=== PATIENT | female | born 1965 | race Caucasian/White ===

== ENCOUNTER 2022-09-03 07:53 | Outpatient (OUT) | payer OTHER, SELFPAY ==
[2022-09-03 09:16] LABS: Thyroid Stimulating Hormone 10.174 uIU/mL (0.358-3.740)
[2022-09-04 17:07] LABS: Thyroglobulin Antibody <1.0 IU/mL (0.0-0.9)
== END 2022-09-03 07:54 ==
LOC: LAB 07:58
PROVIDERS: PCP Family Medicine; Visit Provider Family Medicine
DX: E89.0 Postprocedural hypothyroidism (principal); C73 Malignant neoplasm of thyroid gland; E78.5 Hyperlipidemia, unspecified
CPT/HCPCS: 36415; 80061; 84432; 84443; 84450; 84460; 86800

== ENCOUNTER 2022-09-03 07:59 | Outpatient (OUT) | payer OTHER, SELFPAY ==
[2022-09-03 09:06] LABS: Alanine Aminotransferase 34 U/L (14-59); Aspartate Amino Transferase 33 U/L (15-37); Chol HDL Ratio 2.4; Cholesterol 157 mg/dL (<=200); HDL Cholesterol 66 mg/dL (40-60); Triglycerides 146 mg/dL (<=150); VLDL CHOLESTEROL 29.2 mg/dL
== END 2022-09-03 08:00 ==
LOC: LAB 08:01
PROVIDERS: PCP Family Medicine; Visit Provider Internal Medicine Cardiovascular Disease
DX: E78.5 Hyperlipidemia, unspecified (principal)
CPT/HCPCS: 36415; 80061; 84443; 84450; 84460

== ENCOUNTER 2022-09-30 18:01 | Outpatient (OUT) | payer OTHER, SELFPAY ==
[2022-09-30 21:00] LABS: Alanine Aminotransferase 30 U/L (14-59); Anion Gap 5.4; Aspartate Amino Transferase 26 U/L (15-37); BUN Creatinine Ratio 18.1; Calcium 8.9 mg/dL (8.5-10.1); Carbon Dioxide 31.6 mmol/L (21.0-32.0); Chloride 106 mmol/L (98-107); Chol HDL Ratio 2.5; Cholesterol 155 mg/dL (<=200); Estimated GFR (African America >60 (>=60); Estimated GFR (Non-African Ame >60 (>=60); Glucose 105 mg/dL (74-106); HDL Cholesterol 63 mg/dL (40-60); Sodium 139 mmol/L (136-145); Triglycerides 91 mg/dL (<=150); VLDL CHOLESTEROL 18.2 mg/dL
== END 2022-09-30 18:02 | disposition home or self-care (01) ==
PROVIDERS: PCP Family Medicine
DX: I10 Essential (primary) hypertension (principal); E78.5 Hyperlipidemia, unspecified; I25.10 Atherosclerotic heart disease of native coronary artery without angina pectoris
CPT/HCPCS: 36415; 80048; 80061; 84450; 84460

== ENCOUNTER 2022-09-30 18:07 | Outpatient (OUT) | payer OTHER, SELFPAY ==
[2022-09-30 21:03] LABS: Free T4 0.87 ng/dL (0.76-1.46)
[2022-09-30 21:08] LABS: Thyroid Stimulating Hormone 4.688 uIU/mL (0.358-3.740)
== END 2022-09-30 18:08 | disposition home or self-care (01) ==
PROVIDERS: PCP Family Medicine
DX: I10 Essential (primary) hypertension (principal); I25.10 Atherosclerotic heart disease of native coronary artery without angina pectoris; E78.5 Hyperlipidemia, unspecified; C73 Malignant neoplasm of thyroid gland
CPT/HCPCS: 36415; 80048; 80061; 84439; 84443; 84450; 84460

== ENCOUNTER 2022-10-30 10:12 | Outpatient (OUT) | payer OTHER, SELFPAY ==
[2022-10-30 10:37] LABS: Basophils Absolute Auto 0.1 10^3/uL (0.0-0.1); Basophils Percent Auto 0.9 % (0.2-2.0); Eosinophils Absolute Auto 0.2 10^3/uL (0.0-0.7); Eosinophils Percent Auto 3.3 % (0.9-7.0); Hematocrit 36.9 % (36.0-48.0); Hemoglobin 12.7 g/dL (12.0-16.0); Immature Granulocytes Abs Auto 0.02 10^3/uL (0.00-0.03); Immature Granulocytes Pct Auto 0.3 % (0.0-0.5); Lymphocytes Absolute Auto 1.8 10^3/uL (1.2-3.8); Lymphocytes Percent Auto 25.4 % (20.5-60.0); Mean Corpuscular HGB Conc 34.4 g/dL (29.9-35.2); Mean Corpuscular Hemoglobin 29.7 pg (26.7-34.0); Mean Corpuscular Volume 86.4 fL (81.0-99.0); Mean Platelet Volume 8.8 fL (9.5-13.5); Monocytes Absolute Auto 0.4 10^3/uL (0.3-0.8); Monocytes Percent Auto 5.4 % (1.7-12.0); Neutrophils Absolute Auto 4.6 10^3/uL (1.4-6.5); Neutrophils Percent Auto 64.7 % (43.0-75.0); Platelet Count 267 10^3/uL (150-450); Red Blood Count 4.27 10^6/uL (4.20-5.40); Red Cell Distribution Width 12.5 % (11.0-15.0)
[2022-10-30 12:12] LABS: Anion Gap 10.8; Chloride 105 mmol/L (98-107); Estimated GFR (African America >60 (>=60); Estimated GFR (Non-African Ame >60 (>=60); Potassium 3.8 mmol/L (3.5-5.1); Sodium 139 mmol/L (136-145)
== END 2022-10-30 10:13 | disposition home or self-care (01) ==
LOC: LAB 10:16
PROVIDERS: PCP Family Medicine
DX: Z01.818 Encounter for other preprocedural examination (principal)
CPT/HCPCS: 36415; 80051; 82565; 84520; 85025

== ENCOUNTER 2023-01-29 10:00 | Outpatient (OUT) | payer OTHER, SELFPAY ==
[2023-01-29 11:41] LABS: Thyroid Stimulating Hormone 0.384 uIU/mL (0.358-3.740)
[2023-01-29 11:45] LABS: Free T4 0.82 ng/dL (0.76-1.46)
== END 2023-01-29 10:01 | disposition home or self-care (01) ==
LOC: LAB 10:02
PROVIDERS: PCP Family Medicine
DX: E89.0 Postprocedural hypothyroidism (principal)
CPT/HCPCS: 36415; 84439; 84443

== ENCOUNTER 2023-02-23 14:34 | Outpatient (OUT) | payer OTHER, SELFPAY ==
--- NOTE | 2023-02-23 14:37 | MM_ITS ---
Patient Name: JOHN GUIDO MR#: [id number] : 1965 Exam Date: 02/23/2023 Ordering Doctor: DR. SHIRA METZGER D.O. RADIOLOGY REPORT PROCEDURE: MM TOMOSYNTHESIS SCREENING BI COMPARISON: MG MAMM SCREEN 3D NICOLE CAD, 02/12/2022. MG MAMM SCREEN 3D NICOLE CAD, 11/19/2020. MG MAMM SCREEN NICOLE W CAD, 11/09/2019. MG MAMM NICOLE SCRN W CAD DIG, 07/28/2013. INDICATIONS: Screening Calculator Name NCI Breast Cancer Risk Assessment Tool 5 Year Breast Cancer Risk 2.10% Lifetime Breast Cancer Risk 13.90% Personal Breast Cancer No Personal Ovarian Cancer No Treatments Thyroidectomy, Radioactive iodine Family Cancers Mother with breast cancer at age 50; Grandmother-maternal with breast cancer at age 57. LOCATION: [facility] BREAST COMPOSITION: Heterogeneously dense,which may obscure small masses. FINDINGS: DIAGNOSTIC CATEGORY 1--NEGATIVE. RIGHT BREAST: No significant suspicious finding. No significant change has occurred. LEFT BREAST: No significant suspicious finding. No significant change has occurred. RECOMMENDATIONS: ROUTINE MAMMOGRAM AND CLINICAL EVALUATION IN 12 MONTHS. PLEASE NOTE: A NORMAL MAMMOGRAM DOES NOT EXCLUDE THE POSSIBILITY OF BREAST CANCER. A CLINICALLY SUSPICIOUS PALPABLE LUMP SHOULD BE BIOPSIED. Dictated by: Rudy Esteban M.D. on 02/24/2023 at 13:55 Approved by: Rudy Esteban M.D. on 02/24/2023 at 13:58
== END 2023-02-23 14:35 | disposition home or self-care (01) ==
LOC: MAMMO 14:34
PROVIDERS: PCP Family Medicine; Visit Provider Obstetrics & Gynecology
DX: Z12.31 Encounter for screening mammogram for malignant neoplasm of breast (principal); Z80.3 Family history of malignant neoplasm of breast
CPT/HCPCS: 77063; 77067

== ENCOUNTER 2023-07-13 11:10 | Outpatient (OUT) | payer OTHER, SELFPAY ==
--- OUTSIDE RECORDS SUMMARY | 2023-07-13 11:37 | XMS_ITS | CCD ---
Author Organization [facility] Care Team Providers Care Accelerator Technician Name Role Phone Lamin Benavides MD Primary Care Provider MD Lamin Benavides Primary Care Provider DO Brianna Parker Emergency Provider MD Lamin Benavides Attending Provider MD Bernard Cavanaugh Referring Provider MAKAYLA, DR KIMBLE Consulting Unavailable MAKAYLA, DR KIMBLE Primary Care Unavailable SHIRA METZGER Attending Unavailable YASSINE, SHIRA Admitting Unavailable [place], DR SONIA Parker Consulting Unavailable TIMMIS, DR HERNANDEZ Consulting Unavailable MAKAYLA, DR KIMBLE Primary Care Unavailable TIMMIS, DR HERNANDEZ Attending Unavailable TIMMIS, DR HERNANDEZ Admitting Unavailable ZUÑIGA, KOMAL Consulting Unavailable AGARWALGÓMEZCHA Consulting Unavailable TIMMIS, DR HERNANDEZ Consulting Unavailable MAKAYLA, DR KIMBLE Primary Care Unavailable TIMMIS, DR HERNANDEZ Attending Unavailable TIMMIS, DR HERNANDEZ Admitting Unavailable AGUBOSIM, TUNDE Consulting Unavailable BREE HASTINGS Consulting Unavailable MAKAYLA, DR KIMBLE Consulting Unavailable MAKAYLA, DR KIMBLE Primary Care Unavailable MISC, DR JOHNSON Attending Unavailable MISC, DR JOHNSON Admitting Unavailable MISC, DR JOHNSON Consulting Unavailable MAKAYLA, DR KIMBLE Primary Care Unavailable MISC, DR JOHNSON Attending Unavailable MISC, DR JOHNSON Admitting Unavailable TIMMIS, DR HERNANDEZ Consulting Unavailable MAKAYLA, DR KIMBLE Primary Care Unavailable TIMMIS, DR HERNANDEZ Attending Unavailable TIMMIS, DR HERNANDEZ Admitting Unavailable NEFPABLO DENSON Consulting Unavailable TRABOULSSI, DR GLASS Consulting Unavailab le MAKAYLA, DR KIMBLE Primary Care Unavailable MAKAYLA, DR KIMBLE Referring Unavailable TRABOULSSI, DR GLASS Attending Unavailab le TRABOULSSI, DR GLASS Admitting Unavailab le MAKAYLA, DR KIMBLE Consulting Unavailable MAKAYLA, DR KIMBLE Primary Care Unavailable MAKAYLA, DR KIMBLE Attending Unavailable MAKAYLA, DR KIMBLE Admitting Unavailable MISC, DR JOHNSON Consulting Unavailable MAKAYLA, DR KIMBLE Primary Care Unavailable MISC, DR JOHNSON Attending Unavailable MISC, DR JOHNSON Admitting Unavailable MISC, DR JOHNSON Consulting Unavailable MAKAYLA, DR KIMBLE Primary Care Unavailable MISC, DR JOHNSON Attending Unavailable MISC, DR JOHNSON Admitting Unavailable GrandviewLamin Unavailable Unavailable Unavailable MD Lamin Benavides Primary Care Provider DO Brianna Parker Emergency Provider MD Lamin Benavides Attending Provider [phone] MD Maria Luisa Sarkar Referring Provider MD Maria Luisa Sarkar [facility]ending [facility], Dr. Bernard Newman Attending Unavailable Makayla, Dr. Lamin Berry [facility] Unavaila ble Maria Luisa Sarkar Attending Unavailable [place], Dr. Lamin Berry [facility] Unavaila ble Makayla, [facility]ble [facility] Unavaila ble Maria Luisa Sarkar Attending Unavailable Maria Luisa Sarkar Referring Unavailable Makayla, Dr. Lamin Berry [facility] Unavaila ble Maria Luisa Sarkar Attending Unavailable TrabMaria Luisa huerta Referring Unavailable Makayla Lamin RAMSEY Primary Care Provider [phone] Lamin Benavides Admitting Unavailable Lamin Benavides Attending Unavailable Maria Luisa Sarkar Referring Unavailable Lamin Benavides Primary Care Unavailable Maria Luisa Sarkar Admitting Unavailable Maria Luisa Sarkar Attending Unavailable MakaylaLamin carmona Primary Care Unavailable Maria Luisa Sarkar Admitting Unavailable Maria Luisa Sarkar Attending Unavailable Lamin Benavides Primary Care Unavailable Brianna Parker Admitting Unavailable Brianna Parker Attending Unavailable Makayla, Lamin M Primary Care Unavailable Makayla RAMSEY [facility] Primary [facility] Provider [phone] PJ VELAZQUEZ Attending Unavailable MAKAYLA, RUGEN Primary Care Unavailable ADELFO WEAVER Admitting Unavailable ADELFO WEAVER Attending Unavailable ELVI WARD Attending Unavailable ELVI WARD Referring Unavailable MAKAYLA, RUGEN Primary Care Unavailable HORBAL, HAL Attending Unavailable MAKAYLA, RUGEN Primary Care Unavailable MAKAYLA, RUGEN Referring Unavailable SELF, SELF Referring Unavailable MAKAYLA, RUGEN Primary Care Unavailable HORBAL, HAL Attending Unavailable MAKAYLA, RUGEN Primary Care Unavailable MAKAYLA, RUGEN Primary Care Unavailable HORBAL, HAL Attending Unavailable MAKAYLA, RUGEN Primary Care Unavailable MAKAYLA, RUGEN Referring Unavailable MAKAYLA, RUGEN Primary Care Unavailable MAKAYLA, RUGEN Referring Unavailable HORBAL, HAL Attending Unavailable SELF, SELF Referring Unavailable MAKAYLA, RUGEN Primary Care Unavailable GLADYS YOUNGBLOOD Attending Unavailable Allergies Allergy Classification Reported Allergen(s) Allergy Type Date of Onset Reaction(s) Facility (16 sources) Penicillins; Translations: [Penicillins] Propensity to adverse reactions to drug 8 Hives, Shortness of Breath [facility] (1 source) *Seasonal Propensity to adverse reactions to substance 4 Itchy Eyes, Itchy Throat, Runny Nose, Sneezing [facility] Medications Current Medications Medication Drug Class(es) Dates Sig (Normalized) Sig (Original) biotin 5 mg oral tablet (6 sources) Biotin 5000 MCG tablet Take by mouth. Active 24 hr buPROPion hydrochloride 150 mg extended release oral tablet (14 sources) Aminoketone Start: 10-18-2018 take 1 tablet by mouth once daily buPROPion 150 MG tablet XL Take 1 tablet by mouth daily. 08/06/2021 Active cholecalciferol 0.025 mg oral capsule (15 sources) Vitamin D Start: 08-10-2022 take 1 capsule by mouth once daily Cholecalciferol (Vitamin D3) (Vitamin D3) 25 mcg (1,000 unit) Capsule Active 25 MCG PO Daily August 10, 2022 12:00am Start: 10-18-2018 End: 05-12-2019 take 1 tablet by mouth every week Cholecalciferol (Vitamin D3) (Vitamin D3) 2,000 unit Tablet Discontinued 2000 UNIT PO every week October 18, 2018 12:00am May 12, 2019 3:09pm Cholecalciferol (D-3-5) 125 MCG (5000 UT) capsule Take by mouth. Active Vitamin D3 125 M CG (5000 UT) Oral Capsule TAKE DIRECTED. Quantity: 0 Refills: 0 Ordered: 03-Jun-2022 DO Active Fluticasone Propion-Salmeterol (4 sources) Corticosteroid, beta2-Adrenergic Agonist Start: 05-12-2019 Fluticasone Propion-Salmeterol (Advair Diskus) 250-50 mcg/dose Blister With Device Active 1 INH INHALATION Q12H May 12, 2019 1:00am Start: 05-12-2019 Fluticasone Pr opion-Salmeterol (Advair Diskus) 250-50 mcg/dose Blister With Device Active 1 INH INHALATION Q12H May 12, 2019 12:00am hydroCHLOROthiazide 12.5 mg / olmesartan medoxomil 20 mg oral tablet (15 sources) Thiazide Diuretic, Angiotensin 2 Receptor Anton Start: 10-18-2018 End: 12-31-2022 take 2 tablets by mouth once daily olmesartan-hydrochlorothiazide 20-12.5 MG tablet Take 2 tablets by mouth daily. 60 tablet 3 12/31/2022 Active levothyroxine sodium 0.15 mg oral tablet (7 sources) l-Thyroxine Start: 10-22-2021 levothyroxine 150 MCG tablet Take 1 tablet by mouth As directed. Take one tab daily Wednesday through Wednesday and 1.5 tabs on Sundays (7.5 tabs per week) 32 tablet 11 10/22/2021 Active Start: 10-18-2018 End: 05-20-2022 take 175 ug by mouth once daily Levothyroxine Discontinued 175 MCG PO Daily October 18, 2018 12:00am May 20, 2022 9:10pm take 1 tablet by corine th once daily levothyroxine 200 MCG tablet Take 200 mcg by mouth daily. 0 Active liothyronine sodium 0.005 mg oral tablet (3 sources) l-Triiodothyronine Start: 09-12-2021 take 0.5 tablet by mouth in the morning liothyronine 5 MCG tablet Indications: Postsurgical hypothyroidism TAKE 1/2 TABLET BY MOUTH IN THE MORNING AND 1/2 TABLET AT 1PM 90 tablet 3 09/12/2021 Active take 1 tablet by mouth once live y liothyronine 25 MCG tablet Take 25 mcg by mouth daily. 0 Active loratadine 10 mg oral tablet (16 sources) Start: 08-10-2022 take 1 tablet by mouth once daily Loratadine (Claritin) 10 mg Tablet Active 10 MG PO Daily August 10, 2022 12:00am Start: 10-18-2018 End: 10-18-2018 take 1 tablet by mouth once daily Loratadine (Claritin) 10 mg Tablet Discontinued 10 MG PO Daily October 18, 2018 12:00am October 18, 2018 2:20pm take 1 capsule by [facility] once daily Claritin 10 MG Oral Capsule TAKE 1 CAPSULE Daily Quantity: 0 Refills: 0 Ordered: 03-Jun-2022 DO Active magnesium oxide 500 mg oral capsule (6 sources) Magnesium 500 MG capsule Take by mouth. Active metFORMIN hydrochloride 500 mg oral tablet (14 sources) Biguanide Start: 05-20-2022 take 500 mg by mouth twice daily Metformin Active 500 MG PO Twice daily May 20, 2022 1:00am take 1 tablet by mouth once live y metFORMIN HCl - 500 MG Oral Tablet TAKE 1 TABLET DAILY. Quantity: 0 Refills: 0 Ordered: 03-Jun-2022 DO Active 24 hr metoprolol succinate 25 mg extended release oral tablet (9 sources) beta-Adrenergic Anton Start: 10-15-2022 take 1 tablet by mouth once daily Metoprolol succinate 25 MG tablet XL Take 1 tablet by mouth daily. 90 Each 3 10/15/2022 Active Start: 06-03-2022 End: 08-13-2022 take 25 mg by mouth once daily Metoprolol Succinate Di scontinued 25 MG PO Daily August 10, 2022 12:00am August 13, 2022 10:13am Multiple Vitamins-Minerals (Hair Skin and Nails Formula) tablet (1 source) Multiple Vitamins-Minerals (Hair Skin and Nails Formula) tablet Take by mouth. 0 Active rosuvastatin calcium 20 mg oral tablet (12 sources) HMG-CoA Reductase Inhibitor Start: 023 take 1 tablet by mouth once daily Rosuvastatin 20 MG tablet Take 1 tablet by mouth daily. 60 tablet 3 12/31/2022 Active Start: 06-03-2022 End: 12-31-2022 take 1 tablet by mouth at bedtime Rosuvastatin Calcium 10 MG Oral Tablet TAKE 1 TABLET AT BEDTIME. Quantity: 90 Refills: 3 Ordered: 03-Jun-2022 Maria Luisa Sarkar MD Start : 03-Jun-2022 Active new thyroid (care home) 120 mg oral tablet (15 sources) Start: 02-02-2023 take 1 tablet by mouth once daily thyroid ([place] Thyroid) 120 MG tablet Take 1 tablet by mouth daily. 90 tablet 3 02/02/2023 Active Start: 10-20-2022 take 1 tablet by corine th once daily thyroid ([place] Thyroid) 120 MG tablet Take 1 tablet by mouth daily. 30 tablet 11 10/20/2022 Active Start: 10-19-2022 End: 12-31-2022 Thyroid ([place] Thyroid) 30 MG tablet Take 1 tablet along with the 90 mg tablet to equal 120 mg a day 30 tablet 11 10/19/2022 12/31/2022 Discontinued Start: 10-19-2022 End: 12-31-2022 thyroid ([place] Thyroid) 90 MG tablet Indications: Postsurgical hypothyroidism , Thyroid cancer Take 1 a day along with 1 30 mg tablet a day to equal 120 mg a day 0 10/19/2022 12/31/2022 Discontinued Start: 03-05-2022 take 1 tablet by corine th once daily thyroid ([place] Thyroid) 90 MG tablet Indications: Postsurgical hypothyroidism , Thyroid cancer Take 1 tablet by mouth daily. 30 tablet 11 03/05/2022 Active Completed/Discontinued Medications Medication Drug Class(es) Dates Sig (Normalized) Sig (Original) acetaminophen 325 mg oral tablet (1 source) Start: 11-06-2022 End: 11-06-2022 take 1 tablet by mouth every six hours as needed Acetaminophen (TYLENOL) tablet 325 mg ALPRAZolam 0.5 mg oral tablet (4 sources) Benzodiazepine Start: 10-18-2018 End: 05-20-2022 take 0.5 mg by mouth once daily Alprazolam Discontinued 0.5 MG PO Daily October 18, 2018 12:00am May 20, 2022 9:10pm aspirin 81 mg delayed release oral tablet (12 sources) Platelet Aggregation Inhibitor, Nonsteroidal Anti-inflammatory Drug Start: 11-06-2022 End: 11-06-2022 aspirin chewable tablet 324 mg Start: 06-03-2022 take 1 tablet by corine th once daily Aspirin 81 MG Oral Tablet Delayed Release TAKE 1 TABLET DAILY. Quantity: 90 Refills: 3 Ordered: 28-Jul-2022 Maria Luisa Sarkar MD Start : 03-Jun-2022 Active aspirin 81 MG Ch ew Tab chewable tablet Chew 1 tablet daily. Active baclofen 10 mg oral tablet (10 sources) gamma-Aminobutyric Acid-ergic Agonist Start: 07-24-2021 Baclofen 10 MG Oral Tablet Quantity: 90 Refills: 0 Ordered: 30-Sep-2021 DO Start : 24-Jul-2021 Active Start: 05-07-2021 End: 07-01-2023 baclofen 10 MG tablet Take 1 0 mg by mouth as needed. 05/07/2021 07/01/2023 Discontinued bisoprolol fumarate 5 mg / hydroCHLOROthiazide 6.25 mg oral tablet (4 sources) Thiazide Diuretic, beta-Adrenergic Anton Start: 05-12-2019 End: 05-20-2022 take 1 tablet by mouth once daily Bisoprolol-Hydrochlorothiazide Discontinued 1 TAB PO Daily May 12, 2019 1:00am May 20, 2022 9:09pm Collagen (7 sources) End: 07-01-2023 COLLAGEN PO Take by mouth. 07/01/2023 Discontinued COLLAGEN PO Take by mouth. 0 Active dapagliflozin 10 mg oral tablet (1 source) Sodium-Glucose Cotransporter 2 Inhibitor Start: 07-01-2023 End: 07-07-2023 take 1 tablet by mouth once daily dapagliflozin 10 MG tablet Take 1 tablet by mouth daily. 30 tablet 1 07/01/2023 07/07/2023 Discontinued (Reorder) diclofenac sodium 75 mg delayed release oral tablet (4 sources) Nonsteroidal Anti-inflammatory Drug Start: 05-12-2019 End: 06-05-2019 take 75 mg by mouth once daily Diclofenac Sodium Discontinued 75 MG PO Daily May 12, 2019 1:00am June 05, 2019 1:32pm ergocalciferol 1.25 mg oral capsule (4 sources) Provitamin D2 Compound Start: 05-12-2019 End: 05-20-2022 Ergocalciferol (Vitamin D2) (Vitamin D2) 1,250 mcg (50,000 unit) Capsule Discontinued 04882 UNIT PO every week May 12, 2019 1:00am May 20, 2022 9:09pm 24 hr isosorbide mononitrate 30 mg extended release oral tablet (3 sources) Nitrate Vasodilator Start: 10-15-2022 End: 12-31-2022 take 1 tablet by mouth once daily in the morning Isosorbide mononitrate 30 MG Tab SR 24 HR tablet XL Take 1 tablet by mouth daily every morning. 30 tablet 3 10/15/2022 12/31/2022 Discontinued (Side effects) Pervodwblisa-Dqbo-Ti lic Acid (Centrum) 18-400 mg-mcg Tablet (4 sources) Start: 06-05-2019 End: 05-20-2022 take 1 tablet by mouth once daily Ynmpjztzobix-Amag-I olic Acid (Centrum) 18-400 mg-mcg Tablet Discontinued 1 TAB PO Daily June 05, 2019 1:00am May 20, 2022 9:10pm Start: 06-05-2019 End: 05-20-2022 take 1 tablet by mouth once daily Rhscnslummoh-Pnhy-Lttoo Acid (Centrum) 18-400 mg-mcg Tablet Discontinued 1 TAB PO Daily June 05, 2019 12:00am May 20, 2022 8:10pm nitroglycerin 0.4 mg sublingual tablet (5 sources) Nitrate Vasodilator Start: 06-03-2022 Nitroglyce rin 0.4 MG Sublingual Tablet Sublingual TAKE DIRECTED. Quantity: 25 Refills: 11 Ordered: 03-Jun-2022 Maria Luisa Sarkar MD Start : 03-Jun-2022 Active new 250 ml sodium chloride 9 mg/ml injection (2 sources) Start: 11-06-2022 End: 11-06-2022 Sodium chloride 0.9% IV solution Start: 11-06-2022 End: 11-06-2022 Sodium chloride 0.9% IV solu tion Specialty Vitamins Products (BIOTIN PLUS KERATIN PO) (5 sources) End: 12-31-2022 Specialty Vitamins Products (BIOTIN PLUS KERATIN PO) Take by mouth. 0 12/31/2022 Discontinued Specialty Vitami ns Products (BIOTIN PLUS KERATIN PO) Take by mouth. 0 Active vitamin b12 1 mg sublingual tablet (10 sources) Vitamin B12 Start: 02-10-2019 End: 05-20-2022 take 1000 ug by mouth once daily Cyanocobalamin (Vitamin B-12) Discontinued 1000 MCG PO Daily February 10, 2019 1:00am May 20, 2022 9:10pm End: 07-01-2023 Cyanocobalamin (B-12) 100 MC G tablet Take by mouth. 07/01/2023 Discontinued Problems Active Problems Problem Classification Problem Date Documented Da te Episodic/Chronic Anxiety disorders (1 source) Generalized anxiety disorder; Translations: [GENERALIZED ANXIETY DISORDER] Onset: 11-27-2021 Chronic Asthma (3 sources) Unspecified asthma, uncomplicated; Translations: [Asthma] Onset: 11-27-2021 07-01-2023 Chronic Cancer of thyroid (12 sources) Malignant tumor of thyroid gland; Translations: [Malignant neoplasm of thyroid gland] Onset: 09-02-2021 Chronic Complications of surgical procedures or medical care (13 sources) Postoperative hypothyroidism; Translations: [Postprocedural hypothyroidism] Onset: 09-02-2021 Chronic Congestive heart failure; nonhypertensive (4 sources) Chronic diastolic (congestive) heart failure; Translations: [Chronic heart failure co-occurrent with normal ejection fraction] Onset: 07-01-2023 Chronic Coronary atherosclerosis and other heart disease (12 sources) Angina pectoris; Translations: [Other and unspecified angina pectoris] Onset: 12-31-2022 10-15-2022 Chronic Diabetes mellitus without complication (5 sources) Type 2 diabetes mellitus without complications; Translations: [Diabetes mellitus] Onset: 11-27-2021 07-01-2023 Chronic Disorders of lipid metabolism (8 sources) Hyperlipidemia, unspecified; Translations: [Hyperlipidemia] Onset: 06-18-2022 Chronic Essential hypertension (6 sources) Essential (primary) hypertension; Translations: [Benign essential hypertension] Onset: 11-27-2021 12-31-2022 Chronic Nonspecific chest pain (7 sources) Chest pain; Translations: [Chest pain, unspecified] Onset: 06-02-2022 05-20-2022 Episodic Nutritional deficiencies (1 source) Vitamin D deficiency; Translations: [Vitamin D deficiency, unspecified] Chronic Other lower respiratory disease (1 source) Dyspnea; Translations: [Dyspnea, unspecified] 12-31-2022 Episodic Other nutritional; endocrine; and metabolic disorders (3 sources) Obesity; Translations: [Obesity, unspecified] Chronic Other nutritional; endocrine; and metabolic disorders (5 sources) Obese class I; Translations: [Obesity, unspecified] Onset: 10-15-2022 10-15-2022 Chronic Other upper respiratory infections (2 sources) Chronic sinusitis, unspecified; Translations: [Sinusitis] Onset: 10-27-2021 07-01-2023 Chronic Syncope (1 source) Syncope and collapse; Translations: [Syncope and collapse] 10-15-2022 Episodic Unclassified (1 source) CONTACT W/AND (SUSP) EXPOS COVID-19; Translations: [CONTACT W/AND (SUSP) EXPOS COVID-19] Onset: 11-17-2021 Unclassified (1 source) Encounter for preprocedural laboratory examination; Translations: [Encounter for preprocedural laboratory examination] Onset: 08-10-2022 Past or Other Problems Problem Classification Problem Date Documented Da te Episodic/Chronic Allergic reactions (4 sources) Urticaria, unspecified; Translations: [URTICARIA UNSPECIFIED] Onset: 02-24-2022 Episodic Cancer of thyroid (1 source) Personal history of malignant neoplasm of thyroid; Translations: [PERSONAL HX MALIG NEOPLASM THYROID] Onset: 11-27-2021 Episodic Mood disorders (7 sources) Mood disorders Onset: 09-02-2021 Resolved: 09-08-2022 09-02-2021 Other aftercare (1 source) meterman (current) use of oral hypoglycemic drugs; Translations: [LOG LOADER USE ORAL HYPOGLYCEMIC DX] Onset: 11-27-2021 Episodic Other lower respiratory disease (1 source) Shortness of breath; Translations: [SHORTNESS OF BREATH] Onset: 02-28-2022 Episodic Other lower respiratory disease (2 sources) Dyspnea, unspecified; Translations: [Dyspnea, unspecified] Onset: 12-31-2022 Episodic Other screening for suspected conditions (not mental disorders or infectious disease) (14 sources) Patient encounter status; Translations: [Encounter for screening for malignant neoplasm of colon] Onset: 02-12-2022 02-10-2019 Episodic Other upper respiratory disease (1 source) Hypertrophy of nasal turbinates; Translations: [HYPERTROPHY OF NASAL TURBINATES] Onset: 11-27-2021 Episodic Other upper respiratory disease (1 source) Other specified disorders of nose and nasal sinuses; Translations: [OTH SPEC D/O NOSE NASAL SINUSES] Onset: 11-27-2021 Episodic Other upper respiratory disease (5 sources) Deviated nasal septum; Translations: [DEVIATED NASAL SEPTUM] Onset: 11-17-2021 Episodic Residual codes; unclassified (1 source) Family history of malignant neoplasm of breast; Translations: [FAMILY HX MALIG NEOPLASM OF BREAST] Onset: 02-16-2022 Episodic Residual codes; unclassified (1 source) Acquired absence of both cervix and uterus; Translations: [ACQUIRED ABSENCE BOTH CERVIX AND UTERUS] Onset: 11-27-2021 Episodic Residual codes; unclassified (1 source) Acquired absence of other specified parts of digestive tract; Translations: [ACQ ABSENCE OTH PART DIGESTV TRACT] Onset: 11-27-2021 Episodic Unclassified (3 sources) Never smoked tobacco; Translations: [Never a smoker] Results Test Name Value Interpretation Reference Range Facility B-TYPE NATRIURETIC PEPTIDE ( BRAIN)on 07-01-2023 Interpretation and review of laboratory results Normal [facility] Natriuretic peptide B (Bld) [Mass/Vol] 15 pg/mL 0 - 100 pg/mL [facility] Natriuretic peptide B (Bld) [Mass/Vol] 15 pg/mL Normal 0-100 [facility] Comment on above: Performed By: #### B FABRICATION SUPERVISOR #### [facility] (DEFAULT) [address] [place] [id number] CHEM 6 (LYTES, BUN CREA)on 0 07-01-2023 Anion gap [Moles/Vol] 12 mmol/L Normal 7-17 [facility] Comment on above: Performed By: #### C HM6 #### [facility] (DEFAULT) [address] [place] [id number] Chloride [Moles/Vol] 102 mmol/L Normal 98-108 [facility] Comment on above: Performed By: #### C HM6 #### [facility] (DEFAULT) [address] [place] [address] 42966 CO2 [Moles/Vol] 29 mmol/L Normal 21-31 [facility] Comment on above: Performed By: #### C HM6 #### [facility] (DEFAULT) [address] [place] [address] 21990 Creatinine [Mass/Vol] 0.75 mg/dL Normal 0.50-1.20 [facility] Comment on above: Performed By: #### C HM6 #### [facility] (DEFAULT) [address] [place] [address] [id number] eGFR, CKD-EPI, Female > Normal >=60 [facility] Comment on above: Result Comment: Repo rted eGFR is based on the CKD-EPI 2020 equation using creatinine, age, and sex. Performed By: #### C HM6 #### [facility] (DEFAULT) [address] [place] [address] [id number] Potassium [Moles/Vol] 3.8 mmol/L Normal 3.5-5.0 [facility] Comment on above: Performed By: #### C HM6 #### [facility] (DEFAULT) [address] [place] [address] 15545 Sodium [Moles/Vol] 139 mmol/L Normal 135-145 [facility] Comment on above: Performed By: #### C HM6 #### [facility] (DEFAULT) [address] [place] [address] [id number] Urea nitrogen [Mass/Vol] 15 mg/dL Normal 7-25 [facility] Comment on above: Performed By: #### C HM6 #### [facility] (DEFAULT) [address] [place] [address] [id number] Urea nitrogen/Creatinine [Mass ratio] 20 mg/mg Normal [facility] Comment on above: Performed By: #### C HM6 #### [facility] (DEFAULT) [address] [place] [address] [id number] Anion gap [Moles/Vol] 12 mmol/L 7 - 17 mmol/L [facility] Chloride [Moles/Vol] 102 mmol/L 98 - 10 8 mmol/L [facility] CO2 [Moles/Vol] 29 mmol/L 21 - 31 mmol/L [facility] Creatinine [Mass/Vol] 0.75 mg/dL 0.50 - 1.20 mg/dL [facility] eGFR, CKD-EPI, [facility] - [facility] Comment on above: Reported eGFR is bas ed on the CKD-EPI 2020 equation using creatinine, age, and sex. Potassium [Moles/Vol] 3.8 mmol/L 3.5 - 5.0 mmol/L [facility] Sodium [Moles/Vol] 139 mmol/L 135 - 145 mmol/L [facility] Urea nitrogen [Mass/Vol] 15 mg/dL 7 - 25 mg/dL [facility] Urea nitrogen/Creatinine [Mass ratio] 20 [facility] Procedure Ordered By: Nesha Mejia on 12-31-2022 Ao ASC index 1.45 cm/m2 [facility] Work Phone: Ao peak deena 1.09 m/s [facility]: Ao SOV index 1.38 cm/m2 [facility] Work Phone: Ao STJ index 1.34 cm/m2 [facility] Work Phone: Ao VTI 20.44 cm [facility] Work Phone: Ascending [facility] 2.92 [facility]: AV LVOT peak gradient 4 [facility]: AV mean gradient 3 mmHg [facility]: AV peak gradient 5 mmHG [facility] Work Phone: AV valve area 4.18 cm2 [facility] Work Phone: AV Velocity Ratio 0.92 [facility] Phone: ESTEFANÍA (continuity Vmax) 3.45 [facility]2 [facility]: ESTEFANÍA (continuity VTI) 4.18 cm2 [facility] Work Phone: ESTEFANÍA index (continuity Vmax) 1.71 m/s [facility] Work Phone: ESTEFANÍA index (continuity VTI) 2.07 cm2/m2 [facility] Work Phone: Avg e' pk deena 0.10 m/s [facility] Work Phone: Avg E/e' ratio 7.10 [facility] Work Phone: Body surface area Derived from formula 2.02 m2 [facility] Work Phone: BP EF 63 % [facility] Work Phone: DI (Vmax) 0.92 [facility] Work Phone: DI (VTI) 1.11 m/2 [facility] Work Phone: E wave decelartion time 193.38 msec [facility] Work Phone: e' lateral pk deena 0.0978 m/s [facility] Work Phone: e' lateral pk deena 0.10 m/s [facility] Work Phone: e' septal pk deena 0.0994 m/s [facility] Work Phone: e' septal pk deena 0.10 m/s [facility] Work Phone: E[facility]A ratio 1.11 [facility]: [facility]: E/e' septal ratio 7.04 [facility] Work Phone: EF SP 2CH 64 [facility] Work Phone: EF SP 4CH 60 [facility] Work Phone: FS 43 % 28 - 44 % [facility] Work Phone: IVS 0.83 cm [facility] Work Phone: LA AREA 2CH 17.95 cm2 [facility] Work Phone: LA area 4CH 15.62 cm2 [facility] Work Phone: LA ESV BP (MOD) 42 mL [facility] Work Phone: LA ESV BP (MOD) index 21 mL/m2 [facility] Work Phone: LA ESV SP 2CH (MOD) 48 mL [facility] Work Phone: LA ESV SP 4CH (MOD) 35 mL [facility] Work Phone: LV EDV BP 107 mL [facility] Work Phone: LV EDV SP 2CH 109 mL [facility] Work Phone: LV EDV SP 4CH 100 [facility] Work Phone: LV ESV BP 40 mL [facility] Work Phone: LV ESV SP 2CH 39 mL [facility] Work Phone: LV ESV SP 4CH 40 mL [facility] Work Phone: LV mass 128.12 g [facility] Work Phone: LV Mass Index 63.4 g/m2 [facility] Work Phone: LV RWT 0.38 [facility] Work Phone: LV stroke volume BP (ml) 67 mL [facility] Work Phone: LV stroke volume index BP 33.17 mL/m2 [facility] Work Phone: LVIDD 4.61 [facility] Work Phone: LVIDS 2.64 cm [facility] Work Phone: LVOT area 3.76 cm2 [facility] Work Phone: LVOT diameter 2.19 cm [facility] Work Phone: LVOT peak deena 1.00 m/s [facility] Work Phone: LVOT peak VTI 22.67 cm [facility] Work Phone: LVOT stroke volume 85 cm3 [facility] Work Phone: LVOT stroke volume index 42.25 ml/m2 [facility] Work Phone: MV pk A deena 0.63 m/s [facility] Work [facility]: MV pk E deena 0.70 m/s [facility] Work Phone: MV stenosis pressure 1/2 time 56.08 ms [facility] Work Phone: MV valve area p 1/2 method 3.92 cm2 [facility] Work Phone: [facility] AV VTI RATIO PRE STRESS 1.11 [facility] Work Phone: OSU ECHO LV BIPLANE SYSTOLIC VOLUME INDEX 19.80 mL/m2 [facility] Work Phone: OSU ECHO LV BP DIASTOLIC VOLUME INDEX 52.97 mL/m2 [facility] Work Phone: OSU RVOT VTI RATIO 0.48 [facility] Work Phone: PV mean gradient 4 mmHg [facility] Work Phone: PV peak gradient 6 mmHg [facility] Work Phone: PV PK DEENA 1.23 m/s [facility] Work Phone: PV VTI 28.69 cm [facility] Work Phone: PW 0.87 cm [facility] Work Phone: RA vol index 4CH (MOD) 9.41 mL/m2 [facility] Work Phone: Right atrium volume 4 chamber method of disks 19 mL [facility] Work Phone: RV Area diastolic 21.13 cm2 [facility] Work Phone: RV Area systolic 10.24 cm2 [facility] Work Phone: RV basal diam 3.44 cm [facility] Work Phone: RV Fractional area change 51.5 % [facility] Work Phone: RV long diam 7.48 cm [facility] Work Phone: RV mid diam 1.85 cm [facility] Work Phone: RV S' 12.79 cm[facility]s [facility] Work Phone: RVOT peak gradient 1 mmHg [facility] Work Phone: RVOT peak deena 0.60 m/s [facility] Work Phone: RVOT peak VTI 13.82 cm [facility] Work Phone: Sinus 2.78 cm [facility] Work Phone: STJ 2.71 cm [facility] Work Phone: Stroke Volume 85 cm/mL [facility] Work Phone: Stroke volume index 42 [facility] Work Phone: [facility] Work Phone: Cardiac echo study Procedure on 12-31-2022 Left Ventricle: Agnes ann marie size is normal. Normal wall thickness. Normal global systolic function. Regional wall motion is normal. Ejection fraction is normal (60 - 65%). Diastolic function is normal. Right Ventricle: Chamber size is normal. Normal wall thickness. Segmental wall motion is normal. Systolic function is normal. Left Atrium: Chamber size is normal. Aortic Valve: Trileaflet valve. Leaflet mobility is normal. No regurgitation. No stenosis. Mitral Valve: Normal appearing leaflets. Leaflet mobility is normal. No regurgitation. No valve stenosis. Tricuspid Valve: Normal leaflets. Leaflet mobility is normal. Trace regurgitation. No stenosis. RVSP could not be calculated due to an inadequate TR jet There is no prior study for comparison Left Ventricle Chamber size is normal. Normal wall thickness. Normal global systolic function. Regional wall motion is normal. Ejection fraction is normal (60 - 65%). Diastolic function is normal. Right Ventricle Chamber size is normal. Normal wall thickness. Segmental wall motion is normal. Systolic function is normal. Left Atrium Chamber size is normal. Right Atrium Chamber size is normal. Mitral Valve Normal appearing leaflets. Leaflet mobility is normal. No regurgitation. No valve stenosis. Tricuspid Valve Normal leaflets. Leaflet mobility is normal. Trace regurgitation. No stenosis. Aortic Valve Trileaflet valve. Leaflet mobility is normal. No regurgitation. No stenosis. Pulmonic Valve Normal structure. No regurgitation. No stenosis. Pericardium Appears normal. No pericardial effusion. Septum The atrial septum is normal. Aorta No dilation to extent seen. Study Details A complete echocardiography study was performed. Study limitations include poor cardiac windows, patient body habitus and technically difficult study. Imaging system used: Siemens. Indications Indications for study: dyspnea. [facility] Radiology Study observation (narrative) [facility] ECHOCARDIOGRAMon 12-31-2022 Echocardiography ? Left Ventricle: Ch joe size is normal. Normal wall thickness. Normal global systolic function. Regional wall motion is normal. Ejection fraction is normal (60 - 65%). Diastolic function is normal. ? Right Ventricle: Chamber size is normal. Normal wall thickness. Segmental wall motion is normal. Systolic function is normal. ? Left Atrium: Chamber size is normal. ? Aortic Valve: Trileaflet valve. Leaflet mobility is normal. No regurgitation. No stenosis. ? Mitral Valve: Normal appearing leaflets. Leaflet mobility is normal. No regurgitation. No valve stenosis. ? Tricuspid Valve: Normal leaflets. Leaflet mobility is normal. Trace regurgitation. No stenosis. ? RVSP could not be calculated due to an inadequate TR jet ? There is no prior study for comparison Table formatting from the original result was not included. Images from the original result were not included. Facility [facility] Patient Information Patient Name Swapna Guido Legal Sex Female Indication for Exam Priority: Routine Dx: Dyspnea, unspecified type [R06.00 (ICD-10-CM)] Comments: Dyspnea Interpretation Summary ? Left Ventricle: Chamber size is normal. Normal wall thickness. Normal global systolic function. Regional wall motion is normal. Ejection fraction is normal (60 - 65%). Diastolic function is normal. ? Right Ventricle: Chamber size is normal. Normal wall thickness. Segmental wall motion is normal. Systolic function is normal. ? Left Atrium: Chamber size is normal. ? Aortic Valve: Trileaflet valve. Leaflet mobility is normal. No regurgitation. No stenosis. ? Mitral Valve: Normal appearing leaflets. Leaflet mobility is normal. No regurgitation. No valve stenosis. ? Tricuspid Valve: Normal leaflets. Leaflet mobility is normal. Trace regurgitation. No stenosis. ? RVSP could not be calculated due to an inadequate TR jet ? There is no prior study for comparison Findings Left Ventricle Chamber size is normal. Normal wall thickness. Normal global systolic function. Regional wall motion is normal. Ejection fraction is normal (60 - 65%). Diastolic function is normal. Right Ventricle Chamber size is normal. Normal wall thickness. Segmental wall motion is normal. Systolic function is normal. Left Atrium Chamber size is normal. Right Atrium Chamber size is normal. Septum The atrial septum is normal. Mitral Valve Normal appearing leaflets. Leaflet mobility is normal. No regurgitation. No valve stenosis. Aortic Valve Trileaflet valve. Leaflet mobility is normal. No regurgitation. No stenosis. Tricuspid Valve Normal leaflets. Leaflet mobility is normal. Trace regurgitation. No stenosis. Pulmonic Valve Normal structure. No regurgitation. No stenosis. Aorta No dilation to extent seen. Pericardium Appears normal. No pericardial effusion. Reading Providers Reading Role Read Date Nesha Mejia MD Echo [place] 12/31/2022 Left Heart Measurements LV - Systole LVIDD 4.61 cm IVS 0.83 cm LVIDS 2.64 cm PW 0.87 cm LV RWT 0.38 LV Mass Index 63.4 g/m2 LV EDV BP 107 mL LV ESV BP 40 mL BP EF 63 % LV stroke volume BP (ml) 67 mL LV stroke volume index BP 33.17 mL/m2 LV - Diastole MV pk E deena 0.7 m/s MV pk A deena 0.63 m/s E/A ratio 1.11 e' septal pk deena 0.1 m/s e' lateral pk deena 0.1 m/s Avg e' pk deena 0.1 m/s E/e' septal ratio 7.04 E/e' lateral ratio 7.16 Avg E/e' ratio 7.1 LV - HCM AV LVOT peak gradient 4 mmHg Left Atrium LA ESV SP 4CH (MOD) 35 mL LA ESV SP 2CH (MOD) 48 mL LA ESV BP (MOD) index 21 mL/m2 Right Heart Measurements RV - 2D RV basal diam 3.44 cm RV mid diam 1.85 cm RV long diam 7.48 cm RV Area diastolic 21.13 cm2 RV Area systolic 10.24 cm2 RV Fractional area change 51.5 % RV - Doppler RV S' 12.79 cm/s Right Atrium RA vol index 4CH (MOD) 9.41 mL/m2 Great Vessels Aortic Root - End Diastolic Sinus 2.78 cm STJ 2.71 cm Ascending aorta 2.92 cm Doppler Measurements - Aortic Valve Stenosis LVOT diameter 2.19 cm LVOT area 3.76 cm2 LVOT peak deena 1 m/s LVOT peak VTI 22.67 cm Stroke Volume 85 cm/mL Stroke volume index 42 Ao peak deena 1.09 m/s Ao VTI 20.44 cm AV peak gradient 5 mmHG AV mean gradient 3 mmHg DI (VTI) 1.11 m/2 DI (Vmax) 0.92 ESTEFANÍA (continuity Vmax) 3.45 cm2 ESTEFANÍA index (continuity Vmax) 1.71 m/s ESTEFANÍA (continuity VTI) 4.18 cm2 ESTEFANÍA index (continuity VTI) 2.07 cm2/m2 LVOT stroke volume 85 cm3 LVOT stroke volume index 42.25 ml/m2 Doppler Measurements - Mitral Valve Stenosis MV pk E deena 0.7 m/s MV pk A deena 0.63 m/s E/A ratio 1.11 MV stenosis pressure 1/2 time 56.08 ms MV valve area p 1/2 method 3.92 cm2 PISA-MS MV pk E deena 0.7 m/s (more content not included)... Normal [facility] INVASIVE CARDIOVASCULAR PROC [facility] 11-09-2022 INVASIVE CARDIOVASCULAR PROCEDURE Conclusions Mild coronary artery disease without obstructive stenosis of the LAD. LVEDP 20 mmHg Recommendations Continue anti-anginal therapy for possible microvascular dysfunction in the setting of mild non-obstructive CAD. Aggressive risk factor modification Procedure notes Right radial ultrasound-guided access - TR compression at conclusion of procedure. Table formatting from the original result was not included. Images from the original result were not included. Swapnamathew Guido Invasive Cardiology Cath Procedure Ordering Physician: MARCELLO GALEANA Order #: [id number] Study Date: 11/06/2022 Patient Information Name MRN Description Swapna Guido [id number] 57 y.o. female Location Name Address [facility] [address] [facility] [address] Physicians Panel Physicians Referring Physician Case Authorizing Physician Sary Singh MD (Primary) MD Marcello Mcneill MD Frank R Weigel, DO (Fellow) CC Referring Recipient Method Contact Information Lamin Benavides MD Fax ? Procedures LEFT HEART CATHETERIZATION CORONARY ANGIOGRAM ULTRASOUND GUIDED ACCESS Indications 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 [I25.119 (ICD-10-CM)] Conclusion Conclusions Mild coronary artery disease without obstructive stenosis of the LAD. LVEDP 20 mmHg Recommendations Continue anti-anginal therapy for possible microvascular dysfunction in the setting of mild non-obstructive CAD. Aggressive risk factor modification Procedure notes Right radial ultrasound-guided access - TR compression at conclusion of procedure. Medical History Diagnosis Date Comment Source Essential hypertension, benign Malignant melanoma of nose NM (myocardial infarction) May Thyroid cancer Procedure The risks and alternatives of the procedure and sedation were explained. Informed consent was obtained. The patient was brought to the cleaner laboratory equipment and placed on the table. The planned puncture sites were prepped and draped in the usual sterile fashion. Coronary Findings Diagnostic Dominance: Right Left Anterior Descending The vessel is moderate in size. There is mild diffuse disease throughout the vessel. Prox LAD lesion is 20% stenosed. The lesion is mildly calcified. Mid LAD lesion is 20% stenosed. Second Septal Branch There is mild diffuse disease throughout the vessel. Left Circumflex The vessel exhibits minimal luminal irregularities. Right Coronary Artery The vessel is moderate in size. There is mild diffuse disease throughout the vessel. Intervention No interventions have been documented. Fluoro Dose Fluoro Dose: 38.5 Gy-cm^2 Complications Complications documented before study signed (11/09/2022 12:42 PM) No complications were associated with this study. Documented by Michael Meehan DO - 11/06/2022 12:13 PM Cardiac Crime Scene Technician Attending Physician Statement and Signature I have personally performed and/or personally supervised and was present for this entire procedure, including the review and interpretation of all images and physiologic tracings acquired during the course of this study. Signed at 1242 EDT Phase: Baseline Data Systolic (mmHg) Diastolic (mmHg) Mean (mmHg) dP/dt (mmHg/sec) A Wave (mmHg) V Wave (mmHg) AO Pressures 128 63 89 LV Pressures 139 20 Coronary Findings Diagnostic Dominance: Right Left Anterior Descending The vessel is moderate in size. There is mild diffuse disease throughout the vessel. Prox LAD lesion is 20% stenosed. The lesion is mildly calcified. Mid LAD lesion is 20% stenosed. Second Septal Branch There is mild diffuse disease throughout the vessel. Left Circumflex The vessel exhibits minimal luminal irregularities. Right Coronary Artery The vessel is moderate in size. There is mild diffuse disease throughout the vessel. Intervention No interventions have been documented. Case Tracking Events Event Time In Patient In - Facility (Arrived) 10:04 AM In Preprocedure 10:05 AM Patient Ready for Procedure-No Consent 10:55 AM Medical History Prompt Yes/No Comments Date NM Yes May Hypertension Yes Stroke Unanswered Vascular Disease Unanswered COPD Unanswered Diabetes Unanswered Surgical History Prompt Yes/No Procedure Laterality Comments Date CABG Unanswered Coronary Artery Bypass Graft Tobacco Use Never smoked or used smokeless tobacco. SNOMED CT?: Never smoked tobacco ([id number]). Vaping Use Never used Last Resulted Components Date/Time Component Value Lab Status 11/06/22 1024 HGB 12.6 Final result Normal [facility] CBC,PLATELETSon 11-06-2022 Hematocrit (Bld) [Volume fraction] 36.4 % Normal 34.9-44.3 [facility] Comment on above: Performed By: #### H [facility] #### [facility] (DEFAULT) [address] [address] Hemoglobin (Bld) [Mass/Vol] 12.6 g/dL Normal 11.4-15.2 [facility] Comment on above: Performed By: #### H EMO #### [facility] (DEFAULT) [address] [address] MCV (RBC) [Entitic vol] 85.8 fL Normal 79.6-97.7 [facility] Comment on above: Performed By: #### H EMO #### [facility] (DEFAULT) [address] [address] Mean Cell Hgb 29.7 pg Normal 25.9-33.9 [facility] Comment on above: Performed By: #### H EMO #### [facility] (DEFAULT) [address] [address] Mean Cell Hgb Conc 34.6 g/dL Normal 31.4-35.9 [facility] Comment on above: Performed By: #### H EMO #### [facility] (DEFAULT) [address] [address] Platelet mean volume (Bld) [Entitic vol] 9.2 fL Normal 8.5-12.2 [facility] Comment on above: Performed By: #### H EMOGC #### [facility] (DEFAULT) [address] [place] [address] Platelets (Bld) [#/Vol] 284 10*3/uL Normal 150-393 [facility] Comment on above: Performed By: #### H EMOGC #### [facility] (DEFAULT) [address] [place] [address] RBC (Bld) [#/Vol] 4.24 10*6/uL Normal 3.91-5.04 [facility] Comment on above: Performed By: #### H EMO #### [facility] (DEFAULT) [address] [place] [address] RBC Distribution 12.5 % Normal 10.8-14.9 [facility] Comment on above: Performed By: #### H EMO #### [facility] (DEFAULT) [address] [place] [address] WBC (Bld) [#/Vol] 6.65 10*3/uL Normal 3.99-11.19 [facility] Comment on above: Performed By: #### H EMO #### [facility] (DEFAULT) [address] [place] [address] Erythrocyte distribution width (RBC) [Ratio] 12.5 % 10.8 - 14.9 % [facility] Hematocrit (Bld) [Volume fraction] 36.4 % 34.9 - 44.3 % [facility] Hemoglobin (Bld) [Mass/Vol] 12.6 g/dL 11.4 - 15.2 g/dL [facility] Interpretation and review of laboratory results Normal [facility] MCH (RBC) [Entitic mass] 29.7 pg 25.9 - 33.9 pg [facility] MCHC (RBC) [Mass/Vol] 34.6 g/dL 31.4 - 35.9 g/dL [facility] MCV (RBC) [Entitic vol] 85.8 fL 79.6 - 97.7 fL [facility] Platelet mean volume (Bld) [Entitic vol] 9.2 fL 8.5 - 12.2 fL [facility] Platelets (Bld) [#/Vol] 284 10*3/uL 150 - 393 K/uL [facility] RBC (Bld) [#/Vol] 4.24 10*6/uL [facility] WBC (Bld) [#/Vol] 6.65 10*3/uL 3.99 - 11.19 K/uL [facility] Cardiac catheterization stud yon 11-06-2022 [facility] Radiology Study observation (narrative) [facility] EXTRA MINT GREEN TOPon 11-06 [facility] Tobacco Screening.on 023 Adult depression screening assessment No [facility] antonio 250 DO Work Phone: Fall risk assessment a) No falls within the last year [facility] 250 DO Work Phone: Tobacco use status [facility] b) No [facility] 250 DO Work Phone: ECG 12 lead ECGon 08-13-2022 ECG 12 lead ECG [facility] [place] [address] Electrocardiograph Report Signed Patient: Swapna Guido MR#: [id number] 8 : 1965 Acct:[id number] Age/Sex: 57 / F ADM Date: 08/12/22 Loc: Room: [address] [place] [address] Type: REG SD Attending Dr: Maria Luisa Sarkar MD Ordering Provider: Maria Luisa Sarkar MD Date of Service: 08/13/2202/25/500 ECG/ECG 12 lead ECG: post MET Copies to: Test Reason : Blood Pressure : / mmHG Vent. Rate : 056 BPM Atrial Rate : 056 BPM P-R Int : 172 ms QRS Dur : 082 ms QT Int : 412 ms P-R-T Axes : 035 055 023 degrees QTc Int : 397 ms Sinus bradycardia Otherwise normal ECG When compared with ECG of 12-AUG-2022 15:52, (Unconfirmed) No significant change was found Confirmed by SILVERIO KHAN DO ([id number]) on 08/13/2022 1:01:25 PM Referred By: Electronically Signed By:SILVERIO KHAN DO Transcribed By: MUS Signed By Silverio Khan DO 08/13 1301 Normal [facility] Urinalysison 08-13-2022 Appearance (U) Clear Normal Clear [facility] Comment on above: Order Comment: Name Collection Type:: Clean-Voided Midstream Performed By: #### U A #### [facility] [address] [place] [address] [place] Bilirubin,Urine Negative Normal Negative [facility] Comment on above: Order Comment: Name Collection Type:: Clean-Voided Midstream Performed By: #### U A #### [facility] [address] [place] [id number] [place] Color (U) Yellow Normal Yellow [facility] Comment on above: Order Comment: Name Collection Type:: Clean-Voided Midstream Performed By: #### U A #### [facility] [address] [place] [address] [place] Glucose Ql (U) Normal Normal Normal [facility] Comment on above: Order Comment: Name Collection Type:: Clean-Voided Midstream Performed By: #### U A #### [facility] [address] [place] [address] [place] Ketones Ql (U) Negative Normal Negative [facility] Comment on above: Order Comment: Name Collection Type:: Clean-Voided Midstream Performed By: #### U A #### [facility] [address] [place] [address] [place] Leukocyte esterase Test strip Ql (U) Negative Normal Negative [facility] Comment on above: Order Comment: Name Collection Type:: Clean-Voided Midstream Performed By: #### U A #### [facility] [address] [place] [address] [place] Nitrite,Urine Negative Normal Negative [facility] Comment on above: Order Comment: Name Collection Type:: Clean-Voided Midstream Performed By: #### U A #### [place] [address] [place] Occult Blood,Urine Negative Normal Negative [facility] Comment on above: Order Comment: Name Collection Type:: Clean-Voided Midstream Result Comment: PERF ORMED BY: [place] [address] PATHOLOGIST ROD PILER ALEX WETZEL M.D. Performed By: #### U A #### [place] [address] [place] pH (U) 6.0 [pH] Normal 5.0-9.0 [facility] Comment on above: Order Comment: Name Collection Type:: Clean-Voided Midstream Performed By: #### U A #### [address] Protein,Urine Negative Normal Negative [facility] Comment on above: Order Comment: Name Collection Type:: Clean-Voided Midstream Performed By: #### U A #### [address] Specificy [place],Urine 1.016 Normal 1.001-1.03 0 [facility] Comment on above: Order Comment: Name Collection Type:: Clean-Voided Midstream Performed By: #### U A #### [place] [address] [place] Urobilinogen,Urine Normal Normal Normal [facility] Comment on above: Order Comment: Name Collection Type:: Clean-Voided Midstream Performed By: #### U A #### [place] [address] [place] Alanine aminotransferase [En zymatic activity/volume] in Serum or PlasmaOrdered By: Stephen Bae on 08-12-2022 ALT [Catalytic activity/Vol] 13 U/L [facility] Albumin [Mass/volume] in Ser um or Plasma by Bromocresol green (BCG) dye binding methoOrdered By: Stephen Bae on 08-12-2022 Albumin BCG dye [Mass/Vol] 3.5 g/dL 3.5-5.7 [facility] Alkaline phosphatase [Enzyma tic activity/volume] in Serum or PlasmaOrdered By: Stephen Bae on 08-12-2022 ALP [Catalytic activity/Vol] 46 U/L 34-104 [facility] Aspartate aminotransferase [ Enzymatic activity/volume] in Serum or PlasmaOrdered By: Stephen Bae on 08-12-2022 AST [Catalytic activity/Vol] 22 U/L 13-39 [facility] Basophils Auto (Bld) [#/Vol] Ordered By: Stephen Bae on 08-12-2022 Basophils (Bld) [#/Vol] 0.1 10*3/uL 0.0-0.2 [facility] Basophils/100 WBC Auto (Bld) Ordered By: Stephen Bae on 08-12-2022 Basophils/100 WBC (Bld) 1.3 % . [facility] Bilirubin Test strip Ql (U)O rdered By: Stephen Bae on 08-12-2022 Bilirubin Ql (U) Negative Negative [facility] Bilirubin.total [Mass/volume ] in Serum or PlasmaOrdered By: Stephen Bae on 08-12-2022 Bilirubin [Mass/Vol] 0.5 mg/dL 0.3-1.0 [facility] Calcium [Mass/volume] in Ser um or PlasmaOrdered By: Stephen Bae on 08-12-2022 Calcium [Mass/Vol] 8.0 mg/dL 8.6-10.3 [facility] Carbon dioxide, total [Moles /volume] in Serum or PlasmaOrdered By: Stephen Bae on 08-12-2022 CO2 [Moles/Vol] 27.2 mmol/L 21.0-31.0 [facility] Chloride [Moles/volume] in S julianna or PlasmaOrdered By: Stephen Bae on 08-12-2022 Chloride [Moles/Vol] 106 mmol/L 98-107 [facility] Color Auto (U)Ordered By: Fr gokul Bae on 08-12-2022 Color (U) Yellow Yellow [facility] Complete Blood Count Auto Di ffon 08-12-2022 Basophils (Bld) [#/Vol] 0.1 10*3/uL Normal 0.0-0.2 [facility] Comment on above: Result Comment: PERF ORMED BY: [place] [address] PATHOLOGIST ROD PILER ALEX WETZEL M.D. Performed By: #### L YTES, CBC, PP, LIPID, CREAT, HCGQUAL, BUN #### [address] Basophils/100 WBC (Bld) 1.3 % Normal . [facility] Comment on above: Performed By: #### L YTES, CBC, PP, LIPID, CREAT, HCGQUAL, BUN #### [place] [address] [place] Eosinophils (Bld) [#/Vol] 0.2 10*3/uL Normal 0.0-0.45 [facility] Comment on above: Performed By: #### L YTES, CBC, PP, LIPID, CREAT, HCGQUAL, BUN #### [address] Eosinophils/100 WBC (Bld) 2.6 % Normal . [facility] Comment on above: Performed By: #### L YTES, CBC, PP, LIPID, CREAT, HCGQUAL, BUN #### [address] Erythrocyte distribution width (RBC) [Ratio] 12.8 % Normal 11.9-15.3 [facility] Comment on above: Performed By: #### L YTES, CBC, PP, LIPID, CREAT, HCGQUAL, BUN #### [address] Hematocrit (Bld) [Volume fraction] 33.4 % Low 34.0-46.4 [facility] Comment on above: Performed By: #### L YTES, CBC, PP, LIPID, CREAT, HCGQUAL, BUN #### [address] Hemoglobin (Bld) [Mass/Vol] 11.5 g/dL Low 11.8-15.4 [facility] Comment on above: Performed By: #### L YTES, CBC, PP, LIPID, CREAT, HCGQUAL, BUN #### [address] Lymphocytes (Bld) [#/Vol] 2.8 10*3/uL Normal 1.00-4.8 [facility] Comment on above: Performed By: #### L YTES, CBC, PP, LIPID, CREAT, HCGQUAL, BUN #### [address] Lymphocytes/100 WBC (Bld) 37.5 % Normal . [facility] Comment on above: Performed By: #### L YTES, CBC, PP, LIPID, CREAT, HCGQUAL, BUN #### [address] MCH (RBC) [Entitic mass] 30.1 pg Normal 24.7-34.3 [facility] Comment on above: Performed By: #### L YTES, CBC, PP, LIPID, CREAT, HCGQUAL, BUN #### [address] MCV (RBC) [Entitic vol] 87.2 fL Normal 80-100 [facility] Comment on above: Performed By: #### L YTES, CBC, PP, LIPID, CREAT, HCGQUAL, BUN #### [address] Mean Corpuscular HGB Conc 34.5 g/dL Normal 32.0-35.0 [facility] Comment on above: Performed By: #### L YTES, CBC, PP, LIPID, CREAT, HCGQUAL, BUN #### [address] Monocytes (Bld) [#/Vol] 0.5 10*3/uL Normal 0.0-0.8 [facility] Comment on above: Performed By: #### L YTES, CBC, PP, LIPID, CREAT, HCGQUAL, BUN #### [address] Monocytes/100 WBC (Bld) 6.7 % Normal . [facility] Comment on above: Performed By: #### L YTES, CBC, PP, LIPID, CREAT, HCGQUAL, BUN #### [address] Neutrophils (Bld) [#/Vol] 3.9 10*3/uL Normal 1.8-7.7 [facility] Comment on above: Performed By: #### L YTES, CBC, PP, LIPID, CREAT, HCGQUAL, BUN #### [address] Neutrophils/100 WBC (Bld) 51.9 % Normal . [facility] Comment on above: Performed By: #### L YTES, CBC, PP, LIPID, CREAT, HCGQUAL, BUN #### [address] NRBC% 0.2 /100{WBC} Normal 0-0.5 [facility] Comment on above: Performed By: #### L YTES, CBC, PP, LIPID, CREAT, HCGQUAL, BUN #### [address] Platelet mean volume (Bld) [Entitic vol] 7.4 fL Normal 6.3-10.7 [facility] Comment on above: Performed By: #### L YTES, CBC, PP, LIPID, CREAT, HCGQUAL, BUN #### [place] [address] [place] Platelets (Bld) [#/Vol] 270 10*3/uL Normal 150-450 [facility] Comment on above: Performed By: #### L YTES, CBC, PP, LIPID, CREAT, HCGQUAL, BUN #### [address] [address] [place] RBC (Bld) [#/Vol] 3.83 10*6/uL Normal 3.60-5.00 [facility] Comment on above: Performed By: #### L YTES, CBC, PP, LIPID, CREAT, HCGQUAL, BUN #### [address] WBC (Bld) [#/Vol] 7.5 10*3/uL Normal 3.8-11.6 [facility] Comment on above: Performed By: #### L YTES, CBC, PP, LIPID, CREAT, HCGQUAL, BUN #### [facility] [address] [place] [address] Comprehensive Metabolic Pane geoff 08-12-2022 Albumin [Mass/Vol] 3.5 g/dL Normal 3.5-5.7 [facility] Comment on above: Performed By: #### L YTES, CBC, PP, LIPID, CREAT, HCGQUAL, BUN #### [address] Albumin/Globulin [Mass ratio] 1.5 {ratio} Normal [facility] Comment on above: Performed By: #### L YTES, CBC, PP, LIPID, CREAT, HCGQUAL, BUN #### [address] ALP [Catalytic activity/Vol] 46 U/L Normal 34-104 [facility] Comment on above: Performed By: #### L YTES, CBC, PP, LIPID, CREAT, HCGQUAL, BUN #### [address] ALT [Catalytic activity/Vol] 13 U/L Normal 7-52 [facility] Comment on above: Performed By: #### L YTES, CBC, PP, LIPID, CREAT, HCGQUAL, BUN #### [address] Anion gap [Moles/Vol] 9.2 mmol/L Normal 6.0-15.0 [facility] Comment on above: Performed By: #### L YTES, CBC, PP, LIPID, CREAT, HCGQUAL, BUN #### [address] AST [Catalytic activity/Vol] 22 U/L Normal 13-39 [facility] Comment on above: Performed By: #### L YTES, CBC, PP, LIPID, CREAT, HCGQUAL, BUN #### [address] Bilirubin [Mass/Vol] 0.5 mg/dL Normal 0.3-1.0 [facility] Comment on above: Performed By: #### L YTES, CBC, PP, LIPID, CREAT, HCGQUAL, BUN #### [address] Calcium [Mass/Vol] 8.0 mg/dL Low 8.6-10.3 [facility] Comment on above: Performed By: #### L YTES, CBC, PP, LIPID, CREAT, HCGQUAL, BUN #### [address] Chloride [Moles/Vol] 106 mmol/L Normal 98-107 [facility] Comment on above: Performed By: #### L YTES, CBC, PP, LIPID, CREAT, HCGQUAL, BUN #### [address] CO2 [Moles/Vol] 27.2 mmol/L Normal 21.0-31.0 [facility] Comment on above: Performed By: #### L YTES, CBC, PP, LIPID, CREAT, HCGQUAL, BUN #### [address] Creatinine [Mass/Vol] 0.86 mg/dL Normal 0.60-1.20 [facility] Comment on above: Performed By: #### L YTES, CBC, PP, LIPID, CREAT, HCGQUAL, BUN #### [address] Creatinine Clr Calc Pharmacy 86.32 Normal [facility] Comment on above: Performed By: #### L YTES, CBC, PP, LIPID, CREAT, HCGQUAL, BUN #### [address] GFR/1.73 sq M.predicted MDRD (S/P/Bld) [Vol rate/Area] mL/min/{1.73_m2} [facility] Comment on above: Performed By: #### L YTES, CBC, PP, LIPID, CREAT, HCGQUAL, BUN #### [facility] [address] Globulin (S) [Mass/Vol] 2.3 g/dL [facility] Comment on above: Performed By: #### L YTES, CBC, PP, LIPID, CREAT, HCGQUAL, BUN #### [address] Glucose [Mass/Vol] 123 mg/dL High 70-100 [facility] Comment on above: Result Comment: [facility] Glucose Reference Range is dependent on time and content of last meal. Glucose of more than 200 mg/dL in a nonstressed, ambulatory subject supports the diagnosis of Diabetes Mellitus. ADA recommended reference range Performed By: #### L YTES, CBC, PP, LIPID, CREAT, HCGQUAL, BUN #### [address] Potassium [Moles/Vol] 3.4 mmol/L Low 3.5-5.1 [facility] Comment on above: Performed By: #### L YTES, CBC, PP, LIPID, CREAT, HCGQUAL, BUN #### [address] Protein [Mass/Vol] 5.8 g/dL Low 6.4-8.9 [facility] Comment on above: Performed By: #### L YTES, CBC, PP, LIPID, CREAT, HCGQUAL, BUN #### [address] Sodium [Moles/Vol] 139 mmol/L Normal 136-145 [facility] Comment on above: Performed By: #### L YTES, CBC, PP, LIPID, CREAT, HCGQUAL, BUN #### [address] Urea nitrogen [Mass/Vol] 11 mg/dL Normal 7-25 [facility] Comment on above: Performed By: #### L YTES, CBC, PP, LIPID, CREAT, HCGQUAL, BUN #### [address] Cortisolon 08-12-2022 Cortisol > 120.0 Normal [facility] Comment on above: Result Comment: Refe rence range: AM 6 - 24 ug/dl PM <10 ug/dl PERFORMED BY: [place] [address] PATHOLOGIST ROD PILER ALEX WETZEL M.D. Performed By: #### L YTES, CBC, PP, LIPID, CREAT, HCGQUAL, BUN #### [address] Creatinine [Mass/volume] in Serum or PlasmaOrdered By: Stephen Bae on 08-12-2022 Creatinine [Mass/Vol] 0.86 mg/dL 0.60-1.20 [facility] ECG 12 lead ECGon 08-12-2022 ECG 12 lead ECG [facility] [address] [place] [address] [place] [address] Electrocardiograph Report Signed Patient: Swapna Guido MR#: [id number] 8 : 1965 Acct:[id number] Age/Sex: 57 / F ADM Date: 08/12/22 Loc: Room: [address] [place] [address] Type: [facility] Attending Dr: Maria Luisa Sarkar MD Ordering Provider: Stephen Bae MD Date of Service: 08/12/2201/25/1558 ECG/ECG 12 lead ECG: MET Copies to: Test Reason : Blood Pressure : / mmHG Vent. Rate : 065 BPM Atrial Rate : 065 BPM P-R Int : 180 ms QRS Dur : 088 ms QT Int : 408 ms P-R-T Axes : 045 052 014 degrees QTc Int : 424 ms Normal sinus rhythm Normal ECG No previous ECGs available Confirmed by SILVERIO KHAN DO ([id number]) on 08/13/2022 1:01:22 PM Referred By: Electronically Signed By:SILVERIO KHAN DO Transcribed By: MUS Signed By Silverio Khan DO 08/13 1301 Normal [facility] Eosinophils Auto (Bld) [#/Vo l]Ordered By: Stephen Bae on 08-12-2022 Eosinophils (Bld) [#/Vol] 0.2 10*3/uL 0.0-0.45 [facility] Eosinophils/100 WBC Auto (Bl d)Ordered By: Stephen Bae on 08-12-2022 Eosinophils/100 WBC (Bld) 2.6 % . [facility] Erythrocyte distribution wid th Auto (RBC) [Ratio]Ordered By: Stephen Bae on 08-12-2022 Erythrocyte distribution width (RBC) [Ratio] 12.8 % 11.9-15.3 [facility] Globulin Calc (S) [Mass/Vol] Ordered By: Stephen Bae on 08-12-2022 Globulin (S) [Mass/Vol] 2.3 g/dL [facility] Glucose Glucometer (BldC) [M ass/Vol]Ordered By: Maria Luisa Sarkar on 08-12-2022 Glucose [Mass/Vol] 127 mg/dL [facility] Comment on above: Random Glucose Refer ence Range is dependent on time and content of last meal. Glucose of more than 200 mg/dL in a nonstressed, ambulatory subject supports the diagnosis of Diabetes Mellitus. Glucose Poct Glucometerson 0 08-12-2022 Glucose [Mass/Vol] 127 mg/dL Normal [facility] Comment on above: Result Comment: [place] [facility] Glucose Reference Range is dependent on time and content of last meal. Glucose of more than 200 mg/dL in a nonstressed, ambulatory subject supports the diagnosis of Diabetes Mellitus. PERFORMED BY: [facility] [place] [id number] PATHOLOGIST ROD PILER ALEX WETZEL M.D. Performed By: #### L YTES, CBC, PP, LIPID, CREAT, HCGQUAL, BUN #### [facility] [address] [place] [id number] [facility] Glucose [Mass/volume] in Ser um or PlasmaOrdered By: Stephen Bae on 08-12-2022 Glucose [Mass/Vol] 123 mg/dL 70-100 [facility] Comment on above: ADA recommended refe rence rangeRandom Glucose Reference Range is dependent on time and content of last meal. Glucose of more than 200 mg/dL in a nonstressed, ambulatory subject supports the diagnosis of Diabetes Mellitus. Hematocrit Auto (Bld) [Volum e fraction]Ordered By: Stephenelsa Vasquezdc on 08-12-2022 Hematocrit (Bld) [Volume fraction] 33.4 % 34.0-46.4 [facility] Hemoglobin [Mass/volume] in BloodOrdered By: Stephenelsa Vasquezdc on 08-12-2022 Hemoglobin (Bld) [Mass/Vol] 11.5 g/dL 11.8-15.4 [facility] Ketones Auto test strip (U) [Mass/Vol]Ordered By: [facility] on 08-12-2022 Ketones (U) [Mass/Vol] Negative Negative [facility] Lactate [Moles/volume] in Se rum or PlasmaOrdered By: Stephen Bae on 08-12-2022 Lactate [Moles/Vol] 3.0 mmol/L 0.5-2.2 [facility] Comment on above: Critical Result : Ca lled to and read back by: MARGIE TORIBIO at: 08/12/2022 21:01:17 by:[id number] Lactic Acidon 08-12-2022 Lactate [Moles/Vol] 2.0 mmol/L Off scale high 0.5-2.2 [facility] Comment on above: Result Comment: Crit ical Result : Called to and read back by: IVELISSE SCOTT at: 08/12/2022 17:30:09 by:[id number] PERFORMED BY: [place] [address] PATHOLOGIST ROD PILER ALEX WETZEL M.D. Performed By: #### L YTES, CBC, PP, LIPID, CREAT, HCGQUAL, BUN #### [facility] [address] [place] [address] Lactic Acid Reflexon 023 Lactic Acid Reflex 3.0 mmol/L Off scale high 0.5-2.2 [facility] Comment on above: Result Comment: Crit ical Result : Called to and read back by: MARGIE TORIBIO at: 08/12/2022 21:01:17 by:[id number] PERFORMED BY: [place] [address] PATHOLOGIST ROD PILER ALEX WETZEL M.D. Performed By: #### L YTES, CBC, PP, LIPID, CREAT, HCGQUAL, BUN #### [address] Leukocytes [#/volume] correc juana for nucleated erythrocytes in Blood by Automated counOrdered By: Stephen Bae on 08-12-2022 WBC corrected for nucl RBC Auto (Bld) [#/Vol] 7.5 10*3/uL 3.8-11.6 [facility] Lymphocytes Auto (Bld) [#/Vo l]Ordered By: Stephen Bae on 08-12-2022 Lymphocytes (Bld) [#/Vol] 2.8 10*3/uL 1.00-4.8 [facility] Lymphocytes/100 WBC Auto (Bl d)Ordered By: Stpehen Bae on 08-12-2022 Lymphocytes/100 WBC (Bld) 37.5 % . [facility] MCH Auto (RBC) [Entitic mass ]Ordered By: Stephen Bae on 08-12-2022 MCH (RBC) [Entitic mass] 30.1 pg 24.7-34.3 [facility] MCHC Auto (RBC) [Mass/Vol]Or dered By: Stephen Bae on 08-12-2022 MCHC (RBC) [Mass/Vol] 34.5 g/dL 32.0-35.0 [facility] MCV Auto (RBC) [Entitic vol] Ordered By: Stephen Bae on 08-12-2022 MCV (RBC) [Entitic vol] 87.2 fL 80-100 [facility] Magnesiumon 08-12-2022 Magnesium [Mass/Vol] 1.8 mg/dL Low 1.9-2.7 [facility] Comment on above: Performed By: #### L YTES, CBC, PP, LIPID, CREAT, HCGQUAL, BUN #### [facility] [address] Magnesium [Mass/volume] in S julianna or PlasmaOrdered By: Stephen Bae on 08-12-2022 Magnesium [Mass/Vol] 1.8 mg/dL 1.9-2.7 [facility] Monocytes Auto (Bld) [#/Vol] Ordered By: Stephen Bae on 08-12-2022 Monocytes (Bld) [#/Vol] 0.5 10*3/uL 0.0-0.8 [facility] Monocytes/100 WBC Auto (Bld) Ordered By: Stephen Bae on 08-12-2022 Monocytes/100 WBC (Bld) 6.7 % . [facility] Neutrophils Auto (Bld) [#/Vo l]Ordered By: Stephen Bae on 08-12-2022 Neutrophils (Bld) [#/Vol] 3.9 10*3/uL 1.8-7.7 [facility] Neutrophils/100 WBC Auto (Bl d)Ordered By: Stephen Bae on 08-12-2022 Neutrophils/100 WBC (Bld) 51.9 % . [facility] Nitrite Test strip Ql (U)Ord ered By: Stephen Bae on 08-12-2022 Nitrite Ql (U) Negative Negative [facility] No Panel InformationOrdered By: Stephen Bae on 08-12-2022 Estimated GFR (CKD-EPI) > 60.0 mL/Min [facility] Creatinine Clearance (Chem 86.32 [facility] No Panel Informationon 08-12 127\S\127 Normal -[facility]Sandu juan antonio 250 DO Work Phone: Comment on above: Random Glucose Refer ence Range is dependent on time and content of last meal. Glucose of more than 200 mg/dL in a nonstressed, ambulatory subject supports the diagnosis of Diabetes Mellitus.PERFORMED BY:[place] [id number] [place], [place] [phone] MEDICAL DIRECTORALEX WETZEL M.D. Nucleated erythrocytes [Pres ence] in Blood by Automated countOrdered By: Stephen Bae on 08-12-2022 Nucleated RBC Auto Ql (Bld) 0.2 /100{WBC} 0-0.5 [facility] Platelet mean volume Auto (B ld) [Entitic vol]Ordered By: Stephen Bae on 08-12-2022 Platelet mean volume (Bld) [Entitic vol] 7.4 fL 6.3-10.7 [facility] Platelets Auto (Bld) [#/Vol] Ordered By: Stephen Bae on 08-12-2022 Platelets (Bld) [#/Vol] 270 10*3/uL 150-450 [facility] Potassium [Moles/volume] in Serum or PlasmaOrdered By: Stephen Bae on 08-12-2022 Potassium [Moles/Vol] 3.4 mmol/L 3.5-5.1 [facility] Protein Auto test strip (U) [Mass/Vol]Ordered By: Stephen Bae on 08-12-2022 Protein (U) [Mass/Vol] Negative Negative [facility] Protein [Mass/volume] in Ser um or PlasmaOrdered By: Stephen Bae on 08-12-2022 Protein [Mass/Vol] 5.8 g/dL 6.4-8.9 [facility] RBC Auto (Bld) [#/Vol]Ordere d By: Stephen Bae on 08-12-2022 RBC (Bld) [#/Vol] 3.83 10*6/uL 3.60-5.00 [facility] Random cortisol measurementO rdered By: Stephen Bae on 08-12-2022 Cortisol [Mass/Vol] ug/dL [facility] Comment on above: Reference range: AM 6 - 24 ug/dl PM <10 ug/dl Serum or plasma albumin/glob ulin mass ratioOrdered By: Stephen Bae on 08-12-2022 Albumin/Globulin [Mass ratio] 1.5 {ratio} [facility] Serum or plasma anion gap de terminationOrdered By: Stephen Bae on 08-12-2022 Anion gap [Moles/Vol] 9.2 mmol/L 6.0-15.0 [facility] Sodium [Moles/volume] in Ser um or PlasmaOrdered By: Stephen Bae on 08-12-2022 Sodium [Moles/Vol] 139 mmol/L 136-145 [facility] Specific gravity Auto test s trip (U) [Rel density]Ordered By: Stephen Bae on 08-12-2022 Specific gravity (U) [Rel density] 1.016 1.001-1.03 0 [facility] Urea nitrogen [Mass/volume] in Serum or PlasmaOrdered By: Stephen Bae on 08-12-2022 Urea nitrogen [Mass/Vol] 11 mg/dL 7-25 [facility] Urine clarity by refractomet ry automatedOrdered By: Stephen Bae on 08-12-2022 Clarity Refractometry automated (U) Clear Clear [facility] Urine glucose measurement by automated test strip (mass/volume)Ordered By: Stephen Bae on 08-12-2022 Glucose Auto test strip (U) [Mass/Vol] Normal mg/dL Normal [facility] Urine hemoglobin detection b y automated test stripOrdered By: Stephen Bae on 08-12-2022 Hemoglobin Auto test strip Ql (U) Negative Negative [facility] Urine leukocyte esterase det ection by automated test stripOrdered By: Stephen Bae on 08-12-2022 Leukocyte esterase Auto test strip Ql (U) Negative Negative [facility] Urobilinogen Auto test strip (U) [Mass/Vol]Ordered By: Stephen Bae on 08-12-2022 Urobilinogen (U) [Mass/Vol] Normal mg/dL Normal [facility] WBC Auto (Bld) [#/Vol]Ordere d By: Stephen Lolakpmaribel on 08-12-2022 WBC (Bld) [#/Vol] 7.5 10*3/uL 3.8-11.6 [facility] pH Auto test strip (U)Ordere d By: Stephen Bae on 08-12-2022 pH (U) 6.0 [pH] 5.0-9.0 [facility] Activated partial thrombopla stin time (aPTT) in platelet poor plasma by coagulation aOrdered By: Maria Luisa Sarkar on 08-10-2022 aPTT Coag (PPP) [Time] 27.6 s 25.1-36.5 [facility] Automated basophil %Ordered By: Maria Luisa Sarkar on 08-10-2022 Basophils/100 WBC (Bld) 1.1 % Normal . [facility] Comment on above: Performed By: #### L YTES, CBC, PP, LIPID, CREAT, HCGQUAL, BUN #### [facility] [address] [place] [address] Automated basophil countOrde red By: Maria Luisa Sarkar on 08-10-2022 Basophils (Bld) [#/Vol] 0.1 10*3/uL Normal 0.0-0.2 [facility] Comment on above: Result Comment: PERF ORMED BY: [place] [address] PATHOLOGIST ROD PILER ALEX WETZEL M.D. Performed By: #### L YTES, CBC, PP, LIPID, CREAT, HCGQUAL, BUN #### [facility] [address] [place] [address] Automated blood monocyte cou ntOrdered By: Maria Luisa Sarkar on 08-10-2022 Monocytes (Bld) [#/Vol] 0.4 10*3/uL Normal 0.0-0.8 [facility] Comment on above: Performed By: #### L YTES, CBC, PP, LIPID, CREAT, HCGQUAL, BUN #### [address] Automated eosinophil %Ordere d By: Maria Luisa Sarkar on 08-10-2022 Eosinophils/100 WBC (Bld) 3.1 % Normal . [facility] Comment on above: Performed By: #### L YTES, CBC, PP, LIPID, CREAT, HCGQUAL, BUN #### [address] Automated eosinophil countOr dered By: Maria Luisa Sarkar on 08-10-2022 Eosinophils (Bld) [#/Vol] 0.2 10*3/uL Normal 0.0-0.45 [facility] Comment on above: Performed By: #### L YTES, CBC, PP, LIPID, CREAT, HCGQUAL, BUN #### [address] Automated monocyte %Ordered By: Maria Luisa Sarkar on 08-10-2022 Monocytes/100 WBC (Bld) 7.3 % Normal . [facility] Comment on above: Performed By: #### L YTES, CBC, PP, LIPID, CREAT, HCGQUAL, BUN #### [address] Automated neutrophil %Ordere d By: Maria Luisa Sarkar on 08-10-2022 Neutrophils/100 WBC (Bld) 56.7 % Normal . [facility] Comment on above: Performed By: #### L YTES, CBC, PP, LIPID, CREAT, HCGQUAL, BUN #### [address] Carbon dioxide, total [Moles /volume] in Serum or PlasmaOrdered By: Maria Luisa Sarkar on 08-10-2022 CO2 [Moles/Vol] 28.8 mmol/L Normal 21.0-31.0 [facility] Comment on above: Order Comment: patie nt not fasting Performed By: #### L YTES, CBC, PP, LIPID, CREAT, HCGQUAL, BUN #### [facility] [address] [place] [address] [place] Chloride [Moles/volume] in S julianna or PlasmaOrdered By: Maria Luisa Sarkar on 08-10-2022 Chloride [Moles/Vol] 105 mmol/L Normal 98-107 [facility] Comment on above: Order Comment: patie nt not fasting Performed By: #### L YTES, CBC, PP, LIPID, CREAT, HCGQUAL, BUN #### [facility] [address] [place] [address] [place] Cholesterol [Mass/volume] in Serum or PlasmaOrdered By: Maria Luisa Sarkar on 08-10-2022 Cholesterol [Mass/Vol] 149 mg/dL Normal 140-200 [facility] Comment on above: Chol less than 200 m g/dl low riskChol 201-239 mg/dl borderline riskChol 240 mg/dl and greater high risk Order Comment: patie nt not fasting Result Comment: Chol less than 200 mg/dl low risk Chol 201-239 mg/dl borderline risk Chol 240 mg/dl and greater high risk Performed By: #### L YTES, CBC, PP, LIPID, CREAT, HCGQUAL, BUN #### [facility] [address] [place] [address] [place] Cholesterol in LDL Calc [Mas s/Vol]Ordered By: Maria Luisa Sarkar on 08-10-2022 Cholesterol in LDL [Mass/Vol] 23 mg/dL 0-100 [facility] Comment on above: LDL ATP III CLASSIFI CATIONLDL less than 100 mg/dL OptimalLDL 100-129 mg/dL Near or above optimalLDL 130-159 mg/dL Borderline highLDL 160-189 mg/dL HighLDL greater than 189 mg/dL Very high Cholesterol in VLDL Calc [Ma ss/Vol]Ordered By: Maria Luisa Sarkar on 08-10-2022 Cholesterol in VLDL [Mass/Vol] 78 mg/dL [facility] Choriogonadotropin.beta subu nit [Units/volume] in Serum or PlasmaOrdered By: Maria Luisa Sarkar on 08-10-2022 HCG.beta subunit Qn Negative [facility] Coagulation Profileon 2022 aPTT Coag (Bld) [Time] 27.6 s Normal 25.1-36.5 [facility] Comment on above: Result Comment: PERF ORMED BY: [place] [address] PATHOLOGIST ROD PILER ALEX WETZEL M.D. Performed By: #### L YTES, CBC, PP, LIPID, CREAT, HCGQUAL, BUN #### [address] Coagulation ProfileOrdered B y: Maria Luisa Sarkar on 08-10-2022 PT Coag (PPP) [Time] 10.5 s Normal 9.0-12.9 [facility] Comment on above: Performed By: #### L YTES, CBC, PP, LIPID, CREAT, HCGQUAL, BUN #### [facility] [address] [place] [address] Complete Blood Count Auto Di ffon 08-10-2022 Mean Corpuscular HGB Conc 34.4 g/dL Normal 32.0-35.0 [facility] Comment on above: Performed By: #### L YTES, CBC, PP, LIPID, CREAT, HCGQUAL, BUN #### [facility] [address] [place] [address] NRBC% 0.1 /100{WBC} Normal 0-0.5 [facility] Comment on above: Performed By: #### L YTES, CBC, PP, LIPID, CREAT, HCGQUAL, BUN #### [facility] [address] [place] [address] Creatinineon 08-10-2022 GFR/1.73 sq M.predicted MDRD (S/P/Bld) [Vol rate/Area] mL/min/{1.73_m2} Normal [facility] Comment on above: Order Comment: patie nt not fasting Performed By: #### L YTES, CBC, PP, LIPID, CREAT, HCGQUAL, BUN #### [facility] [address] Creatinine [Mass/volume] in Serum or PlasmaOrdered By: Maria Luisa Sarkar on 08-10-2022 Creatinine [Mass/Vol] 0.89 mg/dL Normal 0.60-1.20 [facility] Comment on above: Order Comment: patie nt not fasting Performed By: #### L YTES, CBC, PP, LIPID, CREAT, HCGQUAL, BUN #### [facility] [address] [place] [id number] [facility] ECG 12 lead ECGon 08-10-2022 ECG 12 lead ECG [facility] [address] [place] [address] [place] [address] Electrocardiograph Report Signed Patient: Swapna Guido MR#: [id number] 8 : 1965 Acct:[id number] Age/Sex: 57 / F ADM Date: 08/10/22 Loc: Room: Type: [facility] Attending Dr: Maria Luisa Sarkar MD Ordering Provider: Maria Luisa Sarkar MD Date of Service: 08/10/2211/26/935 ECG/ECG 12 lead ECG: [facility] [place] for [facility] Copies to: Test Reason : Blood Pressure : / mmHG Vent. Rate : 059 BPM Atrial Rate : 059 BPM P-R Int : 184 ms QRS Dur : 088 ms QT Int : 398 ms P-R-T Axes : 042 047 011 degrees QTc Int : 394 ms Sinus bradycardia Otherwise normal ECG When compared with ECG of 20-MAY-2022 18:29, No significant change was found Confirmed by SILVERIO KHAN DO ([id number]) on 08/12/2022 12:40:06 PM Referred By: MELLO Electronically Signed By:SILVERIO KHAN DO Transcribed By: MUS Signed By Silverio Khan DO 08/12 1240 [facility] Erythrocyte distribution wid th [Ratio] by Automated countOrdered By: Maria Luisa Sarkar on 08-10-2022 Erythrocyte distribution width (RBC) [Ratio] 13.1 % Normal 11.9-15.3 [facility] Comment on above: Performed By: #### L YTES, CBC, PP, LIPID, CREAT, HCGQUAL, BUN #### [address] Erythrocytes [#/volume] in B lood by Automated countOrdered By: Maria Luisa Sarkar on 08-10-2022 RBC (Bld) [#/Vol] 4.19 10*6/uL Normal 3.60-5.00 [facility] Comment on above: Performed By: #### L YTES, CBC, PP, LIPID, CREAT, HCGQUAL, BUN #### [address] HCG,Qualitative Serumon HCG,Qualitative Serum Negative Normal [facility] Comment on above: Order Comment: patie nt not fasting Result Comment: PERF ORMED BY: [place] [address] PATHOLOGIST ROD PILER ALEX WETZEL M.D. Performed By: #### L YTES, CBC, PP, LIPID, CREAT, HCGQUAL, BUN #### [address] Hematocrit [Volume Fraction] of Blood by Automated countOrdered By: Maria Luisa Sarkar on 08-10-2022 Hematocrit (Bld) [Volume fraction] 36.8 % Normal 34.0-46.4 [facility] Comment on above: Performed By: #### L YTES, CBC, PP, LIPID, CREAT, HCGQUAL, BUN #### [address] Hemoglobin [Mass/volume] in BloodOrdered By: Maria Luisa Sarkar on 08-10-2022 Hemoglobin (Bld) [Mass/Vol] 12.6 g/dL Normal 11.8-15.4 [facility] Comment on above: Performed By: #### L YTES, CBC, PP, LIPID, CREAT, HCGQUAL, BUN #### [facility] [address] [place] [id number] [facility] Laboratory - Chemistry and C hemistry - challengeon 08-10-2022 Cholesterol [Mass/Vol] 149\S\149 Normal 140-200 [facility] juan antonio 250 DO Work Phone: Comment on above: Chol less than 200 m g/dl low risk Chol 201-239 mg/dl borderline risk Chol 240 mg/dl and greater high risk Cholesterol in LDL [Mass/Vol] 23\S\23 Normal 0-100 [facility] 250 DO Work Phone: Comment on above: LDL ATP III CLASSIFI CATION LDL less than 100 mg/dL Optimal LDL 100-129 mg/dL Near or above optimal LDL 130-159 mg/dL Borderline high LDL 160-189 mg/dL High LDL greater than 189 mg/dL Very high Leukocytes [#/volume] correc juana for nucleated erythrocytes in Blood by Automated counOrdered By: Maria Luisa Sarkar on 08-10-2022 WBC corrected for nucl RBC Auto (Bld) [#/Vol] 6.0 10*3/uL 3.8-11.6 [facility] Leukocytes [#/volume] in Blo od by Automated countOrdered By: Maria Luisa Sarkar on 08-10-2022 WBC (Bld) [#/Vol] 6.0 10*3/uL Normal 3.8-11.6 [facility] Comment on above: Performed By: #### L YTES, CBC, PP, LIPID, CREAT, HCGQUAL, BUN #### [facility] [address] [place] [address] [place] Lipid Panelon 08-10-2022 LDL Cholesterol,Calculated 23 mg/dL Normal 0-100 [facility] Comment on above: Order Comment: patie nt not fasting Result Comment: LDL ATP III CLASSIFICATION LDL less than 100 mg/dL Optimal LDL 100-129 mg/dL Near or above optimal LDL 130-159 mg/dL Borderline high LDL 160-189 mg/dL High LDL greater than 189 mg/dL Very high Performed By: #### L YTES, CBC, PP, LIPID, CREAT, HCGQUAL, BUN #### [address] Triglyceride w/Reflex 394 mg/dL High 0-149 [facility] Comment on above: Order Comment: patie nt not fasting Result Comment: TRIG ATP III CLASSIFICATION TRIG less than 150 mg/dL Normal TRIG 150-199 mg/dL Borderline high TRIG 200-500 mg/dL High TRIG greater than 500 mg/dL Very high Standard traceable to the Center for Disease Conrtrol and Prevention (CDC) test method. Performed By: #### L YTES, CBC, PP, LIPID, CREAT, HCGQUAL, BUN #### [address] VLDL CHOLESTEROL 78 mg/dL Normal [facility] Comment on above: Order Comment: patie nt not fasting Performed By: #### L YTES, CBC, PP, LIPID, CREAT, HCGQUAL, BUN #### [address] Lymphocytes [#/volume] in Bl ood by Automated countOrdered By: Maria Luisa Sarkar on 08-10-2022 Lymphocytes (Bld) [#/Vol] 1.9 10*3/uL Normal 1.00-4.8 [facility] Comment on above: Performed By: #### L YTES, CBC, PP, LIPID, CREAT, HCGQUAL, BUN #### [address] Lymphocytes/100 leukocytes i n Blood by Automated countOrdered By: Maria Luisa Sarkar on 08-10-2022 Lymphocytes/100 WBC (Bld) 31.8 % Normal . [facility] Comment on above: Performed By: #### L YTES, CBC, PP, LIPID, CREAT, HCGQUAL, BUN #### [address] MCH [Entitic mass] by Automa juana countOrdered By: Maria Luisa Sarkar on 08-10-2022 MCH (RBC) [Entitic mass] 30.2 pg Normal 24.7-34.3 [facility] Comment on above: Performed By: #### L YTES, CBC, PP, LIPID, CREAT, HCGQUAL, BUN #### [facility] [address] MCHC Auto (RBC) [Mass/Vol]Or dered By: Maria Luisa Sarkar on 08-10-2022 MCHC (RBC) [Mass/Vol] 34.4 g/dL 32.0-35.0 [facility] MCV [Entitic volume] by Auto mated countOrdered By: Maria Luisa Sarkar on 08-10-2022 MCV (RBC) [Entitic vol] 87.8 fL Normal 80-100 [facility] Comment on above: Performed By: #### L YTES, CBC, PP, LIPID, CREAT, HCGQUAL, BUN #### [facility] [address] [place] [address] Neutrophils [#/volume] in Bl ood by Automated countOrdered By: Maria Luisa Sarkar on 08-10-2022 Neutrophils (Bld) [#/Vol] 3.4 10*3/uL Normal 1.8-7.7 [facility] Comment on above: Performed By: #### L YTES, CBC, PP, LIPID, CREAT, HCGQUAL, BUN #### [facility] [address] [place] [address] No Panel InformationOrdered By: Maria Luisa Sarkar on 08-10-2022 Estimated GFR (CKD-EPI) > 60.0 mL/Min [facility] Creatinine Clearance (Chem N/A [facility] No Panel Informationon 08-10 0.1\S\0.1 Normal 0-0.5 -[facility] juan antonio 250 DO Work Phone: Comment on above: PERFORMED BY:[address], [place] [id number] MEDICAL DIRECTORALEX WETZEL M.D. 0.2\S\0.2 Normal 0.0-0.45 [facility] juan antonio 250 DO Work Phone: [phone] 0.4\S\0.4 Normal 0.0-0.8 [facility] juan antonio 250 DO Work Phone: [phone] 1.9\S\1.9 Normal 1.00-4.8 [facility] juan antonio 250 DO Work Phone: [phone] 3.4\S\3.4 Normal 1.8-7.7 [facility] juan antonio 250 DO Work Phone: [phone] 1.1\S\1.1 Normal . [facility] juan antonio 250 DO Work Phone: [phone] 3.1\S\3.1 Normal . [facility] juan antonio 250 DO Work Phone: [phone] 7.3\S\7.3 Normal 6.3-10.7 [facility] juan antonio 250 DO Work Phone: [phone] 31.8\S\31.8 Normal . [facility] juan antonio 250 DO Work Phone: [phone] 56.7\S\56.7 Normal . [facility] juan antonio 250 DO Work Phone: [phone] 283\S\283 Normal 150-450 [facility] juan antonio 250 DO Work Phone: [phone] 13.1\S\13.1 Normal 11.9-15.3 [facility] juan antonio 250 DO Work Phone: [phone] 34.4\S\34.4 Normal 32.0-35.0 [facility] juan antonio 250 DO Work Phone: [phone] 30.2\S\30.2 Normal 24.7-34.3 [facility] juan antonio 250 DO Work Phone: [phone] 87.8\S\87.8 Normal 80-100 [facility] juan antonio 250 DO Work Phone: 36.8\S\36.8 Normal 34.0-46.4 [facility] 250 DO Work Phone: 12.6\S\12.6 Normal 11.8-15.4 [facility] juan antonio 250 DO Work Phone: 4.19\S\4.19 Normal 3.60-5.00 [facility] 250 DO Work Phone: 6.0\S\6.0 Normal 3.8-11.6 [facility] 250 DO Work Phone: 27.6\S\27.6 Normal 25.1-36.5 [facility] juan antonio 250 DO Work Phone: Comment on above: PERFORMED BY:[place] [address] [place], [place] [phone] MEDICAL DIRECTORALEX WETZEL M.D. 0.9\S\0.9 Normal [facility] ju[place] antonio 250 DO Work Phone: Comment on above: INR Therapeutic Rang e A) Pre- and Peroperative OAT started two weeks before surgery. NOT HIP SURGERY: 1.5 - 2.5 HIP SURGERY: 2 - 3 B) Primary and secondary prevention of venous THROMBOSIS: 2 - 3 C) Active venous thrombosis, pulmonary embolism and prevention of recurrent venous thrombosis: 2 - 3 D) Prevention of arterial thromboembolism including patients with mechanical heart valves: 3 - 4.5 10.5\S\10.5 Normal 9.0-12.9 [facility] 250 DO Work Phone: 11.1\S\11.1 Normal 6.0-15.0 [facility] juan antonio 250 DO Work Phone: 28.8\S\28.8 Normal 21.0-31.0 [facility] Code 250 DO Work Phone: 105\S\105 Normal 98-107 [facility] Nicholas romano 250 DO Work Phone: [phone] 3.9\S\3.9 Normal 3.5-5.1 [facility] Nicholas romano 250 DO Work Phone: 141\S\141 Normal 136-145 [facility] Nicholas romano 250 DO Work Phone: 15\S\15 Normal 7-25 [facility] Nicholas romano 250 DO Work Phone: [phone] > 60.0 Normal [facility] Nicholas romano 250 DO Work Phone: 0.89\S\0.89 Normal 0.60-1.20 [facility] Nicholas romano 250 DO Work Phone: [phone] 3.2\S\3.2 Normal <5.0 [facility] Nicholas romano 250 DO Work Phone: 78\S\78 Normal [facility] Nicholas romano 250 DO Work Phone: [phone]\S\394 above high threshold 0-149 [facility] Nicholas romano 250 DO Work Phone: Comment on above: TRIG ATP III CLASSIF ICATION TRIG less than 150 mg/dL Normal TRIG 150-199 mg/dL Borderline high TRIG 200-500 mg/dL High TRIG greater than 500 mg/dL Very high Standard traceable to the Center for Disease Conrtrol and Prevention (CDC) test method. 47\S\47 Normal 35-85 [facility] Nicholas romano 250 DO Work Phone: Comment on above: HDL CHOL ATP-III CLA SSIFICATION Cardiovascular Risk HDL > or equal to 60 mg/dL LOW HDL < 40 mg/dL HIGH Negative Normal [facility] Nicholas romano 250 DO Work Phone: Comment on above: PERFORMED BY:[address] [place] [address] [address] [place], [place] [phone] MEDICAL DIRECTORALEX WETZEL M.D. Nucleated erythrocytes [Pres ence] in Blood by Automated countOrdered By: Maria Luisa Sarkar on 08-10-2022 Nucleated RBC Auto Ql (Bld) 0.1 /100{WBC} 0-0.5 [facility] Platelet mean volume [Entiti c volume] in Blood by Automated countOrdered By: Maria Luisa Sarkar on 08-10-2022 Platelet mean volume (Bld) [Entitic vol] 7.3 fL Normal 6.3-10.7 [facility] Comment on above: Performed By: #### L YTES, CBC, PP, LIPID, CREAT, HCGQUAL, BUN #### [facility] [address] Platelet poor plasma interna tional normalized ratio (INR) by coagulation assay (relatOrdered By: Maria Luisa Sarkar on 08-10-2022 INR Coag (PPP) [Relative time] 0.9 {INR} Normal [facility] Comment on above: INR Therapeutic Rang e A) Pre- and Peroperative OAT started two weeks before surgery. NOT HIP SURGERY: 1.5 - 2.5 HIP SURGERY: 2 - 3B) Primary and secondary prevention of venous THROMBOSIS: 2 - 3C) Active venous thrombosis, pulmonary embolismand prevention of recurrent venous thrombosis: 2 - 3D) Prevention of arterial thromboembolismincluding patients with mechanical heart valves: 3 - 4.5 Result Comment: INR Therapeutic Range A) Pre- and Peroperative OAT started two weeks before surgery. NOT HIP SURGERY: 1.5 - 2.5 HIP SURGERY: 2 - 3 B) Primary and secondary prevention of venous THROMBOSIS: 2 - 3 C) Active venous thrombosis, pulmonary embolism and prevention of recurrent venous thrombosis: 2 - 3 D) Prevention of arterial thromboembolism including patients with mechanical heart valves: 3 - 4.5 Performed By: #### L YTES, CBC, PP, LIPID, CREAT, HCGQUAL, BUN #### [facility] [address] [place] [address] [place] Platelets [#/volume] in Bloo d by Automated countOrdered By: Maria Luisa Sarkar on 08-10-2022 Platelets (Bld) [#/Vol] 283 10*3/uL Normal 150-450 [facility] Comment on above: Performed By: #### L YTES, CBC, PP, LIPID, CREAT, HCGQUAL, BUN #### [facility] [address] Potassium [Moles/volume] in Serum or PlasmaOrdered By: Maria Luisa Sarkar on 08-10-2022 Potassium [Moles/Vol] 3.9 mmol/L Normal 3.5-5.1 [facility] Comment on above: Order Comment: patie nt not fasting Performed By: #### L YTES, CBC, PP, LIPID, CREAT, HCGQUAL, BUN #### [facility] [address] Serum or plasma anion gap de terminationOrdered By: Maria Luisa Sarkar on 08-10-2022 Anion gap [Moles/Vol] 11.1 mmol/L Normal 6.0-15.0 [facility] Comment on above: Order Comment: patie nt not fasting Performed By: #### L YTES, CBC, PP, LIPID, CREAT, HCGQUAL, BUN #### [facility] [address] Serum or plasma high density lipoprotein (HDL) cholesterol measurementOrdered By: Maria Luisa Sarkar on 08-10-2022 Cholesterol in HDL [Mass/Vol] 47 mg/dL Normal 35-85 [facility] Comment on above: HDL CHOL ATP-III CLA SSIFICATION Cardiovascular RiskHDL > or equal to 60 mg/dL LOWHDL < 40 mg/dL HIGH Order Comment: patie nt not fasting Result Comment: HDL CHOL ATP-III CLASSIFICATION Cardiovascular Risk HDL > or equal to 60 mg/dL LOW HDL < 40 mg/dL HIGH Performed By: #### L YTES, CBC, PP, LIPID, CREAT, HCGQUAL, BUN #### [facility] [address] Serum or plasma total choles terol/high density lipoprotein (HDL) cholesterol mass ratOrdered By: Maria Luisa Sarkar on 08-10-2022 Cholesterol.total/Chol esterol in HDL [Mass ratio] 3.2 {ratio} Normal <5.0 [facility] Comment on above: Order Comment: patie nt not fasting Performed By: #### L YTES, CBC, PP, LIPID, CREAT, HCGQUAL, BUN #### [facility] [address] Sodium [Moles/volume] in Ser um or PlasmaOrdered By: Maria Luisa Sarkar on 08-10-2022 Sodium [Moles/Vol] 141 mmol/L Normal 136-145 [facility] Comment on above: Order Comment: patie nt not fasting Performed By: #### L YTES, CBC, PP, LIPID, CREAT, HCGQUAL, BUN #### [facility] [address] Triglyceride [Mass/volume] i n Serum or PlasmaOrdered By: Maria Luisa Sarkar on 08-10-2022 Triglyceride [Mass/Vol] 394 mg/dL 0-149 [facility] Comment on above: TRIG ATP III CLASSIF ICATIONTRIG less than 150 mg/dL NormalTRIG 150-199 mg/dL Borderline highTRIG 200-500 mg/dL High TRIG greater than 500 mg/dL Very highStandard traceable to the Center for Disease Conrtrol and Prevention (CDC) test method. Urea nitrogen [Mass/volume] in Serum or PlasmaOrdered By: Maria Luisa Sarkar on 08-10-2022 Urea nitrogen [Mass/Vol] 15 mg/dL Normal 7-25 [facility] Comment on above: Order Comment: patie nt not fasting Performed By: #### L YTES, CBC, PP, LIPID, CREAT, HCGQUAL, BUN #### [facility] [address] Office Visit (Cardiology)on 07-28-2022 Follow-up visit Diagnoses/Problems Assessed Angina pectoris (413.9) (I20.9) Abnormal stress test (794.39) (R94.39) Essential hypertension, benign (401.1) (I10) Hyperlipidemia (272.4) (E78.5) Diabetes mellitus (250.00) (E11.9) Class 1 obesity with body mass index (BMI) of 34.0 to 34.9 in adult (278.00,V85.34) (E66.9,Z68.34) Never a smoker Orders Abnormal stress test, Angina pectoris Cardiac Catheterization Lab Procedures; Status:Active - Retrospective Authorization; Requested for:[id number]; Abnormal stress test, PMH: History of chest pain Renew: Aspirin 81 MG Oral Tablet Delayed Release; TAKE 1 TABLET DAILY Class 1 obesity with body mass index (BMI) of 34.0 to 34.9 in adult Healthy Weight Tips; Status:Complete - Retrospective Authorization; Done: [id number] Some eating tips that can help you lose weight.; Status:Complete - Retrospective Authorization; Done: [id number] SocHx: Never a smoker Tobacco Use Screening; Status:Complete; Done: [id number] Patient Instructions Please bring all medicines, vitamins, and herbal supplements with you when you come to the office. Prescriptions will not be filled unless you are compliant with your follow up appointments or have a follow up appointment scheduled as per instruction of your physician. Refills should be requested at the time of your visit. Heart cath Follow-up after testing completed The provider reviewed the following test(s) and result(s) with the patient: Myocardial perfusion study Chief Complaint SWAPNA GUIDO is being seen for a 6-8 week follow-up of. History of Present Illness Patient is here for follow-up continue management for recent evaluation for possible angina and abnormal stress test, hypertension diabetes mellitus and hyperlipidemia. Last time I saw her we will place her on an medical therapy. Despite being on beta-anton the patient continues to complain of fatigue, shortness of breath and intermittent chest pain. She has multiple risk factor for ischemic heart disease. Assessment 1. Symptoms suspicious of angina functional class I response to medical therapy 2. Abnormal stress test showing small area of anterior wall ischemia 3. Hypertension 4. Diabetes mellitus 5. Hyperlipidemia with LDL of 107 6. Very strong family history of coronary artery disease Plan 1. We discussed risk factor modification at great length 2. I educated the patient about angina and anginal symptomatology 3. Discussed treatment option at great length we discussed medical therapy versus invasive evaluation. Considering continued symptoms despite medical therapy the patient elected for cardiac catheterization. Risk, benefit and alternative reviewed with patient at length she understood and agreed Surgical History Problems History of Hysterectomy History of Nasal septoplasty History of Thyroidectomy History of Wrist surgery Current Meds Medication NameInstruction Sandrine Thyroid 90 MG Oral TabletTAKE 1 TABLET DAILY. Aspirin 81 MG Oral Tablet Delayed ReleaseTAKE 1 TABLET DAILY. Baclofen 10 MG Oral Tablet Benicar HCT 20-12.5 MG Oral TabletTAKE 1 TABLET DAILY. Claritin 10 MG Oral CapsuleTAKE 1 CAPSULE Daily metFORMIN HCl - 500 MG Oral TabletTAKE 1 TABLET DAILY. Metoprolol Succinate ER 25 MG Oral Tablet Extended Release 24 HourTAKE 1 TABLET DAILY. Nitroglycerin 0.4 MG Sublingual Tablet SublingualTAKE DIRECTED. Rosuvastatin Calcium 10 MG Oral TabletTAKE 1 TABLET AT BEDTIME. Vitamin D3 125 MCG (5000 UT) Oral CapsuleTAKE DIRECTED. Wellbutrin XL 150 MG Oral Tablet Extended Release 24 HourTAKE 1 TABLET DAILY. Patient did not bring medication list or bottles. Updated verbally with patient Allergies Medication Penicillins Recorded By: Dewey David; 06/03/2022 3:27:30 PM Social History Problems Caffeine use (V49.89) (Z78.9) Never a smoker No alcohol use No illicit drug use Review of Systems Constitutional: not feeling tired. Cardiovascular: chest pain, but no intermittent leg claudication and as noted in HPI. Respiratory: shortness of breath during exertion, but no cough and no shortness of breath. Gastrointestinal: no change in bowel habits and no blood in stools. Integumentary: no skin rashes. Neurological: no seizures and no frequent falls. All other systems have been reviewed and are negative for complaint. Vitals Vital Signs Recorded: 28Jul2022 03:28PM Heart Rate74, L Radial Vfxrgnmb200, LUE, Sitting Oohtpqftd92, LUE, Sitting Height5 ft 6 in Vqxygc632 lb BMI Vzqmmkpwvw53.22 kg/m2 BSA Calculated2.05 Tobacco Useb) No Physical Exam Constitutional: alert and in no acute distress. Neck: neck is supple, symmetric, trachea midline, no masses and no thyromegaly . Pulmonary: no increased work of breathing or signs of respiratory distress and lungs clear to auscultation. Cardiovascular: carotid pulses 2+ bilaterally with no bruit , JVP was normal, no thrills , regular rhythm, normal S1 and S2, no murmurs , pe (more content not included)... Normal [email or web address] Tobacco Screening.on 023 Tobacco use status CPHS b) No [facility] juan antonio 250 DO Work Phone: LIPID PROFILEon 06-18-2022 CHOL-HDL RATIO NORM SEE BELOW Normal [facility] Comment on above: Result Comment: 3.3 - 4.4 LOW RISK 4.4 - 7.1 AVERAGE RISK 7.1 - 11.0 MODERATE RISK >11.0 HIGH RISK Performed By: #### F T4 #### [facility] [address] [address] [address] Claudine Mortensen Cholesterol [Mass/Vol] 143 mg/dL Normal <=200 [facility] Comment on above: Performed By: #### F T4 #### [facility] [address] [address] [address] Claudine Mortensen Cholesterol in HDL [Mass/Vol] 53 mg/dL Normal 40-60 [facility] Comment on above: Performed By: #### F T4 #### [facility] [address] [address] [address] Claudine Mortensen Cholesterol in LDL [Mass/Vol] 68.2 mg/dL Normal [facility] Comment on above: Performed By: #### F T4 #### [facility] [address] [address] [address] Claudine Mortensen Cholesterol.total/Chol esterol in HDL [Mass ratio] 2.7 {ratio} Normal [facility] Comment on above: Performed By: #### F T4 #### [facility] [address] [address] [address] Claudine Mortensen HDL NORMAL > or = 60 mg/dl - LO W CARDIOVASCULAR RISK <40 mg/dl - HIGH CARDIOVASCULAR RISK Normal [facility] Comment on above: Performed By: #### F T4 #### [facility] [id number] Claudine Mortensen LDL CALC NORMAL SEE BELOW Normal [facility] Comment on above: Result Comment: <100 mg/dl OPTIMAL 100 - 129 mg/dl NEAR OR ABOVE OPTIMAL 130 - 159 mg/dl BORDERLINE HIGH 160 - 189 mg/dl HIGH >190 mg/dl VERY HIGH Performed By: #### F T4 #### [facility] [address] [place] [address] Dr. Claudine Mortensen Triglyceride [Mass/Vol] 109 mg/dL Normal <=150 [facility] Comment on above: Performed By: #### F T4 #### [facility] [address] [place] [address] Dr. Claudine Mortensen VLDL CALC 21.8 mg/dL Normal [facility] Comment on above: Performed By: #### F T4 #### [facility] [address] [place] [address] Dr. Claudine Mortensen Office Visit (Cardiology)on 06-03-2022 Follow-up visit Diagnoses/Problems Assessed Angina pectoris (413.9) (I20.9) Abnormal stress test (794.39) (R94.39) Hyperlipidemia (272.4) (E78.5) Essential hypertension, benign (401.1) (I10) Diabetes mellitus (250.00) (E11.9) Class 1 obesity with body mass index (BMI) of 34.0 to 34.9 in adult (278.00,V85.34) (E66.9,Z68.34) Orders Abnormal stress test, Chest pain Start: Aspirin 81 MG Oral Tablet Delayed Release; TAKE 1 TABLET DAILY Start: Nitroglycerin 0.4 MG Sublingual Tablet Sublingual; TAKE DIRECTED Chest pain IO EKG Electrocardiogram- 12 Lead; Status:Complete; Done: 03Jun2022 Chest pain, Essential hypertension, benign Start: Metoprolol Succinate ER 25 MG Oral Tablet Extended Release 24 Hour (Toprol XL); TAKE 1 TABLET DAILY Class 1 obesity with body mass index (BMI) of 34.0 to 34.9 in adult Healthy Weight Tips; Status:Complete - Retrospective Authorization; Done: 03Jun2022 Some eating tips that can help you lose weight.; Status:Complete - Retrospective Authorization; Done: 03Jun2022 Hyperlipidemia Start: Rosuvastatin Calcium 10 MG Oral Tablet (Crestor); TAKE 1 TABLET AT BEDTIME ALT - Alanine Aminotransferase, Serum; Status:Active - Retrospective Authorization; Requested for:07Sep2022; AST; Status:Active - Retrospective Authorization; Requested for:07Sep2022; Lipid Panel; Status:Active - Retrospective Authorization; Requested for:07Sep2022; Patient Instructions Please bring all medicines, vitamins, and herbal supplements with you when you come to the office. Prescriptions will not be filled unless you are compliant with your follow up appointments or have a follow up appointment scheduled as per instruction of your physician. Refills should be requested at the time of your visit. Follow up in 2 months Aspirin 81 mg one daily Toprol xl 25 mg one daily NTG [facility] lipid lab The provider reviewed the following test(s) and result(s) with the patient: ECG Chief Complaint SWAPNA GUIDO is being seen for a consultation for abnormal stress test. History of Present Illness Patient is here for cardiovascular evaluation for recent complaint of anginal symptoms. She is 57-year-old with history of diabetes mellitus, hypertension, obesity, very strong family history of coronary disease with her brother has myocardial infarction at the age of 44 and had a at the age of 53 who recently experienced an episode of exertional chest pain. 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 She was pushing some heavy objects and developed retrosternal chest heaviness described as pressure radiation to the left arm associated with some shortness of breath mild lightheadedness and minor diaphoresis. The patient saw her family physician. A stress test was done and demonstrated small area of distal anterior wall ischemia. Patient was able to exercise for about 7 minutes. Her EKG component of the stress test was reassuring. Since that episode the patient describes few episodes of exertional chest pain with very heavy activity. Assessment 1. Symptoms suspicious of angina functional class I 2. Abnormal stress test showing small area of anterior wall ischemia but at good exercise level 3. Hypertension 4. Diabetes mellitus 5. Hyperlipidemia with LDL of 107 6. Very strong family history of coronary artery disease Plan 1. We discussed risk factor modification at great length 2. I educated the patient about angina and anginal symptomatology 3. I advised the patient to start aspirin 81 mg once daily, Toprol-XL 25 mg once daily, nitroglycerin as needed and I recommended initiating treatment with rosuvastatin 10 mg daily 4. We discussed invasive evaluation versus medical management based on the fact that she had functional class I and was able to do 7 minutes on the treadmill based on the small size of ischemia on the stress test we reviewed current guidelines and we discussed invasive versus conservative management following the discussion the patient agreed with conservative management. 5. Patient was advised to notify me if develop any worsening of her symptoms 6. We will see her back in the office in 6 weeks for follow-up or earlier if the need arise Surgical History Problems History of Hysterectomy History of Nasal septoplasty History of Thyroidectomy History of Wrist surgery Current Meds Medication NameInstruction [place] Thyroid 90 MG Oral TabletTAKE 1 TABLET DAILY. Benicar HCT 20-12.5 MG Oral TabletTAKE 1 TABLET DAILY. Claritin 10 MG Oral CapsuleTAKE 1 CAPSULE Daily metFORMIN HCl - 500 MG Oral TabletTAKE 1 TABLET DAILY. Vitamin D3 125 MCG (5000 UT) Oral CapsuleTAKE DIRECTED. Wellbutrin XL 150 MG Oral Tablet Extended Release 24 HourTAKE 1 TABLET DAILY. Patient did not bring medication list or bottles. Updated verbally with patient Allergies Medication Penicillins Recorded By: Dewey David; 06/03/2022 3:27:30 PM Social History Problems Caffeine use (V49.89) (Z78.9) (more content not included)... Normal [facility] NM harriet perf SPECT rest stron 06-02-2022 NM harriet perf SPECT rest str [facility] [place] [address] Nuclear Medicine Report Signed Patient: Swapna Guido MR#: [id number] 8 : 1965 Acct:[id number] Age/Sex: 57 / F ADM Date: 05/29/22 Loc: Room: Type: [facility] Attending Dr: Lamin Benavides MD Copies to: MD Lamin Bucio MD Ordering Provider: Lamin Benavides MD Date of Service: 06/02/22 NM/NM harriet perf SPECT rest str: Dose Ordered CHEST DISCOMFORT, SOB REASON FOR STUDY: Chest pain, shortness of breath. REFERRING PHYSICIAN: Lamin Benavides MD PROCEDURE: The patient underwent a 2-day rest/stress protocol. Rest images obtained by injecting 28.6 mCi of Cardiolite. Stress images obtained by injecting 29.7 mCi of Cardiolite. Subsequently, gated SPECT and ejection fraction studies were performed. IMAGING RESULT: This appears to be a fair study. There is a very small, mild reversible defect in the distal anteroseptal wall consistent with a very small area of distal anteroseptal wall ischemia. Left ventricular ejection fraction appears normal, calculated at 64%. TID index normal at 1.21. CONCLUSION: 1. Probable small area of distal anteroseptal wall mild ischemia. 2. No prior myocardial infarction. 3. Normal left ventricular systolic function and wall motion. 4. No previous study available for comparison. Transcribed By: KERI 06/02/221211 Dictated By: Maria Luisa Sarkar MD 06/02/221201 Signed By: 06/02/22 1302 [facility] NM harriet perf SPECT rest str [facility] [place] [address] Nuclear Medicine Report Signed Patient: Swapna Guido MR#: [id number] 8 : 1965 Acct:[id number] Age/Sex: 57 / F ADM Date: 06/02/22 Loc: Room: Type: [facility] Attending Dr: Lamin Benavides MD Copies to: MD Lamin Bucio MD Ordering Provider: Lamin Benavides MD Date of Service: 06/02/22 NM/NM harriet perf SPECT rest str: Dose Ordered CHEST DISCOMFORT, SOB REASON FOR STUDY: Chest pain, shortness of breath. REFERRING PHYSICIAN: Lamin Benavides MD PROCEDURE: The patient underwent a 2-day rest/stress protocol. Rest images obtained by injecting 28.6 mCi of Cardiolite. Stress images obtained by injecting 29.7 mCi of Cardiolite. Subsequently, gated SPECT and ejection fraction studies were performed. IMAGING RESULT: This appears to be a fair study. There is a very small, mild reversible defect in the distal anteroseptal wall consistent with a very small area of distal anteroseptal wall ischemia. Left ventricular ejection fraction appears normal, calculated at 64%. TID index normal at 1.21. CONCLUSION: 1. Probable small area of distal anteroseptal wall mild ischemia. 2. No prior myocardial infarction. 3. Normal left ventricular systolic function and wall motion. 4. No previous study available for comparison. Transcribed By: KERI 06/02/221211 Dictated By: Maria Luisa Sarkar MD 06/02/22 120 Signed By: 06/03/22 0905 [facility] STR cardiac stress/cardiolon 06-02-2022 STR cardiac stress/cardiol [facility] [address] [place] [address] [place] [address] Cardiac Stress Test Signed Patient: Swapna Guido MR#: [id number] 8 : 1965 Acct:[id number] Age/Sex: 57 / F ADM Date: 06/02/22 Loc: Room: Type: [facility] Attending Dr: Lamin Benavides MD Copies to: MD Lamin Bucio MD Ordering Provider: Lamin Benavides MD Date of Service: 06/02/22 STR/STR cardiac stress/cardiol: see order REFERRING PHYSICIAN: Lamin Benavides MD REASON FOR STUDY: Recent near-syncopal episode. PROCEDURE: The patient underwent Cardiolite exercise stress test with the [place] protocol. The patient was able to exercise for a total of 7 minutes 30 seconds, achieving workload of 9.2 METs. Maximum heart rate was 157 beats per minute, corresponding to 95% of maximum predicted heart rate. Maximum blood pressure was 220/90. No chest pain was reported. Heart rate response to exercise was physiologic. Blood pressure response was slightly hypertensive. Baseline ECG showed normal sinus rhythm with nonspecific ST-T changes. At peak exercise, nondiagnostic changes were seen due to abnormal baseline. Cardiolite was injected at peak heart rate. CONCLUSION: 1. Cardiolite exercise stress test with nondiagnostic ST-T changes for exercise-induced ischemia in view of abnormal baseline. 2. Appropriate heart rate response to exercise. 3. Slightly hypertensive blood pressure response to exercise. 4. No provoked chest pain or arrhythmia. 5. Fair exercise tolerance. 6. Normal heart rate recovery phase. 7. Myocardial perfusion study will be dictated separately. Transcribed By: KERI 06/02/22 1209 Dictated By: Maria Luisa Sarkar MD 06/02/22 1048 Signed By: 06/02/22 1302 Normal [facility] Activated partial thrombopla stin time (aPTT) in platelet poor plasma by coagulation aOrdered By: Brianna Parker on 05-20-2022 aPTT Coag (PPP) [Time] 27.4 s 25.1-36.5 [facility] B-Type Natriuretic Peptideon 05-20-2022 Natriuretic peptide B (Bld) [Mass/Vol] 13.0 pg/mL Normal 5-100 [facility] Comment on above: Result Comment: PERF ORMED BY: [place] [address] PATHOLOGIST ROD PILER ALEX WETZEL M.D. Performed By: #### L YTES, CBC, PP, LIPID, CREAT, HCGQUAL, BUN #### [address] Basic Metabolic Panelon 05-06 Anion gap [Moles/Vol] 14.1 mmol/L Normal 6.0-15.0 [facility] Comment on above: Performed By: #### L YTES, CBC, PP, LIPID, CREAT, HCGQUAL, BUN #### [address] Calcium [Mass/Vol] 9.1 mg/dL Normal 8.2-10.2 [facility] Comment on above: Performed By: #### L YTES, CBC, PP, LIPID, CREAT, HCGQUAL, BUN #### [address] Chloride [Moles/Vol] 101 mmol/L Normal 95-114 [facility] Comment on above: Performed By: #### L YTES, CBC, PP, LIPID, CREAT, HCGQUAL, BUN #### [address] CO2 [Moles/Vol] 26.9 mmol/L Normal 22.0-30.0 [facility] Comment on above: Performed By: #### L YTES, CBC, PP, LIPID, CREAT, HCGQUAL, BUN #### [address] Creatinine [Mass/Vol] 0.85 mg/dL Normal 0.44-1.03 [facility] Comment on above: Performed By: #### L YTES, CBC, PP, LIPID, CREAT, HCGQUAL, BUN #### [address] [place] [address] [place] Creatinine Clr Calc Pharmacy 91.75 [facility] Comment on above: Result Comment: PERF ORMED BY: [place] [address] PATHOLOGIST ROD PILER ALEX WETZEL M.D. Performed By: #### L YTES, CBC, PP, LIPID, CREAT, HCGQUAL, BUN #### [address] Estimated GFR ( Melisa > 60 [facility] Comment on above: Result Comment: GFR estimated reference range: According to KDOQI guidelines, <60 ml/min/1.73m2 is sufficient to diagnose a patient with chronic kidney disease. Performed By: #### L YTES, CBC, PP, LIPID, CREAT, HCGQUAL, BUN #### [address] Estimated GFR (Non- Am > 60 [facility] Comment on above: Performed By: #### L YTES, CBC, PP, LIPID, CREAT, HCGQUAL, BUN #### [address] Glucose [Mass/Vol] 91 mg/dL Normal 70-100 [facility] Comment on above: Result Comment: [place] Glucose Reference Range is dependent on time and content of last meal. Glucose of more than 200 mg/dL in a nonstressed, ambulatory subject supports the diagnosis of Diabetes Mellitus. ADA recommended reference range Performed By: #### L YTES, CBC, PP, LIPID, CREAT, HCGQUAL, BUN #### [address] Potassium [Moles/Vol] 4.0 mmol/L Normal 3.5-5.1 [facility] Comment on above: Performed By: #### L YTES, CBC, PP, LIPID, CREAT, HCGQUAL, BUN #### [address] Sodium [Moles/Vol] 138 mmol/L Normal 136-146 [facility] Comment on above: Performed By: #### L YTES, CBC, PP, LIPID, CREAT, HCGQUAL, BUN #### [facility] [address] [place] [address] Urea nitrogen [Mass/Vol] 12 mg/dL Normal 9-23 [facility] Comment on above: Performed By: #### L YTES, CBC, PP, LIPID, CREAT, HCGQUAL, BUN #### [facility] [address] [place] [address] Basophils Auto (Bld) [#/Vol] Ordered By: Brianna Parker on 05-20-2022 Basophils (Bld) [#/Vol] 0.1 10*3/uL 0.0-0.2 [facility] Basophils/100 WBC Auto (Bld) Ordered By: Brianna Parker on 05-20-2022 Basophils/100 WBC (Bld) 1.1 % . [facility] Complete Blood Count Auto Di ffon 05-20-2022 Basophils (Bld) [#/Vol] 0.1 10*3/uL Normal 0.0-0.2 [facility] Comment on above: Result Comment: PERF ORMED BY: [place] [address] PATHOLOGIST ROD PILER ALEX WETZEL M.D. Performed By: #### L YTES, CBC, PP, LIPID, CREAT, HCGQUAL, BUN #### [facility] [address] [place] [address] Basophils/100 WBC (Bld) 1.1 % Normal . [facility] Comment on above: Performed By: #### L YTES, CBC, PP, LIPID, CREAT, HCGQUAL, BUN #### [facility] [address] [place] [address] Eosinophils (Bld) [#/Vol] 0.2 10*3/uL Normal 0.0-0.45 [facility] Comment on above: Performed By: #### L YTES, CBC, PP, LIPID, CREAT, HCGQUAL, BUN #### [address] Eosinophils/100 WBC (Bld) 3.4 % Normal . [facility] Comment on above: Performed By: #### L YTES, CBC, PP, LIPID, CREAT, HCGQUAL, BUN #### [address] Erythrocyte distribution width (RBC) [Ratio] 13.9 % Normal 11.9-15.3 [facility] Comment on above: Performed By: #### L YTES, CBC, PP, LIPID, CREAT, HCGQUAL, BUN #### [address] Hematocrit (Bld) [Volume fraction] 37.1 % Normal 34.0-46.4 [facility] Comment on above: Performed By: #### L YTES, CBC, PP, LIPID, CREAT, HCGQUAL, BUN #### [address] Hemoglobin (Bld) [Mass/Vol] 12.6 g/dL Normal 11.8-15.4 [facility] Comment on above: Performed By: #### L YTES, CBC, PP, LIPID, CREAT, HCGQUAL, BUN #### [address] Lymphocytes (Bld) [#/Vol] 2.6 10*3/uL Normal 1.00-4.8 [facility] Comment on above: Performed By: #### L YTES, CBC, PP, LIPID, CREAT, HCGQUAL, BUN #### [address] Lymphocytes/100 WBC (Bld) 38.9 % Normal . [facility] Comment on above: Performed By: #### L YTES, CBC, PP, LIPID, CREAT, HCGQUAL, BUN #### [address] MCH (RBC) [Entitic mass] 29.8 pg Normal 24.7-34.3 [facility] Comment on above: Performed By: #### L YTES, CBC, PP, LIPID, CREAT, HCGQUAL, BUN #### [address] MCV (RBC) [Entitic vol] 87.7 fL Normal 80-100 [facility] Comment on above: Performed By: #### L YTES, CBC, PP, LIPID, CREAT, HCGQUAL, BUN #### [address] Mean Corpuscular HGB Conc 34.0 g/dL Normal 32.0-35.0 [facility] Comment on above: Performed By: #### L YTES, CBC, PP, LIPID, CREAT, HCGQUAL, BUN #### [address] Monocytes (Bld) [#/Vol] 0.4 10*3/uL Normal 0.0-0.8 [facility] Comment on above: Performed By: #### L YTES, CBC, PP, LIPID, CREAT, HCGQUAL, BUN #### [address] Monocytes/100 WBC (Bld) 18.25 % Normal 0.00-20.00 [facility] Comment on above: Performed By: #### L YTES, CBC, PP, LIPID, CREAT, HCGQUAL, BUN #### [address] Monocytes/100 WBC (Bld) 6.0 % Normal . [facility] Comment on above: Performed By: #### L YTES, CBC, PP, LIPID, CREAT, HCGQUAL, BUN #### [place] [address] [place] Neutrophils (Bld) [#/Vol] 3.3 10*3/uL Normal 1.8-7.7 [facility] Comment on above: Performed By: #### L YTES, CBC, PP, LIPID, CREAT, HCGQUAL, BUN #### [place] [address] [place] Neutrophils/100 WBC (Bld) 50.6 % Normal . [facility] Comment on above: Performed By: #### L YTES, CBC, PP, LIPID, CREAT, HCGQUAL, BUN #### [address] NRBC% 0.1 /100{WBC} Normal 0-0.5 [facility] Comment on above: Performed By: #### L YTES, CBC, PP, LIPID, CREAT, HCGQUAL, BUN #### [address] Platelet mean volume (Bld) [Entitic vol] 7.1 fL Normal 6.3-10.7 [facility] Comment on above: Performed By: #### L YTES, CBC, PP, LIPID, CREAT, HCGQUAL, BUN #### [address] Platelets (Bld) [#/Vol] 308 10*3/uL Normal 150-450 [facility] Comment on above: Performed By: #### L YTES, CBC, PP, LIPID, CREAT, HCGQUAL, BUN #### [address] RBC (Bld) [#/Vol] 4.23 10*6/uL Normal 3.60-5.00 [facility] Comment on above: Performed By: #### L YTES, CBC, PP, LIPID, CREAT, HCGQUAL, BUN #### [address] WBC (Bld) [#/Vol] 6.6 10*3/uL Normal 3.8-11.6 [facility] Comment on above: Performed By: #### L YTES, CBC, PP, LIPID, CREAT, HCGQUAL, BUN #### [address] Creatine Kinaseon 05-20-2022 CK [Catalytic activity/Vol] 371 U/L High 22-269 [facility] Comment on above: Performed By: #### L YTES, CBC, PP, LIPID, CREAT, HCGQUAL, BUN #### [facility] [address] [id number] [place] Creatine kinase [Enzymatic a ctivity/volume] in Serum or PlasmaOrdered By: Brianna Parker on 05-20-2022 CK [Catalytic activity/Vol] 371 U/L 22-269 [facility] Creatine kinase.MB [Mass/vol ume] in Serum or PlasmaOrdered By: Brianna Parker on 05-20-2022 CK.MB [Mass/Vol] 2.0 ng/mL 0.6-6.3 [facility] Creatinine Kinase MBon 05-20 CK.MB [Mass/Vol] 2.0 ng/mL Normal 0.6-6.3 [facility] Comment on above: Performed By: #### L YTES, CBC, PP, LIPID, CREAT, HCGQUAL, BUN #### [facility] [address] [id number] [place] CKMB Relative Index 0.5 % Normal 0.00-2.50 [facility] Comment on above: Performed By: #### L YTES, CBC, PP, LIPID, CREAT, HCGQUAL, BUN #### [facility] [address] Creatinine and Glomerular fi ltration rate.predicted panel (S/P/Bld)Ordered By: Brianna Parker on 05-20-2022 Creatinine [Mass/Vol] 0.85 mg/dL 0.44-1.03 [facility] ECG 12 lead ECGon 05-20-2022 ECG 12 lead ECG [facility] [place] [address] Electrocardiograph Report Signed Patient: Swapna Guido MR#: [id number] 8 : 1965 Acct:[id number] Age/Sex: 57 / F ADM Date: 05/20/22 Loc: ER Room: Type: [facility] ER Attending Dr: Ordering Provider: Brianna Parker, DO Date of Service: 05/20/22 ECG/ECG 12 lead ECG: Chest Pain Copies to: Test Reason : Blood Pressure : / mmHG Vent. Rate : 082 BPM Atrial Rate : 082 BPM P-R Int : 154 ms QRS Dur : 076 ms QT Int : 364 ms P-R-T Axes : 048 046 008 degrees QTc Int : 425 ms Normal sinus rhythm Normal ECG When compared with ECG of 18-OCT-2018 08:29, No significant change was found Confirmed by BRIANNA PARKER DO ([id number]) on 05/21/2022 12:08:12 AM Referred By: Electronically Signed By:BRIANNA PARKER DO Transcribed By: MUS Signed By Brianna Parker DO 0008 Normal [facility] Eosinophils Auto (Bld) [#/Vo l]Ordered By: Brianna Parker on 05-20-2022 Eosinophils (Bld) [#/Vol] 0.2 10*3/uL 0.0-0.45 [facility] Eosinophils/100 WBC Auto (Bl d)Ordered By: Brianna Parker on 05-20-2022 Eosinophils/100 WBC (Bld) 3.4 % . [facility] Erythrocyte distribution wid th Auto (RBC) [Ratio]Ordered By: Brianna Parker on 05-20-2022 Erythrocyte distribution width (RBC) [Ratio] 13.9 % 11.9-15.3 [facility] Estimated glomerular filtrat ion rate (GFR) non- AmericanOrdered By: Brianna Parker on 05-20-2022 GFR/1.73 sq M.predicted among non-blacks MDRD (S/P/Bld) [Vol rate/Area] > 60 mL/Min [facility] Hematocrit Auto (Bld) [Volum e fraction]Ordered By: Brianna Parker on 05-20-2022 Hematocrit (Bld) [Volume fraction] 37.1 % 34.0-46.4 [facility] Hemoglobin [Mass/volume] in BloodOrdered By: Brianna Parker on 05-20-2022 Hemoglobin (Bld) [Mass/Vol] 12.6 g/dL 11.8-15.4 [facility] Laboratory - Chemistry and C hemistry - challengeOrdered By: Brianna Parker on 05-20-2022 Natriuretic peptide B (Bld) [Mass/Vol] 13.0 pg/mL 5-100 [facility] - CoagulationOrde red By: Brianna Parker on 05-20-2022 PT Coag (PPP) [Time] 10.8 s 9.0-12.9 [facility] Leukocytes [#/volume] correc juana for nucleated erythrocytes in Blood by Automated counOrdered By: Brianna Parker on 05-20-2022 WBC corrected for nucl RBC Auto (Bld) [#/Vol] 6.6 10*3/uL 3.8-11.6 [facility] Lymphocytes Auto (Bld) [#/Vo l]Ordered By: Brianna Parker on 05-20-2022 Lymphocytes (Bld) [#/Vol] 2.6 10*3/uL 1.00-4.8 [facility] Lymphocytes/100 WBC Auto (Bl d)Ordered By: Brianna Parker on 05-20-2022 Lymphocytes/100 WBC (Bld) 38.9 % . [facility] MCH Auto (RBC) [Entitic mass ]Ordered By: Brianna Parker on 05-20-2022 MCH (RBC) [Entitic mass] 29.8 pg 24.7-34.3 [facility] MCHC Auto (RBC) [Mass/Vol]Or dered By: Brianna Parker on 05-20-2022 MCHC (RBC) [Mass/Vol] 34.0 g/dL 32.0-35.0 [facility] MCV Auto (RBC) [Entitic vol] Ordered By: Brianna Parker on 05-20-2022 MCV (RBC) [Entitic vol] 87.7 fL 80-100 [facility] Monocyte distribution width [Entitic volume] in Blood by AutomatedOrdered By: Brianna Parker on 05-20-2022 Monocyte distribution width Auto (Bld) [Entitic vol] 18.25 % 0.00-20.00 [facility] Monocytes Auto (Bld) [#/Vol] Ordered By: Brianna Parker on 05-20-2022 Monocytes (Bld) [#/Vol] 0.4 10*3/uL 0.0-0.8 [facility] Monocytes/100 WBC Auto (Bld) Ordered By: Brianna Parker on 05-20-2022 Monocytes/100 WBC (Bld) 6.0 % . [facility] Neutrophils Auto (Bld) [#/Vo l]Ordered By: Brianna Parker on 05-20-2022 Neutrophils (Bld) [#/Vol] 3.3 10*3/uL 1.8-7.7 [facility] Neutrophils/100 WBC Auto (Bl d)Ordered By: Brianna Parker on 05-20-2022 Neutrophils/100 WBC (Bld) 50.6 % . [facility] No Panel InformationOrdered By: Brianna Parker on 05-20-2022 Estimated GFR () > 60 mL/Min [facility] Comment on above: GFR estimated refere nce range: According to KDOQI guidelines, <60 ml/min/1.73m2 is sufficient to diagnose a patient with chronic kidney disease. Pharmacy Creatinine Clearance (Chem 91.75 [facility] Nucleated erythrocytes [Pres ence] in Blood by Automated countOrdered By: Brianna Parker on 05-20-2022 Nucleated RBC Auto Ql (Bld) 0.1 /100{WBC} 0-0.5 [facility] Partial Thromboplastin Timeo n 05-20-2022 aPTT Coag (Bld) [Time] 27.4 s Normal 25.1-36.5 [facility] Comment on above: Result Comment: PERF ORMED BY: [place] [address] PATHOLOGIST ROD PILER ALEX WETEZL M.D. Performed By: #### L YTES, CBC, PP, LIPID, CREAT, HCGQUAL, BUN #### [facility] [address] Platelet mean volume Auto (B ld) [Entitic vol]Ordered By: Brianna Parker on 05-20-2022 Platelet mean volume (Bld) [Entitic vol] 7.1 fL 6.3-10.7 [facility] Platelet poor plasma interna tional normalized ratio (INR) by coagulation assay (relatOrdered By: Brianna Parker on 05-20-2022 INR Coag (PPP) [Relative time] 0.9 {INR} [facility] Comment on above: INR Therapeutic Rang e A) Pre- and Peroperative OAT started two weeks before surgery. NOT HIP SURGERY: 1.5 - 2.5 HIP SURGERY: 2 - 3B) Primary and secondary prevention of venous THROMBOSIS: 2 - 3C) Active venous thrombosis, pulmonary embolismand prevention of recurrent venous thrombosis: 2 - 3D) Prevention of arterial thromboembolismincluding patients with mechanical heart valves: 3 - 4.5 Platelets Auto (Bld) [#/Vol] Ordered By: Brianna Parker on 05-20-2022 Platelets (Bld) [#/Vol] 308 10*3/uL 150-450 [facility] Prothrombin Time INRon 05-20 INR Coag (PPP) [Relative time] 0.9 {INR} Normal [facility] Comment on above: Result Comment: INR Therapeutic Range A) Pre- and Peroperative OAT started two weeks before surgery. NOT HIP SURGERY: 1.5 - 2.5 HIP SURGERY: 2 - 3 B) Primary and secondary prevention of venous THROMBOSIS: 2 - 3 C) Active venous thrombosis, pulmonary embolism and prevention of recurrent venous thrombosis: 2 - 3 D) Prevention of arterial thromboembolism including patients with mechanical heart valves: 3 - 4.5 Performed By: #### L YTES, CBC, PP, LIPID, CREAT, HCGQUAL, BUN #### [facility] [address] PT Coag (PPP) [Time] 10.8 s Normal 9.0-12.9 [facility] Comment on above: Performed By: #### L YTES, CBC, PP, LIPID, CREAT, HCGQUAL, BUN #### [facility] [address] RBC Auto (Bld) [#/Vol]Ordere d By: Brianna Parker on 05-20-2022 RBC (Bld) [#/Vol] 4.23 10*6/uL 3.60-5.00 [facility] Serum or plasma anion gap de terminationOrdered By: Brianna Parker on 05-20-2022 Anion gap [Moles/Vol] 14.1 mmol/L 6.0-15.0 [facility] Serum or plasma calcium denae urement (mass/volume)Ordered By: Brianna Parker on 05-20-2022 Calcium [Mass/Vol] 9.1 mg/dL 8.2-10.2 [facility] Serum or plasma chloride baldomero surement (moles/volume)Ordered By: Brianna Parker on 05-20-2022 Chloride [Moles/Vol] 101 mmol/L 95-114 [facility] Serum or plasma creatine kin ase MB (CKMB)/total creatine kinase (CK) ratio by calculaOrdered By: Brianna Parker on 05-20-2022 CK.MB Calc [Catalytic fraction] 0.5 % 0.00-2.50 [facility] Serum or plasma glucose denae urement (mass/volume)Ordered By: Brianna Parker on 05-20-2022 Glucose [Mass/Vol] 91 mg/dL 70-100 [facility] Comment on above: ADA recommended refe rence rangeRandom Glucose Reference Range is dependent on time and content of last meal. Glucose of more than 200 mg/dL in a nonstressed, ambulatory subject supports the diagnosis of Diabetes Mellitus. Serum or plasma potassium me asurement (moles/volume)Ordered By: Brianna Parker on 05-20-2022 Potassium [Moles/Vol] 4.0 mmol/L 3.5-5.1 [facility] Serum or plasma sodium measu rement (moles/volume)Ordered By: Brianna Parker on 05-20-2022 Sodium [Moles/Vol] 138 mmol/L 136-146 [facility] Serum or plasma total carbon dioxide measurement (moles/volume)Ordered By: Brianna Parker on 05-20-2022 CO2 [Moles/Vol] 26.9 mmol/L 22.0-30.0 [facility] Serum or plasma urea nitroge n measurement (mass/volume)Ordered By: Brianna Parker on 05-20-2022 Urea nitrogen [Mass/Vol] 12 mg/dL 9-23 [facility] Troponin I High Sensitivityo n 05-20-2022 Troponin I High Sensitivity < 3 Normal 0-15 [facility] Comment on above: Result Comment: PERF ORMED BY: [facility] [address] [place] [address] PATHOLOGIST ROD PILER ALEX WETZEL M.D. Performed By: #### H S TROP #### [facility] [address] [place] [address] Troponin I High Sensitivity < 3 Normal [address] [place] [address] Comment on above: Result Comment: PERF ORMED BY: [place] [address] PATHOLOGIST ROD PILER ALEX WETZEL M.D. Performed By: #### L YTES, CBC, PP, LIPID, CREAT, HCGQUAL, BUN #### [facility] [address] [place] [address] Troponin I.cardiac [Mass/vol ume] in Serum or Plasma by High sensitivity methodOrdered By: Brianna Praker on 05-20-2022 Troponin I.cardiac High sensitivity method [Mass/Vol] < 3 pg/mL 0 [facility] WBC Auto (Bld) [#/Vol]Ordere d By: Brianna Parker on 05-20-2022 WBC (Bld) [#/Vol] 6.6 10*3/uL 3.8-11.6 [facility] XR chest 2V*on 05-20-2022 XR chest 2V* [facility] [address] XRay Report Signed Patient: Swapna Guido MR#: [id number] : 1965 Acct:[id number] Age/Sex: 57 / F ADM Date: 05/20/22 Loc: ER Room: Type: [facility] ER Attending Dr: Copies to: Brianna Parker DO Ordering Provider: Brianna Parker DO Date of Service: 05/20/22 XR/XR chest 2V*: Chest Pain Plain film chest2 view HISTORY:Chest pain COMPARISON:None FINDINGS: The cardiac, mediastinal and hilar silhouettes are within normal limits. No acute lung process, pleural effusion or pneumothorax identified. Bony structures are intact. XR/XR chest 2V* IMPRESSION: No acute process. Impression dictated by: Silverio Stewart M.D.05/20/2022 8:51 PM Dictation Location: [place] [address] Transcribed By: [facility] 05/20/222050 Dictated By: Silverio Stewart DO 05/20/222049 Signed By: 05/20/222050 [facility] TSHon 04-23-2022 TSH 0.761 uIU/mL Normal 0.358-3.74 0 [facility] Comment on above: Performed By: #### T SH #### [facility] [address] [address] [address] Claudine Mortensen FREE T4on 02-24-2022 Free T4 [Mass/Vol] 1.61 ng/dL Critically high 0.76-1.46 T [facility] Comment on above: Performed By: #### F T4 #### [facility] [address] [place] [address] Dr. Claudine Mortensen TSHon 02-24-2022 TSH Qn m[IU]/L Critically low 0.358-3.74 0 [facility] Comment on above: Performed By: #### T SH #### [facility] [address] [place] [address] Dr. Claudine Mortensen MG MAMM SCREEN 3D NICOLE CADon 02-12-2022 MG MAMM SCREEN 3D NICOLE CAD Patient: SWAPNA GUIDO Exam Date: 02/12/2022 : 1965 Gender:F Ordering : DR LAMIN BENAVIDES M.D. Admission #: [id number] Family : DR. SHIRA METZGER D.O. Order #: [id number] CLICK HERE TO VIEW EXAM RADIOLOGY REPORT PROCEDURE: MAMMOGRAM SCREENING 3D BILATERAL CAD COMPARISON: MG MAMM SCREEN NICOLE W CAD, 11/09/2019. MG MAMM SCREEN 3D NICOLE CAD, 11/19/2020. INDICATIONS: Screening mammography Calculator Name NCI Breast Cancer Risk Assessment Tool 5 Year Breast Cancer Risk 2.00% Lifetime Breast Cancer Risk 14.10% Personal Breast Cancer No Personal Ovarian Cancer No Treatments Thyroidectomy, Radioactive iodine Family Cancers Mother with breast cancer at age 50; Grandmother-maternal with breast cancer at age 57. LOCATION: [facility] BREAST COMPOSITION: Heterogeneously dense,which may obscure small masses. FINDINGS: DIAGNOSTIC CATEGORY 1--NEGATIVE. NO CHANGE FROM COMPARISON ASSESSMENT. Scattered benign-appearing calcifications are present. RIGHT BREAST: No significant suspicious finding. LEFT BREAST: No significant suspicious finding. RECOMMENDATIONS: ROUTINE MAMMOGRAM AND CLINICAL EVALUATION IN 12 MONTHS. PLEASE NOTE: A NORMAL MAMMOGRAM DOES NOT EXCLUDE THE POSSIBILITY OF BREAST CANCER. A CLINICALLY SUSPICIOUS PALPABLE LUMP SHOULD BE BIOPSIED. Dictated by: Sonia Pavon MD on 02/13/2022 at 09:08 Approved by: Sonia Pavon MD on 02/13/2022 at 09:12 Normal [facility] FREE T4on 12-23-2021 Free T4 [Mass/Vol] 1.39 ng/dL Normal 0.76-1.46 [facility] Comment on above: Performed By: #### F T4 #### [facility] [address] [place] [address] Dr. Claudine Mortensen TSHon 12-23-2021 TSH Qn m[IU]/L Critically low 0.358-3.74 0 [facility] Comment on above: Performed By: #### T SH #### [facility] [address] [place] [address] Dr. Claudine Mortensen POINT OF CARE GLUCOSEon 11-03 Glucose [Mass/Vol] 106 mg/dL Normal 74-106 [facility] Comment on above: Performed By: #### P OCGLUC #### [facility] [address] [place] [address] Dr. Claudine Mortensen CBC AUTO DIFFon 11-14-2021 BASO # 0.0 103/ul Normal 0.0-0.1 [facility] Comment on above: Performed By: #### C BC #### [facility] [address] [place] [address] Dr. Claudine Mortensen Basophils/100 WBC (Bld) 0.8 % Normal 0.2-2.0 [facility] Comment on above: Performed By: #### C BC #### [facility] [address] [place] [address] Dr. Claudine Mortensen EO # 0.1 103/ul Normal 0.0-0.7 [facility] Comment on above: Performed By: #### C BC #### [facility] [address] [place] [address] Dr. Claudine Mortensen Eosinophils/100 WBC (Bld) 2.3 % Normal 0.9-7.0 [facility] Comment on above: Performed By: #### C BC #### [facility] [address] [place] [address] Dr. Claudine Mortensen Erythrocyte distribution width (RBC) [Ratio] 12.6 % Normal 11.0-15.0 [facility] Comment on above: Performed By: #### C BC #### [facility] [address] [place] [address] Dr. Claudine Mortensen Hematocrit (Bld) [Volume fraction] 39.2 % Normal 36.0-48.0 [facility] Comment on above: Performed By: #### C BC #### [facility] [address] [place] [address] Dr. Claudine Mortensen Hemoglobin (Bld) [Mass/Vol] 13.2 g/dL Normal 12.0-16.0 [facility] Comment on above: Performed By: #### C BC #### [facility] [address] [place] [address] Dr. Claudine Mortensen IG # 0.01 10e3/ul Normal 0.00-0.03 [facility] Comment on above: Performed By: #### C BC #### [facility] [address] [place] [address] Dr. Claudine Mortensen IG % 0.2 % Normal 0.0-0.5 [facility] Comment on above: Performed By: #### C BC #### [facility] [address] [place] [address] Dr. Claudine Mortensen LYMPH # 1.7 103/ul Normal 1.2-3.8 [facility] Comment on above: Performed By: #### C BC #### [facility] [address] [place] [address] Dr. Claudine Mortensen Lymphocytes/100 WBC (Bld) 33.0 % Normal 20.5-60.0 [facility] Comment on above: Performed By: #### C BC #### [facility] [address] [place] [address] Dr. Claudine Mortensen MANUAL DIFF REQ NO Normal [facility] Comment on above: Performed By: #### C BC #### [facility] [address] [place] [address] Dr. Claudine Mortensen MCH (RBC) [Entitic mass] 28.8 pg Normal 26.7-34.0 [facility] Comment on above: Performed By: #### C BC #### [facility] [address] [place] [address] Dr. Claudine Mortensen MCHC (RBC) [Mass/Vol] 33.7 g/dL Normal 29.9-35.2 [facility] Comment on above: Performed By: #### C BC #### [facility] [address] [place] [address] Dr. Claudine Mortensen MCV (RBC) [Entitic vol] 85.4 fL Normal 81.0-99.0 [facility] Comment on above: Performed By: #### C BC #### [facility] [address] [place] [address] Dr. Claudine Mortensen MONO # 0.4 103/ul Normal 0.3-0.8 [facility] Comment on above: Performed By: #### C BC #### [facility] [address] [place] [address] Dr. Claudine Mortensen Monocytes/100 WBC (Bld) 7.1 % Normal 1.7-12.0 [facility] Comment on above: Performed By: #### C BC #### [facility] [address] [place] [address] Dr. Claudine Mortensen NEUT # 2.9 103/ul Normal 1.4-6.5 [facility] Comment on above: Performed By: #### C BC #### [facility] [address] [place] [address] Dr. Claudine Mortensen Neutrophils/100 WBC (Bld) 56.6 % Normal 43.0-75.0 [facility] Comment on above: Performed By: #### C BC #### [facility] [address] [address] [address] Claudine Mortensen Platelet mean volume (Bld) [Entitic vol] 8.9 fL Critically low 9.5-13.5 [facility] Comment on above: Performed By: #### C BC #### [facility] [address] [address] [address] Claudine Mortensen PLT 281 103/ul Normal 150-450 [facility] Comment on above: Performed By: #### C BC #### [facility] [address] [address] [address] Claudine Mortensen RBC 4.59 106/ul Normal 4.20-5.40 [facility] Comment on above: Performed By: #### C BC #### [facility] [address] [place] [address] Dr. Claudine Mortensen WBC 5.2 103/ul Normal 4.0-11.0 [facility] Comment on above: Performed By: #### C BC #### [facility] [address] [place] [address] Dr. Claudine Mortensen Covid-19 PCR (CVDTB)on 11-03 SARS-CoV-2 (COVID-19) RNA ROLANDO+probe Ql (Unsp spec) Not detected Normal NOT DETECTED [facility] Comment on above: Result Comment: This test is not yet approved or cleared by the [place] FDA. When there are no FDA-approved or cleared tests available, and other criteria are met, FDA can make tests available under an emergency access mechanism called an Emergency Use Authorization (EUA). The EUA for this test is supported by the [place] of Health and Human Service's (HHS's) declaration that circumstances exist to justify the emergency use of in vitro diagnostics for the detection and/or diagnosis of the virus that causes COVID-19. This EUA will remain in effect (meaning this test can be used) for the duration of the COVID-19 declaration justifying emergency of IVDs, unless it is terminated or revoked by FDA (after which the test may no longer be used). When diagnostic testing is negative, the possibility of a false negative should be considered in the context of a patient's recent exposures and the presence of clinical signs and symptoms consistent with SARS-CoV-2. Performed By: #### C VDTB #### [facility] [address] [place] [address] Dr. Claudine Mortensen PROF CHEM 8 (BAS METB)on Anion gap [Moles/Vol] 10.9 mmol/L Normal [facility] Comment on above: Performed By: #### B MP #### [facility] [address] [place] [address] Dr. Claudine Mortensen Calcium [Mass/Vol] 9.5 mg/dL Normal 8.5-10.1 [facility] Comment on above: Performed By: #### B MP #### [facility] [address] [place] [address] Dr. Claudine Mortensen Chloride [Moles/Vol] 102 mmol/L Normal 98-107 [facility] Comment on above: Performed By: #### B MP #### [facility] [address] [place] [address] Dr. Claudine Mortensen CO2 [Moles/Vol] 31.1 mmol/L Normal 21.0-32.0 [facility] Comment on above: Performed By: #### B MP #### [facility] [address] [place] [address] Dr. Claudine Mortensen Creatinine [Mass/Vol] 0.82 mg/dL Normal 0.55-1.02 [facility] Comment on above: Performed By: #### B MP #### [facility] [address] [place] [address] Dr. Claudine Mortensen EGFR-AF ETHIOPIAN >60 Normal >=60 [facility] Comment on above: Performed By: #### B MP #### [facility] [address] [place] [address] Dr. Claudine Mortensen EGFR-NON AF ETHIOPIAN >60 Normal >=60 [facility] Comment on above: Performed By: #### B MP #### [facility] [address] [place] [address] Dr. Claudine Mortensen Glucose [Mass/Vol] 103 mg/dL Normal 74-106 [facility] Comment on above: Performed By: #### B MP #### [facility] [address] [address] [address] Claudine Mortensen Potassium [Moles/Vol] 4.0 mmol/L Normal 3.5-5.1 [facility] Comment on above: Performed By: #### B MP #### [facility] [address] [address] [address] Claudine Mortensen Sodium [Moles/Vol] 140 mmol/L Normal 136-145 [facility] Comment on above: Performed By: #### B MP #### [facility] [address] [address] [address] Claudine Mortensen Urea nitrogen [Mass/Vol] 14.0 mg/dL Normal 7.0-18.0 [facility] Comment on above: Performed By: #### B MP #### [facility] [address] [place] [address] Dr. Claudine Mortensen Urea nitrogen/Creatinine [Mass ratio] 17.1 mg/mg Normal [facility] Comment on above: Performed By: #### B MP #### [facility] [address] [place] [address] Dr. Claudine Mortensen PROTIMEon 11-14-2021 INR Coag (PPP) [Relative time] 0.96 {INR} Normal [facility] Comment on above: Performed By: #### F T4 #### [facility] [address] [place] [address] Dr. Claudine Mortensen INR GUIDELINES SEE BELOW Normal [facility] Comment on above: Result Comment: LINNETTE RED INR: 2.0 - 3.0 CONDITIONS NOT LISTED BELOW 2.5 - 3.5 FOR PROSTHETIC HEART VALVE REPLACEMENT 2.5 - 3.5 RECURRENT THROMBOSIS Performed By: #### F T4 #### [facility] [address] [place] [address] Dr. Claudine Mortensen PT Coag (PPP) [Time] 10.4 s Normal 9.0-11.6 [facility] Comment on above: Performed By: #### F T4 #### [facility] [address] [place] [address] Dr. Claudine Mortensen PTTon 11-14-2021 aPTT Coag (Bld) [Time] 26.1 s Normal 22.3-36.2 [facility] Comment on above: Performed By: #### F T4 #### [facility] [id number] Claudine Mortensen XR CHEST 2 Von 11-14-2021 XR CHEST 2 V EXAM: CHEST 2 VIEWS HISTORY: Essential hypertension TECHNIQUE: PA and lateral views chest. COMPARISON: None. FINDINGS: The lungs are clear. There is no focal lung consolidation, pleural effusion or pneumothorax. Pulmonary vasculature is within normal limits. The cardiomediastinal silhouette is normal. IMPRESSION: 1. No acute cardiopulmonary disease. Electronically authenticated by: NARESH AGARWAL Date: 2021-11-14 11:36 Normal [facility] THYROGLOBULIN AB AND THYROGL OBULINon 10-24-2021 Thyroglobulin Antibody <1.0 Normal 0.0-0.9 [facility] Comment on above: Result Comment: Thyr oglobulin Antibody measured by Latisha [place] Methodology Performed By: #### T HYGIMA #### [facility] [address] [place] [address] Dr. Claudine Mortensen Thyroglobulin by BEAU <0.1 Critically low 1.5-38.5 [facility] Comment on above: Result Comment: Acco rding to the National Academy of Clinical Biochemistry, the reference interval for Thyroglobulin (TG) should be related to euthyroid patients and not for patients who underwent thyroidectomy. TG reference intervals for these patients depend on the residual mass of the thyroid tissue left after surgery. Establishing a post-operative baseline is recommended. The assay limit of quantitation is 0.1 ng/mL . Thyroglobulin measured by Latisha [facility] Immunometric Assay Performed By: #### T HYGIMA #### [facility] [address] [place], [place] [address] SINUSES WO CONon 10-23-19 CT SINUSES WO CON EXAMINATION: CT SINU SES WO CON HISTORY: Disorder of the nose with a history of melanoma. COMPARISON: None. TECHNIQUE: Multiple thin computed tomograms of the paranasal sinuses were obtained, with sagittal and coronal reconstructions. Intravenous contrast was not administered. Dose reduction techniques were achieved by using automated exposure control and/or adjustment of mA and/or kV according to patient size and/or use of iterative reconstruction technique. FINDINGS: The paranasal sinuses are well-developed and clear. The ostiomeatal complex on either side is patent. The orbital rims and floors are intact. The ghosh of the sinuses are intact. There is mild deviation of the nasal septum to the left with a prominent osteophyte arising from the mid aspect extending to the left. There is some aeration of the middle turbinates on the right. There is mild narrowing of the nasal passages at the site of osteophyte arising from the nasal septum. The nasal passages are otherwise clear and there is no evidence of complete obstruction. The visualized temporal bones are intact. IMPRESSION: The paranasal sinuses are well-developed and clear. The osseous structures are intact about the sinuses. There is significant deviation of the nasal septum to the left. An osteophyte also arises from the nasal septum to the left, narrowing some of the nasal passages. There is no occlusion of the nasal passages. Direct comparison with a previous study may be helpful in confirming the chronicity of these findings. Electronically authenticated by: PABLO SILVESTRE Date: 2021-10-22 17:58 Normal [facility] FREE T4on 10-22-2021 Free T4 [Mass/Vol] 1.60 ng/dL Critically high 0.76-1.46 T [facility] Comment on above: Performed By: #### F T4 #### [facility] [address] [address] [address] Claudine Mortensen TSHon 10-22-2021 TSH Qn m[IU]/L Critically low 0.358-3.74 0 [facility] Comment on above: Performed By: #### F T4 #### [facility] [address] [address] [address] Claudine Mortensen T4 FREEon 09-02-2021 Free T4 [Mass/Vol] 1.59 ng/dL 0.89 - 1.76 ng/dL [facility] Interpretation and review of laboratory results Normal [facility] TSHOrdered By: Ian garrido on 09-02-2021 Interpretation and review of laboratory results Abnormal [facility] TSH Qn m[IU]/L [facility] Unspecified body regionOr dered By: Unassigned Pacs on 09-02-2021 [facility] Work Phone: [place] Unspecified body regionon 09-02-2021 Radiology Study observation (narrative) [facility] OPERATIVE REPORTon OPERATIVE REPORT NAME: SWAPNA GUIDO MR#: [id number] SURGEON: Matthew Holland MD DATE OF SURGERY: 10/04/2018 OPERATIVE REPORT PREOPERATIVE DIAGNOSIS: Lumbosacral spondylosis. POSTOPERATIVE DIAGNOSIS: Lumbosacral spondylosis. ANESTHESIA: MAC. PROCEDURE PERFORMED: Right L5-S1 radiofrequency ablation. DESCRIPTION OF PROCEDURE: The patient had received informed consent and signed informed consent document was obtained. Full description of the procedure was provided, including benefits as well as possible complications including transient increased pain, short-term tremulousness, headaches, stomach irritation, mood alteration as well as more uncommon nerve injury, bleeding, infection or allergic reaction. Patient was brought to the fluoroscopy operating room and placed on the exam table in a comfortable prone position. The place for the needle placement was obtained by manual palpation as well as radiographic confirmation. The sterile field was prepped by chlorhexidine. Local anesthesia both superficially and deep was provided by local infiltration of 5 mL of 1% lidocaine. Then, using fluoroscopic guidance, 17- gauge, 100 mm catheter with a 4 mm active tip was placed overlying the right L5 lumbar vertebra from the posterior approach and was advanced until bony contact was felt with the articular pillar. The needle was walked off pillar, maintaining contact with the bone. Attempted aspiration revealed no blood or CSF. Radiographs were made in the AP, oblique and lateral views to confirm placement. Motor testing was then performed with 2 volts and no upper extremity motor stimulation was observed. 1 mL of 5% lidocaine was injected through the RF needle. A thermal radiofrequency lesion of the medial branch of the right L5 was then performed at an average maximum tissue temperature greater than 80 degrees Celsius for 2 minutes and 30 seconds. The same procedure was repeated in the oblique views and AP views confirmed on lateral views for the right S1 medial branches. All 2 levels were successfully completed with 80 mg of Depo-Medrol at an average maximum tissue temperature of greater than 80 degrees Celsius for 2 minutes and 30 seconds. Patient tolerated the procedure well and was taken to recovery in good condition. The patient was provided with instructions as to what to expect and was provided with contact information and instructed to call and instructed to follow up in 2 weeks. No lower extremity weakness or paresthesias were appreciated afterwards. [facility] PT NAME: SWAPNA GUIDO MR#: [id number] [address] [place], [place] [id number] ACCT: [id number] : 69 OPERATIVE REPORT MATTHEW HOLLAND MD /[id number] E/S: Matthew Holland DO 11/10/18 1455 Electronically Signed [facility] PT NAME: SWAPNA GUIDO MR#: [id number] [address] [place], [place] [id number] ACCT: [id number] : 69 OPERATIVE REPORT Normal [facility] OPERATIVE REPORTon 9 OPERATIVE REPORT NAME: SWAPNA GUIDO MR#: [id number] SURGEON: Matthew Holland MD DATE OF SURGERY: 07/21/2018 OPERATIVE REPORT PREOPERATIVE DIAGNOSIS: Lumbar spondylosis POSTOPERATIVE DIAGNOSIS: Lumbar spondylosis. ANESTHESIA: Local. PROCEDURE PERFORMED: 1. Right L3 facet injection. 2. Right L4 facet injection. DESCRIPTION OF PROCEDURE: Patient was wheeled to the OR, placed in the prone position on the OR table with the low back and lumbar spine draped in a sterile fashion. Subsequently, under fluoroscopy, the right L3, right L4 facets were well visualized. This was then used as the bony landmark followed by, under fluoroscopy, two 3-1/2-inch needles introduced into the right L3, right L4 facets under fluoroscopy. Once bony contact was made, 10 mL of lidocaine and 80 mg of Depo-Medrol were distributed equally at the right L3, right L4 facets under fluoroscopy with no resistance. The two 3-1/2-inch needles then were retracted under fluoroscopy. The patient was wheeled to the recovery room in stable condition with no complications, including no lower extremity weakness or paresthesias. Prior to introduction of medicine, no heme or CSF was ascertained. The patient was instructed to follow up in 2 weeks and discharged home. MATTHEW HOLLAND MD /MODL/[id number] E/S: Matthew Holland DO 07/28/18 1415 Electronically Signed [facility] PT NAME: SWAPNA GUIDO MR#: [id number] [address] [place] [address] ACCT: [id number] : 69 OPERATIVE REPORT Normal [facility] OPERATIVE REPORTon OPERATIVE REPORT NAME: SWAPNA GUIDO MR#: [id number] SURGEON: Matthew Holland MD DATE OF SURGERY: 05/05/2018 OPERATIVE REPORT PREOPERATIVE DIAGNOSIS: Lumbosacral spondylosis. POSTOPERATIVE DIAGNOSIS: Lumbosacral spondylosis. ANESTHESIA: MAC. PROCEDURES PERFORMED: Bilateral L5-S1 radiofrequency ablation. DESCRIPTION OF PROCEDURE: The patient had received informed consent and signed informed consent document was obtained. Full description of the procedure was provided, including benefits as well as possible complications including transient increased pain, short-term tremulousness, headaches, stomach irritation, mood alteration as well as more uncommon nerve injury, bleeding, infection or allergic reaction. Patient was brought to the fluoroscopy operating room and placed on the exam table in a comfortable prone position. The place for the needle placement was obtained by manual palpation as well as radiographic confirmation. The sterile field was prepped by chlorhexidine. Local anesthesia both superficially and deep was provided by local infiltration of 5 mL of 1% lidocaine. Then, using fluoroscopic guidance, 17- gauge, 75 mm, insulated, sharp radiofrequency needle with a 4 mm active tip was placed overlying the bilateral L5-S1 level lumbar vertebra from the posterior approach and was advanced until bony contact was felt with the articular pillar. The needle was walked off pillar, maintaining contact with the bone. Attempted aspiration revealed no blood or CSF. Radiographs were made in the AP, oblique and lateral views to confirm placement. Motor testing was then performed with 2 volts and no upper extremity motor stimulation was observed. 1 mL of 5% lidocaine was injected through the RF needle. A thermal radiofrequency lesion of the medial branch of the bilateral L5-S1 level was then performed at an average maximum tissue temperature greater than 80 degrees Celsius for 2 minutes and 30 seconds. The same procedure was repeated in the oblique views and AP views confirmed on lateral views for the bilateral L5-S1 level lumbar medial branches. All 3 levels were successfully completed at an average maximum tissue temperature of greater than 80 degrees Celsius for 2 minutes and 30 seconds. Patient tolerated the procedure well and was taken to recovery in good condition. The patient was provided with instructions as to what to expect and was provided with contact information and instructed to call and instructed to follow up in 2 weeks. No lower extremity weakness or paresthesias were appreciated afterwards. Please note all 4 levels were completed with a 17-gauge 100 mm catheter with a 4 mm active tip. 80 mg of [facility] PT NAME: SWAPNA GUIDO MR#: [id number] [address] [place] [address] ACCT: [id number] : 69 OPERATIVE REPORT Depo-Medrol administered following each level. MATTHEW HOLLAND MD /ORLIN/[id number] E/S: Matthew Holland DO 05/26/18 1255 Electronically Signed [facility] PT NAME: SWAPNA GUIDO MR#: [id number] [address] [place], [place] [id number] ACCT: [id number] : 69 OPERATIVE REPORT Normal [facility] OPERATIVE REPORTon 8 OPERATIVE REPORT NAME: SWAPNA GUIDO MR#: [id number] SURGEON: Matthew Holland MD DATE OF SURGERY: 02/01/2018 OPERATIVE REPORT PREOPERATIVE DIAGNOSES: Right sacroiliitis, right sacroiliac joint dysfunction, right sacroiliac joint pain. POSTOPERATIVE DIAGNOSES: Right sacroiliitis, right sacroiliac joint dysfunction, right sacroiliac joint pain. ANESTHESIA: MAC. PROCEDURE PERFORMED: Right sacroiliac joint injection under fluoroscopy. DESCRIPTION OF PROCEDURE: The patient was wheeled to the fluoroscopy room and placed in the prone position on the fluoroscopy table. The lower back was subsequently draped in a sterile fashion. Then under fluoroscopy, the right sacroiliac joint was well visualized. This was then followed by introduction under live fluoroscopy of a 3-1/2-inch needle into the right SI joint. Then, with no blood or CSF ascertained, 4 mg of dexamethasone, 10 cc of lidocaine, and 40 mg of Depo-Medrol were administered into the right sacroiliac joint with no resistance. This was all done under live fluoroscopy. Then the 3-1/2- inch needle was retracted. The patient was wheeled to the recovery room. No complications, including no lower extremity weakness or paresthesias. The patient was discharged home and instructed to follow up in 2 weeks. MATTHEW HOLLAND MD GF/MODL/[id number] E/S: Matthew Holland DO 02/23/18 1440 Electronically Signed [facility] PT NAME: SWAPNA GUIDO MR#: [id number] [address] [place] [address] ACCT: [id number] : 69 OPERATIVE REPORT Normal [facility] Vital Signs Date Time Vital Sign Value Performing Clinician Facility 07-01-2023 12:42-0400 Body height 167.6 cm Hal Case DO Work Phone: [facility] 07-01-2023 12:42-0400 Body mass index (BMI) [Ratio] 33.33 kg/m2 Hal Case DO Work Phone: [facility] 07-01-2023 12:42-0400 Body weight 93.67 kg Hal Horbal DO Work Phone: [facility] 07-01-2023 12:42-0400 Diastolic blood pressure 72 mm[Hg] Hal Horbal DO Work Phone: [facility] 07-01-2023 12:42-0400 Heart rate 75 /min Hal Horbal DO Work Phone: [facility] 07-01-2023 12:42-0400 SaO2% (BldA) [Mass fraction] 98 % Hal Horbal DO Work Phone: [facility] 07-01-2023 12:42-0400 Systolic blood pressure 114 mm[Hg] Hal Horbal DO Work Phone: [facility] 12-31-2022 15:03-0400 Body height 167.6 cm Elvi Ward DO Work Phone: [facility] 12-31-2022 15:03-0400 Body mass index (BMI) [Ratio] 32.93 kg/m2 Elvi Ward DO Work Phone: [facility] 12-31-2022 15:03-0400 Body weight 92.53 kg Elvi Ward DO Work Phone: [facility] 12-31-2022 15:03-0400 Diastolic blood pressure 76 mm[Hg] Elvi Ward DO Work Phone: [facility] 12-31-2022 15:03-0400 Systolic blood pressure 132 mm[Hg] Elvi Ward DO Work Phone: [facility] 12-31-2022 13:45-0400 Body height 167.6 cm Hal Horbal DO Work Phone: [facility] 12-31-2022 13:45-0400 Body mass index (BMI) [Ratio] 32.93 kg/m2 Hal Horbal DO Work Phone: [facility] 12-31-2022 13:45-0400 Body weight 92.53 kg Hal Horbal DO Work Phone: [facility] 12-31-2022 13:45-0400 Diastolic blood pressure 76 mm[Hg] Hal Horbal DO Work Phone: [facility] 12-31-2022 13:45-0400 Heart rate 66 /min Hal Horbal DO Work Phone: [facility] 12-31-2022 13:45-0400 Systolic blood pressure 132 mm[Hg] Hal Horbal DO Work Phone: [facility] 11-06-2022 14:00-0400 Diastolic blood pressure 68 mm[Hg] Adelfo Weaver MD, PhD Work Phone: [facility] 11-06-2022 14:00-0400 Heart rate 58 /min Adelfo Weaver MD, PhD Work Phone: [facility] 11-06-2022 14:00-0400 Respiratory rate 12 /min Adelfo Weaver MD, PhD Work Phone: [facility] 11-06-2022 14:00-0400 SaO2% (BldA) [Mass fraction] 99 % Adelfo Weaver MD, PhD Work Phone: [facility] 11-06-2022 14:00-0400 Systolic blood pressure 121 mm[Hg] Adelfo Weaver MD, PhD Work Phone: [facility] 11-06-2022 10:16-0400 Body height 167.6 cm Adelfo Weaver MD, PhD Work Phone: [facility] 11-06-2022 10:16-0400 Body mass index (BMI) [Ratio] 32.85 kg/m2 Adelfo Weaver MD, PhD Work Phone: [facility] 11-06-2022 10:16-0400 Body temperature 97.5 [degF] Adelfo Weaver MD, PhD Work Phone: [facility] 11-06-2022 10:16-0400 Body weight 92.31 kg Adelfo Weaver MD, PhD Work Phone: [facility] 10-15-2022 14:04-0400 Body height 167.6 cm Hal Horbal DO Work Phone: [facility] 10-15-2022 14:04-0400 Body mass index (BMI) [Ratio] 33.62 kg/m2 Hal Horbal DO Work Phone: [facility] 10-15-2022 14:04-0400 Body weight 94.48 kg Hal Horbal DO Work Phone: [facility] 10-15-2022 14:04-0400 Diastolic blood pressure 68 mm[Hg] Hal Horbal DO Work Phone: [facility] 10-15-2022 14:04-0400 Heart rate 92 /min Hal Horbal DO Work Phone: [facility] 10-15-2022 14:04-0400 Systolic blood pressure 114 mm[Hg] Hal Horbal DO Work Phone: [facility] 09-16-2022 15:14-0400 Body height 167.64 cm [employer] Makayla Work Phone: [facility] DO Work Phone: 09-16-2022 15:14-0400 Body mass index (BMI) [Ratio] 33.9 kg/m2 [employer] Makayla Work Phone: [facility] DO Work Phone: 09-16-2022 15:14-0400 Body surface area Derived from formula 2.04 m2 Lamin Burrell Makayla Work Phone: [facility] DO Work Phone: 09-16-2022 15:14-0400 Body weight 95.26 kg Lamin Burrell Mak[place]la Work Phone: [facility] DO Work Phone: 09-16-2022 15:14-0400 Diastolic blood pressure 78 mm[Hg] Lamin Burrell [place] Work Phone: [facility] DO Work Phone: 09-16-2022 15:14-0400 Heart rate 70 /min Lamin Guptaa Work Phone: [facility] DO Work Phone: 09-16-2022 15:14-0400 Systolic blood pressure 128 mm[Hg] Lamin Guptaa Work Phone: [facility] DO Work Phone: 09-08-2022 10:21-0400 Body height 167.6 cm Gladys Youngblood MD Work Phone: [facility] 09-08-2022 10:21-0400 Body mass index (BMI) [Ratio] 33.62 kg/m2 Gladys Youngblood MD Work Phone: [facility] 09-08-2022 10:21-0400 Body temperature 97.5 [degF] Gladys Youngblood MD Work Phone: [facility] 09-08-2022 10:21-0400 Body weight 94.44 kg Gladys Youngblood MD Work Phone: [facility] 09-08-2022 10:21-0400 Diastolic blood pressure 74 mm[Hg] Gladys Youngblood MD Work Phone: [facility] 09-08-2022 10:21-0400 Heart rate 65 /min Gladys Youngblood MD Work Phone: [facility] 09-08-2022 10:21-0400 Respiratory rate 18 /min Gladys Youngblood MD Work Phone: [facility] 09-08-2022 10:21-0400 SaO2% (BldA) [Mass fraction] 98 % Gladys Youngblood MD Work Phone: [facility] 09-08-2022 10:21-0400 Systolic blood pressure 127 mm[Hg] Gladys Youngblood MD Work Phone: [facility] 09-03-2022 16:10-0400 62 1 Lamin Benavides Work Phone: [facility] DO Work Phone: Comment on above: [facility] 08-13-2022 08:00-0400 Body temperature 98.1 [degF] MD Lamin Benavides Work Phone: [facility] 08-13-2022 08:00-0400 Diastolic blood pressure 80 mm[Hg] MD Lamin Benavides Work Phone: [facility] 08-13-2022 08:00-0400 Heart rate 70 /min MD Lamin Benavides Work Phone: [facility] 08-13-2022 08:00-0400 Respiratory rate 16 /min MD Lamin Benavides Work Phone: [facility] 08-13-2022 08:00-0400 SaO2% (BldA) [Mass fraction] 98 % MD Lamin Benavides Work Phone: [facility] 08-13-2022 08:00-0400 Systolic blood pressure 120 mm[Hg] MD Lamin Benavides Work Phone: [facility] 08-13-2022 06:00-0400 Body weight 96.3 kg Rugsar[employer] Makayla Work Phone: [facility] 08-12-2022 20:09-0400 Body height 167.64 cm MD Kimble Makayla Work Phone: [facility] 07-28-2022 15:28-0400 Body height 167.64 cm Rugen M [place] Work Phone: [facility] DO Work Phone: 07-28-2022 15:28-0400 Body mass index (BMI) [Ratio] 34.22 kg/m2 Rugen M Makayla Work Phone: [facility] DO Work Phone: 07-28-2022 15:28-0400 Body surface area Derived from formula 2.05 m2 Rugen M Makayla Work Phone: [facility] DO Work Phone: 07-28-2022 15:28-0400 Body weight 96.16 kg Rugen M Makayla Work Phone: [facility] DO Work Phone: 07-28-2022 15:28-0400 Diastolic blood pressure 82 mm[Hg] Rugen M [place] Work Phone: [facility] DO Work Phone: 07-28-2022 15:28-0400 Heart rate 74 /min Rugen M [place] Work Phone: [facility] DO Work Phone: 07-28-2022 15:28-0400 Systolic blood pressure 124 mm[Hg] Rugen M [place] Work Phone: [facility] DO Work Phone: 06-02-2022 09:56-0500 Body height 167.64 cm MD Rugen [place] Work Phone: [facility] 06-02-2022 09:56-0500 Body weight 90.71 kg MD Lamin Benavides Work Phone: [facility] 05-20-2022 22:54-0500 Diastolic blood pressure 74 mm[Hg] MD Lamin Benavides Work Phone: [facility] 05-20-2022 22:54-0500 Heart rate 74 /min MD Lamin Benavides Work Phone: [facility] 05-20-2022 22:54-0500 Respiratory rate 18 /min MD Lamin Benavides Work Phone: [facility] 05-20-2022 22:54-0500 SaO2% (BldA) [Mass fraction] 98 % MD Lamin Benavides Work Phone: [facility] 05-20-2022 22:54-0500 Systolic blood pressure 152 mm[Hg] MD Lamin Benavides Work Phone: [facility] 05-20-2022 20:18-0500 Body height 175.26 cm MD Lamin Benavides Work Phone: [facility] 05-20-2022 20:18-0500 Body weight 95 kg MD Lamin Benavides Work Phone: [facility] 05-20-2022 18:24-0500 Body temperature 98.1 [degF] MD Lamin Benavides Work Phone: [facility] 09-02-2021 14:08-0400 Body height 167.6 cm Gladys Youngblood MD Work Phone: [facility] 09-02-2021 14:08-0400 Body mass index (BMI) [Ratio] 31.97 kg/m2 Gladys Youngblood MD Work Phone: [facility] 09-02-2021 14:08-0400 Body temperature 98.01 [degF] Gladys Youngblood MD Work Phone: [facility] 09-02-2021 14:08-0400 Body weight 89.86 kg Gladys Youngblood MD Work Phone: [facility] 09-02-2021 14:08-0400 Diastolic blood pressure 79 mm[Hg] Gladys Youngblood MD Work Phone: [facility] 09-02-2021 14:08-0400 Heart rate 82 /min Gladys Youngblood MD Work Phone: [facility] 09-02-2021 14:08-0400 Respiratory rate 16 /min Glayds Youngblood MD Work Phone: [facility] 09-02-2021 14:08-0400 SaO2% (BldA) [Mass fraction] 97 % Gladys Youngblood MD Work Phone: [facility] 09-02-2021 14:08-0400 Systolic blood pressure 154 mm[Hg] Gladys Youngblood MD Work Phone: [facility] Encounters Encounter Date Encounter Type Care Provider Facility Start: 07-01-2023 ambulatory LAMIN BENAVIDES Facility:[facility] Start: 07-01-2023 ambulatory HAL CASE Facility:[facility] Start: 07-01-2023 End: 07-01-2023 Office outpatient visit 25 minutes Hal Horbal DO Work Phone: [facility] [place] Comment on above: Chronic heart failur e with preserved ejection fraction (Primary Dx); Asthma, unspecified asthma severity, unspecified whether complicated, unspecified whether persistent; Coronary artery disease involving salt river coronary artery of [place] river heart with angina pectoris Start: 04-26-2023 End: 04-26-2023 ambulatory PJ VELAZQUEZ Not Available Start: 12-31-2022 ambulatory ELVI WARD Facility :[facility] Start: 12-31-2022 ambulatory SELF SELF Facility:[facility] Start: 12-31-2022 End: 12-31-2022 Subsequent hospital visit by physician Elvi Ward DO Work Phone: [facility] Start: 12-31-2022 End: 12-31-2022 Office outpatient visit 25 minutes Hal Horbal DO Work Phone: [facility] [place] Comment on above: Atherosclerosis of n ative coronary artery of [place] heart with angina pectoris (Primary Dx); Essential hypertension; Mixed hyperlipidemia Start: 11-06-2022 End: 11-06-2022 ambulatory RUGEN MAKAYLA Facility:[facility] Start: 11-06-2022 End: 11-06-2022 Subsequent hospital visit by physician Adelfo Weaver MD, PhD Work Phone: [facility] Comment on above: Atherosclerosis of n ative coronary artery of [place] heart with angina pectoris Start: 10-16-2022 ambulatory RUGEN MAKAYLA Facility:[facility] Start: 10-15-2022 ambulatory HAL HORBAL Facility:[facility] Start: 10-15-2022 End: 10-15-2022 Office outpatient new 45 minutes Hal Horbal DO Work Phone: [facility] [place] Comment on above: Atherosclerosis of n ative coronary artery of [place] heart with angina pectoris (Primary Dx); Syncope and collapse Start: 10-03-2022 ambulatory RUGEN MAKAYLA Facility:[facility] Start: 09-16-2022 Office outpatient vi sit 25 minutes Rugen M [place] Work Phone: [facility] DO Work Phone: Start: 09-08-2022 ambulatory SELF SELF Facility:[facility] Start: 09-08-2022 End: 09-08-2022 Office outpatient visit 25 minutes Gladys Youngblood MD Work Phone: Division of Endocrinology Comment on above: Thyroid cancer (Prim nico Dx) Start: 08-13-2022 Chart Update Rugen M [place] Work Phone: [facility] DO Work Phone: Start: 08-13-[address] Lamin Benavides Facility:[id number] Start: 08-12-2022 ambulatory Maria Luisa Sarkar Faci lity:[id number] Start: 08-12-2022 End: 08-13-2022 ambulatory Maria Luisa Sarkar Facility:[facility] Start: 08-12-2022 End: 08-13-2022 Admission to same day surgery center MD Lamin Benavides Work Phone: [facility] Work Phone: Start: 08-12-2022 End: 08-13-2022 ambulatory MD Lamin Benavides Work Phone: [facility] Work Phone: Start: 08-10-2022 End: 08-10-2022 ambulatory Alizalary Sarkar Facility:[facility] Start: 08-10-2022 End: 08-10-2022 ambulatory MD Lamin Benavides Work Phone: [facility] Work Phone: Start: 08-10-2022 End: 08-10-2022 Patient encounter procedure MD Lamin Benavides Work Phone: [facility] Work Phone: Start: 07-28-2022 Office outpatient vi sit 25 minutes Lamin Benavides Work Phone: [facility] DO Work Phone: Start: 07-28-[address] Lamin Benavides Facility: Start: 06-18-2022 End: 06-19-[address] MARIA LUISA SARKAR Facility:[facility] Start: 06-03-[address] Lamin Benavides Facility: Start: 06-02-[address] Bernard Cavanaugh II Facility:[id number] Start: 06-02-2022 End: 06-02-2022 ambulatory Lamin Benavides Facility:[facility] Start: 06-02-2022 End: 06-02-2022 Patient encounter procedure MD Lamin Benavides Work Phone: [facility] Work Phone: Start: 05-29-2022 End: 05-29-2022 ambulatory MD Lamin Benavides Work Phone: [facility] Work Phone: Start: 05-29-2022 End: 05-29-2022 Patient encounter procedure MD Lamin Benavides Work Phone: [facility] Work Phone: Start: 05-20-2022 End: 05-21-2022 Emergency department patient visit Brianna Burrell Ching Facility:[facility] Start: 05-20-2022 End: 05-20-2022 Emergency department patient visit MD Lamin Benavides Work Phone: [facility] Work Phone: Start: 04-23-2022 End: 04-24-[address] DOCTOR DINH Facility:[facility] Start: 02-24-2022 End: 02-25-[address] DOCTOR DINH Facility:[facility] Start: 02-12-2022 End: 02-13-[address] LAMIN BENAVIDES Facility:[facility] Start: 12-23-2021 End: 12-24-[address] LAMIN BENAVIDES Facility:[facility] Start: 11-20-2021 End: 11-21-[address] LAMIN BENAVIDES Facility:[facility] Start: 11-18-2021 End: 11-18-[address] MARY ANGULO Facility:[facility] Start: 11-17-2021 Encounter for preprocedural cardiovascular examination DR MARY ANGULO [facility] Start: 11-17-2021 Encounter for preprocedural laboratory examination DR MARY ANGULO [facility] Start: 11-14-2021 End: 11-15-[address] MARY ANGULO Facility:[facility] Start: 11-14-2021 End: 11-15-2021 Encounter for preprocedural cardiovascular examination DR MARY ANGULO Facility:[facility] Start: 10-22-2021 End: 10-23-[address] DOCTOR DINH Facility:[facility] Start: 09-02-2021 End: 09-02-2021 Office outpatient new 60 minutes Gladys Youngblood MD Work Phone: Division of Endocrinology Comment on above: Thyroid cancer (Prim nico Dx); Postsurgical hypothyroidism; Vitamin D deficiency Procedures Date Procedure Procedure Detail Performing Clinician Start: 01-29-2023 History of thyroidectomy History of thyroidectomy Hal Case DO Work Phone: Start: 12-31-2022 Echo tthrc r-t 2d w/wom-mode compl spec&colr d Hal Case DO Work Phone: Start: 11-06-2022 L hrt cath w/njx l ventriculography img s&i Marcello Galeana MD Work Phone: Start: 11-06-2022 Us vasc access sits vsl patency ndl entry Marcello Galeana MD Work Phone: Start: 11-06-2022 Cardiac catheterization Marcello Galeana MD Work Phone: Start: 11-06-2022 EXTRA MINT GREEN TOP Adelfo Weaver MD , PhD Work Phone: Start: 11-06-2022 Blood count complete automated Adelfo Tucker MD Work Phone: Start: 08-12-2022 CL LHC & COR Angio MD Lamin Benavides Work Phone: Start: 06-02-2022 Radionuclide myocardial perfusion stress study MD Lamin Benavides Work Phone: Start: 05-20-2022 Plain chest X-ray MD Lamin Benavides Work Phone: Start: 09-02-2021 US Unspecified body region Gladys rodarte MD Work Phone: Cardiac catheterization Matt Benavides Work Phone: Hysterectomy Lamin Benavides Work Phone: Nasal septoplasty Lamin Burrell [place] Work Phone: Operative procedure on wrist Lamin Benavides Work Phone: Thyroidectomy Lamin Benavides Work Phone: Plan of Treatment Date Care Activity Detail Author Start: 12-09-2023 End: 12-09-2023 Patient encounter procedure 12/09/2023 12:50 PM EDT Office Visit [facility] [address] [place] [address] Hal Case, [address] [place], [place] [id number] [facility] [place] Start: 12-05-2023 Influenza vaccination INFLUENZA VACCINE (Season Ended) [facility] Start: 09-09-2023 End: 09-09-2023 OUTSIDE LAB ORDERS OUTSIDE LAB ORDERS Outside Labs Routine Thyroid cancer Expected: 09/09/2023 (Approximate), Expires: 09/09/2023 [facility] Comment on above: Expected: 09/09/2023 (Approximate), Expi res: 09/09/2023 Start: 09-07-2023 End: 09-07-2023 Patient encounter procedure Division of Endocrinology Start: 08-05-2023 End: 08-05-2023 Patient encounter procedure [facility] Start: 07-08-2023 End: 06-30-2024 CHEM 6 (LYTES, BUN CREA) CHEM 6 (LYTES, BUN CREA) Lab Routine Chronic heart failure with preserved ejection fraction Expected: 07/08/2023, Expires: 06/30/2024 [facility] Work Phone: Comment on above: Expected: 07/08/2023, Expires: Start: 07-01-2023 End: 07-01-2023 Patient encounter procedure 07/01/2023 12:50 PM EDT Office Visit [facility] [address] [place] [address] Alfred Hal, DO [address] [place] [address] [place] [id number] [facility] Start: 05-07-2023 FUV, Provider: Maria Luisa Sarkar, Status: Pen, Time: 8:50 AM FUV, Provider: Maria Luisa Sarkar, Status: Pen, Time: 8:50 AM [facility] [address] DO Work Phone: Start: 12-31-2022 End: 01-01-2024 Cardiac telemetry MOBILE CARDIAC TELEMETRY ECG Routine 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 Expected: 12/31/2022, Expires: 01/01/2024 [facility] Comment on above: Expected: 12/31/2022, Expires: Start: 12-31-2022 End: 12-31-2022 Patient encounter procedure 12/31/2022 1:50 PM EDT Office Visit [facility] [place] [address] [phone] HorHal zapata, DO [address] [place] [address] [facility] Start: 12-24-2022 End: 12-24-2022 Patient encounter procedure 12/24/2022 1:50 PM EDT Office Visit [facility] [place] [address] [phone] Horjodi Hal, DO [address] [place] [address] [place] [id number] [facility] Start: 12-04-2022 COVID-19 VACCINE () COVID-19 VACCINE () [facility] Start: 12-04-2022 Influenza vaccination [facility] Start: 10-08-2022 End: 09-09-2023 OUTSIDE LAB ORDERS OUTSIDE LAB ORDERS Outside Labs Routine Thyroid cancer Expected: 10/08/2022 (Approximate), Expires: 09/09/2023 [facility] Comment on above: Expected: 10/08/2022 (Approximate), Expi res: 09/09/2023 Start: 09-16-2022 FUV, Provider: Maria Luisa Sarkar, Status: Pen, Time: 3:00 PM FUV, Provider: Maria Luisa Sarkar, Status: Pen, Time: 3:00 PM [place] [address] DO Work Phone: Start: 09-08-2022 End: 09-08-2022 Patient encounter procedure 09/08/2022 Office Visit Endocrinology, Diabetes & Metabolism Gladys Youngblood MD [address] [address] Division of Endocrinology Start: 09-02-2022 End: 09-02-2022 OUTSIDE LAB ORDERS OUTSIDE LAB ORDERS Outside Labs Routine Thyroid cancer Expected: 09/02/2022 (Approximate), Expires: 09/02/2022 [facility] Comment on above: Expected: 09/02/2022 (Approximate), Expi res: 09/02/2022 Start: 09-02-2022 Thyroid stimulating hormone measurement TSH [facility] Start: 08-13-2022 [facility] Start: 08-12-2022 [facility] Start: 06-02-2022 Radionuclide myocardial perfusion stress study NM harriet perf SPECT rest & str [facility] Start: 03-05-2022 End: 03-05-2022 Telemedicine consultation with patient 03/05/2022 Telemedicine Endocrinology, Diabetes & Metabolism Gladys Youngblood MD [address] [address] Division of Endocrinology Start: 03-04-2022 End: 04-03-2022 OUTSIDE LAB ORDERS OUTSIDE LAB ORDERS Outside Labs Routine Thyroid cancer Expected: 03/04/2022 (Approximate), Expires: 04/03/2022 [facility] Comment on above: Expected: 03/04/2022 (Approximate), Expi res: 04/03/2022 Start: 12-04-2021 Influenza vaccination INFLUENZA VACCINE (Season Ended) [facility] Start: 09-02-2021 End: 09-02-2022 THYROGLOBULIN&THYROGLOBUL IN AB [facility] Comment on above: Expected: 09/02/2021, Expires: 3 Start: 09-02-2021 End: 09-02-2022 VITAMIN D (25-HYDROXY,TOTAL) [facility] Comment on above: Expected: 09/02/2021, Expires: 3 Start: 02-11-2020 Screening for malignant neoplasm of colon COLORECTAL CANCER SCREENING DISCUSSION [facility] Start: 2017 Zoster vaccine hzv live for subcutaneous use ZOSTER (SHINGLES) VACCINE (1 of 2) [facility] Start: 2012 Colonoscopy COLORECTAL CANCER SCREENING DISCUSSION [facility] Start: 2012 Screening for malignant neoplasm of colon COLORECTAL CANCER SCREENING DISCUSSION [facility] Start: 2007 Fasting lipid profile LIPID SCREENING [facility] Start: 2007 Lipid panel LIPID SCREENING [facility] Start: 2007 Screening for malignant neoplasm of breast MAMMOGRAM SCREENING DISCUSSION [facility] Start: 2007 Screening mammography MAMMOGRAM SCREENING DISCUSSION [facility] Start: 1988 Screening for malignant neoplasm of cervix CERVICAL CANCER SCREENING DISCUSSION [facility] Start: 1986 Hepatitis B vaccination HEP B VACCINE (1 of 3 - 19+ 3-dose series) [facility] Start: 1986 Third diphtheria, tetanus and acellular pertussis (DTaP) vaccination TDAP (ADULT) [facility] Start: 1985 Tetanus vaccination TETANUS [facility] Start: 1982 HIV screening HIV SCREENING DISCUSSION [facility] Start: 1973 PNEUMOCOCCAL VACCINE SERIES (1 of 2 - PCV) PNEUMOCOCCAL VACCINE SERIES (1 of 2 - PCV) [facility] Start: 1972 COVID-19 VACCINE (#1) COVID-19 VACCINE (#1) [facility] Start: 1967 COVID-19 VACCINE (#1) COVID-19 VACCINE (#1) [facility] Start: 1967 Hepatitis C antibody, confirmatory test HEPATITIS C VIRUS SCREENING [facility] Start: 1967 Hepatitis C screening HEPATITIS C VIRUS SCREENING [facility] Start: 1967 Tetanus vaccination TETANUS [facility] Cardiac catheterizat ion study INVASIVE CARDIOVASCULAR PROCEDURE Cardiac Cath Routine 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 11/06/2022 11:52 AM EDT [facility] Work Phone: Cath placement & njx coronary art angio img s&i CORONARY ANGIOGRAM 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 [facility] End: 11-06-2022 EXTRA LIGHT BLUE TOP [facility] Comment on above: Once for 1 Occurrences starting 11/07/19 until 11/06/2022 End: 11-06-2022 EXTRA TUBES [facility] Work Phone: Comment on above: One Time for 1 Occurrences starting 07/2022 until 11/06/2022 L hrt cath w/njx l ventriculography img s&i LEFT HEART CATHETERIZATION 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 [facility] Patient Education Chest Pain, Adult ED [facility] Work Phone: Patient referral [facility] Work Phone: End: 11-06-2022 Standard ECG ECG ECG STAT One Time for 1 Occurrences starting 11/06/2022 until 11/06/2022 [facility] Work Phone: Comment on above: One Time for 1 Occurrences starting 080 07/2022 until 11/06/2022 Us soft tissue head & neck real time imge docm VT US,HEAD/NECK TISSUES,REAL TIME VT - OFFICE PERFORMED IMAGING Routine Thyroid cancer Ordered: 09/02/2021 [facility] Comment on above: Ordered: 09/02/2021 Payers Date Payer Category Payer Self-pay [id number] 2016 Unknown [id number] 1967 Unknown [id number] 2.16.84 0.1.377502.3.579.2.593 1967 Unknown [id number] 2.16.84 0.1.836825.3.579.2.593 1967 Unknown [id number] 2.16.84 0.1.346440.3.579.2.593 1967 Unknown [id number] 2.16.84 0.1.204374.3.579.2.593 1967 Unknown [id number] 2.16.84 0.1.413550.3.579.2.593 1967 Unknown [id number] 2.16.84 0.1.463366.3.579.2.593 1967 Unknown [id number] 2.16.84 0.1.488989.3.579.2.593 1967 Unknown [id number] 2.16.84 0.1.215886.3.579.2.593 1967 Unknown [id number] 2.16.84 0.1.614537.3.579.2.593 1967 Unknown [id number] 2.16. 840.1.753719.3.579.2.356 1967 Unknown [id number] 2.16. 840.1.414050.3.579.2.356 1967 Unknown [id number] 2.16. 840.1.008141.3.579.2.356 1967 Unknown [id number] 2.16. 840.1.757797.3.579.2.356 1967 Unknown [id number] 2.16. 840.1.400098.3.579.2.356 1967 Unknown [id number] 2.16.84 0.1.997383.3.579.2.1259 1967 Unknown [id number] 2.16. 840.1.077280.3.579.2.594 1967 Unknown [id number] 2.16. 840.1.560801.3.579.2.594 1967 Unknown [id number] 2.16. 840.1.011023.3.579.2.594 1967 Unknown [id number] 2.16. 840.1.943147.3.579.2.594 1967 Unknown [id number] 2.16. 840.1.846032.3.579.2.594 1967 Unknown [id number] 2.16. 840.1.734847.3.579.2.594 1967 Unknown [id number] 2.16. 840.1.770054.3.579.2.594 1967 Unknown [id number] 2.16. 840.1.624680.3.579.2.594 1967 Unknown [id number] 2.16. 840.1.515653.3.579.2.594 1967 Unknown [id number] 2.16. 840.1.188911.3.579.2.594 1959 Unknown [id number] 1959 Unknown [id number] [facility] [id number] Unknown Shantanu BC/BS [id number] Unknown [id number] 2.16.84 0.1.578053.3.579.2.593 Unknown [id number] 2.16.8 40.1.153477.3.579.2.531 Unknown [id number] 2.16.8 40.1.446954.3.579.2.531 Unknown [id number] 2.16.8 40.1.214396.3.579.2.531 Unknown [id number] 2.16.8 40.1.619558.3.579.2.531 Social History Date Type Detail Facility Start: 09-02-2021 End: 08-12-2022 Tobacco smoking status NHIS Never smoked tobacco [facility] Start: 09-02-2021 Tobacco use and exposure Smokeless tobacco non-user [facility] Start: 09-02-2021 End: 07-01-2023 Alcohol intake Lifetime non-drinker (finding) [facility] Start: 1965 Sex Assigned At Not on file [facility] Start: 1965 Sex Assigned At Female F [facility] Start: 09-08-2022 End: 10-15-2022 Caffeine use Caffeine use [facility] Start: 09-08-2022 End: 10-15-2022 Tobacco use panel [facility] Adolescent depressio n screening assessment 0 [facility] Start: 10-27-2022 End: 11-06-2022 Exposure to SARS-CoV-2 (event) Not sure [facility] Goals Date Patient Goal Desired Activity /State Functional Status Date Assessment Result Facility 08-13-2022 Functional status Patient is Pro gressing [facility] Work Phone: Mental Status Date Assessment Result Facility 08-13-2022 Cognitive function Cognitive Sta tus Patient at [facility] Work Phone: Clinical Notes 09-02-2021 to 07-01-2023 Hal Case, - 07/01/2023 12:50 PM EDTPatient InstructionsHal Case, DO - 12/31/2022 1:50 PM EDTMatthejolly Marcin Ward, DO - 12/31/2022 1:50 PM EDTPatient InstructionsPatient Instructions Note Date & Type Note Facility 07-01-2023 History of Presen t illness Narrative Images from the original note were not included. [facility] - Outpatient Cardiology Clinic Visit IMPRESSION/PLAN: # Non-obstructive CAD # Hypertension # HFpEF # Dyspnea - LHC in November revealed non-obstructive disease (up to 20% in LAD) with elevated LVEDP 20 mmHg - Echo (Dec 26) LVEF 60-65% - Unable to tolerate Imdur due to headaches - Cont ASA/statin - Cont Metoprolol XL 25 daily and Olmesartan/HCTZ 40/25 - Will continue current regimen and start SGLT-2 (will obtain labs first) - Referral to Pulmonology to evaluate whether asthma may be contributing to dyspnea - Allergy referral placed per patient preference with history of allergies worsening - Patient may benefit from GLP1 in the future, will defer this to primary care provider - F/u in 6 months The above has been discussed with cardiology attending, Dr. Eduardo Case, Cardiovascular Medicine Fellow [facility] == HPI: Today: Doing well overall but still continues to experience dysp[place]. Randomly will experience non-exertional sharp pain in the chest wall which often does improve with stretching. Is to follow up with Endocrine to discuss her thyroid levels for which the management was recently changed from Synthroid to [place] Thyroid which has significantly improved her symptoms of generalized fatigue, limited on dyspnea symptoms. She does admit to having very bad exercise induced asthma in the past for which she carries an inhaler but has not used it over the past year with these episodes. Notes that she also has been having worsening allergies. Office visits: (12/31/22) States she is doing well but still continues to have episodes of dyspnea on exertion. Denies any symptoms at rest. No orthopnea. No LE edema. Tolerating current medications, although had to stop Imdur due to headaches. Relieved about the results from the left heart catheterization. Tolerating ASA/statin. (10/15/22) Swapna Guido is a 58 y.o. female with a past medical history of HTN, DM, CAD, thyroid cancer s/p thyroidectomy presenting for abnormal stress. In May of this year she had a positive NM stress test with distal anteroseptal small area of ischemia. She had a recent left heart catheterization done at [facility] (08/2022) which revealed a 50-60% LAD stenosis with heavy calcification of the proximal LAD (per report), no gradient on pullback. No intervention performed. While in the PACU she became hypotensive and LOC for which a code blue was called and had compressions started (unknown rhythm) per family lasting a few minutes. No further workup performed and patient discharged after overnight observation, thought to be vagal. Today she is presenting for further evaluation as her exertional symptoms of SOB, chest pain and diaphoresis have been progressive now occurring with less activity. She is taking ASA 81 mg daily, statin and Hydrochlorothiazide/ARB. Previously she was on Metoprolol with no improved symptoms leading to the cath; currently not taking as concern for it causing the syncopal episode. Past Medical History: Diagnosis Date Essential hypertension, benign Malignant melanoma of nose NM (myocardial infarction) May Thyroid cancer Past Surgical History: Procedure Laterality Date THYROIDECTOMY 2006 HYSTERECTOMY 2005 Total Social History Socioeconomic History Marital status: Spouse name: Not on file Number of children: Not on file Years of education: Not on file Highest education level: Not on file Occupational History Not on file Tobacco Use Smoking status: Never Smokeless tobacco: Never Vaping Use Vaping status: Never Used Substance and Sexual Activity Alcohol use: Never Drug use: Never Sexual activity: Not on file Other Topics Concern Not on file Social History Narrative Not on file Social Determinants of Health Financial Resource Strain: Not on file Food Insecurity: Not on file Transportation Needs: Not on file Physical Activity: Not on file Stress: Not on file Social Connections: Not on file Intimate Partner Violence: Not on file Housing Stability: Not on file Family History Problem Relation Age of Onset Breast Cancer Mother Arrhythmia Mother Stroke Father Myocardial Infarction Father Myocardial Infarction Brother Ovarian Cancer Maternal Grandmother Breast Cancer Maternal Grandmother Allergies Allergen Reactions Penicillins Hives and Shortness of Breath Current Outpatient Medications Medication Sig Dispense Refill aspirin 81 MG Chew Tab chewable tablet Chew 1 tablet daily. Biotin 5000 MCG tablet Take by mouth. buPROPion 150 MG tablet XL Take 1 tablet by mouth daily. Cholecalciferol (D-3-5) 125 MCG (5000 UT) capsule Take by mouth. loratadine 10 MG tablet Take 1 tablet by mouth daily. Magnesium 500 MG capsule Take by mouth. metFORMIN 500 MG tablet Take 1 tablet by mouth 2 times daily with meals. olmesartan-hydrochlorothiazide 20-12.5 MG tablet Take 2 tablets by mouth daily. 60 tablet 3 Rosuvastatin 20 MG tablet Take 1 tablet by mouth daily. 60 tablet 3 thyroid ([place] Thyroid) 120 MG tablet Take 1 tablet by mouth daily. 90 tablet 3 baclofen 10 MG tablet Take 10 mg by mouth as needed. COLLAGEN PO Take by mouth. (Patient not taking: Reported on 07/01/2023) Cyanocobalamin (B-12) 100 MCG tablet Take by mouth. Metoprolol succinate 25 MG tablet XL Take 1 tablet by mouth daily. (Patient not taking: Reported on 07/01/2023) 90 Each 3 No current facility-administered medications for this visit. Physical Exam: BP 114/72 (BP Location: Left arm, BP Position: Sitting) Pulse 75 Ht 1.676 m (5' 6 ) Wt 93.7 kg (206 lb 8 oz) SpO2 98% BMI 33.33 kg/m Smoking Status Never General: The patient is awake, alert, and oriented. HEENT: Neck is supple Lungs: Clear to auscultation bilateral without focal wheezes or crackles. Cardiovascuar: Regular rate and rhythm. Abdomen: Non-distended Extremities: No clubbing, cyanosis, or edema. Skin: No rashes, excoriations, ulcerations, wounds. Psychiatric: Affect and mood appear normal. DIAGNOSTIC DATA ECHO (12/2022) Left Ventricle: Chamber size is normal. Normal wall thickness. Normal global systolic function. Regional wall motion is normal. Ejection fraction is normal (60 - 65%). Diastolic function is normal. Right Ventricle: Chamber size is normal. Normal wall thickness. Segmental wall motion is normal. Systolic function is normal. Left Atrium: Chamber size is normal. Aortic Valve: Trileaflet valve. Leaflet mobility is normal. No regurgitation. No stenosis. Mitral Valve: Normal appearing leaflets. Leaflet mobility is normal. No regurgitation. No valve stenosis. Tricuspid Valve: Normal leaflets. Leaflet mobility is normal. Trace regurgitation. No stenosis. RVSP could not be calculated due to an inadequate TR jet There is no prior study for comparison Event Monitor (02/2023) - 30 day monitoring period with no significant arrhythmias recorded [facility] (11/2022) Conclusions Mild coronary artery disease without obstructive stenosis of the LAD. LVEDP 20 mmHg Recommendations Continue anti-anginal therapy for possible microvascular dysfunction in the setting of mild non-obstructive CAD. Aggressive risk factor modification NM STRESS: (06/02/2022) Labs: No results found for: SODIUM , POTASSIUM , CHLORIDE , CO2 , EX7UMPAMKG , BUN , CREATSERUM No results found for: INR , PT Lab Results Component Value Date WBC 6.65 11/06/2022 HGB 12.6 11/06/2022 HCT 36.4 11/06/2022 PLATELET 284 11/06/2022 MCV 85.8 11/06/2022 Associated attestation - Franklin Clark MD - 07/09/2023 1:47 PM EDT Attending Physician Note I saw and personally examined the patient on 07/01/2023 with the fellow in general cardiology clinic. We discussed the symptoms and exam findings, results of testing and therapeutic plan. I agree with the history, physical examination, and medical decisions as outlined in the progress note, and I have edited the note in its essential parts to reflect my plan for this patient. 58 yo F with CAD (non-obstructive on 11/2022 [facility]), HFpEF, HTN, and SOB. Will plan to start SGLT2i for worsening dyspnea. She appears euvolemic on examination. Will also refer to pulmonology given reported history of exercise-induced asthma. Patient also requests allergy clinic referral given worsening allergy symptoms. Franklin Clark MD Chief Pilot of Clinical Medicine [facility] Heart Failure & Transplantation documented in this encounter [facility] 07-01-2023 Instructions Hal Case DO - 07/01/2023 12:50 PM EDT - Obtain labs. Once labs come back we will attempt to start new medication Farxiga to help with the symptoms. - Schedule to see Pulmonology (lung doctors) - Continue current medications documented in this encounter [facility] 12-31-2022 History of Presen t illness Narrative Images from the original note were not included. [facility] - Outpatient Cardiology Clinic Visit IMPRESSION/PLAN: # Non-obstructive CAD # Hypertension # Dyspnea - LHC in November revealed non-obstructive disease (up to 20% in LAD) with elevated LVEDP 20 mmHg - Unable to tolerate Imdur due to headaches - Cont ASA/statin (increase to 20 mg) - Cont Metoprolol XL 25 daily and increase Olmesartan/HCTZ 40/25 - Echo and EM - F/u in 6 months The above has been discussed with cardiology attending, Dr. Jae Case DO Cardiovascular Medicine Fellow [facility] == HPI: Today: States she is doing well but still continues to have episodes of dyspnea on exertion. Denies any symptoms at rest. No orthopnea. No LE edema. Tolerating current medications, although had to stop Imdur due to headaches. Relieved about the results from the left heart catheterization. Tolerating ASA/statin. Office visits: (10/15/22) Swapna Guido is a 57 y.o. female with a past medical history of HTN, DM, CAD, thyroid cancer s/p thyroidectomy presenting for abnormal stress. In May of this year she had a positive NM stress test with distal anteroseptal small area of ischemia. She had a recent left heart catheterization done at [facility] (08/2022) which revealed a 50-60% LAD stenosis with heavy calcification of the proximal LAD (per report), no gradient on pullback. No intervention performed. While in the PACU she became hypotensive and LOC for which a code blue was called and had compressions started (unknown rhythm) per family lasting a few minutes. No further workup performed and patient discharged after overnight observation, thought to be vagal. Today she is presenting for further evaluation as her exertional symptoms of SOB, chest pain and diaphoresis have been progressive now occurring with less activity. She is taking ASA 81 mg daily, statin and Hydrochlorothiazide/ARB. Previously she was on Metoprolol with no improved symptoms leading to the cath; currently not taking as concern for it causing the syncopal episode. Past Medical History: Diagnosis Date Essential hypertension, benign Malignant melanoma of nose NM (myocardial infarction) May Thyroid cancer Past Surgical History: Procedure Laterality Date THYROIDECTOMY 2005 HYSTERECTOMY 2004 Total Social History Socioeconomic History Marital status: Spouse name: Not on file Number of children: Not on file Years of education: Not on file Highest education level: Not on file Occupational History Not on file Tobacco Use Smoking status: Never Smokeless tobacco: Never Vaping Use Vaping Use: Never used Substance and Sexual Activity Alcohol use: Never Drug use: Never Sexual activity: Not on file Other Topics Concern Not on file Social History Narrative Not on file Social Determinants of Health Financial Resource Strain: Not on file Food Insecurity: Not on file Transportation Needs: Not on file Physical Activity: Not on file Stress: Not on file Social Connections: Not on file Intimate Partner Violence: Not on file Housing Stability: Not on file Family History Problem Relation Age of Onset Breast Cancer Mother Stroke Father Myocardial Infarction Father Myocardial Infarction Brother Ovarian Cancer Maternal Grandmother Breast Cancer Maternal Grandmother Allergies Allergen Reactions Penicillins Hives and Shortness of Breath Current Outpatient Medications Medication Sig Dispense Refill aspirin 81 MG Chew Tab chewable tablet Chew 1 tablet daily. Biotin 5000 MCG tablet Take by mouth. buPROPion 150 MG tablet XL Take 1 tablet by mouth daily. Cholecalciferol (D-3-5) 125 MCG (5000 UT) capsule Take by mouth. loratadine 10 MG tablet Take 1 tablet by mouth daily. Magnesium 500 MG capsule Take by mouth. metFORMIN 500 MG tablet Take 1 tablet by mouth 2 times daily with meals. Metoprolol succinate 25 MG tablet XL Take 1 tablet by mouth daily. 90 Each 3 olmesartan-hydrochlorothiazide 20-12.5 MG tablet Take 1 tablet by mouth daily. Rosuvastatin 10 MG tablet Take 1 tablet by mouth daily. thyroid ([place] Thyroid) 120 MG tablet Take 1 tablet by mouth daily. 30 tablet 11 baclofen 10 MG tablet Take 10 mg by mouth as needed. COLLAGEN PO Take by mouth. (Patient not taking: Reported on 09/08/2022) Cyanocobalamin (B-12) 100 MCG tablet Take by mouth. Isosorbide mononitrate 30 MG Tab SR 24 HR tablet XL Take 1 tablet by mouth daily every morning. (Patient not taking: Reported on 12/31/2022) 30 tablet 3 Specialty Vitamins Products (BIOTIN PLUS KERATIN PO) Take by mouth. (Patient not taking: Reported on 09/08/2022) Thyroid ([place] Thyroid) 30 MG tablet Take 1 tablet along with the 90 mg tablet to equal 120 mg a day 30 tablet 11 thyroid ([place] Thyroid) 90 MG tablet Take 1 a day along with 1 30 mg tablet a day to equal 120 mg a day No current facility-administered medications for this visit. Physical Exam: BP 132/76 (BP Location: Right arm, BP Position: Sitting) Pulse 66 Ht 1.676 m (5' 6 ) Wt 92.5 kg (204 lb) BMI 32.93 kg/m Smoking Status Never General: The patient is awake, alert, and oriented. HEENT: Neck is supple Lungs: Clear to auscultation bilateral without focal wheezes or crackles. Cardiovascuar: Regular rate and rhythm. Abdomen: Non-distended Extremities: No clubbing, cyanosis, or edema. Skin: No rashes, excoriations, ulcerations, wounds. Psychiatric: Affect and mood appear normal. DIAGNOSTIC DATA [facility] (11/2022) Conclusions Mild coronary artery disease without obstructive stenosis of the LAD. LVEDP 20 mmHg Recommendations Continue anti-anginal therapy for possible microvascular dysfunction in the setting of mild non-obstructive CAD. Aggressive risk factor modification NM STRESS: (06/02/2022) Labs: No results found for: SODIUM , POTASSIUM , CHLORIDE , CO2 , [id number] , BUN , CREATSERUM No results found for: INR , PT Lab Results Component Value Date WBC 6.65 11/06/2022 HGB 12.6 11/06/2022 HCT 36.4 11/06/2022 PLATELET 284 11/06/2022 MCV 85.8 11/06/2022 ATTENDING ATTESTATION: I saw and personally examined the patient today with Dr. Case. I discussed the findings and therapeutic plan with the fellow. I agree with the history, physical examination, and medical decisions as outlined, and edited as needed. I personally reviewed the following tracings/images: ECG, LHC. This is a 57 y/o/f hx mild CAD, HTN, HLP presenting for routine F/U. Had recent LHC that showed only mild disease; EDP 20 and trialed Toprol and Imdur causing intolerable BRIDGES. Titrating antianginal therapies as detailed below. F/U 6 months. Elvi Ward DO, [facility] Patient Services Clerk, Internal Medicine [facility] Cardiovascular Medicine *[id number] documented in this encounter [facility] 12-31-2022 Instructions Hal Case DO - 12/31/2022 1:50 PM EDT - Schedule echocardiogram (ultrasound of the heart) - Event monitor - Increase Benicar and Rosuvastatin documented in this encounter [facility] 11-06-2022 Miscellaneous Notes Formattin g of this note might be different from the original. Discharge instructions and printed AVS reviewed with patient by this RN, all questions answered. Pt verbalizes understanding. IV dc'd with no difficulty and catheter tip intact. Telemetry dc'd. VS stable at time of discharge. Patient being discharged to home by this Rn with family. No patient belongings left at bedside. Post procedure recovery without events. Right wrist site without bleeding or hematoma, palpable radial pulses. Preliminary Report - Brief Cardiac Catheterization Procedure Note Swapna Guido ([id number]) Pre Procedural Diagnosis 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 [I25.119] Post Procedural Diagnosis Chest pain Procedure Performed Left heart catheterization and Coronary angiogram Access Site/Hemostasis Right radial, artery, TR Compression Band Findings Left Ventricular End Diastolic Pressure: Normal Left Ventricular Ejection Fraction: Not assessed Preliminary Results of Angiography Mild luminal irregularities Percutaneous Coronary Intervention No Intervention Intraprocedure Anticoagulation Heparin Post-procedure Anticoagulation Anticoagulation to be restarted: No Estimated Blood Loss Minimal Complications None Admission Does patient need to be admitted: No Surgeon Surgeon(s) and Role: * Sary Singh MD - Primary * Michael Meehan DO - Fellow Procedural Staff Security Operations Manager: Kenny Leo RN Sedation Nurse: Michael Suero RN Documenter: Jameson Monroy RN Full report to follow Michael Meehan DO November 06, 2022 11:54 AM 10:44 AM Report of PIV WITH ULTRASOUND GUIDANCE Consultation and Evaluation: Patient seen and evaluated for PIV insertion using ultrasound guidance. ID band present, allergies and limb precautions verified with patient/nurse. Skin integrity within normal limits at time of insertion. No evidence of ecchymosis, infiltration, hematoma, edema, or any condition that would prevent safe insertion of a PIV [X ] ultrasound used [ ] ultrasound not used Procedure explained to patient. Anatomical distortion to interfere with placement: none PROCEDURE DETAILS: PIV Insertion Procedure Using standard aseptic technique access was obtained. Good blood return noted, catheter flushed easily with 10mls 0.9 NS per lumen. Securement device used to secure PIV. Dressing applied. Pt denies pain at insertion site. Peripheral IV Line - Single Lumen 11/06/22 1044 forearm, anterior, left 20 gauge;1 1/4 in length (Active) 11/06/22 1044 Present On Admission : no Guiding Device: ultrasound Lumen 1: Location: forearm, anterior, left Device/Lot Number: [id number] catheter system Gauge/Length: 20 gauge;1 1/4 in length Unsuccessful Insertion Attempts: Unsuccessful Attempt Location/Site: Pain Prevention/Patient Tolerance: Removal: Additional Comments: Lumen 2: Lumen 3: Peripheral IV Present on Admission: (Retired/Read Only) Location: (Retired/Read Only) Device: (Retired/Read Only) Gauge/Length: Sweeper Operator Highways/Lot Number: Unsuccessful Insertion Attempts: (Retired/Read Only) Unsuccessful Attempt Locations: Pain Prevention: Patient Tolerance: Insertion: Removal Indication: Peripheral IV Location - Orientation: Peripheral IV Location: Insertion Site WDL WDL 11/06/22 1043 Site Preparation/Maintenance site cleansed: chlorhexidine solution 11/06/22 1043 Lumen 1 Patency/Maintenance flushed without difficulty;blood return, able to obtain 11/06/22 104 Phlebitis 0-->no symptoms 11/06/22 104 Infiltration 0-->no symptoms 11/06/22 104 Patient tolerated procedure well without any complications [] Lidocaine 1% used prior insertion [] No Lidocaine used Extra insertion note if applicable: RN notified of procedure completion [x ] Obtained labs. [X] Call light in reach. [X] Bed low and locked. [X] Tray table within reach. Education: Patient/Family informed to notify nurse of any complications including pain, redness, swelling, or leakage post insertion. PREPARING FOR YOUR INSIGHTS MANAGER PROCEDURE Your catheterization is schedule on 11/06 at: [facility] at the [facility] located at [address] [place] [address]. You are to arrive at [facility] on the 1st floor at 10A. You may use corrosion control engineer parking ($10) or park in the [facility] [employer] [facility] [facility] just past the [facility] ($3). There is a walkway from the 2nd floor of the garage into the [facility]. You are to have nothing to eat after MIDNIGHT. You may drink CLEAR liquids up to the time you arrive or 2 hrs before the procedure. (water, juice, clear soda, tea, coffee NO CREAMERS). You are to take your medications as usual on the AM of the procedure; any exceptions will be listed below. HOLD METFORMIN FRI, SAT, RESTART SUN PM DOSE Expect to be at the hospital 8 hrs. If there is a need to stent a blockage, generally it will be done the same day and may require an overnight stay. Bring an up to date list of all medications with you to procedure. If you require CPAP bring it with you. If you have a contrast dye/iodine allergy or if you are on Coumadin, apixiban (Eliquis), rivaroxaban (Xarelto), or dabigatran (Pradaxa) and it was NOT addressed during scheduling, please call NOW to notify the lab ([phone]). Continue asprin, Plavix (clopidogrel), Effient (prasugrel), and Brilinta (ticagrelor). You will receive sedation during your procedure and will not be permitted to drive for 24 hrs. You will need a friend or family member to accompany you home (a bus is not acceptable). Failure to have a responsible person on discharge will result in cancellation of your procedure. If the need for blood work was discussed, we recommend having labs drawn about 1 week before procedure (no more than 2 weeks before). Failure to have labs drawn may result in delay or cancellation of your procedure. Your labs HAVE BEEN ORDERED AT [facility], FASTING IS NOT REQUIRED. Click the link below to be directed to a video which will explain the catheterization and outpatient process: [email or web address].com/watch?v [email or web address] Please be aware, other departments sometimes advise our patients they will receive a reminder call from the cleaner laboratory equipment prior to their procedure. We do not provide reminder calls. Please omar your calendar with your procedure date, and call with any questions [phone]. Thank you, MAZIN Guerrero Crime Scene Technician Via PHONE, LEISAHART documented in this encounter [facility] 11-06-2022 Nurse Note Discharge instructions and printed AVS reviewed with patient by this RN, all questions answered. Pt verbalizes understanding. IV dc'd with no difficulty and catheter tip intact. Telemetry dc'd. VS stable at time of discharge. Patient being discharged to home by this Rn with family. No patient belongings left at bedside. Post procedure recovery without events. Right wrist site without bleeding or hematoma, palpable radial pulses. [facility] Postoperative evaluation and management note Preliminary Report - Brief Cardiac Catheterization Procedure Note Swapna Guido ([id number]) Pre Procedural Diagnosis 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 [I25.119] Post Procedural Diagnosis Chest pain Procedure Performed Left heart catheterization and Coronary angiogram Access Site/Hemostasis Right radial, artery, TR Compression Band Findings Left Ventricular End Diastolic Pressure: Normal Left Ventricular Ejection Fraction: Not assessed Preliminary Results of Angiography Mild luminal irregularities Percutaneous Coronary Intervention No Intervention Intraprocedure Anticoagulation Heparin Post-procedure Anticoagulation Anticoagulation to be restarted: No Estimated Blood Loss Minimal Complications None Admission Does patient need to be admitted: No Surgeon Surgeon(s) and Role: * Sary Singh MD - Primary * Michael Meehan DO - Fellow Procedural Staff Security Operations Manager: Kenny Leo RN Sedation Nurse: Michael Suero RN Documenter: Jameson Monroy RN Full report to follow Michael Meehan DO November 06, 2022 11:54 AM [facility] 11-06-2022 Nurse Note 10:44 AM Report of PIV WITH ULTRASOUND GUIDANCE Consultation and Evaluation: Patient seen and evaluated for PIV insertion using ultrasound guidance. ID band present, allergies and limb precautions verified with patient/nurse. Skin integrity within normal limits at time of insertion. No evidence of ecchymosis, infiltration, hematoma, edema, or any condition that would prevent safe insertion of a PIV [X ] ultrasound used [ ] ultrasound not used Procedure explained to patient. Anatomical distortion to interfere with placement: none PROCEDURE DETAILS: PIV Insertion Procedure Using standard aseptic technique access was obtained. Good blood return noted, catheter flushed easily with 10mls 0.9 NS per lumen. Securement device used to secure PIV. Dressing applied. Pt denies pain at insertion site. Peripheral IV Line - Single Lumen 11/06/22 1044 forearm, anterior, left 20 gauge;1 1/4 in length (Active) 11/06/22 1044 Present On Admission : no Guiding Device: ultrasound Lumen 1: Location: forearm, anterior, left Device/Lot Number: [id number] catheter system Gauge/Length: 20 gauge;1 1/4 in length Unsuccessful Insertion Attempts: Unsuccessful Attempt Location/Site: Pain Prevention/Patient Tolerance: Removal: Additional Comments: Lumen 2: Lumen 3: Peripheral IV Present on Admission: (Retired/Read Only) Location: (Retired/Read Only) Device: (Retired/Read Only) Gauge/Length: Sweeper Operator Highways/Lot Number: Unsuccessful Insertion Attempts: (Retired/Read Only) Unsuccessful Attempt Locations: Pain Prevention: Patient Tolerance: Insertion: Removal Indication: Peripheral IV Location - Orientation: Peripheral IV Location: Insertion Site WDL WDL 11/06/221042 Site Preparation/Maintenance site cleansed: chlorhexidine solution 11/06/221042 Lumen 1 Patency/Maintenance flushed without difficulty;blood return, able to obtain 11/06/221042 Phlebitis 0-->no symptoms 11/06/221042 Infiltration 0-->no symptoms 11/06/22 104 Patient tolerated procedure well without any complications [] Lidocaine 1% used prior insertion [] No Lidocaine used Extra insertion note if applicable: RN notified of procedure completion [x ] Obtained labs. [X] Call light in reach. [X] Bed low and locked. [X] Tray table within reach. Education: Patient/Family informed to notify nurse of any complications including pain, redness, swelling, or leakage post insertion. [facility] 11-06-2022 History and physical note PRE-CATH H&P UPDATE Patient seen and examined by me on day of procedure. Agree with H&P as documented by Dr. Case on 10/15/2022, there are no significant updates or changes. Swapna Guido is a 57 y.o. female with a history of HTN, DM, CAD, and thyroid cancer s/p thyroidectomy. This cardiac catheterization is being done to investigate progressive angina. Allergies, Laboratory Studies: is allergic to penicillins. Lab Studies (10/30/2022) Cr 0.88 GFR > 60 K 3.8 Coronary Angiography (08/12/2022) Heavy calcification of the proximal LAD, 50-60% lesion of distal LAD Additionally: Surgery Scheduled in the next 12 months: No History of pathologic bleeding: No Potential barriers to dual antiplatelet therapy: No Allergy to contrast dye: No Access concerns: No Anticipated access will be right radial artery with right femoral artery backup. Consent signed and sedation assessment completed. Will proceed with left heart catheterization with coronary angiography. Michael Meehan DO Fellow, Cardiovascular Medicine [facility] Work Phone: 11-06-2022 History and physical note PRE-CATH H&P UPDATE Patient seen and examined by me on day of procedure. Agree with H&P as documented by Dr. Case on 10/15/2022, there are no significant updates or changes. Swapna Guido is a 57 y.o. female with a history of HTN, DM, CAD, and thyroid cancer s/p thyroidectomy. This cardiac catheterization is being done to investigate progressive angina. Allergies, Laboratory Studies: is allergic to penicillins. Lab Studies (10/30/2022) Cr 0.88 GFR > 60 K 3.8 Coronary Angiography (08/12/2022) Heavy calcification of the proximal LAD, 50-60% lesion of distal LAD Additionally: Surgery Scheduled in the next 12 months: No History of pathologic bleeding: No Potential barriers to dual antiplatelet therapy: No Allergy to contrast dye: No Access concerns: No Anticipated access will be right radial artery with right femoral artery backup. Consent signed and sedation assessment completed. Will proceed with left heart catheterization with coronary angiography. Michael Meehan, DO Fellow, Cardiovascular Medicine documented in this encounter [facility] 10-19-2022 Nurse Note PREPARING FOR YOUR INSIGHTS MANAGER PROCEDURE Your catheterization is schedule on 11/06 at: [facility] at the [facility] located at [address] [place] [address]. You are to arrive at [facility] on the 1st floor at 10A. You may use corrosion control engineer parking ($10) or park in the [employer] [facility] [facility] just past the [facility] ($3). There is a walkway from the 2nd floor of the [facility] You are to have nothing to eat after MIDNIGHT. You may drink CLEAR liquids up to the time you arrive or 2 hrs before the procedure. (water, juice, clear soda, tea, coffee NO CREAMERS). You are to take your medications as usual on the AM of the procedure; any exceptions will be listed below. HOLD METFORMIN FRI, SAT, RESTART SUN PM DOSE Expect to be at the hospital 8 hrs. If there is a need to stent a blockage, generally it will be done the same day and may require an overnight stay. Bring an up to date list of all medications with you to procedure. If you require CPAP bring it with you. If you have a contrast dye/iodine allergy or if you are on Coumadin, apixiban (Eliquis), rivaroxaban (Xarelto), or dabigatran (Pradaxa) and it was NOT addressed during scheduling, please call NOW to notify the lab ([phone]). Continue asprin, Plavix (clopidogrel), Effient (prasugrel), and Brilinta (ticagrelor). You will receive sedation during your procedure and will not be permitted to drive for 24 hrs. You will need a friend or family member to accompany you home (a bus is not acceptable). Failure to have a responsible person on discharge will result in cancellation of your procedure. If the need for blood work was discussed, we recommend having labs drawn about 1 week before procedure (no more than 2 weeks before). Failure to have labs drawn may result in delay or cancellation of your procedure. Your labs HAVE BEEN ORDERED AT [facility], FASTING IS NOT REQUIRED. Click the link below to be directed to a video which will explain the catheterization and outpatient process: [email or web address].youtube.com/watch?v [email or web address] Please be aware, other departments sometimes advise our patients they will receive a reminder call from the cleaner laboratory equipment prior to their procedure. We do not provide reminder calls. Please omar your calendar with your procedure date, and call with any questions [phone]. Thank you, MAZIN Guerrero Crime Scene Technician Via PHONE, MYCHART [facility] 10-15-2022 History of Presen t illness Narrative Images from the original note were not included. ADDENDUM: 10/15/2022 Cardiovascular Attending Note I independently interviewed and examined the patient on 10/15/[address] Viramontes reviewed the history, physical examination, pertinent laboratory data / imaging data, and medical decision making with the Retail Parts Professional. Any changes to the history or physical examination or medical decision making were either edited in the note or mentioned in this summation. Additional Comments: Exam: Lungs: CTA-BL CV: RRR, nl S1, S2, without obvious m/r/g Abd: + BS; soft; non tender Ext: no obvious edema PV: carotids: no obvious bruits Plan: continue medical therapy with the addition of nitrates and beta blockers; proceed with reevaluation in the cardiac cath for CAD with additional studies such as FFR/IVUS as needed; possible revascularization therapy as needed; monitor for any additional syncopal type events (previous post cath event without other objective findings) suspicious for post procedure situational vasovagal event. The above was discussed with the patient and spouse and they were in agreement with the above. Thank you for the opportunity to participate in the care of this patient. If you have any questions please do not hesitate to contact our service. Marcello Galeana MD, [facility] Patient Services Clerk - Clinical Division of Cardiovascular Medicine Department of Internal Medicine [facility] - Outpatient Cardiology Clinic Visit IMPRESSION/PLAN: # Progressive angina # Coronary artery disease (LAD 50-60% and proximal heavy calcification on [facility] 08/2022) # Hypertension - With ongoing symptoms and lower level of activity prompting symptoms, known LAD disease, risk factors and unexplained arrest vs vagal episode post [facility], will proceed with repeating catheterization - Cont ASA/statin and BP regimen - Resume Metoprolol XL 25 daily and Imdur 30 daily - Cardiac cath - Return to clinic following cath The above has been discussed with cardiology attending, Dr. Kervin Case, Cardiovascular Medicine Fellow [facility] == HPI: Swapna Guido is a 57 y.o. female with a past medical history of HTN, DM, CAD, thyroid cancer s/p thyroidectomy presenting for abnormal stress. In May of this year she had a positive NM stress test with distal anteroseptal small area of ischemia. She had a recent left heart catheterization done at [facility] (08/2022) which revealed a 50-60% LAD stenosis with heavy calcification of the proximal LAD (per report), no gradient on pullback. No intervention performed. While in the PACU she became hypotensive and LOC for which a code blue was called and had compressions started (unknown rhythm) per family lasting a few minutes. No further workup performed and patient discharged after overnight observation, thought to be vagal. Today she is presenting for further evaluation as her exertional symptoms of SOB, chest pain and diaphoresis have been progressive now occurring with less activity. She is taking ASA 81 mg daily, statin and Hydrochlorothiazide/ARB. Previously she was on Metoprolol with no improved symptoms leading to the cath; currently not taking as concern for it causing the syncopal episode. Past Medical History: Diagnosis Date Essential hypertension, benign Malignant melanoma of nose [place] (myocardial infarction) May Thyroid cancer Past Surgical History: Procedure Laterality Date HYSTERECTOMY THYROIDECTOMY Social History Socioeconomic History Marital status: Spouse name: Not on file Number of children: Not on file Years of education: Not on file Highest education level: Not on file Occupational History Not on file Tobacco Use Smoking status: Never Smokeless tobacco: Never Vaping Use Vaping Use: Never used Substance and Sexual Activity Alcohol use: Never Drug use: Never Sexual activity: Not on file Other Topics Concern Not on file Social History Narrative Not on file Social Determinants of Health Financial Resource Strain: Not on file Food Insecurity: Not on file Transportation Needs: Not on file Physical Activity: Not on file Stress: Not on file Social Connections: Not on file Intimate Partner Violence: Not on file Housing Stability: Not on file Family History Problem Relation Age of Onset Breast Cancer Mother Stroke Father Myocardial Infarction Father Myocardial Infarction Brother Ovarian Cancer Maternal Grandmother Breast Cancer Maternal Grandmother Allergies Allergen Reactions Penicillins Hives and Shortness of Breath Current Outpatient Medications Medication Sig Dispense Refill aspirin 81 MG Chew Tab chewable tablet Chew 1 tablet daily. Biotin 5000 MCG tablet Take by mouth. buPROPion 150 MG tablet XL Take 1 tablet by mouth daily. Cholecalciferol (D-3-5) 125 MCG (5000 UT) capsule Take by mouth. loratadine 10 MG tablet Take 1 tablet by mouth daily. Magnesium 500 MG capsule Take by mouth. metFORMIN 500 MG tablet Take 1 tablet by mouth 2 times daily with meals. olmesartan-hydrochlorothiazide 20-12.5 MG tablet Take 1 tablet by mouth daily. Rosuvastatin 10 MG tablet Take 1 tablet by mouth daily. thyroid ([place] Thyroid) 90 MG tablet Take 1 tablet by mouth daily. 30 tablet 11 baclofen 10 MG tablet Take 10 mg by mouth as needed. COLLAGEN PO Take by mouth. (Patient not taking: Reported on 09/08/2022) Cyanocobalamin (B-12) 100 MCG tablet Take by mouth. levothyroxine 150 MCG tablet Take 1 tablet by mouth As directed. Take one tab daily Wednesday through Wednesday and 1.5 tabs on Sundays (7.5 tabs per week) (Patient taking differently: Take 150 mcg by mouth As directed. Take one tab daily Wednesday through Wednesday and 1.5 tabs on Sundays (7.5 tabs per week) States she has been taking one tab all 7 days) 32 tablet 11 liothyronine 5 MCG tablet TAKE 1/2 TABLET BY MOUTH IN THE MORNING AND 1/2 TABLET AT 1PM 90 tablet 3 Specialty Vitamins Products (BIOTIN PLUS KERATIN PO) Take by mouth. (Patient not taking: Reported on 09/08/2022) No current facility-administered medications for this visit. Physical Exam: BP 114/68 (BP Location: Right arm) Pulse 92 Ht 1.676 m (5' 6 ) Wt 94.5 kg (208 lb 4.8 oz) BMI 33.62 kg/m Smoking Status Never General: The patient is awake, alert, and oriented. HEENT: Neck is supple Lungs: Clear to auscultation bilateral without focal wheezes or crackles. Cardiovascuar: Regular rate and rhythm. Abdomen: Non-distended Extremities: No clubbing, cyanosis, or edema. Skin: No rashes, excoriations, ulcerations, wounds. Psychiatric: Affect and mood appear normal. DIAGNOSTIC DATA NM STRESS: (06/02/2022) Labs: No results found for: SODIUM , POTASSIUM , CHLORIDE , CO2 , EL8AFANAPO , BUN , CREATSERUM No results found for: INR , PT No results found for: WBC , WBCCOUNT , WBCFETAL , HGB , HCT , PLATELET , MCV Patient has verified full name and . documented in this encounter [facility] 10-15-2022 Instructions Hal Case DO - 10/15/2022 1:50 PM EDT - Start Metoprolol and Imdur daily - Schedule heart catheterization - Follow up after the heart catheterization (2-3 months) - If any worsening chest pain or not improving with rest, call 911 documented in this encounter [facility] 09-08-2022 History of Presen t illness Narrative Swapna Guido is a 57 y.o. female with unknown type of thyroid cancer who presents to the Endocrine clinic for six month follow up. She is s/p total thyroidectomy at [facility] in 2004. Pathology is not available at time of visit, but per referring doctor Dr Burger notes, she had lobular thyroid cancer with 1 positive lymph node. She is s/p ALVARADO with 78mCi of 131I in 2004 at [facility]. Post-treatment scan shows uptake in the thyroid bed only. DxWBS in 2006 was negative. She has had positive TgAb titers in the past. These have become undetectable. US of the neck was clean in 08/24. She is doing well today. She had an NM in 05/28. She had significant hypotension during her cath in early August. She had a syncopal event. Denies palpitations, heat/cold intolerance, diarrhea/constipation, insomnia, anxiety, or tremor. Energy level is low. It is better since she is off of the metoprolol but it is still low. No change in hair or skin. No difficulty swallowing, hoarseness or positional SOB. She has gained 10 pounds since last visit. She gets short of breath sometimes with exertion. 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 REVIEW OF SYSTEMS: Otherwise negative except as noted above in the HPI Objective: BP 127/74 (BP Location: Right arm, BP Position: Sitting) Pulse 65 Temp 97.5 F (36.4 C) (Infrared) Resp 18 Ht 1.676 m (5' 5.98 ) Wt 94.4 kg (208 lb 3.2 oz) SpO2 98% BMI 33.62 kg/m Smoking Status Never Physical Exam Constitutional: oriented to person, place, and time and well-developed, well-nourished, and in no distress. HENT: Head: Normocephalic and atraumatic. Eyes: Conjunctivae and EOM are normal. Pupils are equal, round, and reactive to light. No lid lag Neck: No palpable thyroid tissue, well-healed surgical scar. No lymphadenopathy. Cardiovascular: Normal rate, regular rhythm and normal heart sounds. Pulmonary/Chest: Effort normal and breath sounds normal. Musculoskeletal: Normal range of motion. exhibits no edema. Neurological: alert and oriented to person, place, and time. normal reflexes. No hand tremor. Negative Chvostek's sign. Skin: Skin is dry. No rash noted. Labs Date TSH Tg TgAbs LT4 T3 12/08 8 1.3 + 01/07 48 2.1 Neg 4 0.01 <0.2 38 12/09 0.01 <0.2 122 04/11 <0.005 <0.2 286 07/10 0.009 <0.2 18 01/10 0.012 <0.2 96 08/13 0.006 <0.2 5.9 03/20 0.13 <0.2 05/24 0.27 0.1 <1.0 02/23 0.38 <0.1 <1.0 175->200 ->25 daily 08/24 <0.008 <0.1 <1.8 02/24 <0.007 150 2.5/2.5 05/28 0.7 [place] 90 09/25 10 <0.1 [place] 90 Impression/Plan: This is a 57 y.o. female with thyroid cancer, unknown type, s/p total thyroidectomy and radioiodine therapy. She has had an excellent response to therapy and has a low likelihood of disease recurrence. She will have a TSH and thyroglobulin battery in two months. Regarding the postoperative hypothyroidism, the target TSH is 0.5-2. I suspect her elevated TSH is due to her recent event during the cath. She will have a repeat TSH in a month. I will adjust the dose of LT4 accordingly. She will have labs drawn prior to the next visit in one year including a TSH and thyroglobulin battery. Gladys Youngblood MD documented in this encounter [facility] 09-08-2022 Instructions Jessica Luna RN - 09/08/2022 10:40 AM EDT You may receive a survey regarding your care today at [facility]. We would appreciate if you could complete this short questionnaire as your feedback will help us improve future care of you, and others at our facility If you had labs drawn, please allow 3-4 days for labs to process. Once your labs are completed, your provider/provider's office will contact you with the results. There is no need to contact our office when you receive a notification from [employer] that your labs are processed. Some labs having longer processing times and we will call you once all of the results are back. We appreciate your patience. Thank you. documented in this encounter [facility] 08-13-2022 Progress note Note Date/Time August 13, 2022 10:15am [facility] [address] [place] [address] Cardiology Progress Note Signed Patient: Swapna Guido MR#: [id number] : 1965 Acct:[id number] Age/Sex: 57 / F Adm Date: 3 Loc: 4 Room: [address] [place] [address] Type: REG SDC Attending Dr: Maria Luisa Sarkar MD Copies to: ~ Date of Service: 08/13/2022 Subjective Interval history: Patient back to her baseline. Remain borderline bradycardic. Normotensive. EKG unchanged. No vascular complication Exam Physical Exam Vital Signs: Temp Pulse Resp BP Pulse Ox O2 Del Method 98.1 F 70 16 120/80 98 Room Air 08/13/22 08:00 08/13/22 08:00 08/13/22 08:00 08/13/22 08:00 08/13/22 08:00 08/13/22 08:00 Const General: cooperative Neck Neck: supple Lymphatic: no lymphadenopathy noted Resp Effort & Inspection: normal respiratory effort Auscultation: clear to auscultation bilaterally Cardio Palpation: normal PMI Rate: regular rate and bradycardic Rhythm: regular rhythm Heart Sounds: S1 normal and S2 normal Skin General: dry skin Extrem General: full ROM and no clubbing, cyanosis or edema Objective Labs 08/12/22 16:12 08/12/22 16:12 Labs: Laboratory Results - last 24 hr 08/12/22 08/12/22 08/12/22 16:03 16:12 16:12 Corrected WBC 7.5 Uncorrected WBC Count 7.5 RBC 3.83 Hgb 11.5 L Hct 33.4 L MCV 87.2 MCH 30.1 MCHC 34.5 RDW 12.8 Plt Count 270 MPV 7.4 Neut % (Auto) 51.9 Lymph % (Auto) 37.5 Brantley % (Auto) 6.7 Eos % (Auto) 2.6 Baso % (Auto) 1.3 Nucleat RBC Rel Count 0.2 Neut # (Auto) 3.9 Lymph # (Auto) 2.8 Brantley # (Auto) 0.5 Eos # (Auto) 0.2 Baso # (Auto) 0.1 PHA Creatinine Clear 86.32 Sodium 139 Potassium 3.4 L Chloride 106 Carbon Dioxide 27.2 Anion Gap 9.2 BUN 11 Creatinine 0.86 Est GFR (CKD-EPI) > 60.0 Glucose 123 H POC Glucose 127 Lactic Acid Calcium 8.0 L Magnesium 1.8 L Total Bilirubin 0.5 AST 22 ALT 13 Alkaline Phosphatase 46 Total Protein 5.8 L Albumin 3.5 Globulin 2.3 Albumin/Globulin Ratio 1.5 Total Cortisol > 120.0 Urine Color Urine Appearance Urine pH Ur Specific [place] Urine Protein Urine Glucose (UA) Urine Ketones Urine Occult Blood Urine Nitrite Urine Bilirubin Urine Urobilinogen Ur Leukocyte Esterase 08/12/22 08/12/22 08/12/22 16:12 19:35 23:54 Corrected WBC Uncorrected WBC Count RBC Hgb Hct MCV MCH MCHC RDW Plt Count MPV Neut % (Auto) Lymph % (Auto) Brantley % (Auto) Eos % (Auto) Baso % (Auto) Nucleat RBC Rel Count Neut # (Auto) Lymph # (Auto) Brantley # (Auto) Eos # (Auto) Baso # (Auto) PHA Creatinine Clear Sodium Potassium Chloride Carbon Dioxide Anion Gap BUN Creatinine Est GFR (CKD-EPI) Glucose POC Glucose Lactic Acid 2.0 H* 3.0 H* Calcium Magnesium Total Bilirubin AST ALT Alkaline Phosphatase Total Protein Albumin Globulin Albumin/Globulin Ratio Total Cortisol Urine Color Yellow Urine Appearance Clear Urine pH 6.0 Ur Specific [place] 1.016 Urine Protein Negative Urine Glucose (UA) Normal Urine Ketones Negative Urine Occult Blood Negative Urine Nitrite Negative Urine Bilirubin Negative Urine Urobilinogen Normal Ur Leukocyte Esterase Negative A&P - Cardiology (1) Chest pain: Code(s): R07.9 - Chest pain, unspecified Status: Acute Plan Assessment 1. Transient hypotension and bradycardia with decreased responsiveness I suspect either a drug reaction versus vasovagal reaction. This was treated and improved quickly with IV fluid, Solu-Cortef and Zofran 2. The patient can be discharged home in a stable condition 3. We will discontinue metoprolol 4. We will hold this losartan hydrochlorothiazide for 24 hours 5. Continue with aggressive approach to risk factor modification 6. Advised the patient to continue to monitor her blood pressure and heart rateclosely Documented By: Maria Luisa Sarkar MD 08/13/22 1014 Signed By: <Electronically signed by MD Maria Luisa Sarkar> 08/13/22 1015 [facility] Work Phone: 1(668) 523-871805-11-2023 Progress note Author Maria Luisa Sarkar [facility] August 13, 2022 9:00am Note Date/Time August 12, 2022 6:30p m [facility] [address] [place] [address] Cardiology Progress Note Signed Patient: Swapna Guido MR#: [id number] : 1965 Acct:[id number] Age/Sex: 57 / F Adm Date: 3 Loc: 4 Room: [address] [place] [address] Type: REG SDC Attending Dr: Maria Luisa Sarkar MD Copies to: ~ Date of Service: 08/12/2022 Subjective Interval history: I was called at 330 by the staff indicating that the patient had an episode of hypotension, bradycardia and decreased responsiveness. A medical emergency was called. Responded by the hospitalist. Patient was given a fluid with improvement of her blood pressure quickly. Patient appears slightly pale. Her cardiac catheterization was performed smoothly without any issues or complication. Patient did receive relatively large amount of sedation to achieve comfortable stage to prevent radial artery spasm. To be on the cautiousside the patient was given steroid in case she had unusual reaction to one of the medication. She also given some Zofran for nausea. EKG showed no acute changes. I elected to keep the patient in the hospital for monitoring. At 630 I agree evaluate the patient she looks back to her baseline. She is hemodynamically stable. Mildly bradycardic Exam Physical Exam Vital Signs: Temp Pulse Resp BP Pulse Ox O2 Del Method 98.0 F 50 L 16 111/71 98 Room Air 08/12/22 10:58 08/12/22 17:00 08/12/22 17:00 08/12/22 17:00 08/12/22 17:00 08/12/22 17:00 Const General: cooperative Neck Neck: supple Lymphatic: no lymphadenopathy noted Resp Effort & Inspection: normal respiratory effort Auscultation: clear to auscultation bilaterally Cardio Palpation: normal PMI Rate: regular rate and bradycardic Rhythm: regular rhythm Heart Sounds: S1 normal and S2 normal Skin General: dry skin Extrem General: full ROM and no clubbing, cyanosis or edema Other: No vascular complication good radial pulse Objective Labs 08/12/22 16:12 08/12/22 16:12 Labs: Laboratory Results - last 24 hr 08/12/22 08/12/22 08/12/22 16:03 16:12 16:12 Corrected WBC 7.5 Uncorrected WBC Count 7.5 RBC 3.83 Hgb 11.5 L Hct 33.4 L MCV 87.2 MCH 30.1 MCHC 34.5 RDW 12.8 Plt Count 270 MPV 7.4 Neut % (Auto) 51.9 Lymph % (Auto) 37.5 Brantley % (Auto) 6.7 Eos % (Auto) 2.6 Baso % (Auto) 1.3 Nucleat RBC Rel Count 0.2 Neut # (Auto) 3.9 Lymph # (Auto) 2.8 [place] # (Auto) 0.5 Eos # (Auto) 0.2 Baso # (Auto) 0.1 PHA Creatinine Clear 86.32 Sodium 139 Potassium 3.4 L Chloride 106 Carbon Dioxide 27.2 Anion Gap 9.2 BUN 11 Creatinine 0.86 Est GFR (CKD-EPI) > 60.0 Glucose 123 H POC Glucose 127 Lactic Acid Calcium 8.0 L Magnesium 1.8 L Total Bilirubin 0.5 AST 22 ALT 13 Alkaline Phosphatase 46 Total Protein 5.8 L Albumin 3.5 Globulin 2.3 Albumin/Globulin Ratio 1.5 Total Cortisol > 120.0 08/12/22 16:12 Corrected WBC Uncorrected WBC Count RBC Hgb Hct MCV MCH MCHC RDW Plt Count MPV Neut % (Auto) Lymph % (Auto) Br[place] % (Auto) Eos % (Auto) Baso % (Auto) Nucleat RBC Rel Count Neut # (Auto) Lymph # (Auto) [place] # (Auto) Eos # (Auto) Baso # (Auto) PHA Creatinine Clear Sodium Potassium Chloride Carbon Dioxide Anion Gap BUN Creatinine Est GFR (CKD-EPI) Glucose POC Glucose Lactic Acid 2.0 H* Calcium Magnesium Total Bilirubin AST ALT Alkaline Phosphatase Total Protein Albumin Globulin Albumin/Globulin Ratio Total Cortisol A&P - Cardiology (1) Chest pain: Code(s): R07.9 - Chest pain, unspecified Status: Acute Plan Assessment 1. Transient hypotension and bradycardia with decreased responsiveness I suspect either a drug reaction versus vasovagal reaction. This was treated and improved quickly with IV fluid, Solu-Cortef and Zofran 2. We will monitor the patient for the next 12 hours and hopefully discharge ashutosh.m. 3. Discontinue metoprolol Documented By: Maria Luisa Sarkar MD 08/12/22 1826 Signed By: <Electronically signed by MD Maria Luisa Sarkar> 08/13/22 0900 [facility] Work Phone: [phone] 319-133605-11-2023 Hospital Discharge instructions Additional Instructions Hold Olmesartan-hydrochlorothiazide for another 24 hours and then restart. DISCHARGE INSTRUCTIONS FOR CARDIAC INSIGHTS MANAGER PHONE NUMBER OF YOUR PHYSICIAN: [phone] PROCEDURE: Heart Cath The following instructions have been prepared to help you care for yourself, or be cared for upon your return home. 1. You were given conscious sedation. Do not operate a vehicle, power tools, make important decisions, or drink alcohol for 24 hours. You might be drowsy or light headed. Return to the Emergency Room if you have trouble breathing, walking or nausea and vomiting. 2. FOR BLEEDING: Apply continuous pressure to the site and call 911. 3. Operative Site Care: Keep the dressing clean and dry. You may change the dressing only if soiled or wet. You may remove the dressing the following morning. You may wash over the puncture site in the shower. If the puncture site is at the wrist no soaking for 3 days. Some bruising or slight swelling may be present. -Signs of infection are redness, warmth, swelling, getting more sore, colored drainage, fever or chills. -Should the arm or leg become cold, numb, blue or white, call the leadership program internship immediately. 4. ACTIVITY: You are advised to go directly home from the hospital. Restrict your activities for the rest of the day. Resume light or normal activities tomorrow. Do not engage in any activity that will stress the puncture site. Avoid heavy lifting (over 15 lbs.), straining or bending at the catheter site for 48 hours after discharge. If the puncture site is at the wrist do not manipulate wrist for 24 hours and no lifting more than 3 lbs for 3 days. 5. DIET:You may eat your regular diet when you desire. 6. MEDICATIONS: Resume your daily prescription schedule. Prescriptions may be sent with you if needed. Use as directed. When taking pain medications, you may experience dizziness or drowsiness. Do not drink alcohol or drive when taking pain medications. 7. If you should experience episodes of angina e.g. chest discomfort, heaviness, tightness, pressure, burning, with or without radiation to the neck, jaws, arms, or back- Use 1 Nitrostat under your tongue every 5-10 minutes, and up to 3 tablets. If no relief- Call 911 and go to the nearest Emergency Room. -Notify the office for recurrent angina, chest pain or other concerns. You may NOT drive yourself home! Follow the medication instructions provided on your discharge. If the dosages and instructions on this sheet differ from the dosage and instructions on the bottle, follow the instructions on the bottle. [facility] is not responsible for incorrect prescription information provided by the patient during their visit. Do not stop your medications without consulting your health care provider. Please take the list with you to your next doctor's appointment.[facility] Work Phone: [phone]) 607-235305-10-2023 Progress note Author Stephen Bae [facility] August 12, 2022 6:31pm Note Date/Time August 12, 2022 6:30p m [facility] [address] [place] [address] Event Note Signed with Addenda Patient: Swapna Guido MR#: [id number] : 1965 Acct:[id number] Age/Sex: 57 / F Adm Date: 3 Loc: Room: [address] [place] [address] Type: [facility] Attending Dr: Maria Luisa Sarkar MD Copies to: MD Maria Luisa Sawyer MD Rugen M Alda, MD~ ADDENDUM1 Blood pressure did respond to IV fluid bolus and systolic blood pressures remained in the 100s?110s prior to patient coming upstairs to the inpatient wards for further monitoring. Addendum Documented By: Stephen Bae MD 08/12/221830 Addendum Signed By: <Electronically signed by Stephen Bae MD> 08/12/221830 Event Date & Type DATE OF EVENT: 08/12/22 TIME OF EVENT: 15:47 CRITICAL CARE TIME: 30 EVENT TYPE: MET PROCEDURES PERFORMED DURING EVENT: None Event Details Ms. Guido is a 57-year-old female with PMH of hypothyroidism, depressive disorder NOS, insulin resistance , vitamin D deficiency who was being monitored after heart catheterization today. She was largely sleeping after theprocedure that occurred around noon today up until 3 PM per her who is at bedside. She then woke up and had a late lunch. She subsequently became more disoriented, had pallor and had diaphoresis. Vital signs were checked and patient went from having systolics in the 90s?110s down to a systolic of 75. MET was called. Upon my arrival, bolus of lactated Ringer's was started. Patient had 2 episodes of emesis during my assessment. She did receive 1 dose of 4 mg Zofran IV. Fingerstick was 127. Patient's heart catheterization did reveal single-vessel CAD, which was to be medically managed. EKG during this event noted only normal sinus rhythm. Patient did receive IV Benadryl, fentanyland Versed during procedure. Mental status did improve somewhat during monitoring for approximately 30 minutes, but patient was not at her baseline. No focal neurologic deficits were noted. Patient was disoriented and occasionally alert and oriented x2-3. Discussed with patient's leadership program internship Dr. Sarkar, and patient was given 50 mg of hydrocortisone IV. Patient will be admitted to the cardiology service for further monitoring overnight. Urinalysis ordered forfurther evaluation. Documented By: Stephen Bae MD 3 1822 Signed By: <Electronically signed by Stephen Bae MD> 08/12/22 1830 [facility] Work Phone: [phone]) 797-920705-10-2023 [facility] NoteOPERATIVE NOTE OPERATION DATE: 11/18/2021 PRIMARY CARE PHYSICIAN: Lamin Benavides M.D. SURGEON: Mary Angulo M.D. PREOPERATIVE DIAGNOSIS: Nasal obstruction secondary to deviated nasal septum, bilateral inferior turbinate hypertrophy and right clinton bullosa. POSTOPERATIVE DIAGNOSIS: Nasal obstruction secondary to deviated nasal septum, bilateral inferior turbinate hypertrophy and right clinton bullosa. PROCEDURE: Removal of right clinton bullosa, bilateral inferior turbinate submucosal resection and septoplasty. ANESTHESIA: General endotracheal. COMPLICATIONS: None. FINDING: Right clinton bullosa; bilateral, right greater than left, inferior turbinate hypertrophy and severe deviated nasal septum to the left. INDICATIONS: This 56-year-old woman presented with chronic nasal obstruction unresponsive to medical management secondary to the above physical findings. PROCEDURE: Patient identified in the holding area and taken back to the OR where she was placed in the supine position. After induction of general endotracheal anesthesia, the table was turned, the head elevated, and the face was draped in a sterile fashion. Afrin soaked pledgets were placed in each side of the nose and, after waiting adequate time for decongestion, the nose was copiously irrigated. Attention was then turned to the right and lidocaine 1% with 1:100,000 epinephrine injected into the clinton bullosa. After waiting adequate time for hemostasis, the clinton bullosa was incised with a curved scissor to the right and removed with an ethmoid force. The posterior root of the middle turbinate was prophylactically cauterized in order to minimize the risk of postoperative bleeding. Then, the inferior turbinates and nasal septum were injected with lidocaine 1% with 1:100,000 epinephrine bilaterally. After waiting adequate time for decongestion, attention was turned to the left inferior turbinate. A stab incision was made anteriorly and a caudal elevator was used to create a tunnel along the medial surface of the turbinate bone. Then a 2.5 mm microdebrider was used to exenterate the submucosal tissues of the turbinate and the turbinate was outfractured with a nasal speculum. Attention was then turned to the right inferior turbinate and the same procedure performed. Note: The submucosal resection of the turbinate on the right hand side was initiated prior to changing the sock on the suction. This was observed before the entire contents of the right inferior turbinate were out of the suction and, therefore, there is a bilateral inferior turbinate suck and a right inferior turbinate suck. Once this was accomplished, attention was turned to the nasal septum. A left sided Amando incision was made and a mucoperiosteal and a perichondrial flap was elevated on the left hand side. The bony cartilaginous junction was and a mucoperiosteal flap was elevated on the right side. The bony septum was removed with cutting and grabbing Prateek-Yesica forceps. Then attention was turned to a very large spur and deviated premaxilla crust. A small inferior strut of cartilage was trimmed off of the premaxilla crust to allow the cartilaginous septum below to swing more freely towards the midline. This was done while preserving a greater than 1 cm anterior dorsal strut. Then, the bone of the premaxilla crust chiseled and the deviated premaxilla crust and large septal spur to the left were dissected away and removed from the nose. A small bit of more cartilage was trimmed, again preserving adequate attachment anteriorly in order to maintain tip support, and this resulted in a dramatic expansion of the left nasal airway compared to the patient's preoperative nasal airway. Both sides of the nose and the septal flap were then irrigated with normal saline. The Tennant incision was closed with a 5-0 chromic suture and bilateral ventilating Silastic splints were coated with antibiotics and sutured in place with a 2-0 nylon transseptal stitch. The patient was then awakened and taken to the recovery room in good condition.[id number] Instructions* Patient Instructions* Swapna Stewart PA-C - 09/02/2021 3:00 PM EDT You may receive a survey regarding your care today at [facility]. We would appreciate if you could complete this short questionnaire as your feedback will help us improve future care of you, and others at our facility If you had labs drawn, please allow 3-4 days for labs to process. Once your labs are completed, your provider/provider's office will contact you with the results. There is no need to contact our office when you receive a notification from [employer] that your labs are processed. Some labs having longer processing times and we will call you once all of the results are back. We appreciate your patience. Thank you. Labs today [facility] History of Present illness Narrative* Swapna Stewart PA-C - 09/02/2021 2:00 PM EDT Swapna Guido is a 56 y.o. female with thyroid cancer who presents to the Endocrine clinic for secondopinion regarding management. She is s/p total thyroidectomy at [facility] in 2004. Pathology is not available at time of visit, but per referring doctor Dr Burger notes, she had lobular thyroid cancer with 1 positive lymph node. She is s/p ALVARADO with 78mCi of 131I in 2004 at [facility]. Post-treatment scan shows uptake in the thyroid bed only. DxWBS in 2006 was negative. She has had positive TgAb titers in the past. These have become undetectable. She was complaining of fatigue in 05/24, and cortisol was normal Patient presents today to establish care and to discuss her fatigue symptoms Today she has ongoing fatigue for >1 year. Each time she complains of fatigue, her head of partner development increased her medications- she is unsure if this was based on labs or b/c of her symptoms. She just started cytomel in March 2021- patient asked to start this. She has muscle aches, she's tired and has no energy. She does have dizzy spells- can happen when standing too quick. Per it is random- can be just when sitting still. She did not take her medications today. She never misses her wellbutrin. She denies voice issues or swallowing problems. thinks she occasionally can have food downthe wrong pipe' depending on what she eats. She does not sleep at night- she tosses and turns. Her says she snores. Her says she wakes herself up. She tosses and turns due to her body aches. She wakes rested at times. She has been low on vitamin D in the past- was on high dose replacement- she is not on vitamin d currently She takes her LT4 with all of her other medications. She notes that she felt better when she took armour. This was stopped about two years after her surgery. She is not sure why it was stopped. Sincethat time, she has not felt well. But mostly since her dose escalation 6 months ago, she has felt particularly poorly. 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 FHX- no thyroid disease ALL: PCN REVIEW OF SYSTEMS: Otherwise negative except as noted above in the HPI Objective: BP 154/79 (BP Location: Right arm, BP Position: Sitting) Pulse 82 Temp 98 F (36.7 C) (Oral) Resp 16 Ht 1.676 m (5' 6 ) Wt 89.9 kg (198 lb 1.6 oz) SpO2 97% BMI 31.97 kg/m Smoking Status Never Smoker Constitutional: well developed, no acute distress. Neck: Thyroid: No palpable thyroid tissue, well-healed surgical scar. No lymphadenopathy. Head: normocephalic, atraumatic. Eyes: normal extraocular movements. no proptosis or lid lag. Cardiac: Normal S1 and S2, regular rate and rhythm, no murmurs gallops or rubs. Respiratory: Lungs are clear without crackles or wheezes. There is good air movement bilaterally. Abdomen: Soft and non-tender. Bowel sounds are normal Extremities: no edema present. Neurological: DTRs are normal. There are no tremors of the hands. Cranial nerves grossly intact Skin: Skin is normal texture, temperature, and thickness. Labs Date TSH Tg TgAbs Vit D LT4 T3 12/08 8 1.3 + 01/07 48 2.1 Neg 07/09 0.01 <0.2 38 12/09 0.01 122 04/11 <0.005 <0.2 286 07/10 0.009 <0.2 18 01/10 0.012 96 08/13 0.006 5.9 13 03/20 0.13 <0.2 05/24 0.27 0.1 <1.0 02/23 0.38 <0.1 <1.0 43 175->200 ->25 daily All the above performed and documented by Swapna Stewart PA-C. See Dr Gladys Youngblood' note for assessment and plan. I spent 30 minutes with patient in face to face counseling. ATTENDING ATTESTATION I have personally seen, interviewed and examined this patient independently of Swapna Stewart. There are no palpable LNs in the neck. The plan was developed mutually at the time of the clinic visit. Swapna and I spoke with the patient and provided written and verbal instructions for the patient. The above note has been reviewed and edited by me as appropriate and I wrote the assessment and plan. Follow-up arrangements were made prior to the patient being discharged from the clinic. Diagnostic Tests: See separate note for US of the neck. Impression/Plan: This is a 56 y.o. female with thyroid cancer, unknown pathology s/p total thyroidectomy and radioiodine therapy. She has had an excellent response to therapy and has a low likelihood of disease recurrence. She will have a TSH and Tg battery today. Regarding the postoperative hypothyroidism, the patient would like to try combination T3/T4 therapyto see if this will help with the fatigue. I have reviewed the proper way to take these medicationswith the patient. I will adjust her meds based on today's labs. She will need a repeat TSH and freeT4 in two months. My target TSH is 0.5-2. I will adjust the dose of LT4 or T3 accordingly. If more physiologic doses of the combination therapy fails to improve the fatigue, we can try armour again. I will see her by video visit in six months since she is not feeling well. She will have labs drawn prior to the next in person visit in one year including a TSH and Tg battery. Over 60 minutes were spent, apart from the procedure, with more than 50% total time face to face counseling which is outlined above, providing patient education for medication use, EMR review and entry, reviewing paper documents today, medication rx preparation / review and explaining recommendations to patient, delivering verbal and written instructions, and coordination of care. Gladys Youngblood MD * Gladys Youngblood MD - 09/02/2021 2:00 PM EDT Ultrasound of the neck is performed at the bedside. This reveals no residual tissue in the thyroid bed. No suspicious cervical adenopathy is seen in the right or left lateral compartments. Bilateral vocal folds are visualized and are mobile symmetrically. documented in this encounterPrem[facility]* Diagnosis Thyroid cancer- Primary Malignant neoplasm of thyroid gland Postsurgical hypothyroidism Vitamin D deficiency Unspecified vitamin D deficiency documented in this encounter [facility] noteNo assessment information available [facility] Work Phone: Evaluation note* Diagnosis Onset Date Resolution Status Chest pain acute [facility] Work Phone: Evaluation note* Diagnosis Thyroid cancer- Primary Malignant neoplasm of thyroid gland documented in this encounter [facility]* Diagnosis 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- Primary Syncope and collapse documented in this encounter [facility]* Diagnosis 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 documented in this encounter [facility]* Diagnosis 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- Primary Essential hypertension Unspecified essential hypertension Mixed hyperlipidemia Dyspnea, unspecified type- Primary 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 documented in this encounter [facility]* Diagnosis Dyspnea, unspecified type- Primary 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 documented in this encounter [facility]* Diagnosis Chronic heart failure with preserved ejection fraction- Primary Asthma, unspecified asthma severity, unspecified whether complicated, unspecified whether persistent Coronary artery disease involving salt river coronary artery of salt river heart with angina pectoris documented in this encounter [facility] Present illness Narrative* Patient is here for follow-up continue management for recent evaluation for possible angina and abnormal stress test, hypertension diabetes mellitus and hyperlipidemia. Last time I saw her we will place her on an medical therapy. Despite being on beta-anton the patient continues to complain of fatigue, shortness of breath and intermittent chest pain. She has multiple risk factor for ischemic heart disease. * Assessment * 1. Symptoms suspicious of angina functional class I response to medical therapy * 2. Abnormal stress test showing small area of anterior wall ischemia * 3. Hypertension * 4. Diabetes mellitus * 5. Hyperlipidemia with LDL of 107 * 6. Very strong family history of coronary artery disease * Plan * 1. We discussed risk factor modification at great length * 2. I educated the patient about angina and anginal symptomatology * 3. Discussed treatment option at great length we discussed medical therapy versus invasive evaluation. Considering continued symptoms despite medical therapy the patient elected for cardiac catheterization. Risk, benefit and alternative reviewed with patient at length she understood and agreed [facility] Work [facility]: History of Present illness Narrative* Patient is here for follow-up continue management for recent evaluation for symptoms of chest pain and abnormal stress test. This led to a cardiac catheterization that showed disease of the apical segment of the LAD and medical therapy was recommended. Post heart cath the patient had transient episode of hypotension appears to be related to side effect or adverse reaction to one of the sedative that was given. There was no signs of allergic reaction or blood loss. The patient recovered without any sequela. * Assessment * 1. Angina with positive stress test and finding of disease of the distal apical segment of the LAD treated medically. She denies chest pain since the last time I saw her * 2. Abnormal stress test showing small area of anterior wall ischemia * 3. Hypertension * 4. Diabetes mellitus * 5. Hyperlipidemia with LDL of 107 * 6. Very strong family history of coronary artery disease * 7. A brief episode of transient hypotension following heart cath appears to be related to adverse reaction to sedative without any clear evidence of allergic reaction. Due to hypotension the patient beta-blockers were discontinued * Plan * 1. We discussed risk factor modification at great length * 2. I educated the patient about angina and anginal symptomatology * 3. I reviewed with the patient the results of her heart cath * 4. The patient will continue on current therapy * 5. Advised her to lose 8 to 10 pounds by the time I see her in 6 to 7 months [facility] DO Work Phone: Hospital Discharge instructions* Attachments The following attachments cannot be sent through Care Everywhere. * Cardiac Cath [facility] - Wrist [facility] ([facility]) (Turkmen) [facility] for [facility] (narrative)* Consultation (Routine) - New Request Specialty Diagnoses / Procedures Referred By Contyani reece Referred To Contact Allergy & Immunology Diagnoses Asthma, unspecified asthma severity, unspecified whether complicated, unspecified whether persistent Franklin Clark MD [facility] [place] [address] Referral ID Status Reason Start Date Expiration Date V isits Requested Visits Authorized [id number] New Request 07/01/2023 07/25/2024 1 1 * Consultation (Routine) - New Request Specialty Diagnoses / Procedures Referred By Contyani reece Referred To Contact Pulmonary Disease Diagnoses Asthma, unspecified asthma severity, unspecified whether complicated, unspecified whether persistent Franklin Clark MD [facility] [place] [address] Referral ID Status Reason Start Date Expiration Date V isits Requested Visits Authorized [id number] New Request 07/01/2023 07/25/2024 1 1 [facility] Summary Purpose Family History Relationship Condition Age at Onset Recorded Date/T stefani father Myocardial infarction Unknown Not Specified Malignant neoplasm of breast Unknown Unknown Family Member Name Dates Details Family history of atrial fib rillation: Mother(V17.49, Z82.49) Status:Active Family history of malignant neoplasm of breast: Mother(V16.3, Z80.3) Status:Active Family history of myocardial infarction: Sibling, Father(V17.3, Z82.49) Status:Active Family history of malignant neoplasm: Father(V16.9, Z80.9) Status:Active Relationship Condition Age at Onset Recorded Date/T stefani father Myocardial infarction Unknown Not Specified Atrial fibrillation Unknown Malignant neoplasm of breast Unknown brother Myocardial infarction Unknown Unknown Family Member Name Dates Details Family history of atrial fib rillation: Mother(V17.49, Z82.49) Status:Active Family history of malignant neoplasm of breast: Mother(V16.3, Z80.3) Status:Active Family history of myocardial infarction: Sibling, Father(V17.3, Z82.49) Status:Active Family history of malignant neoplasm: Father(V16.9, Z80.9) Status:Active Unknown Family Member Name Dates Details Family history of atrial fib rillation: Mother(V17.49, Z82.49) Status:Active Family history of malignant neoplasm of breast: Mother(V16.3, Z80.3) Status:Active Family history of myocardial infarction: Sibling, Father(V17.3, Z82.49) Status:Active Family history of malignant neoplasm: Father(V16.9, Z80.9) Status:Active Advance Directives Advance Directive Response Recorded Date/ Time Advance Directives No October 13 5:03pm Advance Directive Response Recorded Date/ Time Advance Directives No October 13 6:03pm Reason for Referral Specialty Diagnoses / Procedures Referred By Bib reece Referred To Contact Diagnoses Thyroid cancer Procedures [facility] Gladys Youngblood MD [address] [facility] [address] [place] [address] Referral ID Status Reason Start Date Expiration Date V isits Requested Visits Authorized [id number] New Request 09/02/2021 09/27/2022 1 1 Specialty Diagnoses / Procedures Referred By Contac t Referred To Contact Diagnoses 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 Procedures CASE REQUEST - CARDIAC CATH Marcello Galeana MD [address] [facility] [address] [place] [address] Referral ID Status Reason Start Date Expiration Date V isits Requested Visits Authorized [id number] New Request 10/15/2022 11/09/2023 1 1 Specialty Diagnoses / Procedures Referred By Contac t Referred To Contact Procedures ECG AttRozina eden MD [address] [place] [address] Referral ID Status Reason Start Date Expiration Date V isits Requested Visits Authorized [id number] New Request 11/06/2022 12/01/2023 1 1 Specialty Diagnoses / Procedures Referred By Contac t Referred To Contact Diagnoses 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 Procedures MOBILE CARDIAC TELEMETRY Elvi Ward DO [address] [address] Referral ID Status Reason Start Date Expiration Date V isits Requested Visits Authorized [id number] New Request 12/31/2022 01/25/2024 1 1 Specialty Diagnoses / Procedures Referred By Angelineac t Referred To Contact Echocardiography Diagnoses 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 Procedures ECHOCARDIOGRAM VT ECHO HEART XTHORACIC,COMPLETE W DOPPLER Elvi Ward DO [address] [address] Echocardiography [place] [address] [address] Referral ID Status Reason Start Date Expiration Date Visits Re quested Visits Authorized [id number] Closed 12/31/2022 01/25/2024 1 1 Chief Complaint and Reason for Visit Chief Complaint Chest Pain Chief Complaint Chest Pain r07.9 Chief Complaint Chest Pain r07.9 Abnormal Stress Test, Angina Chief Complaint Chest Pain r07.9 Abnormal Stress Test, Angina Abnormal Stress Test, Angina Reason for Visit Chest pain Chief Complaint SWAPNA GUIDO is being seen for a 6-8 week follow-up of.SWAPNA GUIDO is being seen for follow-up of a hospitalization for cath. Additional Source Comments INFORMATION SOURCE (unrecogn ized section and content) DATE CREATED AUTHOR 01/19/2019 [facility] DATE CREATED AUTHOR AUTHOR'S ORGANIZ ATION 06/27/2022 [facility] DATE CREATED AUTHOR AUTHOR'S ORGANIZ ATION 07/30/2022 [employer] DATE CREATED AUTHOR AUTHOR'S ORGANIZ ATION 08/19/[address] [facility] DATE CREATED AUTHOR AUTHOR'S ORGANIZ ATION 09/13/2022 [facility] DATE CREATED AUTHOR AUTHOR'S ORGANIZ ATION 04/26/2023 [facility] EPIC DATE CREATED AUTHOR AUTHOR'S ORGANIZ ATION 07/02/2023 [facility] Reason for Visit (unrecogniz ed section and content) Reason Comments New Patient New patient thyroid cancer in 2004 with total thyroidectomy. Pt reports muscle aches and frequent fatigue/exhaustion for at least four months if not longer- reports she wanted a second opinion. Specialty Diagnoses / Procedures Referred By Bib reece Referred To Contact Endocrinology, Diabetes & Metabolism Procedures NEW PATIENT Gladys Youngblood MD [address] [facility] [address] [place] [address] Referral ID Status Reason Start Date Expiration Date V isits Requested Visits Authorized [id number] New Request 09/02/2021 09/27/2022 1 1 Reason Comments Follow-up No concerns. Had NM in May Reason Comments New Patient Would like to discus s the reason for coding at hospital.Has blockage on Lt lower part of heart Specialty Diagnoses / Procedures Referred By Bib reece Referred To Contact Cardiovascular Medicine Diagnoses Abnormal cardiovascular stress test Lamin Benavides MD [address] [place] [address] [facility] [address] [place] [address] Referral ID Status Reason Start Date Expiration Date V isits Requested Visits Authorized [id number] New Request 10/03/2022 10/28/2023 1 1 Specialty Diagnoses / Procedures Referred By Contac t Referred To Contact Diagnoses 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 Patient c/o shortness of breath on exertion and occasional chest pain and episodes of dizziness. 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 Pt s jaylanes she is still dealing with dizziness, sweats, and shortness of breath. Pt states anything physical she does she has to take a break because she is SOB and sweating. Care Teams (unrecognized sec tion and content) Accelerator Technician Relationship Specialty Start Date End Date Lamin Benavides MD [address] [place] [address] PCP - General Family Medicine 07/25/21 Team Status: Inactive Member Role Status Dates Lamin Benavides MD Primary Care Provider Active Brianna Parker DO Emergency Provider Active Team Status: Active Member Role Status Dates Lamin Benavides MD Primary Care Provider Active Team Status: Inactive Member Role Status Dates Lamin Benavides MD Primary Care Provider, Attending Pro vider Active Bernard Cavanaugh MD Referring Provider Active Team Status: Inactive Member Role Status Dates Lamin Benavides MD Primary Care Provider Active Maria Luisa Sarkar MD Attending Provider Active Team Status: Inactive Member Role Status Dates Lamin Benavides MD Primary Care Provider, Attending Pro vider Active Maria Luisa Sarkar MD Referring Provider Active Accelerator Technician Relationship Specialty Start Date End Date Lamin Benavides MD [address] [place] [address] PCP - General Family Medicine 07/25/21 Accelerator Technician Relationship Specialty Start Date End Date Lamin Benavides MD [address] [place] [address] PCP - General Family Medicine 07/25/21 Accelerator Technician Relationship Specialty Start Date End Date Lamin Benavides MD [address] [place] [address] PCP - General Family Medicine 07/25/21 Accelerator Technician Relationship Specialty Start Date End Date Lamin Benavides MD [address] [place] [address] PCP - General Family Medicine 07/25/21 Accelerator Technician Relationship Specialty Start Date End Date Lamin Benavides MD [address] [place] [address] PCP - General Family Medicine 07/25/21 Accelerator Technician Relationship Specialty Start Date End Date Lamin Benavides MD [address] [place] [address] PCP - General Family Medicine 07/25/21 Goals (unrecognized section and content) Goals may be documented in a n alternate sectionGoals may be documented in an alternate sectionGoals may be documented in an alternate section Scheduled Active and Recently Administ ered Medications (unrecognized section and content) Medication Order 11/04/2022 11/05/2022 11/06/2022 aspirin chewable tablet 324 mg (COMPLETED) 324 mg, Oral, ONCE, 1 dose, On Wed11/06/22 at 1015, Patient to receive at least 30 minutes prior to procedure. Instruct patient to chew and not swallow., Pre-op/Pre-Proc 1026 (Given - Provid er: Misael Brian RN) Continuous Medication Order 11/04/2022 11/05/2022 11/06/2022 Sodium chloride 0.9% IV solution Intravenous, at 100 mL/hr, CONTINUOUS, Starting on Wed11/06/22 at 1015, Until Wed11/06/22 at 1659, Pre-op/Pre-Proc 1026 ($$New Bag$$ - Provider: Misael Brian RN)1201 (Stopped - Provider: Misael Brian RN) Sodium chloride 0.9% IV solution 3 mL/kg/hr 92.3 kg Dosing weight (276.9 mL/hr), Intravenous, CONTINUOUS, Starting on Wed11/06/22 at 1200, Until Wed11/06/22 at 1459, Post-op/Post-Proc 1201 (Rate/Dose العراقي ge - Provider: Misael Brian RN) PRN Medication Order 11/04/2022 11/05/2022 11/06/2022 Acetaminophen (TYLENOL) tablet 325 mg 325 mg, Oral, EVERY 6 HOURS NEEDED, Starting on Wed11/06/22 at 1157, Until Wed11/06/22 at 1659, Mild Pain, Maximum dose of acetaminophen is 4000 mg from all sources in 24 hours., Post-op/Post-Proc fentaNYL (SUBLIMAZE) injection (CANCELED) Administer over 2 Minutes, NEEDED, Starting on Wed11/06/22 at 1119, Until Wed11/06/22 at 1203, Intra-op/Intra-Proc 1119 (Given - Provid er: Kenny Leo RN)1130 (Given - Provider: Kenny Leo RN) Heparin injection (CANCELED) NEEDED, Starting on Wed11/06/22 at 1131, Until Wed11/06/22 at 1203, Intra-op/Intra-Proc 1131 (Given - Provid er: Kenny Leo RN) iodixanol (VISIPAQUE) injection 320 mg/mL for [facility] IR (CANCELED) NEEDED, Starting on Wed11/06/22 at 1148, Until Wed11/06/22 at 1203, Intra-op/Intra-Proc 1148 (Given - Provid er: Sary Singh MD) Lidocaine 2 % injection (CANCELED) NEEDED, Starting on Wed11/06/22 at 1127, Until Wed11/06/22 at 1203, Intra-op/Intra-Proc 1127 (Given - Provid er: Sary Singh MD - Comment: right radial) midazolam (VERSED) injection (CANCELED) NEEDED, Starting on Wed11/06/22 at 1119, Until Wed11/06/22 at 1203, Intra-op/Intra-Proc 1119 (Given - Provid er: Kenny Leo RN)1130 (Given - Provider: Kenny Leo RN) FOR RECORDS PERTAINING TO PATIENTS WHO ARE OR HAVE BEEN ENROLLED IN A CHEMICAL DEPENDENCY/SUBSTANCEABUSE PROGRAM, SOME INFORMATION MAY BE OMITTED. This clinical summary was aggregated from multiple sources. Caution should be exercised in using it in the provision of clinical care. This summary normalizes information from multiple sources, and as a consequence, information in this document may materially change the coding, format and clinical context of patient data. In addition, data may be omitted in some cases. CLINICAL DECISIONS SHOULD BE BASED ON THE PRIMARY CLINICAL RECORDS. [facility] provides no warranty or guarantee of the accuracy or completeness of information in this document.
[2023-07-13 13:22] LABS: Thyroid Stimulating Hormone 0.125 uIU/mL (0.358-3.740)
== END 2023-07-13 11:11 | disposition home or self-care (01) ==
LOC: LAB 11:12
PROVIDERS: PCP Family Medicine
DX: E89.0 Postprocedural hypothyroidism (principal)
CPT/HCPCS: 36415; 84443

== ENCOUNTER 2023-07-17 10:05 | Outpatient (OUT) | payer OTHER, SELFPAY ==
--- OUTSIDE RECORDS SUMMARY | 2023-07-17 10:10 | XMS_ITS | CCD ---
Author Organization [facility] Care Team Providers Care General Manager In Training Name Role Phone Lamin Benavides MD Primary Care Provider [phone] MD Lamin Benavides Primary Care Provider [phone] DO Brianna Parker Emergency Provider MD Lamin Benavides Attending Provider MD Bernard Cavanaugh Referring Provider MAKAYLA, DR KIMBLE Consulting Unavailable MAKAYLA, DR KIMBLE Primary Care Unavailable SHIRA METZGER Attending Unavailable YASSINE, SHIRA Admitting Unavailable [place], DR SONIA Parker Consulting Unavailable TIMMIS, DR [...] Attending Unavailable MISC, DR JOHNSON Admitting Unavailable OxfordLamin Unavailable Unavailable Unavailable MD Lamin Benavides Primary Care Provider [phone] DO Brianna Parker Emergency Provider MD Lamin Benavides Attending Provider MD Maria Luisa Sarkar Referring Provider MD Maria Luisa Sarkar Attending Provider [facility] WHITESIDE, Dr. Bernard Newman Attending Unavailable [place], Dr. Lamin Berry [facility] Maria Luisa Sarkar Attending Unavailable Makayla, Dr. Lamin Berry [facility] [place], [facility] Kimble [facility] Maria Luisa Sarkar Attending Unavailable Maria Luisa Sarkar Referring Unavailable [place], Dr. Lamin Berry [facility] Maria Luisa Sarkar Attending Unavailable TrabMaria Luisa huerta Referring Unavailable Makayla Lamin RAMSEY Primary Care Provider [phone] Lamin Benavides Admitting Unavailable Lamin Benavides Attending Unavailable Maria Luisa Sarkar Referring Unavailable Lamin Benavides Primary Care Unavailable Maria Luisa Sarkar Admitting Unavailable Maria Luisa Sarkar Attending Unavailable MakaylaLamin carmona Primary Care Unavailable Maria Luisa Sarkar Admitting Unavailable Maria Luisa Sarkar Attending Unavailable Lamin Benavides Primary Care Unavailable Brianna Parker Admitting Unavailable Brianna Parker Attending Unavailable [place], Rugen M Primary Care Unavailable Makayla RAMSEY, [facility] Provider PJ VELAZQUEZ Attending Unavailable MAKAYLA, RUGEN Primary Care Unavailable ADELFO WEAVER Admitting Unavailable ADELFO WEAVER Attending Unavailable MAKAYLA, RUGEN Referring Unavailable MAKAYLA, RUGEN Primary Care Unavailable HORBAL, HAL Attending Unavailable MAKAYLA, RUGEN Referring Unavailable MAKAYLA, RUGEN Primary Care Unavailable HORBAL, HAL Attending Unavailable SELF, SELF Referring Unavailable MAKAYLA, RUGEN Primary Care Unavailable GLADYS YOUNGBLOOD Attending Unavailable MAKAYLA, RUGEN Primary Care Unavailable MAKAYLA, RUGEN Primary Care Unavailable HORBAL, HAL Attending Unavailable MAKAYLA, RUGEN Primary Care Unavailable MAKAYLA, RUGEN Referring Unavailable HORBAL, HAL Attending Unavailable SELF, SELF Referring Unavailable MAKAYLA, RUGEN Primary Care Unavailable ELVI WARD Attending Unavailable ELVI WARD Referring Unavailable MAKAYLA, RUGEN Primary Care Unavailable Allergies Allergy Classification Reported Allergen(s) Allergy Type Date of Onset Reaction(s) Facility (16 sources) Penicillins; Translations: [Penicillins] Propensity to adverse reactions to drug 8 Hives, Shortness of Breath [facility] (1 source) *Seasonal Propensity to adverse reactions to substance 4 Itchy Eyes, Itchy Throat, Runny Nose, Sneezing [facility] Medications Current Medications Medication Drug Class(es) Dates [...] 18, 2018 2:20pm take 1 capsule by [facility] once daily Claritin 10 MG Oral Capsule [...] MD Start : 03-Jun-2022 Active new thyroid (jail) 120 mg oral tablet (15 sources) Start: 02-02-2023 take 1 tablet by mouth once daily thyroid (Success Thyroid) 120 MG tablet Take 1 tablet by mouth daily. 90 tablet 3 02/02/2023 Active Start: 10-20-2022 take 1 tablet by corine th once daily thyroid (Success Thyroid) 120 MG tablet Take 1 tablet by mouth daily. 30 tablet 11 10/20/2022 Active Start: 10-19-2022 End: 12-31-2022 Thyroid (Success Thyroid) 30 MG tablet Take 1 tablet along with the 90 mg tablet to equal 120 mg a day 30 tablet 11 10/19/2022 12/31/2022 Discontinued Start: 10-19-2022 End: 12-31-2022 thyroid (Success Thyroid) 90 MG tablet Indications: Postsurgical hypothyroidism , Thyroid cancer Take 1 a day along with 1 30 mg tablet a day to equal 120 mg a day 0 10/19/2022 12/31/2022 Discontinued Start: 03-05-2022 take 1 tablet by corine th once daily thyroid (Success Thyroid) 90 MG tablet Indications: Postsurgical hypothyroidism [...] D2) 1,250 mcg (50,000 unit) Capsule Discontinued 16982 UNIT PO every week May 12, 2019 [...] tablet 3 10/15/2022 12/31/2022 Discontinued (Side effects) Vyeaslxgkahn-Ukla-Xf lic Acid (Centrum) 18-400 mg-mcg Tablet (4 sources) Start: 06-05-2019 End: 05-20-2022 take 1 tablet by mouth once daily Ivchdwicqrlb-Gdbr-A olic Acid (Centrum) 18-400 mg-mcg Tablet Discontinued 1 TAB PO Daily June 05, 2019 1:00am May 20, 2022 9:10pm Start: 06-05-2019 End: 05-20-2022 take 1 tablet by mouth once daily Ouefgfgarlhh-Msmw-Ztltt Acid (Centrum) 18-400 mg-mcg Tablet Discontinued 1 [...] Congestive heart failure; nonhypertensive (4 sources) Chronic heart failure co-occurrent with normal ejection fraction; Translations: [Chronic diastolic (congestive) heart failure] Onset: 07-01-2023 07-01-2023 Chronic Coronary atherosclerosis and other heart [...] Resolved: 09-08-2022 09-02-2021 Other aftercare (1 source) longterm (current) use of oral hypoglycemic drugs; Translations: [CARE HOME USE ORAL HYPOGLYCEMIC DX] Onset: 11-27-2021 Episodic [...] Interpretation and review of laboratory results Normal [facility] Natriuretic peptide B (Bld) [Mass/Vol] 15 pg/mL 0 - 100 pg/mL [facility] Natriuretic peptide B (Bld) [Mass/Vol] 15 pg/mL Normal 0-100 [facility] Comment on above: Performed By: #### B MOTORCYCLE SALES ASSOCIATE #### [facility] (DEFAULT) [address] [address] CHEM 6 (LYTES, BUN CREA)on 0 07-01-2023 Anion gap [Moles/Vol] 12 mmol/L Normal 7-17 [facility] Comment on above: Performed By: #### C HM6 #### [facility] (DEFAULT) [address] [place] [address] Chloride [Moles/Vol] 102 mmol/L Normal 98-108 [facility] Comment on above: Performed By: #### C HM6 #### [facility] (DEFAULT) [address] [address] CO2 [Moles/Vol] 29 mmol/L Normal 21-31 [facility] Comment on above: Performed By: #### C HM6 #### [facility] (DEFAULT) [address] [place] [address] Creatinine [Mass/Vol] 0.75 mg/dL Normal 0.50-1.20 [facility] Comment on above: Performed By: #### C HM6 #### [facility] (DEFAULT) [address] [place] [address] eGFR, CKD-EPI, Female > Normal >=60 [facility] Comment on above: Result Comment: Repo rted eGFR is based on the CKD-EPI 2020 equation using creatinine, age, and sex. Performed By: #### C HM6 #### [facility] (DEFAULT) [address] [place] [address] Potassium [Moles/Vol] 3.8 mmol/L Normal 3.5-5.0 [facility] Comment on above: Performed By: #### C HM6 #### [facility] (DEFAULT) [address] [place] [address] Sodium [Moles/Vol] 139 mmol/L Normal 135-145 [facility] Comment on above: Performed By: #### C HM6 #### [facility] (DEFAULT) [address] [place] [address] Urea nitrogen [Mass/Vol] 15 mg/dL Normal 7-25 [facility] Comment on above: Performed By: #### C HM6 #### [facility] (DEFAULT) [address] [place] [address] Urea nitrogen/Creatinine [Mass ratio] 20 mg/mg Normal [facility] Comment on above: Performed By: #### C HM6 #### [facility] (DEFAULT) [address] [place] [address] Anion gap [Moles/Vol] 12 mmol/L 7 - 17 mmol/L [facility] Chloride [Moles/Vol] 102 mmol/L 98 - 10 8 mmol/L [facility] CO2 [Moles/Vol] 29 mmol/L 21 - 31 mmol/L [facility] Creatinine [Mass/Vol] 0.75 mg/dL 0.50 - 1.20 mg/dL [facility] eGFR, CKD-EPI, Female - PINF [facility] Comment on above: Reported eGFR is bas ed on the CKD-EPI 2020 equation using creatinine, age, and sex. Potassium [Moles/Vol] 3.8 mmol/L 3.5 - 5.0 mmol/L [facility] Sodium [Moles/Vol] 139 mmol/L 135 - 145 mmol/L [facility] Urea nitrogen [Mass/Vol] 15 mg/dL 7 - 25 mg/dL [facility] Urea nitrogen/Creatinine [Mass ratio] 20 [facility] Procedure Ordered By: Nesha Mejia on 12-31-2022 Ao ASC index 1.45 cm/m2 [facility] Work Phone: Ao peak deena 1.09 m/s [facility] Work Phone: Ao SOV index 1.38 cm/m2 [facility] Work Phone: Ao STJ index 1.34 cm/m2 [facility] Work Phone: Ao VTI 20.44 cm [facility] Work Phone: Ascending aorta 2.92 cm [facility]: AV LVOT peak gradient 4 mmHg [facility] Work Phone: AV mean gradient 3 [facility]: [facility] peak gradient 5 mmHG [facility] Work Phone: AV valve area 4.18 cm2 [facility] Work Phone: AV Velocity Ratio 0.92 [facility] Work Phone: ESTEFANÍA (continuity Vmax) 3.45 cm2 [facility] Work Phone: ESTEFANÍA (continuity VTI) 4.18 cm2 [facility] Work Phone: ESTEFANÍA index (continuity Vmax) 1.71 m/s [facility] Work Phone: ESTEFANÍA index (continuity VTI) 2.07 cm2/m2 [facility] Work Phone: Avg e' pk deena 0.10 m/s [facility] Work Phone: Avg E/e' ratio 7.10 [facility] Work Phone: Body surface area Derived from formula 2.02 m2 [facility] Work Phone: BP EF 63 % [facility] Work Phone: DI (Vmax) 0.92 [facility] Work Phone: DI (VTI) 1.11 m/2 [facility] Work Phone: E wave decelartion time 193.38 msec [facility] Work Phone: e' lateral pk deena 0.0978 m/s [facility] Work Phone: e' lateral pk deena 0.10 m/s [facility] Work Phone: e' septal pk deena 0.0994 m/s [facility]: e' septal pk deena 0.10 m/s [facility] Work Phone: E/A ratio 1.11 [facility] Work Phone: E/e' lateral ratio 7.16 [facility] Work Phone: E/e' septal ratio 7.04 [facility] Work Phone: EF SP 2CH 64 [facility] Work Phone: EF SP 4CH 60 [facility] Work Phone: FS 43 % 28 - 44 % [facility] Work Phone: IVS 0.83 cm [facility] Work Phone: LA AREA 2CH 17.95 cm2 [facility] Work Phone: LA area 4CH 15.62 cm2 [facility] Work Phone: LA ESV BP (MOD) 42 mL [facility] Work Phone: LA ESV BP (MOD) index 21 mL/m2 [facility] Work Phone: LA ESV SP 2CH (MOD) 48 mL [facility] Work Phone: LA ESV SP 4CH (MOD) 35 mL [facility] Work Phone: LV EDV BP 107 mL [facility] Work Phone: LV EDV SP 2CH 109 mL [facility] Work Phone: LV EDV SP 4CH 100 mL [facility] Work Phone: LV ESV BP 40 mL [facility] Work Phone: LV ESV SP 2CH 39 mL [facility] Work Phone: LV ESV SP 4CH 40 mL [facility] Work Phone: LV mass 128.12 g [facility] Work Phone: LV Mass Index 63.4 g/m2 [facility] Work Phone: LV RWT 0.38 [facility] Work Phone: LV stroke volume BP (ml) 67 mL [facility] Work Phone: LV stroke volume index BP 33.17 mL/m2 [facility] Work Phone: LVIDD 4.61 cm [facility] Work Phone: LVIDS 2.64 cm [facility] Work Phone: LVOT area 3.76 cm2 [facility] Work Phone: LVOT diameter 2.19 cm [facility] Work Phone: LVOT peak deena 1.00 m/s [facility] Work Phone: LVOT peak VTI 22.67 cm [facility] Work Phone: LVOT stroke volume 85 cm3 [facility] Work Phone: LVOT stroke volume index 42.25 ml/m2 [facility] Work Phone: MV pk A deena 0.63 m/s [facility] Work Phone: MV pk E deena 0.70 m/s [facility] Work Phone: MV stenosis pressure 1/2 time 56.08 ms [facility] Work Phone: MV valve area p 1/2 method 3.92 cm2 [facility] Work Phone: OSU AV VTI RATIO PRE STRESS 1.11 [facility] Work Phone: OSU ECHO LV BIPLANE SYSTOLIC VOLUME INDEX 19.80 mL/m2 [facility] Work Phone: OSU ECHO LV BP DIASTOLIC VOLUME INDEX 52.97 mL/m2 [facility] Work Phone: OSU RVOT VTI RATIO 0.48 [facility] Work Phone: PV mean gradient 4 mmHg [facility] Work Phone: PV peak gradient 6 mmHg [facility] Work Phone: PV PK DEENA 1.23 m/s [facility] Work Phone: PV VTI 28.69 cm [facility] Work Phone: PW 0.87 cm [facility] Work Phone: RA vol index 4CH (MOD) 9.41 mL/m2 [facility] Work Phone: Right atrium volume 4 chamber method of disks 19 mL [facility] Work Phone: RV Area diastolic 21.13 cm2 [facility] Work Phone: RV Area systolic 10.24 cm2 [facility] Work Phone: RV basal diam 3.44 cm [facility] Work Phone: RV Fractional area change 51.5 % [facility] Work Phone: RV long diam 7.48 cm [facility] Work Phone: RV mid diam 1.85 cm [facility] Work Phone: RV S' 12.79 cm/s [facility] Work Phone: RVOT peak gradient 1 mmHg [facility] Work Phone: RVOT peak deena 0.60 m/s [facility] Work Phone: RVOT peak VTI 13.82 cm [facility] Work Phone: Sinus 2.78 cm [facility] Work Phone: STJ 2.71 cm [facility] Work Phone: Stroke Volume 85 cm/mL [facility] Work Phone: Stroke volume index 42 [facility] Work Phone: [facility] Work Phone: Cardiac echo study Procedure on [...] used: Siemens. Indications Indications for study: dyspnea. [facility] Radiology Study observation (narrative) [facility] ECHOCARDIOGRAMon 12-31-2022 Echocardiography ? Left Ventricle: Ch [...] the original result were not included. Facility [facility] Patient Information Patient Name Swapna Guido [...] Role Read Date Nesha Mejia MD Echo [place] 12/31/2022 Left Heart Measurements LV - Systole [...] 0.7 m/s (more content not included)... Normal [facility] INVASIVE CARDIOVASCULAR PROC [facility] 11-09-2022 INVASIVE CARDIOVASCULAR PROCEDURE Conclusions Mild [...] from the original result were not included. Swapna Guido Invasive Cardiology Cath Procedure Ordering Physician: MARCELLO GALEANA Order #: [id number] Study Date: 11/06/2022 Patient Information Name MRN Description Swapna Guido [id number] 57 y.o. female Location Name Address [facility] [address] [facility] [address] Physicians Panel Physicians Referring Physician Case Authorizing Physician Sary Singh MD (Primary) MD Marcello Mcneill MD Frank R Weigel, DO (Fellow) CC Referring Recipient Method Contact Information Lamin Benavides MD Fax ? 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 Informed consent was obtained. The patient was brought to the laboratory clerk and placed on the table. The planned [...] Meehan DO - 11/06/2022 12:13 PM Cardiac Shactor Attending Physician Statement and Signature I have [...] AM Medical History Prompt Yes/No Comments Date AR Yes May Hypertension Yes Stroke Unanswered Vascular Disease Unanswered COPD Unanswered Diabetes Unanswered Surgical History Prompt Yes/No Procedure Laterality Comments Date CABG Unanswered Coronary Artery Bypass Graft Tobacco Use Never smoked or used smokeless tobacco. SNOMED CT?: Never smoked tobacco ([id number]). Vaping Use Never used Last Resulted Components Date/Time Component Value Lab Status 11/06/22 1024 HGB 12.6 Final result Normal [facility] CBC,PLATELETSon 11-06-2022 Hematocrit (Bld) [Volume fraction] 36.4 % Normal 34.9-44.3 [facility] Comment on above: Performed By: #### H EMO #### [facility] (DEFAULT) [address] [address] Hemoglobin (Bld) [Mass/Vol] 12.6 g/dL Normal 11.4-15.2 [facility] Comment on above: Performed By: #### H EMO #### [facility] (DEFAULT) [address] [address] MCV (RBC) [Entitic vol] 85.8 fL Normal 79.6-97.7 [facility] Comment on above: Performed By: #### H EMO #### [facility] (DEFAULT) [address] [address] Mean Cell Hgb 29.7 pg Normal 25.9-33.9 [facility] Comment on above: Performed By: #### H EMO #### [facility] (DEFAULT) [address] [address] Mean Cell Hgb Conc 34.6 g/dL Normal 31.4-35.9 [facility] Comment on above: Performed By: #### H EMO #### [facility] (DEFAULT) [address] [address] Platelet mean volume (Bld) [Entitic vol] 9.2 fL Normal 8.5-12.2 [facility] Comment on above: Performed By: #### H EMOGC #### [facility] (DEFAULT) [address] [place] [address] Platelets (Bld) [#/Vol] 284 10*3/uL Normal 150-393 [facility] Comment on above: Performed By: #### H EMOGC #### [facility] (DEFAULT) [address] [place] [address] RBC (Bld) [#/Vol] 4.24 10*6/uL Normal 3.91-5.04 [facility] Comment on above: Performed By: #### H EMOGC #### [facility] (DEFAULT) [address] [place] [address] RBC Distribution 12.5 % Normal 10.8-14.9 [facility] Comment on above: Performed By: #### H EMO #### [facility] (DEFAULT) [address] [place] [address] WBC (Bld) [#/Vol] 6.65 10*3/uL Normal 3.99-11.19 [facility] Comment on above: Performed By: #### H EMO #### [facility] (DEFAULT) [address] [place] [address] Erythrocyte distribution width (RBC) [Ratio] 12.5 % 10.8 - 14.9 % [facility] Hematocrit (Bld) [Volume fraction] 36.4 % 34.9 - 44.3 % [facility] Hemoglobin (Bld) [Mass/Vol] 12.6 g/dL 11.4 - 15.2 g/dL [facility] Interpretation and review of laboratory results Normal [facility] MCH (RBC) [Entitic mass] 29.7 pg 25.9 - 33.9 pg [facility] MCHC (RBC) [Mass/Vol] 34.6 g/dL 31.4 - 35.9 g/dL [facility] MCV (RBC) [Entitic vol] 85.8 fL 79.6 - 97.7 fL [facility] Platelet mean volume (Bld) [Entitic vol] 9.2 fL 8.5 - 12.2 fL [facility] Platelets (Bld) [#/Vol] 284 10*3/uL 150 - 393 K/uL [facility] RBC (Bld) [#/Vol] 4.24 10*6/uL [facility] WBC (Bld) [#/Vol] 6.65 10*3/uL 3.99 - 11.19 K/uL [facility] Cardiac catheterization stud yon 11-06-2022 [facility] Radiology Study observation (narrative) [facility] EXTRA MINT GREEN TOPon 11-06 [facility] Tobacco Screening.on 023 Adult depression screening assessment No [facility]-ModiFaceu juan antonio 250 DO Work Phone: Fall risk assessment a) No falls within the last year [facility]-Sandu juan antonio 250 DO Work Phone: Tobacco use status [facility] b) No [facility]-ModiFaceu juan antonio 250 DO Work Phone: ECG 12 lead ECGon 08-13-2022 ECG 12 lead ECG [facility] [place] [address] Electrocardiograph Report Signed Patient: Swapna Guido MR#: [id number] 8 : 1965 Acct:[id number] Age/Sex: 57 / F ADM Date: 08/12/22 Loc: Room: [address] [place] [address] Type: [facility] Attending Dr: Maria Luisa Sarkar MD Ordering [...] KHAN DO Transcribed By: MUS Signed By Silvreio Khan DO 08/13 1301 Normal [facility] Urinalysison 08-13-2022 Appearance (U) Clear Normal Clear [facility] Comment on above: Order Comment: Name Collection Type:: Clean-Voided Midstream Performed By: #### U A #### [facility] [address] [place] [address] [place] Bilirubin,Urine Negative Normal Negative [facility] Comment on above: Order Comment: Name Collection Type:: Clean-Voided Midstream Performed By: #### U A #### [facility] [address] [place] [address] [place] Color (U) Yellow Normal Yellow [facility] Comment on above: Order Comment: Name Collection Type:: Clean-Voided Midstream Performed By: #### U A #### [facility] [address] [place], [place] [id number] [place] Glucose Ql (U) Normal Normal Normal [facility] Comment on above: Order Comment: Name Collection Type:: Clean-Voided Midstream Performed By: #### U A #### [facility] [address] [place], [place] [id number] [place] Ketones Ql (U) Negative Normal Negative [facility] Comment on above: Order Comment: Name Collection Type:: Clean-Voided Midstream Performed By: #### U A #### [facility] [address] [place], [place] [id number] [place] Leukocyte esterase Test strip Ql (U) Negative Normal Negative [facility] Comment on above: Order Comment: Name Collection Type:: Clean-Voided Midstream Performed By: #### U A #### [facility] [address] [place], [place] [id number] [place] Nitrite,Urine Negative Normal Negative [facility] Comment on above: Order Comment: Name Collection Type:: Clean-Voided Midstream Performed By: #### U A #### [facility] [address] [place] [address] Occult Blood,Urine Negative Normal Negative [facility] Comment on above: Order Comment: Name Collection Type:: Clean-Voided Midstream Result Comment: PERF ORMED BY: [place] [address] PATHOLOGIST COLORECTAL SURGEON ALEX WETZEL M.D. Performed By: #### U A #### [facility] [facility] [address] [place] [address] pH (U) 6.0 [pH] Normal 5.0-9.0 [facility] Comment on above: Order Comment: Name Collection Type:: Clean-Voided Midstream Performed By: #### U A #### [facility] [address] [place] [address] Protein,Urine Negative Normal Negative [facility] Comment on above: Order Comment: Name Collection Type:: Clean-Voided Midstream Performed By: #### U A #### [address] Specificy [place],Urine 1.016 Normal 1.001-1.03 0 [facility] Comment on above: Order Comment: Name Collection Type:: Clean-Voided Midstream Performed By: #### U A #### [facility] [address] [place] [address] Urobilinogen,Urine Normal Normal Normal [facility] Comment on above: Order Comment: Name Collection Type:: Clean-Voided Midstream Performed By: #### U A #### [facility] [address] [place] [address] [place] Alanine aminotransferase [En zymatic activity/volume] in Serum or PlasmaOrdered By: Stephen Bae on 08-12-2022 ALT [Catalytic activity/Vol] 13 U/L [facility] Albumin [Mass/volume] in Ser um or Plasma by Bromocresol green (BCG) dye binding methoOrdered By: Stephen Bae on 08-12-2022 Albumin BCG dye [Mass/Vol] 3.5 g/dL 3.5-5.7 [facility] Alkaline phosphatase [Enzyma tic activity/volume] in Serum or PlasmaOrdered By: Stephen Bae on 08-12-2022 ALP [Catalytic activity/Vol] 46 U/L 34-104 [facility] Aspartate aminotransferase [ Enzymatic activity/volume] in Serum or PlasmaOrdered By: Stephen Bae on 08-12-2022 AST [Catalytic activity/Vol] 22 U/L 13-39 [facility] Basophils Auto (Bld) [#/Vol] Ordered By: Stephen Bae on 08-12-2022 Basophils (Bld) [#/Vol] 0.1 10*3/uL 0.0-0.2 [facility] Basophils/100 WBC Auto (Bld) Ordered By: Stephen Bae on 08-12-2022 Basophils/100 WBC (Bld) 1.3 % . [facility] Bilirubin Test strip Ql (U)O rdered By: Stephen Bae on 08-12-2022 Bilirubin Ql (U) Negative Negative [facility] Bilirubin.total [Mass/volume ] in Serum or PlasmaOrdered By: Stephen Bae on 08-12-2022 Bilirubin [Mass/Vol] 0.5 mg/dL 0.3-1.0 [facility] Calcium [Mass/volume] in Ser um or PlasmaOrdered By: Stephen Bae on 08-12-2022 Calcium [Mass/Vol] 8.0 mg/dL 8.6-10.3 [facility] Carbon dioxide, total [Moles /volume] in Serum or PlasmaOrdered By: Stephen Bae on 08-12-2022 CO2 [Moles/Vol] 27.2 mmol/L 21.0-31.0 [facility] Chloride [Moles/volume] in S julianna or PlasmaOrdered By: Stephen Bae on 08-12-2022 Chloride [Moles/Vol] 106 mmol/L 98-107 [facility] Color Auto (U)Ordered By: Fr gokul Bae on 08-12-2022 Color (U) Yellow Yellow [facility] Complete Blood Count Auto Di ffon 08-12-2022 Basophils (Bld) [#/Vol] 0.1 10*3/uL Normal 0.0-0.2 [facility] Comment on above: Result Comment: PERF ORMED BY: [place] [address] PATHOLOGIST COLORECTAL SURGEON ALEX WETZEL M.D. Performed By: #### L YTES, CBC, PP, LIPID, CREAT, HCGQUAL, BUN #### [address] Basophils/100 WBC (Bld) 1.3 % Normal . [facility] Comment on above: Performed By: #### L YTES, CBC, PP, LIPID, CREAT, HCGQUAL, BUN #### [place] [address] [place] Eosinophils (Bld) [#/Vol] 0.2 10*3/uL Normal 0.0-0.45 [facility] Comment on above: Performed By: #### L YTES, CBC, PP, LIPID, CREAT, HCGQUAL, BUN #### [address] Eosinophils/100 WBC (Bld) 2.6 % Normal . [facility] Comment on above: Performed By: #### L YTES, CBC, PP, LIPID, CREAT, HCGQUAL, BUN #### [address] Erythrocyte distribution width (RBC) [Ratio] 12.8 % Normal 11.9-15.3 [facility] Comment on above: Performed By: #### L YTES, CBC, PP, LIPID, CREAT, HCGQUAL, BUN #### [address] Hematocrit (Bld) [Volume fraction] 33.4 % Low 34.0-46.4 [facility] Comment on above: Performed By: #### L YTES, CBC, PP, LIPID, CREAT, HCGQUAL, BUN #### [address] Hemoglobin (Bld) [Mass/Vol] 11.5 g/dL Low 11.8-15.4 [facility] Comment on above: Performed By: #### L YTES, CBC, PP, LIPID, CREAT, HCGQUAL, BUN #### [address] Lymphocytes (Bld) [#/Vol] 2.8 10*3/uL Normal 1.00-4.8 [facility] Comment on above: Performed By: #### L YTES, CBC, PP, LIPID, CREAT, HCGQUAL, BUN #### [address] Lymphocytes/100 WBC (Bld) 37.5 % Normal . [facility] Comment on above: Performed By: #### L YTES, CBC, PP, LIPID, CREAT, HCGQUAL, BUN #### [address] MCH (RBC) [Entitic mass] 30.1 pg Normal 24.7-34.3 [facility] Comment on above: Performed By: #### L YTES, CBC, PP, LIPID, CREAT, HCGQUAL, BUN #### [address] MCV (RBC) [Entitic vol] 87.2 fL Normal 80-100 [facility] Comment on above: Performed By: #### L YTES, CBC, PP, LIPID, CREAT, HCGQUAL, BUN #### [address] Mean Corpuscular HGB Conc 34.5 g/dL Normal 32.0-35.0 [facility] Comment on above: Performed By: #### L YTES, CBC, PP, LIPID, CREAT, HCGQUAL, BUN #### [address] Monocytes (Bld) [#/Vol] 0.5 10*3/uL Normal 0.0-0.8 [facility] Comment on above: Performed By: #### L YTES, CBC, PP, LIPID, CREAT, HCGQUAL, BUN #### [address] Monocytes/100 WBC (Bld) 6.7 % Normal . [facility] Comment on above: Performed By: #### L YTES, CBC, PP, LIPID, CREAT, HCGQUAL, BUN #### [address] Neutrophils (Bld) [#/Vol] 3.9 10*3/uL Normal 1.8-7.7 [facility] Comment on above: Performed By: #### L YTES, CBC, PP, LIPID, CREAT, HCGQUAL, BUN #### [address] Neutrophils/100 WBC (Bld) 51.9 % Normal . [facility] Comment on above: Performed By: #### L YTES, CBC, PP, LIPID, CREAT, HCGQUAL, BUN #### [address] NRBC% 0.2 /100{WBC} Normal 0-0.5 [facility] Comment on above: Performed By: #### L YTES, CBC, PP, LIPID, CREAT, HCGQUAL, BUN #### [address] Platelet mean volume (Bld) [Entitic vol] 7.4 fL Normal 6.3-10.7 [facility] Comment on above: Performed By: #### L YTES, CBC, PP, LIPID, CREAT, HCGQUAL, BUN #### [place] [address] [place] Platelets (Bld) [#/Vol] 270 10*3/uL Normal 150-450 [facility] Comment on above: Performed By: #### L YTES, CBC, PP, LIPID, CREAT, HCGQUAL, BUN #### [address] [place] [address] [place] RBC (Bld) [#/Vol] 3.83 10*6/uL Normal 3.60-5.00 [facility] Comment on above: Performed By: #### L YTES, CBC, PP, LIPID, CREAT, HCGQUAL, BUN #### [facility] [address] WBC (Bld) [#/Vol] 7.5 10*3/uL Normal 3.8-11.6 [facility] Comment on above: Performed By: #### L YTES, CBC, PP, LIPID, CREAT, HCGQUAL, BUN #### [facility] [address] Comprehensive Metabolic Pane geoff 08-12-2022 Albumin [Mass/Vol] 3.5 g/dL Normal 3.5-5.7 [facility] Comment on above: Performed By: #### L YTES, CBC, PP, LIPID, CREAT, HCGQUAL, BUN #### [facility] [address] Albumin/Globulin [Mass ratio] 1.5 {ratio} Normal [facility] Comment on above: Performed By: #### L YTES, CBC, PP, LIPID, CREAT, HCGQUAL, BUN #### [address] ALP [Catalytic activity/Vol] 46 U/L Normal 34-104 [facility] Comment on above: Performed By: #### L YTES, CBC, PP, LIPID, CREAT, HCGQUAL, BUN #### [address] ALT [Catalytic activity/Vol] 13 U/L Normal 7-52 [facility] Comment on above: Performed By: #### L YTES, CBC, PP, LIPID, CREAT, HCGQUAL, BUN #### [address] Anion gap [Moles/Vol] 9.2 mmol/L Normal 6.0-15.0 [facility] Comment on above: Performed By: #### L YTES, CBC, PP, LIPID, CREAT, HCGQUAL, BUN #### [address] AST [Catalytic activity/Vol] 22 U/L Normal 13-39 [facility] Comment on above: Performed By: #### L YTES, CBC, PP, LIPID, CREAT, HCGQUAL, BUN #### [address] Bilirubin [Mass/Vol] 0.5 mg/dL Normal 0.3-1.0 [facility] Comment on above: Performed By: #### L YTES, CBC, PP, LIPID, CREAT, HCGQUAL, BUN #### [address] Calcium [Mass/Vol] 8.0 mg/dL Low 8.6-10.3 [facility] Comment on above: Performed By: #### L YTES, CBC, PP, LIPID, CREAT, HCGQUAL, BUN #### [address] Chloride [Moles/Vol] 106 mmol/L Normal 98-107 [facility] Comment on above: Performed By: #### L YTES, CBC, PP, LIPID, CREAT, HCGQUAL, BUN #### [address] CO2 [Moles/Vol] 27.2 mmol/L Normal 21.0-31.0 [facility] Comment on above: Performed By: #### L YTES, CBC, PP, LIPID, CREAT, HCGQUAL, BUN #### [address] Creatinine [Mass/Vol] 0.86 mg/dL Normal 0.60-1.20 [facility] Comment on above: Performed By: #### L YTES, CBC, PP, LIPID, CREAT, HCGQUAL, BUN #### [address] Creatinine Clr Calc Pharmacy 86.32 [facility] Comment on above: Performed By: #### L YTES, CBC, PP, LIPID, CREAT, HCGQUAL, BUN #### [address] GFR/1.73 sq M.predicted MDRD (S/P/Bld) [Vol rate/Area] mL/min/{1.73_m2} [facility] Comment on above: Performed By: #### L YTES, CBC, PP, LIPID, CREAT, HCGQUAL, BUN #### [facility] [address] Globulin (S) [Mass/Vol] 2.3 g/dL [facility] Comment on above: Performed By: #### L YTES, CBC, PP, LIPID, CREAT, HCGQUAL, BUN #### [address] Glucose [Mass/Vol] 123 mg/dL High 70-100 [facility] Comment on above: Result Comment: [facility] Glucose Reference Range is dependent on time and content of last meal. Glucose of more than 200 mg/dL in a nonstressed, ambulatory subject supports the diagnosis of Diabetes Mellitus. ADA recommended reference range Performed By: #### L YTES, CBC, PP, LIPID, CREAT, HCGQUAL, BUN #### [address] Potassium [Moles/Vol] 3.4 mmol/L Low 3.5-5.1 [facility] Comment on above: Performed By: #### L YTES, CBC, PP, LIPID, CREAT, HCGQUAL, BUN #### [address] Protein [Mass/Vol] 5.8 g/dL Low 6.4-8.9 [facility] Comment on above: Performed By: #### L YTES, CBC, PP, LIPID, CREAT, HCGQUAL, BUN #### [address] Sodium [Moles/Vol] 139 mmol/L Normal 136-145 [facility] Comment on above: Performed By: #### L YTES, CBC, PP, LIPID, CREAT, HCGQUAL, BUN #### [facility] [address] [place] [id number] [facility] Urea nitrogen [Mass/Vol] 11 mg/dL Normal 7-25 [facility] Comment on above: Performed By: #### L YTES, CBC, PP, LIPID, CREAT, HCGQUAL, BUN #### [facility] [address] [place] [id number] [facility] Cortisolon 08-12-2022 Cortisol > 120.0 Normal [facility] Comment on above: Result Comment: Refe rence range: AM 6 - 24 ug/dl PM <10 ug/dl PERFORMED BY: [place] [address] PATHOLOGIST COLORECTAL SURGEON ALEX WETZEL M.D. Performed By: #### L YTES, CBC, PP, LIPID, CREAT, HCGQUAL, BUN #### [address] Creatinine [Mass/volume] in Serum or PlasmaOrdered By: Stephen Bae on 08-12-2022 Creatinine [Mass/Vol] 0.86 mg/dL 0.60-1.20 [facility] ECG 12 lead ECGon 08-12-2022 ECG 12 lead ECG [facility] [place] [address] [place] [address] Electrocardiograph Report Signed Patient: Swapna Guido MR#: [id number] 8 : 1965 Acct:[id number] Age/Sex: 57 / F ADM Date: 08/12/22 Loc: Room: [address] [place] [address] Type: REG SDC Attending Dr: Maria Luisa Sarkar MD Ordering [...] By Silverio Khan DO 08/13 1301 Normal [facility] Eosinophils Auto (Bld) [#/Vo l]Ordered By: Stephen Bae on 08-12-2022 Eosinophils (Bld) [#/Vol] 0.2 10*3/uL 0.0-0.45 [facility] Eosinophils/100 WBC Auto (Bl d)Ordered By: Stephen Bae on 08-12-2022 Eosinophils/100 WBC (Bld) 2.6 % . [facility] Erythrocyte distribution wid th Auto (RBC) [Ratio]Ordered By: Stephen Bae on 08-12-2022 Erythrocyte distribution width (RBC) [Ratio] 12.8 % 11.9-15.3 [facility] Globulin Calc (S) [Mass/Vol] Ordered By: Stephen Bae on 08-12-2022 Globulin (S) [Mass/Vol] 2.3 g/dL [facility] Glucose Glucometer (BldC) [M ass/Vol]Ordered By: aMria Luisa Sarkar on 08-12-2022 Glucose [Mass/Vol] 127 mg/dL [facility] Comment on above: Random Glucose Refer ence Range is dependent on time and content of last meal. Glucose of more than 200 mg/dL in a nonstressed, ambulatory subject supports the diagnosis of Diabetes Mellitus. Glucose Poct Glucometerson 0 08-12-2022 Glucose [Mass/Vol] 127 mg/dL Normal [facility] Comment on above: Result Comment: [place] [facility] Glucose Reference Range is dependent on time and content of last meal. Glucose of more than 200 mg/dL in a nonstressed, ambulatory subject supports the diagnosis of Diabetes Mellitus. PERFORMED BY: [facility] [address] [place] [id number] PATHOLOGIST COLORECTAL SURGEON ALEX WETZEL M.D. Performed By: #### L YTES, CBC, PP, LIPID, CREAT, HCGQUAL, BUN #### [facility] [address] [place] [id number] [facility] Glucose [Mass/volume] in Ser um or PlasmaOrdered By: Stephen Bae on 08-12-2022 Glucose [Mass/Vol] 123 mg/dL 70-100 [facility] Comment on above: ADA recommended refe rence rangeRandom Glucose Reference Range is dependent on time and content of last meal. Glucose of more than 200 mg/dL in a nonstressed, ambulatory subject supports the diagnosis of Diabetes Mellitus. Hematocrit Auto (Bld) [Volum e fraction]Ordered By: Stephen Bae on 08-12-2022 Hematocrit (Bld) [Volume fraction] 33.4 % 34.0-46.4 [facility] Hemoglobin [Mass/volume] in BloodOrdered By: Stephen Bae on 08-12-2022 Hemoglobin (Bld) [Mass/Vol] 11.5 g/dL 11.8-15.4 [facility] Ketones Auto test strip (U) [Mass/Vol]Ordered By: Stephen Bae on 08-12-2022 Ketones (U) [Mass/Vol] Negative Negative [facility] Lactate [Moles/volume] in Se rum or PlasmaOrdered By: Stephen Bae on 08-12-2022 Lactate [Moles/Vol] 3.0 mmol/L 0.5-2.2 [facility] Comment on above: Critical Result : Ca lled to and read back by: MARGIE TORIBIO at: 08/12/2022 21:01:17 by:[id number] Lactic Acidon 08-12-2022 Lactate [Moles/Vol] 2.0 mmol/L Off scale high 0.5-2.2 [facility] Comment on above: Result Comment: Crit ical Result : Called to and read back by: IVELISSE SCOTT at: 08/12/2022 17:30:09 by:[id number] PERFORMED BY: [place] [address] PATHOLOGIST COLORECTAL SURGEON ALEX WETZEL M.D. Performed By: #### L YTES, CBC, PP, LIPID, CREAT, HCGQUAL, BUN #### [facility] [address] [place] [id number] [facility] Lactic Acid Reflexon 023 Lactic Acid Reflex 3.0 mmol/L Off scale high 0.5-2.2 [facility] Comment on above: Result Comment: Crit ical Result : Called to and read back by: MARGIE TORIBIO at: 08/12/2022 21:01:17 by:[id number] PERFORMED BY: [place] [address] PATHOLOGIST COLORECTAL SURGEON ALEX WETZEL M.D. Performed By: #### L YTES, CBC, PP, LIPID, CREAT, HCGQUAL, BUN #### [place] [id number] [facility] Leukocytes [#/volume] correc juana for nucleated erythrocytes in Blood by Automated counOrdered By: Stephen Bae on 08-12-2022 WBC corrected for nucl RBC Auto (Bld) [#/Vol] 7.5 10*3/uL 3.8-11.6 [facility] Lymphocytes Auto (Bld) [#/Vo l]Ordered By: Stephen Bae on 08-12-2022 Lymphocytes (Bld) [#/Vol] 2.8 10*3/uL 1.00-4.8 [facility] Lymphocytes/100 WBC Auto (Bl d)Ordered By: Stephen Bae on 08-12-2022 Lymphocytes/100 WBC (Bld) 37.5 % . [facility] MCH Auto (RBC) [Entitic mass ]Ordered By: Stephen Bae on 08-12-2022 MCH (RBC) [Entitic mass] 30.1 pg 24.7-34.3 [facility] MCHC Auto (RBC) [Mass/Vol]Or dered By: Stephen Bae on 08-12-2022 MCHC (RBC) [Mass/Vol] 34.5 g/dL 32.0-35.0 [facility] MCV Auto (RBC) [Entitic vol] Ordered By: Stephen Bae on 08-12-2022 MCV (RBC) [Entitic vol] 87.2 fL 80-100 [facility] Magnesiumon 08-12-2022 Magnesium [Mass/Vol] 1.8 mg/dL Low 1.9-2.7 [facility] Comment on above: Performed By: #### L YTES, CBC, PP, LIPID, CREAT, HCGQUAL, BUN #### [facility] [address] Magnesium [Mass/volume] in S julianna or PlasmaOrdered By: Stephen Bae on 08-12-2022 Magnesium [Mass/Vol] 1.8 mg/dL 1.9-2.7 [facility] Monocytes Auto (Bld) [#/Vol] Ordered By: Stephen Bae on 08-12-2022 Monocytes (Bld) [#/Vol] 0.5 10*3/uL 0.0-0.8 [facility] Monocytes/100 WBC Auto (Bld) Ordered By: Stephen Bae on 08-12-2022 Monocytes/100 WBC (Bld) 6.7 % . [facility] Neutrophils Auto (Bld) [#/Vo l]Ordered By: Stephen Bae on 08-12-2022 Neutrophils (Bld) [#/Vol] 3.9 10*3/uL 1.8-7.7 [facility] Neutrophils/100 WBC Auto (Bl d)Ordered By: Stephen Bae on 08-12-2022 Neutrophils/100 WBC (Bld) 51.9 % . [facility] Nitrite Test strip Ql (U)Ord ered By: Stephen Bae on 08-12-2022 Nitrite Ql (U) Negative Negative [facility] No Panel InformationOrdered By: Stephen Bae on 08-12-2022 Estimated GFR (CKD-EPI) > 60.0 mL/Min [facility] Creatinine Clearance (Chem 86.32 [facility] No Panel Informationon 08-12 127\S\127 Normal -[facility] Heart-Sandu juan antonio 250 DO Work Phone: Comment on above: Random Glucose Refer ence Range is dependent on time and content of last meal. Glucose of more than 200 mg/dL in a nonstressed, ambulatory subject supports the diagnosis of Diabetes Mellitus.PERFORMED BY:[facility] [place], [place] [phone] MEDICAL DIRECTORALEX WETZEL M.D. Nucleated erythrocytes [Pres ence] in Blood by Automated countOrdered By: Stephen Bae on 08-12-2022 Nucleated RBC Auto Ql (Bld) 0.2 /100{WBC} 0-0.5 [facility] Platelet mean volume Auto (B ld) [Entitic vol]Ordered By: Stephen Bae on 08-12-2022 Platelet mean volume (Bld) [Entitic vol] 7.4 fL 6.3-10.7 [facility] Platelets Auto (Bld) [#/Vol] Ordered By: Stephen Bae on 08-12-2022 Platelets (Bld) [#/Vol] 270 10*3/uL 150-450 [facility] Potassium [Moles/volume] in Serum or PlasmaOrdered By: Stephen Bae on 08-12-2022 Potassium [Moles/Vol] 3.4 mmol/L 3.5-5.1 [facility] Protein Auto test strip (U) [Mass/Vol]Ordered By: Stephen Bae on 08-12-2022 Protein (U) [Mass/Vol] Negative Negative [facility] Protein [Mass/volume] in Ser um or PlasmaOrdered By: Stephen Bae on 08-12-2022 Protein [Mass/Vol] 5.8 g/dL 6.4-8.9 [facility] RBC Auto (Bld) [#/Vol]Ordere d By: Stephen Bae on 08-12-2022 RBC (Bld) [#/Vol] 3.83 10*6/uL 3.60-5.00 [facility] Random cortisol measurementO rdered By: Stephen Bae on 08-12-2022 Cortisol [Mass/Vol] ug/dL [facility] Comment on above: Reference range: AM 6 - 24 ug/dl PM <10 ug/dl Serum or plasma albumin/glob ulin mass ratioOrdered By: Stephen Bae on 08-12-2022 Albumin/Globulin [Mass ratio] 1.5 {ratio} [facility] Serum or plasma anion gap de terminationOrdered By: Stephen Bae on 08-12-2022 Anion gap [Moles/Vol] 9.2 mmol/L 6.0-15.0 [facility] Sodium [Moles/volume] in Ser um or PlasmaOrdered By: Stephen Bae on 08-12-2022 Sodium [Moles/Vol] 139 mmol/L 136-145 [facility] Specific gravity Auto test s trip (U) [Rel density]Ordered By: Stephen Bae on 08-12-2022 Specific gravity (U) [Rel density] 1.016 1.001-1.03 0 [facility] Urea nitrogen [Mass/volume] in Serum or PlasmaOrdered By: Stephen Bae on 08-12-2022 Urea nitrogen [Mass/Vol] 11 mg/dL 7-25 [facility] Urine clarity by refractomet ry automatedOrdered By: Stephen Bae on 08-12-2022 Clarity Refractometry automated (U) Clear Clear [facility] Urine glucose measurement by automated test strip (mass/volume)Ordered By: Stephen Bae on 08-12-2022 Glucose Auto test strip (U) [Mass/Vol] Normal mg/dL Normal [facility] Urine hemoglobin detection b y automated test stripOrdered By: Stephen Bae on 08-12-2022 Hemoglobin Auto test strip Ql (U) Negative Negative [facility] Urine leukocyte esterase det ection by automated test stripOrdered By: Stephen Bae on 08-12-2022 Leukocyte esterase Auto test strip Ql (U) Negative Negative [facility] Urobilinogen Auto test strip (U) [Mass/Vol]Ordered By: Stephen Bae on 08-12-2022 Urobilinogen (U) [Mass/Vol] Normal mg/dL Normal [facility] WBC Auto (Bld) [#/Vol]Ordere d By: Stephen Bae on 08-12-2022 WBC (Bld) [#/Vol] 7.5 10*3/uL 3.8-11.6 [facility] pH Auto test strip (U)Ordere d By: Stephen Bae on 08-12-2022 pH (U) 6.0 [pH] 5.0-9.0 [facility] Activated partial thrombopla stin time (aPTT) in platelet poor plasma by coagulation aOrdered By: Maria Luisa Sarkar on 08-10-2022 aPTT Coag (PPP) [Time] 27.6 s 25.1-36.5 [facility] Automated basophil %Ordered By: Maria Luisa Sarkar on 08-10-2022 Basophils/100 WBC (Bld) 1.1 % Normal . [facility] Comment on above: Performed By: #### L YTES, CBC, PP, LIPID, CREAT, HCGQUAL, BUN #### [facility] [address] [place] [address] Automated basophil countOrde red By: Maria Luisa Sarkar on 08-10-2022 Basophils (Bld) [#/Vol] 0.1 10*3/uL Normal 0.0-0.2 [facility] Comment on above: Result Comment: PERF ORMED BY: [place] [address] PATHOLOGIST COLORECTAL SURGEON ALEX WETZEL M.D. Performed By: #### L YTES, CBC, PP, LIPID, CREAT, HCGQUAL, BUN #### [facility] [address] Automated blood monocyte cou ntOrdered By: Maria Luisa Sarkar on 08-10-2022 Monocytes (Bld) [#/Vol] 0.4 10*3/uL Normal 0.0-0.8 [facility] Comment on above: Performed By: #### L YTES, CBC, PP, LIPID, CREAT, HCGQUAL, BUN #### [address] Automated eosinophil %Ordere d By: Maria Luisa Sarkar on 08-10-2022 Eosinophils/100 WBC (Bld) 3.1 % Normal . [facility] Comment on above: Performed By: #### L YTES, CBC, PP, LIPID, CREAT, HCGQUAL, BUN #### [address] Automated eosinophil countOr dered By: Maria Luisa Sarkar on 08-10-2022 Eosinophils (Bld) [#/Vol] 0.2 10*3/uL Normal 0.0-0.45 [facility] Comment on above: Performed By: #### L YTES, CBC, PP, LIPID, CREAT, HCGQUAL, BUN #### [address] Automated monocyte %Ordered By: Maria Luisa Sarkar on 08-10-2022 Monocytes/100 WBC (Bld) 7.3 % Normal . [facility] Comment on above: Performed By: #### L YTES, CBC, PP, LIPID, CREAT, HCGQUAL, BUN #### [address] Automated neutrophil %Ordere d By: Maria Luisa Sarkar on 08-10-2022 Neutrophils/100 WBC (Bld) 56.7 % Normal . [facility] Comment on above: Performed By: #### L YTES, CBC, PP, LIPID, CREAT, HCGQUAL, BUN #### [address] Carbon dioxide, total [Moles /volume] in Serum or PlasmaOrdered By: Maria Luisa Sarkar on 08-10-2022 CO2 [Moles/Vol] 28.8 mmol/L Normal 21.0-31.0 [facility] Comment on above: Order Comment: patie nt not fasting Performed By: #### L YTES, CBC, PP, LIPID, CREAT, HCGQUAL, BUN #### [facility] [address] [id number] [place] Chloride [Moles/volume] in S julianna or PlasmaOrdered By: Maria Luisa Sarkar on 08-10-2022 Chloride [Moles/Vol] 105 mmol/L Normal 98-107 [facility] Comment on above: Order Comment: patie nt not fasting Performed By: #### L YTES, CBC, PP, LIPID, CREAT, HCGQUAL, BUN #### [facility] [address] [place] [address] [place] Cholesterol [Mass/volume] in Serum or PlasmaOrdered By: Maria Luisa Sarkar on 08-10-2022 Cholesterol [Mass/Vol] 149 mg/dL Normal 140-200 [facility] Comment on above: Chol less than 200 m g/dl low riskChol 201-239 mg/dl borderline riskChol 240 mg/dl and greater high risk Order Comment: patie nt not fasting Result Comment: Chol less than 200 mg/dl low risk Chol 201-239 mg/dl borderline risk Chol 240 mg/dl and greater high risk Performed By: #### L YTES, CBC, PP, LIPID, CREAT, HCGQUAL, BUN #### [facility] [address] [id number] [place] Cholesterol in LDL Calc [Mas s/Vol]Ordered By: Maria Luisa Sarkar on 08-10-2022 Cholesterol in LDL [Mass/Vol] 23 mg/dL 0-100 [facility] Comment on above: LDL ATP III CLASSIFI CATIONLDL less than 100 mg/dL OptimalLDL 100-129 mg/dL Near or above optimalLDL 130-159 mg/dL Borderline highLDL 160-189 mg/dL HighLDL greater than 189 mg/dL Very high Cholesterol in VLDL Calc [Ma ss/Vol]Ordered By: Maria Luisa Sarkar on 08-10-2022 Cholesterol in VLDL [Mass/Vol] 78 mg/dL [facility] Choriogonadotropin.beta subu nit [Units/volume] in Serum or PlasmaOrdered By: Maria Luisa Sarkar on 08-10-2022 HCG.beta subunit Qn Negative [facility] Coagulation Profileon 2022 aPTT Coag (Bld) [Time] 27.6 s Normal 25.1-36.5 [facility] Comment on above: Result Comment: PERF ORMED BY: [place] [address] PATHOLOGIST COLORECTAL SURGEON ALEX WETZEL M.D. Performed By: #### L YTES, CBC, PP, LIPID, CREAT, HCGQUAL, BUN #### [address] Coagulation ProfileOrdered B y: Maria Luisa Sarkar on 08-10-2022 PT Coag (PPP) [Time] 10.5 s Normal 9.0-12.9 [facility] Comment on above: Performed By: #### L YTES, CBC, PP, LIPID, CREAT, HCGQUAL, BUN #### [address] Complete Blood Count Auto Di ffon 08-10-2022 Mean Corpuscular HGB Conc 34.4 g/dL Normal 32.0-35.0 [facility] Comment on above: Performed By: #### L YTES, CBC, PP, LIPID, CREAT, HCGQUAL, BUN #### [address] NRBC% 0.1 /100{WBC} Normal 0-0.5 [facility] Comment on above: Performed By: #### L YTES, CBC, PP, LIPID, CREAT, HCGQUAL, BUN #### [address] Creatinineon 08-10-2022 GFR/1.73 sq M.predicted MDRD (S/P/Bld) [Vol rate/Area] mL/min/{1.73_m2} Normal [facility] Comment on above: Order Comment: patie nt not fasting Performed By: #### L YTES, CBC, PP, LIPID, CREAT, HCGQUAL, BUN #### [facility] [address] Creatinine [Mass/volume] in Serum or PlasmaOrdered By: Maria Luisa Sarkar on 08-10-2022 Creatinine [Mass/Vol] 0.89 mg/dL Normal 0.60-1.20 [facility] Comment on above: Order Comment: patie nt not fasting Performed By: #### L YTES, CBC, PP, LIPID, CREAT, HCGQUAL, BUN #### [facility] [address] [id number] [facility] ECG 12 lead ECGon 08-10-2022 ECG 12 lead ECG [facility] Main [place] [address] [place] [address] Electrocardiograph Report Signed Patient: Swapna Guido MR#: [id number] 8 : 1965 Acct:[id number] Age/Sex: 57 / F ADM Date: 08/10/22 Loc: Room: Type: [facility] Attending Dr: Maria Luisa Sarkar MD Ordering Provider: Maria Luisa Sarkar MD Date of Service: 08/10/2211/26/935 ECG/ECG 12 lead ECG: [facility] for [facility] Copies to: Test Reason : Blood Pressure [...] Signed By Silverio Khan DO 08/12 1240 [facility] Erythrocyte distribution wid th [Ratio] by Automated countOrdered By: Maria Luisa Sarkar on 08-10-2022 Erythrocyte distribution width (RBC) [Ratio] 13.1 % Normal 11.9-15.3 [facility] Comment on above: Performed By: #### L YTES, CBC, PP, LIPID, CREAT, HCGQUAL, BUN #### [facility] [address] Erythrocytes [#/volume] in B lood by Automated countOrdered By: Maria Luisa Sarkar on 08-10-2022 RBC (Bld) [#/Vol] 4.19 10*6/uL Normal 3.60-5.00 [facility] Comment on above: Performed By: #### L YTES, CBC, PP, LIPID, CREAT, HCGQUAL, BUN #### [address] HCG,Qualitative Serumon HCG,Qualitative Serum Negative Normal [facility] Comment on above: Order Comment: patie nt not fasting Result Comment: PERF ORMED BY: [place] [address] PATHOLOGIST COLORECTAL SURGEON ALEX WETZEL M.D. Performed By: #### L YTES, CBC, PP, LIPID, CREAT, HCGQUAL, BUN #### [address] Hematocrit [Volume Fraction] of Blood by Automated countOrdered By: Maria Luisa Sarkar on 08-10-2022 Hematocrit (Bld) [Volume fraction] 36.8 % Normal 34.0-46.4 [facility] Comment on above: Performed By: #### L YTES, CBC, PP, LIPID, CREAT, HCGQUAL, BUN #### [address] Hemoglobin [Mass/volume] in BloodOrdered By: Maria Luisa Sarkar on 08-10-2022 Hemoglobin (Bld) [Mass/Vol] 12.6 g/dL Normal 11.8-15.4 [facility] Comment on above: Performed By: #### L YTES, CBC, PP, LIPID, CREAT, HCGQUAL, BUN #### [facility] [address] [id number] [facility] Laboratory - Chemistry and C hemistry - challengeon 08-10-2022 Cholesterol [Mass/Vol] 149\S\149 Normal 140-200 [facility] juan antonio 250 DO Work Phone: Comment on above: Chol less than 200 m g/dl low risk Chol 201-239 mg/dl borderline risk Chol 240 mg/dl and greater high risk Cholesterol in LDL [Mass/Vol] 23\S\23 Normal 0-100 [facility] 250 DO Work Phone: Comment on above: [...] RBC Auto (Bld) [#/Vol] 6.0 10*3/uL 3.8-11.6 [facility] Leukocytes [#/volume] in Blo od by Automated countOrdered By: Maria Luisa Sarkar on 08-10-2022 WBC (Bld) [#/Vol] 6.0 10*3/uL Normal 3.8-11.6 [facility] Comment on above: Performed By: #### L YTES, CBC, PP, LIPID, CREAT, HCGQUAL, BUN #### [facility] [address] [id number] [facility] Lipid Panelon 08-10-2022 LDL Cholesterol,Calculated 23 mg/dL Normal 0-100 [facility] Comment on above: Order Comment: patie nt not fasting Result Comment: LDL ATP III CLASSIFICATION LDL less than 100 mg/dL Optimal LDL 100-129 mg/dL Near or above optimal LDL 130-159 mg/dL Borderline high LDL 160-189 mg/dL High LDL greater than 189 mg/dL Very high Performed By: #### L YTES, CBC, PP, LIPID, CREAT, HCGQUAL, BUN #### [address] Triglyceride w/Reflex 394 mg/dL High 0-149 [facility] Comment on above: Order Comment: [...] CBC, PP, LIPID, CREAT, HCGQUAL, BUN #### [address] VLDL CHOLESTEROL 78 mg/dL Normal [facility] Comment on above: Order Comment: patie nt not fasting Performed By: #### L YTES, CBC, PP, LIPID, CREAT, HCGQUAL, BUN #### [address] Lymphocytes [#/volume] in Bl ood by Automated countOrdered By: Maria Luisa Sarkar on 08-10-2022 Lymphocytes (Bld) [#/Vol] 1.9 10*3/uL Normal 1.00-4.8 [facility] Comment on above: Performed By: #### L YTES, CBC, PP, LIPID, CREAT, HCGQUAL, BUN #### [place] [address] [place] Lymphocytes/100 leukocytes i n Blood by Automated countOrdered By: Maria Luisa Sarkar on 08-10-2022 Lymphocytes/100 WBC (Bld) 31.8 % Normal . [facility] Comment on above: Performed By: #### L YTES, CBC, PP, LIPID, CREAT, HCGQUAL, BUN #### [address] MCH [Entitic mass] by Automa juana countOrdered By: Maria Luisa Sarkar on 08-10-2022 MCH (RBC) [Entitic mass] 30.2 pg Normal 24.7-34.3 [facility] Comment on above: Performed By: #### L YTES, CBC, PP, LIPID, CREAT, HCGQUAL, BUN #### [facility] [address] [place] [address] MCHC Auto (RBC) [Mass/Vol]Or dered By: Maria Luisa Sarkar on 08-10-2022 MCHC (RBC) [Mass/Vol] 34.4 g/dL 32.0-35.0 [facility] MCV [Entitic volume] by Auto mated countOrdered By: Maria Luisa Sarkar on 08-10-2022 MCV (RBC) [Entitic vol] 87.8 fL Normal 80-100 [facility] Comment on above: Performed By: #### L YTES, CBC, PP, LIPID, CREAT, HCGQUAL, BUN #### [facility] [address] [place] [address] Neutrophils [#/volume] in Bl ood by Automated countOrdered By: Maria Luisa Sarkar on 08-10-2022 Neutrophils (Bld) [#/Vol] 3.4 10*3/uL Normal 1.8-7.7 [facility] Comment on above: Performed By: #### L YTES, CBC, PP, LIPID, CREAT, HCGQUAL, BUN #### [facility] [address] [place] [address] No Panel InformationOrdered By: Maria Luisa Sarkar on 08-10-2022 Estimated GFR (CKD-EPI) > 60.0 mL/Min [facility] Creatinine Clearance (Chem N/A [facility] No Panel Informationon 08-10 0.1\S\0.1 Normal 0-0.5 -[facility] juan antonio 250 DO Work Phone: Comment on above: PERFORMED BY:[address]semLODI, [place] [phone] MEDICAL DIRECTORJIANLAN SUN M.D. 0.2\S\0.2 Normal 0.0-0.45 [facility] juan antonio 250 DO Work Phone: [phone] 0.4\S\0.4 Normal 0.0-0.8 [facility] juan antonio 250 DO Work Phone: [phone] 1.9\S\1.9 Normal 1.00-4.8 [facility] juan antonio 250 DO Work Phone: [phone] 3.4\S\3.4 Normal 1.8-7.7 [facility] juan antonio 250 DO Work Phone: [phone] 1.1\S\1.1 Normal . [facility] juan antonio 250 DO Work Phone: [phone] 3.1\S\3.1 Normal . [facility] juan antonio 250 DO Work Phone: [phone] 7.3\S\7.3 Normal 6.3-10.7 [facility] juan antonio 250 DO Work Phone: [phone] 31.8\S\31.8 Normal . [facility] juan antonio 250 DO Work Phone: [phone] 56.7\S\56.7 Normal . [facility] juan antonio 250 DO Work Phone: [phone] 283\S\283 Normal 150-450 [facility] juan antonio 250 DO Work Phone: [phone] 13.1\S\13.1 Normal 11.9-15.3 [facility] juan antonio 250 DO Work Phone: [phone] 34.4\S\34.4 Normal 32.0-35.0 [facility] juan antonio 250 DO Work Phone: [phone] 30.2\S\30.2 Normal 24.7-34.3 [facility] juan antonio 250 DO Work Phone: [phone] 87.8\S\87.8 Normal 80-100 [facility] juan antonio 250 DO Work Phone: 36.8\S\36.8 Normal 34.0-46.4 [facility] HeartSpeed Dating by Chantilly Lace 250 DO Work Phone: 12.6\S\12.6 Normal 11.8-15.4 [facility] HeartEgoscue juan antonio 250 DO Work Phone: 4.19\S\4.19 Normal 3.60-5.00 [facility] Chantilly Lace 250 DO Work Phone: [phone] 6.0\S\6.0 Normal 3.8-11.6 [facility] an[facility] 250 DO Work Phone: 27.6\S\27.6 Normal 25.1-36.5 [facility] [employer] juan antonio 250 DO Work Phone: Comment on above: PERFORMED BY:[address] [address] [place], [place] [id number] MEDICAL DIRECTORALEX WETZEL M.D. 0.9\S\0.9 Normal [facility] juan antonio 250 DO Work Phone: Comment [...] valves: 3 - 4.5 10.5\S\10.5 Normal 9.0-12.9 [facility] SimpliVTLake Region Public Health UnitBountyHunter 250 DO Work Phone: 11.1\S\11.1 Normal 6.0-15.0 [facility] juan antonio 250 DO Work Phone: 28.8\S\28.8 Normal 21.0-31.0 [facility] Agrivi 250 DO Work Phone: 105\S\105 Normal 98-107 [facility] Nicholas romano 250 DO Work Phone: [phone] 3.9\S\3.9 Normal 3.5-5.1 [facility] HeartLeeann romano 250 DO Work Phone: 141\S\141 Normal 136-145 [facility] Nicholas romano 250 DO Work Phone: 15\S\15 Normal 7-25 [facility] Nicholas romano 250 DO Work Phone: > 60.0 Normal [facility] Nicholas romano 250 DO Work Phone: 0.89\S\0.89 Normal 0.60-1.20 [facility] Nicholas romano 250 DO Work Phone: 3.2\S\3.2 Normal <5.0 [facility] Nicholas romano 250 DO Work Phone: 78\S\78 Normal [facility] Nicholas romano 250 DO Work Phone: [phone]\S\394 above high threshold 0-149 [facility] Nicholas romano 250 DO Work Phone: Comment on above: TRIG ATP III CLASSIF ICATION TRIG less than 150 mg/dL Normal TRIG 150-199 mg/dL Borderline high TRIG 200-500 mg/dL High TRIG greater than 500 mg/dL Very high Standard traceable to the Center for Disease Conrtrol and Prevention (CDC) test method. 47\S\47 Normal 35-85 [facility] Nicholas romano 250 DO Work Phone: Comment on above: HDL CHOL ATP-III CLA SSIFICATION Cardiovascular Risk HDL > or equal to 60 mg/dL LOW HDL < 40 mg/dL HIGH Negative Normal [facility] Nicholas romano 250 DO Work Phone: [phone] Comment on above: PERFORMED BY:[address] [address] [place], [place] [phone] MEDICAL DIRECTORALEX WETZEL M.D. Nucleated erythrocytes [Pres ence] in Blood by Automated countOrdered By: Maria Luisa Sarkar on 08-10-2022 Nucleated RBC Auto Ql (Bld) 0.1 /100{WBC} 0-0.5 [facility] Platelet mean volume [Entiti c volume] in Blood by Automated countOrdered By: Maria Luisa Sarkar on 08-10-2022 Platelet mean volume (Bld) [Entitic vol] 7.3 fL Normal 6.3-10.7 [facility] Comment on above: Performed By: #### L YTES, CBC, PP, LIPID, CREAT, HCGQUAL, BUN #### [facility] [address] Platelet poor plasma interna tional normalized ratio (INR) by coagulation assay (relatOrdered By: Maria Luisa Sarkar on 08-10-2022 INR Coag (PPP) [Relative time] 0.9 {INR} Normal [facility] Comment on above: INR Therapeutic Rang e [...] CBC, PP, LIPID, CREAT, HCGQUAL, BUN #### [facility] [address] [place] [address] [place] Platelets [#/volume] in Bloo d by Automated countOrdered By: Maria Luisa Sarkar on 08-10-2022 Platelets (Bld) [#/Vol] 283 10*3/uL Normal 150-450 [facility] Comment on above: Performed By: #### L YTES, CBC, PP, LIPID, CREAT, HCGQUAL, BUN #### [facility] [address] [place] [address] Potassium [Moles/volume] in Serum or PlasmaOrdered By: Maria Luisa Sarkar on 08-10-2022 Potassium [Moles/Vol] 3.9 mmol/L Normal 3.5-5.1 [facility] Comment on above: Order Comment: patie nt not fasting Performed By: #### L YTES, CBC, PP, LIPID, CREAT, HCGQUAL, BUN #### [facility] [address] [place] [address] Serum or plasma anion gap de terminationOrdered By: Maria Luisa Sarkar on 08-10-2022 Anion gap [Moles/Vol] 11.1 mmol/L Normal 6.0-15.0 [facility] Comment on above: Order Comment: patie nt not fasting Performed By: #### L YTES, CBC, PP, LIPID, CREAT, HCGQUAL, BUN #### [facility] [address] [place] [address] Serum or plasma high density lipoprotein (HDL) cholesterol measurementOrdered By: Maria Luisa Sarkar on 08-10-2022 Cholesterol in HDL [Mass/Vol] 47 mg/dL Normal 35-85 [facility] Comment on above: HDL CHOL ATP-III CLA SSIFICATION Cardiovascular RiskHDL > or equal to 60 mg/dL LOWHDL < 40 mg/dL HIGH Order Comment: patie nt not fasting Result Comment: HDL CHOL ATP-III CLASSIFICATION Cardiovascular Risk HDL > or equal to 60 mg/dL LOW HDL < 40 mg/dL HIGH Performed By: #### L YTES, CBC, PP, LIPID, CREAT, HCGQUAL, BUN #### [facility] [address] [place] [address] Serum or plasma total choles terol/high density lipoprotein (HDL) cholesterol mass ratOrdered By: Maria Luisa Sarkar on 08-10-2022 Cholesterol.total/Chol esterol in HDL [Mass ratio] 3.2 {ratio} Normal <5.0 [facility] Comment on above: Order Comment: patie nt not fasting Performed By: #### L YTES, CBC, PP, LIPID, CREAT, HCGQUAL, BUN #### [facility] [address] Sodium [Moles/volume] in Ser um or PlasmaOrdered By: Maria Luisa Sarkar on 08-10-2022 Sodium [Moles/Vol] 141 mmol/L Normal 136-145 [facility] Comment on above: Order Comment: patie nt not fasting Performed By: #### L YTES, CBC, PP, LIPID, CREAT, HCGQUAL, BUN #### [facility] [address] Triglyceride [Mass/volume] i n Serum or PlasmaOrdered By: Maria Luisa Sarkar on 08-10-2022 Triglyceride [Mass/Vol] 394 mg/dL 0-149 [facility] Comment on above: TRIG ATP III CLASSIF ICATIONTRIG less than 150 mg/dL NormalTRIG 150-199 mg/dL Borderline highTRIG 200-500 mg/dL High TRIG greater than 500 mg/dL Very highStandard traceable to the Center for Disease Conrtrol and Prevention (CDC) test method. Urea nitrogen [Mass/volume] in Serum or PlasmaOrdered By: Maria Luisa Sarkar on 08-10-2022 Urea nitrogen [Mass/Vol] 15 mg/dL Normal 7-25 [facility] Comment on above: Order Comment: patie nt not fasting Performed By: #### L YTES, CBC, PP, LIPID, CREAT, HCGQUAL, BUN #### [facility] [address] Office Visit (Cardiology)on 07-28-2022 Follow-up visit [...] Lab Procedures; Status:Active - Retrospective Authorization; Requested for:[id number]; Abnormal stress test, PMH: History of chest pain Renew: Aspirin 81 MG Oral Tablet Delayed Release; TAKE 1 TABLET DAILY Class 1 obesity with body mass index (BMI) of 34.0 to 34.9 in adult Healthy Weight Tips; Status:Complete - Retrospective Authorization; Done: [id number] Some eating tips that can help you lose weight.; Status:Complete - Retrospective Authorization; Done: [id number] SocHx: Never a smoker Tobacco Use Screening; Status:Complete; Done: [id number] Patient Instructions Please bring all medicines, vitamins, [...] of Wrist surgery Current Meds Medication NameInstruction Success Thyroid 90 MG Oral TabletTAKE 1 TABLET [...] Recorded: 28Jul2022 03:28PM Heart Rate74, L Radial Qmjikuvb234, LUE, Sitting Xqtgfbwza36, LUE, Sitting Height5 ft 6 in Ljkjjm150 lb BMI Rgzxzpvwnd41.22 kg/m2 BSA Calculated2.05 Tobacco Useb) No Physical [...] , pe (more content not included)... Normal [employer] Tobacco Screening.on 04-25-2 023 Tobacco use status [facility]PHS b) No [facility] juan antonio 250 DO Work Phone: LIPID PROFILEon 06-18-2022 CHOL-HDL RATIO NORM SEE BELOW Normal [facility] Comment on above: Result Comment: 3.3 - 4.4 LOW RISK 4.4 - 7.1 AVERAGE RISK 7.1 - 11.0 MODERATE RISK >11.0 HIGH RISK Performed By: #### F T4 #### [facility] [address] [address] [address] Claudine Mortensen Cholesterol [Mass/Vol] 143 mg/dL Normal <=200 Th [facility] Comment on above: Performed By: #### F T4 #### [facility] [address] [address] [address] Claudine Mortensen Cholesterol in HDL [Mass/Vol] 53 mg/dL Normal 40-60 [facility] Comment on above: Performed By: #### F T4 #### [facility] [address] [address] [address] Claudine Mortensen Cholesterol in LDL [Mass/Vol] 68.2 mg/dL Normal [facility] Comment on above: Performed By: #### F T4 #### [facility] [address] [place] [address] Dr. Claudine Mortensen Cholesterol.total/Chol esterol in HDL [Mass ratio] 2.7 {ratio} Normal [facility] Comment on above: Performed By: #### F T4 #### [facility] [id number] Claudine Mortensen HDL NORMAL > or = 60 mg/dl - LO W CARDIOVASCULAR RISK <40 mg/dl - HIGH CARDIOVASCULAR RISK Normal [facility] Comment on above: Performed By: #### F T4 #### [facility] [id number] Claudine Mortensen LDL CALC NORMAL SEE BELOW Normal [facility] Comment on above: Result Comment: <100 mg/dl OPTIMAL 100 - 129 mg/dl NEAR OR ABOVE OPTIMAL 130 - 159 mg/dl BORDERLINE HIGH 160 - 189 mg/dl HIGH >190 mg/dl VERY HIGH Performed By: #### F T4 #### [facility] [address] [place], [place] [address] Dr. Claudine Mortensen Triglyceride [Mass/Vol] 109 mg/dL Normal <=150 [facility] Comment on above: Performed By: #### F T4 #### [facility] [id number] Claudine Mortensen VLDL CALC 21.8 mg/dL Normal [facility] Comment on above: Performed By: #### F T4 #### [facility] [id number] Claudine Mortensen Office Visit (Cardiology)on 06-03-2022 [...] of Wrist surgery Current Meds Medication NameInstruction Success Thyroid 90 MG Oral TabletTAKE 1 TABLET [...] (V49.89) (Z78.9) (more content not included)... [facility] perf SPECT rest stron 06-02-2022 NM harriet perf SPECT rest str [facility] [place] [address] Nuclear Medicine Report Signed Patient: Swapna Guido MR#: [id number] 8 : 1965 Acct:[id number] Age/Sex: 57 / F ADM Date: 05/29/22 Loc: Room: Type: [facility] Attending Dr: Lamin Benavides MD Copies to: [...] Luisa Sarkar MD 06/02/22 120 Signed By: 06/02/22 1302 [facility] NM harriet perf SPECT rest str [facility] [place] [address] Nuclear Medicine Report Signed Patient: Swapna Guido MR#: [id number] 8 : 1965 Acct:[id number] Age/Sex: 57 / F ADM Date: 06/02/22 Loc: Room: Type: [facility] Attending Dr: Lamin Benavides MD Copies to: [...] study available for comparison. Transcribed By: KERI 06/02/22 121 Dictated By: Maria Luisa Sarkar MD 06/02/22 1202 Signed By: 06/03/22 0905 [facility] STR cardiac stress/cardiolon 06-02-2022 STR cardiac stress/cardiol [facility] [place] [address] [place] [address] Cardiac Stress Test Signed Patient: Swapna Guido MR#: [id number] 8 : 1965 Acct:[id number] Age/Sex: 57 / F ADM Date: 06/02/22 Loc: Room: Type: [facility] Attending Dr: Lamin Benavides MD Copies to: [...] study will be dictated separately. Transcribed By: NTS 06/02/22 1209 Dictated By: Maria Luisa Sarkar MD 06/02/22 1048 Signed By: 06/02/22 1302 [facility] Activated partial thrombopla stin time (aPTT) in platelet poor plasma by coagulation aOrdered By: Brianna Parker on 05-20-2022 aPTT Coag (PPP) [Time] 27.4 s 25.1-36.5 [facility] B-Type Natriuretic Peptideon 05-20-2022 Natriuretic peptide B (Bld) [Mass/Vol] 13.0 pg/mL Normal 5-100 [facility] Comment on above: Result Comment: PERF ORMED BY: [place] [address] PATHOLOGIST COLORECTAL SURGEON ALEX WETZEL M.D. Performed By: #### L YTES, CBC, PP, LIPID, CREAT, HCGQUAL, BUN #### [address] Basic Metabolic Panelon 05-06 Anion gap [Moles/Vol] 14.1 mmol/L Normal 6.0-15.0 [facility] Comment on above: Performed By: #### L YTES, CBC, PP, LIPID, CREAT, HCGQUAL, BUN #### [address] Calcium [Mass/Vol] 9.1 mg/dL Normal 8.2-10.2 [facility] Comment on above: Performed By: #### L YTES, CBC, PP, LIPID, CREAT, HCGQUAL, BUN #### [address] Chloride [Moles/Vol] 101 mmol/L Normal 95-114 [facility] Comment on above: Performed By: #### L YTES, CBC, PP, LIPID, CREAT, HCGQUAL, BUN #### [address] CO2 [Moles/Vol] 26.9 mmol/L Normal 22.0-30.0 [facility] Comment on above: Performed By: #### L YTES, CBC, PP, LIPID, CREAT, HCGQUAL, BUN #### [address] Creatinine [Mass/Vol] 0.85 mg/dL Normal 0.44-1.03 [facility] Comment on above: Performed By: #### L YTES, CBC, PP, LIPID, CREAT, HCGQUAL, BUN #### [address] Creatinine Clr Calc Pharmacy 91.75 [facility] Comment on above: Result Comment: PERF ORMED BY: [place] [address] PATHOLOGIST COLORECTAL SURGEON ALEX WETZEL M.D. Performed By: #### L YTES, CBC, PP, LIPID, CREAT, HCGQUAL, BUN #### [address] Estimated GFR ( Melisa > 60 [facility] Comment on above: Result Comment: GFR estimated reference range: According to KDOQI guidelines, <60 ml/min/1.73m2 is sufficient to diagnose a patient with chronic kidney disease. Performed By: #### L YTES, CBC, PP, LIPID, CREAT, HCGQUAL, BUN #### [address] Estimated GFR (Non- Am > 60 [facility] Comment on above: Performed By: #### L YTES, CBC, PP, LIPID, CREAT, HCGQUAL, BUN #### [address] Glucose [Mass/Vol] 91 mg/dL Normal 70-100 [facility] Comment on above: Result Comment: [place] Glucose Reference Range is dependent on time and content of last meal. Glucose of more than 200 mg/dL in a nonstressed, ambulatory subject supports the diagnosis of Diabetes Mellitus. ADA recommended reference range Performed By: #### L YTES, CBC, PP, LIPID, CREAT, HCGQUAL, BUN #### [address] Potassium [Moles/Vol] 4.0 mmol/L Normal 3.5-5.1 [facility] Comment on above: Performed By: #### L YTES, CBC, PP, LIPID, CREAT, HCGQUAL, BUN #### [address] Sodium [Moles/Vol] 138 mmol/L Normal 136-146 [facility] Comment on above: Performed By: #### L YTES, CBC, PP, LIPID, CREAT, HCGQUAL, BUN #### [facility] [address] [place] [address] Urea nitrogen [Mass/Vol] 12 mg/dL Normal 9-23 [facility] Comment on above: Performed By: #### L YTES, CBC, PP, LIPID, CREAT, HCGQUAL, BUN #### [facility] [address] [place] [address] Basophils Auto (Bld) [#/Vol] Ordered By: Brianna Parker on 05-20-2022 Basophils (Bld) [#/Vol] 0.1 10*3/uL 0.0-0.2 [facility] Basophils/100 WBC Auto (Bld) Ordered By: Brianna Parker on 05-20-2022 Basophils/100 WBC (Bld) 1.1 % . [facility] Complete Blood Count Auto Di ffon 05-20-2022 Basophils (Bld) [#/Vol] 0.1 10*3/uL Normal 0.0-0.2 [facility] Comment on above: Result Comment: PERF ORMED BY: [place] [address] PATHOLOGIST COLORECTAL SURGEON ALEX WETZEL M.D. Performed By: #### L YTES, CBC, PP, LIPID, CREAT, HCGQUAL, BUN #### [facility] [address] [place] [address] Basophils/100 WBC (Bld) 1.1 % Normal . [facility] Comment on above: Performed By: #### L YTES, CBC, PP, LIPID, CREAT, HCGQUAL, BUN #### [facility] [address] [place] [address] Eosinophils (Bld) [#/Vol] 0.2 10*3/uL Normal 0.0-0.45 [facility] Comment on above: Performed By: #### L YTES, CBC, PP, LIPID, CREAT, HCGQUAL, BUN #### [address] Eosinophils/100 WBC (Bld) 3.4 % Normal . [facility] Comment on above: Performed By: #### L YTES, CBC, PP, LIPID, CREAT, HCGQUAL, BUN #### [address] Erythrocyte distribution width (RBC) [Ratio] 13.9 % Normal 11.9-15.3 [facility] Comment on above: Performed By: #### L YTES, CBC, PP, LIPID, CREAT, HCGQUAL, BUN #### [address] Hematocrit (Bld) [Volume fraction] 37.1 % Normal 34.0-46.4 [facility] Comment on above: Performed By: #### L YTES, CBC, PP, LIPID, CREAT, HCGQUAL, BUN #### [address] Hemoglobin (Bld) [Mass/Vol] 12.6 g/dL Normal 11.8-15.4 [facility] Comment on above: Performed By: #### L YTES, CBC, PP, LIPID, CREAT, HCGQUAL, BUN #### [address] Lymphocytes (Bld) [#/Vol] 2.6 10*3/uL Normal 1.00-4.8 [facility] Comment on above: Performed By: #### L YTES, CBC, PP, LIPID, CREAT, HCGQUAL, BUN #### [address] Lymphocytes/100 WBC (Bld) 38.9 % Normal . [facility] Comment on above: Performed By: #### L YTES, CBC, PP, LIPID, CREAT, HCGQUAL, BUN #### [address] MCH (RBC) [Entitic mass] 29.8 pg Normal 24.7-34.3 [facility] Comment on above: Performed By: #### L YTES, CBC, PP, LIPID, CREAT, HCGQUAL, BUN #### [address] MCV (RBC) [Entitic vol] 87.7 fL Normal 80-100 [facility] Comment on above: Performed By: #### L YTES, CBC, PP, LIPID, CREAT, HCGQUAL, BUN #### [address] Mean Corpuscular HGB Conc 34.0 g/dL Normal 32.0-35.0 [facility] Comment on above: Performed By: #### L YTES, CBC, PP, LIPID, CREAT, HCGQUAL, BUN #### [address] Monocytes (Bld) [#/Vol] 0.4 10*3/uL Normal 0.0-0.8 [facility] Comment on above: Performed By: #### L YTES, CBC, PP, LIPID, CREAT, HCGQUAL, BUN #### [address] Monocytes/100 WBC (Bld) 18.25 % Normal 0.00-20.00 [facility] Comment on above: Performed By: #### L YTES, CBC, PP, LIPID, CREAT, HCGQUAL, BUN #### [address] Monocytes/100 WBC (Bld) 6.0 % Normal . [facility] Comment on above: Performed By: #### L YTES, CBC, PP, LIPID, CREAT, HCGQUAL, BUN #### [address] Neutrophils (Bld) [#/Vol] 3.3 10*3/uL Normal 1.8-7.7 [facility] Comment on above: Performed By: #### L YTES, CBC, PP, LIPID, CREAT, HCGQUAL, BUN #### [address] Neutrophils/100 WBC (Bld) 50.6 % Normal . [facility] Comment on above: Performed By: #### L YTES, CBC, PP, LIPID, CREAT, HCGQUAL, BUN #### [address] NRBC% 0.1 /100{WBC} Normal 0-0.5 [facility] Comment on above: Performed By: #### L YTES, CBC, PP, LIPID, CREAT, HCGQUAL, BUN #### [address] Platelet mean volume (Bld) [Entitic vol] 7.1 fL Normal 6.3-10.7 [facility] Comment on above: Performed By: #### L YTES, CBC, PP, LIPID, CREAT, HCGQUAL, BUN #### [address] Platelets (Bld) [#/Vol] 308 10*3/uL Normal 150-450 [facility] Comment on above: Performed By: #### L YTES, CBC, PP, LIPID, CREAT, HCGQUAL, BUN #### [address] RBC (Bld) [#/Vol] 4.23 10*6/uL Normal 3.60-5.00 [facility] Comment on above: Performed By: #### L YTES, CBC, PP, LIPID, CREAT, HCGQUAL, BUN #### [address] WBC (Bld) [#/Vol] 6.6 10*3/uL Normal 3.8-11.6 [facility] Comment on above: Performed By: #### L YTES, CBC, PP, LIPID, CREAT, HCGQUAL, BUN #### [address] Creatine Kinaseon 05-20-2022 CK [Catalytic activity/Vol] 371 U/L High 22-269 [facility] Comment on above: Performed By: #### L YTES, CBC, PP, LIPID, CREAT, HCGQUAL, BUN #### [facility] [address] [id number] [place] Creatine kinase [Enzymatic a ctivity/volume] in Serum or PlasmaOrdered By: Brianna Parker on 05-20-2022 CK [Catalytic activity/Vol] 371 U/L 22-269 [facility] Creatine kinase.MB [Mass/vol ume] in Serum or PlasmaOrdered By: Brianna Parker on 05-20-2022 CK.MB [Mass/Vol] 2.0 ng/mL 0.6-6.3 [facility] Creatinine Kinase MBon 05-20 CK.MB [Mass/Vol] 2.0 ng/mL Normal 0.6-6.3 [facility] Comment on above: Performed By: #### L YTES, CBC, PP, LIPID, CREAT, HCGQUAL, BUN #### [facility] [address] [id number] [place] CKMB Relative Index 0.5 % Normal 0.00-2.50 [facility] Comment on above: Performed By: #### L YTES, CBC, PP, LIPID, CREAT, HCGQUAL, BUN #### [facility] [address] Creatinine and Glomerular fi ltration rate.predicted panel (S/P/Bld)Ordered By: Brianna Parker on 05-20-2022 Creatinine [Mass/Vol] 0.85 mg/dL 0.44-1.03 [facility] ECG 12 lead ECGon 05-20-2022 ECG 12 lead ECG [facility] [place] [address] Electrocardiograph Report Signed Patient: Swapna Guido MR#: [id number] 8 : 1965 Acct:[id number] Age/Sex: 57 / F ADM Date: 05/20/22 Loc: ER Room: Type: [facility] ER Attending Dr: Ordering Provider: Brianna Parker DO Date of Service: 05/20/22 ECG/ECG 12 [...] Signed By Brianna Parker DO 0008 Normal [facility] Eosinophils Auto (Bld) [#/Vo l]Ordered By: Brianna Parker on 05-20-2022 Eosinophils (Bld) [#/Vol] 0.2 10*3/uL 0.0-0.45 [facility] Eosinophils/100 WBC Auto (Bl d)Ordered By: Brianna Parker on 05-20-2022 Eosinophils/100 WBC (Bld) 3.4 % . [facility] Erythrocyte distribution wid th Auto (RBC) [Ratio]Ordered By: Brianna Parker on 05-20-2022 Erythrocyte distribution width (RBC) [Ratio] 13.9 % 11.9-15.3 [facility] Estimated glomerular filtrat ion rate (GFR) non- AmericanOrdered By: Brianna Parker on 05-20-2022 GFR/1.73 sq M.predicted among non-blacks MDRD (S/P/Bld) [Vol rate/Area] > 60 mL/Min [facility] Hematocrit Auto (Bld) [Volum e fraction]Ordered By: Brianna Parker on 05-20-2022 Hematocrit (Bld) [Volume fraction] 37.1 % 34.0-46.4 [facility] Hemoglobin [Mass/volume] in BloodOrdered By: Brianna Parker on 05-20-2022 Hemoglobin (Bld) [Mass/Vol] 12.6 g/dL 11.8-15.4 [facility] Laboratory - Chemistry and C hemistry - challengeOrdered By: Brianna Parker on 05-20-2022 Natriuretic peptide B (Bld) [Mass/Vol] 13.0 pg/mL 5-100 [facility] Laboratory - CoagulationOrde red By: Brianna Parker on 05-20-2022 PT Coag (PPP) [Time] 10.8 s 9.0-12.9 [facility] Leukocytes [#/volume] correc juana for nucleated erythrocytes in Blood by Automated counOrdered By: Brianna Parker on 05-20-2022 WBC corrected for nucl RBC Auto (Bld) [#/Vol] 6.6 10*3/uL 3.8-11.6 [facility] Lymphocytes Auto (Bld) [#/Vo l]Ordered By: Brianna Parker on 05-20-2022 Lymphocytes (Bld) [#/Vol] 2.6 10*3/uL 1.00-4.8 [facility] Lymphocytes/100 WBC Auto (Bl d)Ordered By: Brianna Parker on 05-20-2022 Lymphocytes/100 WBC (Bld) 38.9 % . [facility] MCH Auto (RBC) [Entitic mass ]Ordered By: Brianna Parker on 05-20-2022 MCH (RBC) [Entitic mass] 29.8 pg 24.7-34.3 [facility] MCHC Auto (RBC) [Mass/Vol]Or dered By: Brianna Parker on 05-20-2022 MCHC (RBC) [Mass/Vol] 34.0 g/dL 32.0-35.0 [facility] MCV Auto (RBC) [Entitic vol] Ordered By: Brianna Parker on 05-20-2022 MCV (RBC) [Entitic vol] 87.7 fL 80-100 [facility] Monocyte distribution width [Entitic volume] in Blood by AutomatedOrdered By: Brianna Parker on 05-20-2022 Monocyte distribution width Auto (Bld) [Entitic vol] 18.25 % 0.00-20.00 [facility] Monocytes Auto (Bld) [#/Vol] Ordered By: Brianna Parker on 05-20-2022 Monocytes (Bld) [#/Vol] 0.4 10*3/uL 0.0-0.8 [facility] Monocytes/100 WBC Auto (Bld) Ordered By: Brianna Parker on 05-20-2022 Monocytes/100 WBC (Bld) 6.0 % . [facility] Neutrophils Auto (Bld) [#/Vo l]Ordered By: Brianna Parker on 05-20-2022 Neutrophils (Bld) [#/Vol] 3.3 10*3/uL 1.8-7.7 [facility] Neutrophils/100 WBC Auto (Bl d)Ordered By: Brianna Parker on 05-20-2022 Neutrophils/100 WBC (Bld) 50.6 % . [facility] No Panel InformationOrdered By: Brianna Parker on 05-20-2022 Estimated GFR () > 60 mL/Min [facility] Comment on above: GFR estimated refere nce range: According to KDOQI guidelines, <60 ml/min/1.73m2 is sufficient to diagnose a patient with chronic kidney disease. Pharmacy Creatinine Clearance (Chem 91.75 [facility] Nucleated erythrocytes [Pres ence] in Blood by Automated countOrdered By: Brinana Parker on 05-20-2022 Nucleated RBC Auto Ql (Bld) 0.1 /100{WBC} 0-0.5 [facility] Partial Thromboplastin Timeo n 05-20-2022 aPTT Coag (Bld) [Time] 27.4 s Normal 25.1-36.5 [facility] Comment on above: Result Comment: PERF ORMED BY: [place] [address] PATHOLOGIST COLORECTAL SURGEON ALEX WETZEL M.D. Performed By: #### L YTES, CBC, PP, LIPID, CREAT, HCGQUAL, BUN #### [facility] [address] Platelet mean volume Auto (B ld) [Entitic vol]Ordered By: Brianna Parker on 05-20-2022 Platelet mean volume (Bld) [Entitic vol] 7.1 fL 6.3-10.7 [facility] Platelet poor plasma interna tional normalized ratio (INR) by coagulation assay (relatOrdered By: Brianna Parker on 05-20-2022 INR Coag (PPP) [Relative time] 0.9 {INR} [facility] Comment on above: INR Therapeutic Rang e [...] 05-20-2022 Platelets (Bld) [#/Vol] 308 10*3/uL 150-450 [facility] Prothrombin Time INRon 05-20 INR Coag (PPP) [Relative time] 0.9 {INR} Normal [facility] Comment on above: Result Comment: INR Therapeutic [...] CBC, PP, LIPID, CREAT, HCGQUAL, BUN #### [facility] [address] PT Coag (PPP) [Time] 10.8 s Normal 9.0-12.9 [facility] Comment on above: Performed By: #### L YTES, CBC, PP, LIPID, CREAT, HCGQUAL, BUN #### [facility] [address] RBC Auto (Bld) [#/Vol]Ordere d By: Brianna Parker on 05-20-2022 RBC (Bld) [#/Vol] 4.23 10*6/uL 3.60-5.00 [facility] Serum or plasma anion gap de terminationOrdered By: Brianna Parker on 05-20-2022 Anion gap [Moles/Vol] 14.1 mmol/L 6.0-15.0 [facility] Serum or plasma calcium denae urement (mass/volume)Ordered By: Brianna Parker on 05-20-2022 Calcium [Mass/Vol] 9.1 mg/dL 8.2-10.2 [facility] Serum or plasma chloride baldomero surement (moles/volume)Ordered By: Brianna Parker on 05-20-2022 Chloride [Moles/Vol] 101 mmol/L 95-114 [facility] Serum or plasma creatine kin ase MB (CKMB)/total creatine kinase (CK) ratio by calculaOrdered By: Brianna Parker on 05-20-2022 CK.MB Calc [Catalytic fraction] 0.5 % 0.00-2.50 [facility] Serum or plasma glucose denae urement (mass/volume)Ordered By: Brianna Parker on 05-20-2022 Glucose [Mass/Vol] 91 mg/dL 70-100 [facility] Comment on above: ADA recommended refe rence rangeRandom Glucose Reference Range is dependent on time and content of last meal. Glucose of more than 200 mg/dL in a nonstressed, ambulatory subject supports the diagnosis of Diabetes Mellitus. Serum or plasma potassium me asurement (moles/volume)Ordered By: Brianna Parker on 05-20-2022 Potassium [Moles/Vol] 4.0 mmol/L 3.5-5.1 [facility] Serum or plasma sodium measu rement (moles/volume)Ordered By: Brianna Parker on 05-20-2022 Sodium [Moles/Vol] 138 mmol/L 136-146 [facility] Serum or plasma total carbon dioxide measurement (moles/volume)Ordered By: Brianna Parker on 05-20-2022 CO2 [Moles/Vol] 26.9 mmol/L 22.0-30.0 [facility] Serum or plasma urea nitroge n measurement (mass/volume)Ordered By: Brianna Parker on 05-20-2022 Urea nitrogen [Mass/Vol] 12 mg/dL 9-23 [facility] Troponin I High Sensitivityo n 05-20-2022 Troponin I High Sensitivity < 3 Normal 0-15 [facility] Comment on above: Result Comment: PERF ORMED BY: [place] [address] PATHOLOGIST COLORECTAL SURGEON ALEX WETZEL M.D. Performed By: #### H S TROP #### [facility] [address] [place] [address] Troponin I High Sensitivity < 3 Normal 0 [facility] Comment on above: Result Comment: PERF ORMED BY: [place] [address] PATHOLOGIST COLORECTAL SURGEON ALEX WETZEL M.D. Performed By: #### L YTES, CBC, PP, LIPID, CREAT, HCGQUAL, BUN #### [facility] [address] [place] [address] Troponin I.cardiac [Mass/vol ume] in Serum or Plasma by High sensitivity methodOrdered By: Brianna Parker on 05-20-2022 Troponin I.cardiac High sensitivity method [Mass/Vol] < 3 pg/mL 0 [facility] WBC Auto (Bld) [#/Vol]Ordere d By: Brianna Parker on 05-20-2022 WBC (Bld) [#/Vol] 6.6 10*3/uL 3.8-11.6 [facility] XR chest 2V*on 05-20-2022 XR chest 2V* [facility] [place] [address] XRay Report Signed Patient: Swapna Guido MR#: [id number] 8 : 1965 Acct:[id number] Age/Sex: 57 / F ADM Date: 05/20/22 Loc: ER Room: Type: [facility] ER Attending Dr: Copies to: Brianna Parker [...] Silverio Stewart M.D.05/20/2022 8:51 PM Dictation Location: [place] [address] Transcribed By: [facility] 05/20/222050 Dictated By: Silverio Stewart DO 05/20/222049 Signed By: 05/20/222050 Normal [facility] TSHon 04-23-2022 TSH 0.761 uIU/mL Normal 0.358-3.74 0 [facility] Comment on above: Performed By: #### T SH #### [facility] [address] [address] [address] Claudine Mortensen FREE T4on 02-24-2022 Free T4 [Mass/Vol] 1.61 ng/dL Critically high 0.76-1.46 T [facility] Comment on above: Performed By: #### F T4 #### [facility] [address] [place] [address] Dr. Claudine Mortensen TSHon 02-24-2022 TSH Qn m[IU]/L Critically low 0.358-3.74 0 [facility] Comment on above: Performed By: #### T SH #### [facility] [address] [place] [address] Dr. Claudine Mortensen MG MAMM SCREEN 3D NICOLE CADon 02-12-2022 MG MAMM SCREEN 3D NICOLE CAD Patient: SWAPNA GUIDO Exam Date: 02/12/2022 : 1965 Gender:F Ordering : DR LAMIN BENAVIDES M.D. Admission #: [id number] Family : DR. SHIRA METZGER D.O. Order #: [id number] CLICK HERE TO VIEW EXAM RADIOLOGY REPORT [...] breast cancer at age 59. LOCATION: [facility] BREAST COMPOSITION: Heterogeneously dense,which may obscure small [...] Pavon MD on 02/13/2022 at 09:12 Normal [facility] FREE T4on 12-23-2021 Free T4 [Mass/Vol] 1.39 ng/dL Normal 0.76-1.46 [facility] Comment on above: Performed By: #### F T4 #### [facility] [address] [place] [address] Dr. Claudine Mortensen TSHon 12-23-2021 TSH Qn m[IU]/L Critically low 0.358-3.74 0 [facility] Comment on above: Performed By: #### T SH #### [facility] [address] [place] [address] Dr. Claudine Mortensen POINT OF CARE GLUCOSEon 11-03 Glucose [Mass/Vol] 106 mg/dL Normal 74-106 [facility] Comment on above: Performed By: #### P OCGLUC #### [facility] [address] [place] [address] Dr. Claudine Mortensen CBC AUTO DIFFon 11-14-2021 BASO # 0.0 103/ul Normal 0.0-0.1 [facility] Comment on above: Performed By: #### C BC #### [facility] [address] [place] [address] Dr. Claudine Mortensen Basophils/100 WBC (Bld) 0.8 % Normal 0.2-2.0 [facility] Comment on above: Performed By: #### C BC #### [facility] [address] [place] [address] Dr. Claudine Mortensen EO # 0.1 103/ul Normal 0.0-0.7 [facility] Comment on above: Performed By: #### C BC #### [facility] [address] [place] [address] Dr. Claudine Mortensen Eosinophils/100 WBC (Bld) 2.3 % Normal 0.9-7.0 [facility] Comment on above: Performed By: #### C BC #### [facility] [address] [place] [address] Dr. Claudine Mortensen Erythrocyte distribution width (RBC) [Ratio] 12.6 % Normal 11.0-15.0 [facility] Comment on above: Performed By: #### C BC #### [facility] [address] [place] [address] Dr. Claudine Mortensen Hematocrit (Bld) [Volume fraction] 39.2 % Normal 36.0-48.0 [facility] Comment on above: Performed By: #### C BC #### [facility] [address] [place] [address] Dr. Claudine Mortensen Hemoglobin (Bld) [Mass/Vol] 13.2 g/dL Normal 12.0-16.0 [facility] Comment on above: Performed By: #### C BC #### [facility] [address] [place] [address] Dr. Claudine Mortensen IG # 0.01 10e3/ul Normal 0.00-0.03 [facility] Comment on above: Performed By: #### C BC #### [facility] [address] [place] [address] Dr. Claudine Mortensen IG % 0.2 % Normal 0.0-0.5 [facility] Comment on above: Performed By: #### C BC #### [facility] [address] [place] [address] Dr. Claudine Mortensen LYMPH # 1.7 103/ul Normal 1.2-3.8 [facility] Comment on above: Performed By: #### C BC #### [facility] [address] [place] [address] Dr. Claudine Mortensen Lymphocytes/100 WBC (Bld) 33.0 % Normal 20.5-60.0 [facility] Comment on above: Performed By: #### C BC #### [facility] [address] [place] [address] Dr. Claudine Mortensen MANUAL DIFF REQ NO Normal [facility] Comment on above: Performed By: #### C BC #### [facility] [address] [place] [address] Dr. Claudine Mortensen MCH (RBC) [Entitic mass] 28.8 pg Normal 26.7-34.0 [facility] Comment on above: Performed By: #### C BC #### [facility] [address] [place] [address] Dr. Claudine Mortensen MCHC (RBC) [Mass/Vol] 33.7 g/dL Normal 29.9-35.2 [facility] Comment on above: Performed By: #### C BC #### [facility] [facility] [address] [place] [address] Dr. Claudine Mortensen MCV (RBC) [Entitic vol] 85.4 fL Normal 81.0-99.0 [facility] Comment on above: Performed By: #### C BC #### [facility] [address] [place] [address] Dr. Claudine Mortensen MONO # 0.4 103/ul Normal 0.3-0.8 [facility] Comment on above: Performed By: #### C BC #### [facility] [address] [place] [address] Dr. Claudine Mortensen Monocytes/100 WBC (Bld) 7.1 % Normal 1.7-12.0 [facility] Comment on above: Performed By: #### C BC #### [facility] [address] [place] [address] Dr. Claudine Mortensen NEUT # 2.9 103/ul Normal 1.4-6.5 The [facility] Comment on above: Performed By: #### C BC #### [facility] [address] [place] [address] Dr. Claudine Mortensen Neutrophils/100 WBC (Bld) 56.6 % Normal 43.0-75.0 The [facility] Comment on above: Performed By: #### C BC #### [facility] [address] [place] [address] Dr. Claudine Mortensen Platelet mean volume (Bld) [Entitic vol] 8.9 fL Critically low 9.5-13.5 The [facility] Comment on above: Performed By: #### C BC #### [facility] [address] [place] [address] Dr. Claudine Mortensen PLT 281 103/ul Normal 150-450 The [facility] Comment on above: Performed By: #### C BC #### [facility] [address] [place] [address] Dr. Claudine Mortensen RBC 4.59 106/ul Normal 4.20-5.40 The [facility] Comment on above: Performed By: #### C BC #### [facility] [address] [place] [address] Dr. Claudine Mortensen WBC 5.2 103/ul Normal 4.0-11.0 The [facility] Comment on above: Performed By: #### C BC #### [facility] [address] [place] [address] Dr. Claudine Mortensen [facility] SARS-CoV-2 (COVID-19) RNA ROLANDO+probe Ql (Unsp spec) Not detected Normal NOT DETECTED The [facility] Comment on above: Result Comment: This test is not yet approved or cleared by the [place] FDA. When there are no FDA-approved or cleared tests available, and other criteria are met, FDA can make tests available under an emergency access mechanism called an Emergency Use Authorization (EUA). The EUA for this test is supported by the [place] of Health and Human Service's (HHS's) declaration [...] SARS-CoV-2. Performed By: #### C VDTB #### [facility] [address] [place] [address] Dr. Claudine Mortensen PROF CHEM 8 (BAS METB)on Anion gap [Moles/Vol] 10.9 mmol/L Normal Th e [facility] Comment on above: Performed By: #### B MP #### [facility] [address] [place] [address] Dr. Claudine Mortensen Calcium [Mass/Vol] 9.5 mg/dL Normal 8.5-10.1 [facility] Comment on above: Performed By: #### B MP #### [facility] [address] [place] [address] Dr. Claudine Mortensen Chloride [Moles/Vol] 102 mmol/L Normal 98-107 [facility] Comment on above: Performed By: #### B MP #### [facility] [address] [place] [address] Dr. Claudine Mortensen CO2 [Moles/Vol] 31.1 mmol/L Normal 21.0-32.0 [facility] Comment on above: Performed By: #### B MP #### [facility] [address] [place] [address] Dr. Claudine Mortensen Creatinine [Mass/Vol] 0.82 mg/dL Normal 0.55-1.02 [facility] Comment on above: Performed By: #### B MP #### [facility] [address] [place] [address] Dr. Claudine Mortensen EGFR-AF PARAGUAYAN >60 Normal >=60 The [facility] Comment on above: Performed By: #### B MP #### [facility] [address] [place] [address] Dr. Claudine Mortensen EGFR-NON AF PARAGUAYAN >60 Normal >=60 The [facility] Comment on above: Performed By: #### B MP #### [facility] [address] [place] [address] Dr. Claudine Mortensen Glucose [Mass/Vol] 103 mg/dL Normal 74-106 The [facility] Comment on above: Performed By: #### B MP #### [facility] [address] [address] [address] Claudine Mortensen Potassium [Moles/Vol] 4.0 mmol/L Normal 3.5-5.1 The [facility] Comment on above: Performed By: #### B MP #### [facility] [address] [place] [address] Dr. Claudine Mortensen Sodium [Moles/Vol] 140 mmol/L Normal 136-145 The [facility] Comment on above: Performed By: #### B MP #### [facility] [address] [place] [address] Dr. Claudine Mortensen Urea nitrogen [Mass/Vol] 14.0 mg/dL Normal 7.0-18.0 [facility] Comment on above: Performed By: #### B MP #### [facility] [address] [place] [address] Dr. Claudine Mortensen Urea nitrogen/Creatinine [Mass ratio] 17.1 mg/mg Normal The [facility] Comment on above: Performed By: #### B MP #### [facility] [address] [place] [address] Dr. Claudine Mortensen PROTIMEon 11-14-2021 INR Coag (PPP) [Relative time] 0.96 {INR} Normal [facility] Comment on above: Performed By: #### F T4 #### [facility] [address] [place] [address] Dr. Claudine Mortensen INR GUIDELINES SEE BELOW Normal The [facility] Comment on above: Result Comment: LINNETTE RED INR: 2.0 - 3.0 CONDITIONS NOT LISTED BELOW 2.5 - 3.5 FOR PROSTHETIC HEART VALVE REPLACEMENT 2.5 - 3.5 RECURRENT THROMBOSIS Performed By: #### F T4 #### [facility] [address] [place] [address] Dr. Claudine Mortensen PT Coag (PPP) [Time] 10.4 s Normal 9.0-11.6 [facility] Comment on above: Performed By: #### F T4 #### [facility] [address] [place] [address] Dr. Claudine Mortensen PTTon 11-14-2021 aPTT Coag (Bld) [Time] 26.1 s Normal 22.3-36.2 Th [facility] Comment on above: Performed By: #### F T4 #### [facility] [address] [place] [address] Dr. Claudine Mortensen XR CHEST 2 Von [...] by: NARESH AGARWAL Date: 2021-11-14 11:36 Normal [facility] THYROGLOBULIN AB AND THYROGL OBULINon 10-24-2021 Thyroglobulin Antibody <1.0 Normal 0.0-0.9 Th [facility] Comment on above: Result Comment: Thyr oglobulin Antibody measured by Latisha Sarah Methodology Performed By: #### T HYGIMA #### [facility] [address] [place] [address] Dr. Claudine Mortensen Thyroglobulin by BEAU <0.1 Critically low 1.5-38.5 [facility] Comment on above: Result Comment: [...] Assay Performed By: #### T HYGIMA #### [facility] [address] [place] [address] SINUSES WO CONon [...] by: PABLO SILVESTRE Date: 2021-10-22 17:58 Normal [facility] FREE T4on 10-22-2021 Free T4 [Mass/Vol] 1.60 ng/dL Critically high 0.76-1.46 T [facility] Comment on above: Performed By: #### F T4 #### [facility] [address] [address] [address] Claudine Mortensen TSHon 10-22-2021 TSH Qn m[IU]/L Critically low 0.358-3.74 0 [facility] Comment on above: Performed By: #### F T4 #### [facility] [address] [address] [address] Claudine Mortensen T4 FREEon 09-02-2021 Free T4 [Mass/Vol] 1.59 ng/dL 0.89 - 1.76 ng/dL [facility] Interpretation and review of laboratory results Normal [facility] TSHOrdered By: Ian garrido on 09-02-2021 Interpretation and review of laboratory results Abnormal [facility] TSH Qn m[IU]/L Low [facility] [place] Unspecified body regionOr dered By: Unassigned Pacs on 09-02-2021 [facility] Work Phone: [place] Unspecified body regionon 09-02-2021 Radiology Study observation (narrative) [facility] OPERATIVE REPORTon OPERATIVE REPORT NAME: SWAPNA GUIDO MR#: [id number] SURGEON: Matthew Holland MD DATE OF SURGERY: [...] weakness or paresthesias were appreciated afterwards. [facility] PT NAME: SWAPNA GUIDO MR#: [id number] [address] [place], [place] [id number] ACCT: [id number] : 69 OPERATIVE REPORT MATTHEW HOLLAND MD /MODL/[id number] E/S: Matthew Holland DO 11/10/18 1455 Electronically Signed [facility] PT NAME: SWAPNA GUIDO MR#: [id number] [address] [place], [place] [id number] ACCT: [id number] : 69 OPERATIVE REPORT Normal [facility] OPERATIVE REPORTon 9 OPERATIVE REPORT NAME: SWAPNA GUIDO MR#: [id number] SURGEON: Matthew Holland MD DATE OF SURGERY: [...] weeks and discharged home. MATTHEW HOLLAND MD GF/MODL/[id number] E/S: Matthew Holland, 07/28/18 1415 Electronically Signed [facility] PT NAME: SWAPNA GUIDO MR#: [id number] [address] [place] [address] ACCT: [id number] : 69 OPERATIVE REPORT Normal [facility] OPERATIVE REPORTon 9 OPERATIVE REPORT NAME: SWAPNA GUIDO MR#: [id number] SURGEON: Matthew Holland MD DATE OF SURGERY: [...] mm active tip. 80 mg of [facility] PT NAME: SWAPNA GUIDO MR#: [id number] [address] [place], [place] [id number] ACCT: [id number] : 69 OPERATIVE REPORT Depo-Medrol administered following each level. MATTHEW HOLLAND MD /ORLIN/[id number] E/S: Matthew Holland DO 05/26/18 1255 Electronically Signed [facility] PT NAME: SWAPNA GUIDO MR#: [id number] [address] [place], [place] [id number] ACCT: [id number] : 69 OPERATIVE REPORT Normal [facility] OPERATIVE REPORTon 02-01-201 8 OPERATIVE REPORT NAME: SWAPNA GUIDO MR#: [id number] SURGEON: Matthew Holland MD DATE OF SURGERY: [...] up in 2 weeks. MATTHEW HOLLAND MD /MODL/[id number] E/S: Matthew Holland DO 02/23/18 1440 Electronically Signed [facility] PT NAME: SWAPNA GUIDO MR#: [id number] [address] [place] [address] ACCT: [id number] : 69 OPERATIVE REPORT Normal [facility] Vital Signs Date Time Vital Sign Value Performing Clinician Facility 07-01-2023 12:42-0400 Body height 167.6 cm Hal Case DO Work Phone: [facility] 07-01-2023 12:42-0400 Body mass index (BMI) [Ratio] 33.33 kg/m2 Hal Case DO Work Phone: [facility] 07-01-2023 12:42-0400 Body weight 93.67 kg Hal Horbal DO Work Phone: [facility] 07-01-2023 12:42-0400 Diastolic blood pressure 72 mm[Hg] Hal Horbal DO Work Phone: [facility] 07-01-2023 12:42-0400 Heart rate 75 /min Hal Horbal DO Work Phone: [facility] 07-01-2023 12:42-0400 SaO2% (BldA) [Mass fraction] 98 % Hal Horbal DO Work Phone: [facility] 07-01-2023 12:42-0400 Systolic blood pressure 114 mm[Hg] Hal Horbal DO Work Phone: [facility] 12-31-2022 15:03-0400 Body height 167.6 cm Elvi Ward DO Work Phone: [facility] 12-31-2022 15:03-0400 Body mass index (BMI) [Ratio] 32.93 kg/m2 Elvi Ward DO Work Phone: [facility] 12-31-2022 15:03-0400 Body weight 92.53 kg Elvi Ward DO Work Phone: [facility] 12-31-2022 15:03-0400 Diastolic blood pressure 76 mm[Hg] Elvi Ward DO Work Phone: [facility] 12-31-2022 15:03-0400 Systolic blood pressure 132 mm[Hg] Elvi Ward DO Work Phone: [facility] 12-31-2022 13:45-0400 Body height 167.6 cm Hal Horbal DO Work Phone: [facility] 12-31-2022 13:45-0400 Body mass index (BMI) [Ratio] 32.93 kg/m2 Hal Horbal DO Work Phone: [facility] 12-31-2022 13:45-0400 Body weight 92.53 kg Hal Horbal DO Work Phone: [facility] 12-31-2022 13:45-0400 Diastolic blood pressure 76 mm[Hg] Hal Horbal DO Work Phone: [facility] 12-31-2022 13:45-0400 Heart rate 66 /min Hal Horbal DO Work Phone: [facility] 12-31-2022 13:45-0400 Systolic blood pressure 132 mm[Hg] Hal Horbal DO Work Phone: [facility] 11-06-2022 14:00-0400 Diastolic blood pressure 68 mm[Hg] Adelfo Weaver MD, PhD Work Phone: [facility] 11-06-2022 14:00-0400 Heart rate 58 /min Adelfo Weaver MD, PhD Work Phone: [facility] 11-06-2022 14:00-0400 Respiratory rate 12 /min Adelfo Weaver MD, PhD Work Phone: [facility] 11-06-2022 14:00-0400 SaO2% (BldA) [Mass fraction] 99 % Adelfo Weaver MD, PhD Work Phone: [facility] 11-06-2022 14:00-0400 Systolic blood pressure 121 mm[Hg] Adelfo Weaver MD, PhD Work Phone: [facility] 11-06-2022 10:16-0400 Body height 167.6 cm Adelfo Weaver MD, PhD Work Phone: [facility] 11-06-2022 10:16-0400 Body mass index (BMI) [Ratio] 32.85 kg/m2 Adelfo Weaver MD, PhD Work Phone: [facility] 11-06-2022 10:16-0400 Body temperature 97.5 [degF] Adelfo Weaver MD, PhD Work Phone: [facility] 11-06-2022 10:16-0400 Body weight 92.31 kg Adelfo Weaver MD, PhD Work Phone: [facility] 10-15-2022 14:04-0400 Body height 167.6 cm Hal Horbal DO Work Phone: [facility] 10-15-2022 14:04-0400 Body mass index (BMI) [Ratio] 33.62 kg/m2 Hal Horbal DO Work Phone: [facility] 10-15-2022 14:04-0400 Body weight 94.48 kg Hal Horbal DO Work Phone: [facility] 10-15-2022 14:04-0400 Diastolic blood pressure 68 mm[Hg] Hal Horbal DO Work Phone: [facility] 10-15-2022 14:04-0400 Heart rate 92 /min Hal Horbal DO Work Phone: [facility] 10-15-2022 14:04-0400 Systolic blood pressure 114 mm[Hg] Hal Horbal DO Work Phone: [facility] 09-16-2022 15:14-0400 Body height 167.64 cm Rugen [employer] [place] Work Phone: [facility] DO Work Phone: 09-16-2022 15:14-0400 Body mass index (BMI) [Ratio] 33.9 kg/m2 [employer] Makayla Work Phone: [facility] DO Work Phone: 09-16-2022 15:14-0400 Body surface area Derived from formula 2.04 m2 Lamin Burrell Makayla Work Phone: [facility] DO Work Phone: 09-16-2022 15:14-0400 Body weight 95.26 kg Lamin Burrell [place] Work Phone: [facility] DO Work Phone: 09-16-2022 15:14-0400 Diastolic blood pressure 78 mm[Hg] Lamin Burrell Makayla Work Phone: [facility] DO Work Phone: 09-16-2022 15:14-0400 Heart rate 70 /min Lamin Burrell [place] Work Phone: [facility] DO Work Phone: 09-16-2022 15:14-0400 Systolic blood pressure 128 mm[Hg] Lamin Burrell [place] Work Phone: [facility] DO Work Phone: 09-08-2022 10:21-0400 Body height 167.6 cm Gladys Youngblood MD Work Phone: [facility] 09-08-2022 10:21-0400 Body mass index (BMI) [Ratio] 33.62 kg/m2 Gladys Youngblood MD Work Phone: [facility] 09-08-2022 10:21-0400 Body temperature 97.5 [degF] Gladys Youngblood MD Work Phone: [facility] 09-08-2022 10:21-0400 Body weight 94.44 kg Gladys Youngblood MD Work Phone: [facility] 09-08-2022 10:21-0400 Diastolic blood pressure 74 mm[Hg] Gladys Youngblood MD Work Phone: [facility] 09-08-2022 10:21-0400 Heart rate 65 /min Gladys Youngblood MD Work Phone: [facility] 09-08-2022 10:21-0400 Respiratory rate 18 /min Gladys Youngblood MD Work Phone: [facility] 09-08-2022 10:21-0400 SaO2% (BldA) [Mass fraction] 98 % Gladys Youngblood MD Work Phone: [facility] 09-08-2022 10:21-0400 Systolic blood pressure 127 mm[Hg] Gladys Youngblood MD Work Phone: [facility] 09-03-2022 16:10-0400 62 1 Lamin Benavides Work Phone: [facility] DO Work Phone: Comment on above: [facility] 08-13-2022 08:00-0400 Body temperature 98.1 [degF] MD Lamin Benavides Work Phone: [facility] 08-13-2022 08:00-0400 Diastolic blood pressure 80 mm[Hg] MD Lamin Benavides Work Phone: [facility] 08-13-2022 08:00-0400 Heart rate 70 /min MD Lamin Benavides Work Phone: [facility] 08-13-2022 08:00-0400 Respiratory rate 16 /min MD Lamin Benavides Work Phone: [facility] 08-13-2022 08:00-0400 SaO2% (BldA) [Mass fraction] 98 % MD Lamin Benavides Work Phone: [facility] 08-13-2022 08:00-0400 Systolic blood pressure 120 mm[Hg] MD Lamin Benavides Work Phone: [facility] 08-13-2022 06:00-0400 Body weight 96.3 kg Rugsarah Makayla Work Phone: [facility] 08-12-2022 20:09-0400 Body height 167.64 cm Rugsarah Makayla Work Phone: [facility] 07-28-2022 15:28-0400 Body height 167.64 cm Rugen M [place] Work Phone: [facility] DO Work Phone: 07-28-2022 15:28-0400 Body mass index (BMI) [Ratio] 34.22 kg/m2 Rugen M [place] Work Phone: [facility] DO Work Phone: 07-28-2022 15:28-0400 Body surface area Derived from formula 2.05 m2 Rugen Indra Makayla Work Phone: [facility] DO Work Phone: 07-28-2022 15:28-0400 Body weight 96.16 kg Rugen Indra Makayla Work Phone: [facility] DO Work Phone: 07-28-2022 15:28-0400 Diastolic blood pressure 82 mm[Hg] Rugen M [place] Work Phone: [facility] DO Work Phone: 07-28-2022 15:28-0400 Heart rate 74 /min Rugen M Makayla Work Phone: [facility] DO Work Phone: 07-28-2022 15:28-0400 Systolic blood pressure 124 mm[Hg] Rugen M Makayla Work Phone: [facility] DO Work Phone: 06-02-2022 09:56-0500 Body height 167.64 cm MD Lamin Benavides Work Phone: [facility] 06-02-2022 09:56-0500 Body weight 90.71 kg MD Lamin Benavides Work Phone: [facility] 05-20-2022 22:54-0500 Diastolic blood pressure 74 mm[Hg] MD Lamin Benavides Work Phone: [facility] 05-20-2022 22:54-0500 Heart rate 74 /min MD Lamin Benavides Work Phone: [facility] 05-20-2022 22:54-0500 Respiratory rate 18 /min MD Lamin Benavides Work Phone: [facility] 05-20-2022 22:54-0500 SaO2% (BldA) [Mass fraction] 98 % MD Lamin Benavides Work Phone: [facility] 05-20-2022 22:54-0500 Systolic blood pressure 152 mm[Hg] MD Lamin Benavides Work Phone: [facility] 05-20-2022 20:18-0500 Body height 175.26 cm MD Lamin Benavides Work Phone: [facility] 05-20-2022 20:18-0500 Body weight 95 kg MD Lamin Benavides Work Phone: [facility] 05-20-2022 18:24-0500 Body temperature 98.1 [degF] MD Lamin Benavides Work Phone: [facility] 09-02-2021 14:08-0400 Body height 167.6 cm Gladys Youngblood MD Work Phone: [facility] 09-02-2021 14:08-0400 Body mass index (BMI) [Ratio] 31.97 kg/m2 Gladys Youngblood MD Work Phone: [facility] 09-02-2021 14:08-0400 Body temperature 98.01 [degF] Gladys Youngblood MD Work Phone: [facility] 09-02-2021 14:08-0400 Body weight 89.86 kg Gladys Youngblood MD Work Phone: [facility] 09-02-2021 14:08-0400 Diastolic blood pressure 79 mm[Hg] Gladys Youngblood MD Work Phone: [facility] 09-02-2021 14:08-0400 Heart rate 82 /min Gladys Youngblood MD Work Phone: [facility] 09-02-2021 14:08-0400 Respiratory rate 16 /min Gladys Youngblood MD Work Phone: [facility] 09-02-2021 14:08-0400 SaO2% (BldA) [Mass fraction] 97 % Gladys Youngblood MD Work Phone: [facility] 09-02-2021 14:08-0400 Systolic blood pressure 154 mm[Hg] Gladys Youngblood MD Work Phone: [facility] Encounters Encounter Date Encounter Type Care Provider Facility Start: 07-01-2023 ambulatory LAMIN CORRALESA Facility:[facility] Start: 07-01-2023 ambulatory RUGEN MAKAYLA Facility:[facility] Start: 07-01-2023 End: 07-01-2023 Office outpatient visit 25 minutes Hal Case DO Work Phone: [facility] Comment on above: Chronic heart failur e with preserved ejection fraction (Primary Dx); Asthma, unspecified asthma severity, unspecified whether complicated, unspecified whether persistent; 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 Start: 04-26-2023 End: 04-26-2023 ambulatory PJ VELAZQUEZ Not Available Start: 12-31-2022 ambulatory ELVI WARD Facility :[facility] Start: 12-31-2022 ambulatory HAL CASE Facility:[facility] Start: 12-31-2022 End: 12-31-2022 Subsequent hospital visit by physician Elvi Ward DO Work Phone: [facility] Start: 12-31-2022 End: 12-31-2022 Office outpatient visit 25 minutes Hal Horbal DO Work Phone: [facility] Comment on above: 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 (Primary Dx); Essential hypertension; Mixed hyperlipidemia Start: 11-06-2022 End: 11-06-2022 ambulatory RUGEN MAKAYLA Facility:[facility] Start: 11-06-2022 End: 11-06-2022 Subsequent hospital visit by physician Adelfo Weaver MD, PhD Work Phone: [facility] Comment on above: 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 Start: 10-16-2022 ambulatory RUGEN MAKAYLA Facility:[facility] Start: 10-15-2022 ambulatory HAL HORBAL Facility:[facility] Start: 10-15-2022 End: 10-15-2022 Office outpatient new 45 minutes Hal Horbal DO Work Phone: [facility] Comment on above: 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 (Primary Dx); Syncope and collapse Start: 10-03-2022 ambulatory RUGEN MAKAYLA Facility:[facility] Start: 09-16-2022 Office outpatient vi sit 25 minutes Rugen M [place] Work Phone: [facility] DO Work Phone: Start: 09-08-2022 ambulatory SELF SELF Facility:[facility] Start: 09-08-2022 End: 09-08-2022 Office outpatient visit 25 minutes Gladys Youngblood MD Work Phone: Division of Endocrinology Comment on above: Thyroid cancer (Prim nico Dx) Start: 08-13-2022 Chart Update Rugen M Makayla Work Phone: [facility] 250 DO Work Phone: Start: 08-13-[address] Lamin Benavides Facility:[id number] Start: 08-12-2022 ambulatory Maria Luisa Sarkar Faci lity:[id number] Start: 08-12-2022 End: 08-13-2022 ambulatory Maria Luisa Sarkar Facility:[facility] Start: 08-12-2022 End: 08-13-2022 Admission to same day surgery center MD Lamin Benavides Work Phone: [facility] Work Phone: Start: 08-12-2022 End: 08-13-2022 ambulatory MD Lamin Benavides Work Phone: [facility] Work Phone: Start: 08-10-2022 End: 08-10-2022 ambulatory Alizalary Sarkar Facility:[facility] Start: 08-10-2022 End: 08-10-2022 ambulatory MD Lamin Benavides Work Phone: [facility] Work Phone: Start: 08-10-2022 End: 08-10-2022 Patient encounter procedure MD Lamin Benavides Work Phone: [facility] Work Phone: Start: 07-28-2022 Office outpatient vi sit 25 minutes Lamin Benavides Work Phone: [facility] 250 DO Work Phone: Start: 07-28-[address] Lamin Benavides Facility: Start: 06-18-2022 End: 06-19-[address] MARIA LUISA SARKAR Facility:H1 Start: 06-03-[address] Lamin Benavides Facility: Start: 06-02-[address] Bernard Cavanaugh II Facility:[id number] Start: 06-02-2022 End: 06-02-2022 ambulatory Lamin Benavides Facility:[facility] Start: 06-02-2022 End: 06-02-2022 Patient encounter procedure MD Lamin Benavides Work Phone: [facility]Electrodiagnostics Work Phone: Start: 05-29-2022 End: 05-29-2022 ambulatory MD Lamin Benavides Work Phone: [facility] Work Phone: Start: 05-29-2022 End: 05-29-2022 Patient encounter procedure MD Lamin Benavides Work Phone: [facility] Work Phone: Start: 05-20-2022 End: 05-21-2022 Emergency department patient visit Brianna Burrell Ching Facility:[facility] Start: 05-20-2022 End: 05-20-2022 Emergency department patient visit MD Lamin Benavides Work Phone: [facility]Emergency Room Work Phone: Start: 04-23-2022 End: [...] for preprocedural cardiovascular examination DR MARY ANGULO [facility] Start: 11-17-2021 Encounter for preprocedural laboratory examination DR MARY ANGULO [facility] Start: 11-14-2021 End: 11-15-2021 ambulatory [...] catheterization Matt Benavides Work Phone: Hysterectomy Lamin Burrell Makayla Work Phone: Nasal septoplasty Lamin Burrell Al da Work Phone: Operative procedure on wrist Lamin Burrell Makayla Work Phone: Thyroidectomy Lamin Benavides Work Phone: Plan of Treatment Date Care Activity Detail Author Start: 12-09-2023 End: 12-09-2023 Patient encounter procedure 12/09/2023 12:50 PM EDT Office Visit [facility] [place] [address] [place] [address] aHl Case, DO [address] [place] [address] [facility] [place] Start: 12-05-2023 Influenza vaccination INFLUENZA VACCINE (Season Ended) [facility] Start: 09-09-2023 End: 09-09-2023 OUTSIDE LAB ORDERS OUTSIDE LAB ORDERS Outside Labs Routine Thyroid cancer Expected: 09/09/2023 (Approximate), Expires: 09/09/2023 [facility] Comment on above: Expected: 09/09/2023 (Approximate), Expi res: 09/09/2023 Start: 09-07-2023 End: 09-07-2023 Patient encounter procedure Division of Endocrinology Start: 08-05-2023 End: 08-05-2023 Patient encounter procedure [facility] Start: 07-08-2023 End: 06-30-2024 CHEM 6 (LYTES, BUN CREA) CHEM 6 (LYTES, BUN CREA) Lab Routine Chronic heart failure with preserved ejection fraction Expected: 07/08/2023, Expires: 06/30/2024 [facility] Work Phone: Comment on above: Expected: 07/08/2023, Expires: Start: 07-01-2023 End: 07-01-2023 Patient encounter procedure 07/01/2023 12:50 PM EDT Office Visit [facility] [place] [address] [address] Horjodi Hal, DO [address] [place] [address] [place] [address] [facility] [place] Start: 05-07-2023 FUV, Provider: Maria Luisa Sarkar, Status: Pen, Time: 8:50 AM FUV, Provider: Maria Luisa Sarkar, Status: Pen, Time: 8:50 AM [facility] [place] 250 DO Work Phone: Start: 12-31-2022 End: 01-01-2024 Cardiac telemetry MOBILE CARDIAC TELEMETRY ECG Routine Atherosclerosis of lummi coronary artery of lummi heart with angina pectoris Expected: 12/31/2022, Expires: 01/01/2024 [facility] Comment on above: Expected: 12/31/2022, Expires: Start: 12-31-2022 End: 12-31-2022 Patient encounter procedure 12/31/2022 1:50 PM EDT Office Visit [facility] [place] [address] [address] Horjodi Hal, DO [address] [place] [address] [facility] [place] Start: 12-24-2022 End: 12-24-2022 Patient encounter procedure 12/24/2022 1:50 PM EDT Office Visit [facility] [place] [address] [phone] Horjodi Hal, DO [address] [place] [address] [facility] [place] Start: 12-04-2022 COVID-19 VACCINE () COVID-19 VACCINE ( season) [facility] Start: 12-04-2022 Influenza vaccination [facility] Start: 10-08-2022 End: 09-09-2023 OUTSIDE LAB ORDERS OUTSIDE LAB ORDERS Outside Labs Routine Thyroid cancer Expected: 10/08/2022 (Approximate), Expires: 09/09/2023 [facility] Comment on above: Expected: 10/08/2022 (Approximate), Expi res: 09/09/2023 Start: 09-16-2022 FUV, Provider: Maria Luisa Sarkar, Status: Pen, Time: 3:00 PM FUV, Provider: Maria Luisa Sarkar, Status: Pen, Time: 3:00 PM [place] [address] DO Work Phone: Start: 09-08-2022 End: 09-08-2022 Patient encounter procedure 09/08/2022 Office Visit Endocrinology, Diabetes & Metabolism Gladys Youngblood MD [address] [address] Division of Endocrinology Start: 09-02-2022 End: 09-02-2022 OUTSIDE LAB ORDERS OUTSIDE LAB ORDERS Outside Labs Routine Thyroid cancer Expected: 09/02/2022 (Approximate), Expires: 09/02/2022 [facility] Comment on above: Expected: 09/02/2022 (Approximate), Expi res: 09/02/2022 Start: 09-02-2022 Thyroid stimulating hormone measurement TSH [facility] Start: 08-13-2022 [facility] Start: 08-12-2022 [facility] Start: 06-02-2022 Radionuclide myocardial perfusion stress study NM harriet perf SPECT rest & str [facility] Start: 03-05-2022 End: 03-05-2022 Telemedicine consultation with patient 03/05/2022 Telemedicine Endocrinology, Diabetes & Metabolism Gladys Youngblood MD [address] [address] Division of Endocrinology Start: 03-04-2022 End: 04-03-2022 OUTSIDE LAB ORDERS OUTSIDE LAB ORDERS Outside Labs Routine Thyroid cancer Expected: 03/04/2022 (Approximate), Expires: 04/03/2022 [facility] Comment on above: Expected: 03/04/2022 (Approximate), Expi res: 04/03/2022 Start: 12-04-2021 Influenza vaccination INFLUENZA VACCINE (Season Ended) [facility] Start: 09-02-2021 End: 09-02-2022 THYROGLOBULIN&THYROGLOBUL IN AB [facility] Comment on above: Expected: 09/02/2021, Expires: Start: 09-02-2021 End: 09-02-2022 VITAMIN D (25-HYDROXY,TOTAL) [facility] Comment on above: Expected: 09/02/2021, Expires: Start: 02-11-2020 Screening for malignant neoplasm of colon COLORECTAL CANCER SCREENING DISCUSSION [facility] Start: 2017 Zoster vaccine hzv live for subcutaneous use ZOSTER (SHINGLES) VACCINE (1 of 2) [facility] Start: 2012 Colonoscopy COLORECTAL CANCER SCREENING DISCUSSION [facility] Start: 2012 Screening for malignant neoplasm of colon COLORECTAL CANCER SCREENING DISCUSSION [facility] Start: 2007 Fasting lipid profile LIPID SCREENING [facility] Start: 2007 Lipid panel LIPID SCREENING [facility] Start: 2007 Screening for malignant neoplasm of breast MAMMOGRAM SCREENING DISCUSSION [facility] Start: 2007 Screening mammography MAMMOGRAM SCREENING DISCUSSION [facility] Start: 1988 Screening for malignant neoplasm of cervix CERVICAL CANCER SCREENING DISCUSSION [facility] Start: 1986 Hepatitis B vaccination HEP B VACCINE (1 of 3 - 19+ 3-dose series) [facility] Start: 1986 Third diphtheria, tetanus and acellular pertussis (DTaP) vaccination TDAP (ADULT) [facility] Start: 1985 Tetanus vaccination TETANUS [facility] Start: 1982 HIV screening HIV SCREENING DISCUSSION [facility] Start: 1973 PNEUMOCOCCAL VACCINE SERIES (1 of 2 - PCV) PNEUMOCOCCAL VACCINE SERIES (1 of 2 - PCV) [facility] Start: 1972 COVID-19 VACCINE (#1) COVID-19 VACCINE (#1) [facility] Start: 1967 COVID-19 VACCINE (#1) COVID-19 VACCINE (#1) [facility] Start: 1967 Hepatitis C antibody, confirmatory test HEPATITIS C VIRUS SCREENING [facility] Start: 1967 Hepatitis C screening HEPATITIS C VIRUS SCREENING [facility] Start: 1967 Tetanus vaccination TETANUS [facility] Cardiac catheterizat ion study INVASIVE CARDIOVASCULAR PROCEDURE Cardiac Cath Routine Atherosclerosis of lummi coronary artery of lummi heart with angina pectoris 11/06/2022 11:52 AM EDT [facility] Work Phone: Cath placement & njx coronary art angio img s&i CORONARY ANGIOGRAM Atherosclerosis of lummi coronary artery of lummi heart with angina pectoris [facility] End: 11-06-2022 EXTRA LIGHT BLUE TOP [facility] Comment on above: Once for 1 Occurrences starting 11/07/19 23 until 11/06/2022 End: 11-06-2022 EXTRA TUBES [facility] Work Phone: Comment on above: One Time for 1 Occurrences starting 07/2022 until 11/06/2022 L hrt cath w/njx l ventriculography img s&i LEFT HEART CATHETERIZATION Atherosclerosis of lummi coronary artery of lummi heart with angina pectoris [facility] Patient Education Chest Pain, Adult ED [facility] Work Phone: Patient referral [facility] Work Phone: End: 11-06-2022 Standard ECG ECG ECG STAT One Time for 1 Occurrences starting 11/06/2022 until 11/06/2022 [facility] Work Phone: Comment on above: One Time for 1 Occurrences starting 07/2022 until 11/06/2022 Us soft tissue head & neck real time imge docm ID US,HEAD/NECK TISSUES,REAL TIME ID - OFFICE PERFORMED IMAGING Routine Thyroid cancer Ordered: 09/02/2021 [facility] Comment on above: Ordered: 09/02/2021 Payers Date Payer Category Payer Self-pay [id number] 2016 Unknown [id number] 1967 Unknown [id number] 2.16.84 0.1.288884.3.579.2.593 1967 Unknown [id number] 2.16.84 0.1.722694.3.579.2.593 1967 Unknown [id number] 2.16.84 0.1.899087.3.579.2.593 1967 Unknown [id number] 2.16.84 0.1.597246.3.579.2.593 1967 Unknown [id number] 2.16.84 0.1.711504.3.579.2.593 1967 Unknown [id number] 2.16.84 0.1.992545.3.579.2.593 1967 Unknown [id number] 2.16.84 0.1.645286.3.579.2.593 1967 Unknown [id number] 2.16.84 0.1.012023.3.579.2.593 1967 Unknown [id number] 2.16.84 0.1.861718.3.579.2.593 1967 Unknown [id number] 2.16. 840.1.417765.3.579.2.356 1967 Unknown [id number] 2.16. 840.1.061590.3.579.2.356 1967 Unknown [id number] 2.16. 840.1.506637.3.579.2.356 1967 Unknown [id number] 2.16. 840.1.244710.3.579.2.356 1967 Unknown [id number] 2.16. 840.1.140137.3.579.2.356 1967 Unknown [id number] 2.16.84 0.1.651517.3.579.2.1259 1967 Unknown [id number] 2.16. 840.1.902223.3.579.2.594 1967 Unknown [id number] 2.16. 840.1.395114.3.579.2.594 1967 Unknown [id number] 2.16. 840.1.608373.3.579.2.594 1967 Unknown [id number] 2.16. 840.1.799740.3.579.2.594 1967 Unknown [id number] 2.16. 840.1.983360.3.579.2.594 1967 Unknown [id number] 2.16. 840.1.506048.3.579.2.594 1967 Unknown [id number] 2.16. 840.1.302200.3.579.2.594 1967 Unknown [id number] 2.16. 840.1.854180.3.579.2.594 1967 Unknown [id number] 2.16. 840.1.788000.3.579.2.594 1967 Unknown [id number] 2.16. 840.1.325198.3.579.2.594 1959 Unknown [id number] 1959 Unknown [id number] [place] BC/BS [id number] Unknown [id number] 2.16.84 0.1.339922.3.579.2.593 Unknown [id number] 2.16.8 40.1.834254.3.579.2.531 Unknown [id number] 2.16.8 40.1.669302.3.579.2.531 Unknown [id number] 2.16.8 40.1.949964.3.579.2.531 Unknown [id number] 2.16.8 40.1.167105.3.579.2.531 Social History Date Type Detail Facility Start: 09-02-2021 End: 08-12-2022 Tobacco smoking status NHIS Never smoked tobacco [facility] Start: 09-02-2021 Tobacco use and exposure Smokeless tobacco non-user [facility] Start: 09-02-2021 End: 07-01-2023 Alcohol intake Lifetime non-drinker (finding) [facility] Start: 1965 Sex Assigned At Not on file [facility] Start: 1965 Sex Assigned At Female F [facility] Start: 09-08-2022 End: 10-15-2022 Caffeine use Caffeine use [facility] Start: 09-08-2022 End: 10-15-2022 Tobacco use panel [facility] Adolescent depressio n screening assessment 0 [facility] Start: 10-27-2022 End: 11-06-2022 Exposure to SARS-CoV-2 (event) Not sure [facility] Goals Date Patient Goal Desired Activity /State Functional Status Date Assessment Result Facility 08-13-2022 Functional status Patient is Pro gressing Toward Baseline [facility] Work Phone: Mental Status Date Assessment Result Facility 08-13-2022 Cognitive function Cognitive Sta tus Patient at Baseline [facility] Work Phone: Clinical Notes 09-02-2021 to 07-01-2023 Hal Case, - 07/01/2023 12:50 PM EDTPatient InstructionsHal Case, DO - 12/31/2022 1:50 PM EDTMattjaelyn Marcin Ward, DO - 12/31/2022 1:50 PM EDTPatient InstructionsPatient Instructions Note Date & Type Note Facility 07-01-2023 History of Presen t illness Narrative Images from the original note were not included. [facility] Visit IMPRESSION/PLAN: # [...] been discussed with cardiology attending, Dr. Eduardo Case DO Cardiovascular Medicine Fellow [facility] == HPI: Today: Doing well overall but still continues to experience dysp[place]. Randomly will experience non-exertional sharp pain in the chest wall which often does improve with stretching. Is to follow up with Endocrine to discuss her thyroid levels for which the management was recently changed from Synthroid to Success Thyroid which has significantly improved her symptoms [...] a recent left heart catheterization done at [facility] (08/2022) which revealed a 50-60% LAD stenosis [...] Essential hypertension, benign Malignant melanoma of nose AR (myocardial infarction) May Thyroid cancer Past Surgical [...] by mouth daily. 60 tablet 3 thyroid (Success Thyroid) 120 MG tablet Take 1 tablet [...] monitoring period with no significant arrhythmias recorded [facility] (11/2022) Conclusions Mild coronary artery disease without obstructive stenosis of the LAD. LVEDP 20 mmHg Recommendations Continue anti-anginal therapy for possible microvascular dysfunction in the setting of mild non-obstructive CAD. Aggressive risk factor modification NM STRESS: (06/02/2022) Labs: No results found for: SODIUM , POTASSIUM , CHLORIDE , CO2 , [id number] , BUN , CREATSERUM No results found [...] yo F with CAD (non-obstructive on 11/2022 [facility]), HFpEF, HTN, and SOB. Will plan to start SGLT2i for worsening dyspnea. She appears euvolemic on examination. Will also refer to pulmonology given reported history of exercise-induced asthma. Patient also requests allergy clinic referral given worsening allergy symptoms. Franklin Clark MD Wrist Closer of Clinical Medicine [facility] Heart Failure & Transplantation documented in this encounter [facility] 07-01-2023 Instructions Hal Case DO - 07/01/2023 12:50 PM EDT - Obtain labs. Once labs come back we will attempt to start new medication Farxiga to help with the symptoms. - Schedule to see Pulmonology (lung doctors) - Continue current medications documented in this encounter [facility] 12-31-2022 History of Presen t illness Narrative Images from the original note were not included. The [facility] Visit IMPRESSION/PLAN: # [...] Dr. Jae Case DO Cardiovascular Medicine Fellow [facility] == HPI: Today: States she is doing [...] a recent left heart catheterization done at [facility] (08/2022) which revealed a 50-60% LAD stenosis [...] Essential hypertension, benign Malignant melanoma of nose AR (myocardial infarction) May Thyroid cancer Past Surgical [...] Take 1 tablet by mouth daily. thyroid (Success Thyroid) 120 MG tablet Take 1 tablet [...] (Patient not taking: Reported on 09/08/2022) Thyroid (Success Thyroid) 30 MG tablet Take 1 tablet along with the 90 mg tablet to equal 120 mg a day 30 tablet 11 thyroid (Success Thyroid) 90 MG tablet Take 1 a [...] Affect and mood appear normal. DIAGNOSTIC DATA [facility] (11/2022) Conclusions Mild coronary artery disease without obstructive stenosis of the LAD. LVEDP 20 mmHg Recommendations Continue anti-anginal therapy for possible microvascular dysfunction in the setting of mild non-obstructive CAD. Aggressive risk factor modification NM STRESS: (06/02/2022) Labs: No results found for: SODIUM , POTASSIUM , CHLORIDE , CO2 , [id number] , BUN , CREATSERUM No results found [...] below. F/U 6 months. Elvi Ward DO, [facility] Customer Solutions Representative, Internal Medicine [facility] Cardiovascular Medicine *[id number] documented in this encounter [facility] 12-31-2022 Instructions Hal Case DO - 12/31/2022 1:50 PM EDT - Schedule echocardiogram (ultrasound of the heart) - Event monitor - Increase Benicar and Rosuvastatin documented in this encounter [facility] 11-06-2022 Miscellaneous Notes Formattin g of this [...] Brief Cardiac Catheterization Procedure Note Swapna Guido ([id number]) Pre Procedural Diagnosis Atherosclerosis of lummi coronary artery of lummi heart with angina pectoris [I25.119] Post Procedural [...] Michael Meehan DO - Fellow Procedural Staff Central Sterile Tech: Kenny Leo RN Sedation Nurse: Michael Suero [...] 1: Location: forearm, anterior, left Device/Lot Number: [id number] catheter system Gauge/Length: 20 gauge;1 1/4 in length Unsuccessful Insertion Attempts: Unsuccessful Attempt Location/Site: Pain Prevention/Patient Tolerance: Removal: Additional Comments: Lumen 2: Lumen 3: Peripheral IV Present on Admission: (Retired/Read Only) Location: (Retired/Read Only) Device: (Retired/Read Only) Gauge/Length: Quilting Machine Operator/Lot Number: Unsuccessful Insertion Attempts: (Retired/Read Only) Unsuccessful Attempt Locations: Pain Prevention: Patient Tolerance: Insertion: Removal Indication: Peripheral IV Location - Orientation: Peripheral IV Location: Insertion Site WDL WDL 11/06/22 1043 Site Preparation/Maintenance site cleansed: chlorhexidine solution 11/06/22 104 Lumen 1 Patency/Maintenance flushed without difficulty;blood return, [...] or leakage post insertion. PREPARING FOR YOUR TRENCH PIPE LAYER PROCEDURE Your catheterization is schedule on 11/06 at: The [facility] at the [facility] located at [address] [place] [id number]. You are to arrive at [place] registration on the 1st floor at 10A. You may use corporate account executive parking ($10) or park in the [employer] [facility] [facility] just past the [place] ($3). There is a walkway from the 2nd floor of the garage into the [facility]. You are to have nothing to [...] please call NOW to notify the lab ([phone]). Continue asprin, Plavix (clopidogrel), Effient (prasugrel), and [...] procedure. Your labs HAVE BEEN ORDERED AT [facility], FASTING IS NOT REQUIRED. Click the link below to be directed to a video which will explain the catheterization and outpatient process: [email or web address] Please be aware, other departments sometimes advise our patients they will receive a reminder call from the laboratory clerk prior to their procedure. We do not provide reminder calls. Please omar your calendar with your procedure date, and call with any questions [phone]. Thank you, MAZIN Guerrero Shactor Via PHONE, LEISAHART documented in this encounter [facility] 11-06-2022 Nurse Note Discharge instructions and printed [...] without bleeding or hematoma, palpable radial pulses. [facility] 11-06-2022 Surgery Postoperative evaluation and management note Preliminary Report - Brief Cardiac Catheterization Procedure Note Swapna Guido ([id number]) Pre Procedural Diagnosis Atherosclerosis of lummi coronary artery of lummi heart with angina pectoris [I25.119] Post Procedural [...] Michael Meehan DO - Fellow Procedural Staff Central Sterile Tech: Kenny Leo RN Sedation Nurse: Michael Suero RN Documenter: Jameson Monroy RN Full report to follow Michael Meehan DO November 06, 2022 11:54 AM [facility] 11-06-2022 Nurse Note 10:44 AM Report of [...] 1: Location: forearm, anterior, left Device/Lot Number: [id number] catheter system Gauge/Length: 20 gauge;1 1/4 in length Unsuccessful Insertion Attempts: Unsuccessful Attempt Location/Site: Pain Prevention/Patient Tolerance: Removal: Additional Comments: Lumen 2: Lumen 3: Peripheral IV Present on Admission: (Retired/Read Only) Location: (Retired/Read Only) Device: (Retired/Read Only) Gauge/Length: Quilting Machine Operator/Lot Number: Unsuccessful Insertion Attempts: (Retired/Read Only) Unsuccessful Attempt Locations: Pain Prevention: Patient Tolerance: Insertion: Removal Indication: Peripheral IV Location - Orientation: Peripheral IV Location: Insertion Site WDL WDL 11/06/221042 Site Preparation/Maintenance site cleansed: chlorhexidine solution 11/06/221042 Lumen 1 Patency/Maintenance flushed without difficulty;blood return, able to obtain 11/06/221042 Phlebitis 0-->no symptoms 11/06/221042 Infiltration 0-->no symptoms 11/06/221042 Patient tolerated procedure well without any complications [] Lidocaine 1% used prior insertion [] No Lidocaine used Extra insertion note if applicable: RN notified of procedure completion [x ] Obtained labs. [X] Call light in reach. [X] Bed low and locked. [X] Tray table within reach. Education: Patient/Family informed to notify nurse of any complications including pain, redness, swelling, or leakage post insertion. [facility] 11-06-2022 History and physical note PRE-CATH H&P [...] heart catheterization with coronary angiography. Michael Meehan, Fellow, Cardiovascular Medicine [facility] Work Phone: 11-06-2022 History and physical note [...] angiography. Michael Meehan DO Fellow, Cardiovascular Medicine documented in this encounter [facility] 10-19-2022 Nurse Note PREPARING FOR YOUR TRENCH PIPE LAYER PROCEDURE Your catheterization is schedule on 11/06 at: [facility] at the [facility] located at [address] [place] [address]. You are to arrive at [place] registration on the 1st floor at 10A. You may use corporate account executive parking ($10) or park in the [facility] [employer] [facility] [facility]age just past the [place] ($3). There is a walkway from the 2nd floor of the garage into the [place] Lobby. You are to have nothing to eat [...] please call NOW to notify the lab ([phone]). Continue asprin, Plavix (clopidogrel), Effient (prasugrel), and [...] procedure. Your labs HAVE BEEN ORDERED AT [facility], FASTING IS NOT REQUIRED. Click the link below to be directed to a video which will explain the catheterization and outpatient process: [email or web address]/[email or web address] Please be aware, other departments sometimes advise our patients they will receive a reminder call from the laboratory clerk prior to their procedure. We do not provide reminder calls. Please omar your calendar with your procedure date, and call with any questions [phone]. Thank you, MAZIN Guerrero Shactor Via PHONE, MYCHART [facility] 10-15-2022 History of Presen t illness Narrative Images from the original note were not included. ADDENDUM: 10/15/2022 Cardiovascular Attending Note I independently interviewed and examined the patient on 10/15/[address] Viramontes reviewed the history, physical examination, pertinent laboratory data / imaging data, and medical decision making with the Laborer [place]. Any changes to the history or physical [...] to contact our service. Marcello Galeana MD, [facility] Customer Solutions Representative - Clinical Division of Cardiovascular Medicine Department of Internal Medicine [facility] - Outpatient Cardiology Clinic Visit IMPRESSION/PLAN: # Progressive angina # Coronary artery disease (LAD 50-60% and proximal heavy calcification on [facility] 08/2022) # Hypertension - With ongoing symptoms and lower level of activity prompting symptoms, known LAD disease, risk factors and unexplained arrest vs vagal episode post [facility], will proceed with repeating catheterization - Cont ASA/statin and BP regimen - Resume Metoprolol XL 25 daily and Imdur 30 daily - Cardiac cath - Return to clinic following cath The above has been discussed with cardiology attending, Dr. Kervin Case DO Cardiovascular Medicine Fellow [facility] == HPI: Swapna Guido is a 57 y.o. female with a past medical history of HTN, DM, CAD, thyroid cancer s/p thyroidectomy presenting for abnormal stress. In May of this year she had a positive NM stress test with distal anteroseptal small area of ischemia. She had a recent left heart catheterization done at [facility] (08/2022) which revealed a 50-60% LAD stenosis [...] Essential hypertension, benign Malignant melanoma of nose AR (myocardial infarction) May Thyroid cancer Past Surgical [...] Take 1 tablet by mouth daily. thyroid (Success Thyroid) 90 MG tablet Take 1 tablet [...] , POTASSIUM , CHLORIDE , CO2 , [id number] , BUN , CREATSERUM No results found for: INR , PT No results found for: WBC , WBCCOUNT , WBCFETAL , HGB , HCT , PLATELET , MCV Patient has verified full name and . documented in this encounter [facility] 10-15-2022 Instructions Hal Case DO - 10/15/2022 1:50 PM EDT - Start Metoprolol and Imdur daily - Schedule heart catheterization - Follow up after the heart catheterization (2-3 months) - If any worsening chest pain or not improving with rest, call 911 documented in this encounter [facility] 09-08-2022 History of Presen t illness Narrative Swapna Guido is a 57 y.o. female with unknown type of thyroid cancer who presents to the Endocrine clinic for six month follow up. She is s/p total thyroidectomy at [place] in 2004. Pathology is not available at time of visit, but per referring doctor Dr Burger notes, she had lobular thyroid cancer with 1 positive lymph node. She is s/p ALVARADO with 78mCi of 131I in 2004 at [facility]. Post-treatment scan shows uptake in the thyroid bed only. DxWBS in 2006 was negative. She has had positive TgAb titers in the past. These have become undetectable. US of the neck was clean in 08/24. She is doing well today. She had an AR in 05/28. She had significant hypotension during [...] short of breath sometimes with exertion. 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 REVIEW OF SYSTEMS: Otherwise negative except as [...] TgAbs LT4 T3 12/08 8 1.3 + 10 48 2.1 Neg 4 0.01 <0.2 38 12/09 0.01 <0.2 122 04/11 <0.005 <0.2 286 07/10 0.009 <0.2 18 01/10 0.012 <0.2 96 5/ 0.006 <0.2 5.9 03/20 0.13 <0.2 05/24 0.27 0.1 <1.0 02/23 0.38 <0.1 <1.0 175->200 ->25 daily 08/24 <0.008 <0.1 <1.8 02/24 <0.007 150 2.5/2.5 05/28 0.7 Success 90 09/25 10 <0.1 Success 90 Impression/Plan: This is a 57 y.o. [...] Gladys Youngblood MD documented in this encounter [facility] 09-08-2022 Instructions Jessica Luna RN - 09/08/2022 10:40 AM EDT You may receive a survey regarding your care today at [facility]. We would appreciate if you could complete [...] office when you receive a notification from [facility] that your labs are processed. Some labs having longer processing times and we will call you once all of the results are back. We appreciate your patience. Thank you. documented in this encounter [facility] 08-13-2022 Progress note Note Date/Time August 13, 2022 10:15am [facility] [address] [place] [address] Cardiology Progress Note Signed Patient: Swapna Guido MR#: [id number] : 1965 Acct:[id number] Age/Sex: 57 / F Adm Date: 3 Loc: 4 Room: [address] [place] [address] Type: REG SDC Attending Dr: Maria Luisa [...] % (Auto) 51.9 Lymph % (Auto) 37.5 [place] % (Auto) 6.7 Eos % (Auto) 2.6 Baso % (Auto) 1.3 Nucleat RBC Rel Count 0.2 Neut # (Auto) 3.9 Lymph # (Auto) 2.8 [place] # (Auto) 0.5 Eos # (Auto) 0.2 [...] Color Urine Appearance Urine pH Ur Specific Harrison Urine Protein Urine Glucose (UA) Urine Ketones Urine Occult Blood Urine Nitrite Urine Bilirubin Urine Urobilinogen Ur Leukocyte Esterase 08/12/22 08/12/22 08/12/22 16:12 19:35 23:54 Corrected WBC Uncorrected WBC Count RBC Hgb Hct MCV MCH MCHC RDW Plt Count MPV Neut % (Auto) Lymph % (Auto) [place] % (Auto) Eos % (Auto) Baso % (Auto) Nucleat RBC Rel Count Neut # (Auto) Lymph # (Auto) [place] # (Auto) Eos # (Auto) Baso # (Auto) PHA Creatinine Clear Sodium Potassium Chloride Carbon Dioxide Anion Gap BUN Creatinine Est GFR (CKD-EPI) Glucose POC Glucose Lactic Acid 2.0 H* 3.0 H* Calcium Magnesium Total Bilirubin AST ALT Alkaline Phosphatase Total Protein Albumin Globulin Albumin/Globulin Ratio Total Cortisol Urine Color Yellow Urine Appearance Clear Urine pH 6.0 Ur Specific Harrison 1.016 Urine Protein Negative Urine Glucose (UA) [...] by MD Maria Luisa Sarkar> 08/13/22 1015 [facility] Work Phone: 1(639) 139-363305-11-2023 Progress note Author Maria Luisa Sarkar [facility] August 13, 2022 9:00am Note Date/Time August 12, 2022 6:30p m [facility] [address] [place] [address] Cardiology Progress Note Signed Patient: Swapna Guido MR#: [id number] : 1965 Acct:[id number] Age/Sex: 57 / F Adm Date: 3 Loc: 4 Room: [address] [place] [address] Type: REG SDC Attending Dr: Maria Luisa [...] % (Auto) 51.9 Lymph % (Auto) 37.5 [place] % (Auto) 6.7 Eos % (Auto) 2.6 Baso % (Auto) 1.3 Nucleat RBC Rel Count 0.2 Neut # (Auto) 3.9 Lymph # (Auto) 2.8 [place] # (Auto) 0.5 Eos # (Auto) 0.2 [...] MPV Neut % (Auto) Lymph % (Auto) [place] % (Auto) Eos % (Auto) Baso % (Auto) Nucleat RBC Rel Count Neut # (Auto) Lymph # (Auto) [place] # (Auto) Eos # (Auto) Baso # [...] by MD Maria Luisa Sarkar> 08/13/22 0900 [facility] Work Phone: 1(767) 928-910505-11-2023 Hospital Discharge instructions Additional Instructions Hold Olmesartan-hydrochlorothiazide for another 24 hours and then restart. DISCHARGE INSTRUCTIONS FOR CARDIAC TRENCH PIPE LAYER PHONE NUMBER OF YOUR PHYSICIAN: [phone] PROCEDURE: Heart Cath The following instructions have [...] cold, numb, blue or white, call the cash crop farmer immediately. 4. ACTIVITY: You are advised to [...] bottle, follow the instructions on the bottle. [facility] is not responsible for incorrect prescription information provided by the patient during their visit. Do not stop your medications without consulting your health care provider. Please take the list with you to your next doctor's appointment.[facility] Work Phone: 1(167) 578-626705-10-2023 Progress note Author Stephen Bae [facility] August 12, 2022 6:31pm Note Date/Time August 12, 2022 6:30p m [facility] [address] [place] [address] Event Note Signed with Addenda Patient: Swapna Guido MR#: [id number] : 1965 Acct:[id number] Age/Sex: 57 / F Adm Date: 3 Loc: 4 Room: [address] [place] [address] Type: [facility] Attending Dr: Maria Luisa Sarkar MD Copies [...] alert and oriented x2-3. Discussed with patient's cash crop farmer Dr. Sarkar, and patient was given 50 mg of hydrocortisone IV. Patient will be admitted to the cardiology service for further monitoring overnight. Urinalysis ordered forfurther evaluation. Documented By: Stephen Bae MD 3 1822 Signed By: <Electronically signed by Stephen Bae MD> 08/12/22 1830 [facility] Work Phone: 1(565) 728-694505-10-2023 [facility] NoteOPERATIVE NOTE OPERATION DATE: 11/18/2021 PRIMARY CARE [...] were then irrigated with normal saline. The Antlers incision was closed with a 5-0 chromic suture and bilateral ventilating Silastic splints were coated with antibiotics and sutured in place with a 2-0 nylon transseptal stitch. The patient was then awakened and taken to the recovery room in good condition.[id number] Instructions* Patient Instructions* Swapna Stewart PA-C - 09/02/2021 3:00 PM EDT You may receive a survey regarding your care today at [facility]. We would appreciate if you could complete [...] office when you receive a notification from [facility] that your labs are processed. Some labs having longer processing times and we will call you once all of the results are back. We appreciate your patience. Thank you. Labs today documented in this [facility]05-31-2022 History of Present illness Narrative* Swapna Stewart PA-C - 09/02/2021 2:00 PM EDT Swapna Guido is a 56 y.o. female with thyroid cancer who presents to the Endocrine clinic for secondopinion regarding management. She is s/p total thyroidectomy at [place] in 2004. Pathology is not available at time of visit, but per referring doctor Dr Burger notes, she had lobular thyroid cancer with 1 positive lymph node. She is s/p ALVARADO with 78mCi of 131I in 2004 at [facility]. 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 FHX- no thyroid disease ALL: PCN [...] and are mobile symmetrically. [facility] Diagnosis Thyroid cancer- Primary Malignant neoplasm of thyroid gland Postsurgical hypothyroidism Vitamin D deficiency Unspecified vitamin D deficiency [facility] information available [facility] Work Phone: Evaluation note* Diagnosis Onset Date Resolution Status Chest pain acute [facility] Work Phone: Evaluation note* Diagnosis Thyroid cancer- Primary Malignant neoplasm of thyroid gland [facility] Diagnosis Atherosclerosis of lummi coronary artery of lummi heart with angina pectoris- Primary Syncope and collapse [facility] Diagnosis Atherosclerosis of lummi coronary artery of lummi heart with angina pectoris Atherosclerosis of lummi coronary artery of lummi heart with angina pectoris [facility] Diagnosis Atherosclerosis of lummi coronary artery of lummi heart with angina pectoris- Primary Essential hypertension Unspecified essential hypertension Mixed hyperlipidemia Dyspnea, unspecified type- Primary Atherosclerosis of lummi coronary artery of lummi heart with angina pectoris [facility] Diagnosis Dyspnea, unspecified type- Primary Atherosclerosis of lummi coronary artery of lummi heart with angina pectoris [facility] Diagnosis Chronic heart failure with preserved ejection fraction- Primary Asthma, unspecified asthma severity, unspecified whether complicated, unspecified whether persistent 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 [facility] N[facility]* Patient is here for follow-up continue management for recent evaluation for possible angina and abnormal stress test, hypertension diabetes mellitus and hyperlipidemia. Last time I saw her we will place her on an medical therapy. Despite being on beta-antno the patient continues to complain of fatigue, [...] patient at length she understood and agreed [facility] 250 DO Work Phone: History of Present [...] see her in 6 to 7 months [facility] 250 DO Work Phone: Hospital Discharge instructions* Attachments The following attachments cannot be sent through Care Everywhere. * Cardiac Cath Care After - Wrist Site ([facility]) ([place]) [facility] (n[facility]ative)* Consultation (Routine) - New Request Specialty Diagnoses / Procedures Referred By Bib reece Referred To Contact Allergy & Immunology Diagnoses Asthma, unspecified asthma severity, unspecified whether complicated, unspecified whether persistent Franklin Clark MD [facility] [place] [address] Referral ID Status Reason Start Date Expiration Date V isits Requested Visits Authorized [id number] New Request 07/01/2023 07/25/2024 1 1 * Consultation (Routine) - New Request Specialty Diagnoses / Procedures Referred By Bib reece Referred To Contact Pulmonary Disease Diagnoses Asthma, unspecified asthma severity, unspecified whether complicated, unspecified whether persistent Franklin Clark MD [address] [place] [address] Referral ID Status Reason Start Date Expiration Date V isits Requested Visits Authorized [id number] New Request 07/01/2023 07/25/2024 1 1 [facility] Summary Purpose Family History No Family History Records Found Relationship Condition Age at Onset Recorded Date/T [...] malignant neoplasm: Father(V16.9, Z80.9) Status:Active Advance Directives No Advanced Directives Records Found Advance Directive Response Recorded Date/ Time Advance Directives No October 13 5:03pm Advance Directive Response Recorded Date/ Time Advance Directives No October 13 6:03pm Reason for Referral Specialty Diagnoses / Procedures Referred By Bib reece Referred To Contact Diagnoses Thyroid cancer Procedures US [facility] Gladys Youngblood MD [address] [facility] [address] [place] [address] Referral ID Status Reason Start Date Expiration Date V isits Requested Visits Authorized [id number] New Request 09/02/2021 09/27/2022 1 1 Specialty Diagnoses / Procedures Referred By Contac t Referred To Contact Diagnoses Atherosclerosis of lummi coronary artery of lummi heart with angina pectoris Procedures CASE REQUEST - CARDIAC CATH Marcello Galeana MD [address] [facility] [address] [place] [address] Referral ID Status Reason Start Date Expiration Date V isits Requested Visits Authorized [id number] New Request 10/15/2022 11/09/2023 1 1 Specialty Diagnoses / Procedures Referred By Contac t Referred To Contact Procedures ECG AttRozina ed[place] MD [address] [place], [place] [id number] Referral ID Status Reason Start Date Expiration Date V isits Requested Visits Authorized [id number] New Request 11/06/2022 12/01/2023 1 1 Specialty Diagnoses / Procedures Referred By Contac t Referred To Contact Diagnoses Atherosclerosis of lummi coronary artery of lummi heart with angina pectoris Procedures MOBILE CARDIAC TELEMETRY Elvi Ward DO [address] [address] Referral ID Status Reason Start Date Expiration Date V isits Requested Visits Authorized [id number] New Request 12/31/2022 01/25/2024 1 1 Specialty Diagnoses / Procedures Referred By Contac t Referred To Contact Echocardiography Diagnoses Atherosclerosis of lummi coronary artery of lummi heart with angina pectoris Procedures ECHOCARDIOGRAM ID ECHO HEART XTHORACIC,COMPLETE W DOPPLER Elvi Ward DO [address] [address] Echocardiography [place] [address] [address] Referral ID Status Reason Start Date Expiration Date Visits Re quested Visits Authorized [id number] Closed 12/31/2022 01/25/2024 1 1 Chief Complaint [...] section and content) DATE CREATED AUTHOR 01/19/2019 [facility] DATE CREATED AUTHOR AUTHOR'S ORGANIZ ATION 06/27/2022 [facility] DATE CREATED AUTHOR AUTHOR'S ORGANIZ ATION 07/30/2022 [facility] DATE CREATED AUTHOR AUTHOR'S ORGANIZ ATION 08/19/2022 [facility] DATE CREATED AUTHOR AUTHOR'S ORGANIZ ATION 09/13/2022 [facility] DATE CREATED AUTHOR AUTHOR'S ORGANIZ ATION 04/26/2023 [facility] EP[facility] DATE CREATED AUTHOR AUTHOR'S ORGANIZ ATION 07/15/2023 [facility] Reason for Visit (unrecogniz ed section and [...] Procedures NEW PATIENT Gladys Youngblood MD [address] [facility] [address] [place] [address] Referral ID Status Reason Start Date Expiration Date V isits Requested Visits Authorized [id number] New Request 09/02/2021 09/27/2022 1 1 Reason Comments Follow-up No concerns. Had AR in May Reason Comments New Patient Would like to discus s the reason for coding at hospital.Has blockage on Lt lower part of heart Specialty Diagnoses / Procedures Referred By Bib reece Referred To Contact Cardiovascular Medicine Diagnoses Abnormal cardiovascular stress test Lamin Benavides MD [address] [place] [address] [facility] [address] [place] [address] Referral ID Status Reason Start Date Expiration Date V isits Requested Visits Authorized [id number] New Request 10/03/2022 10/28/2023 1 1 Specialty Diagnoses / Procedures Referred By Bib reece Referred To Contact Diagnoses Atherosclerosis of lummi coronary artery of lummi heart with angina pectoris Atherosclerosis of lummi coronary artery of lummi heart with angina pectoris [I25.119] Procedures ID L HRT CATH W/NJX L VENTRICULOGRAPHY IMG S&I ID CATH PLACEMENT & NJX CORONARY ART ANGIO IMG S&I CORONARY ANGIOGRAM LEFT HEART CATHETERIZATION [facility] [address] [place] [address] [facility] [address] [place] [address] Referral ID Status Reason Start Date Expiration Date Visits Re quested Visits Authorized [id number] 1 1 Reason Comments Follow-up Patient here for a f ollow up. Patient c/o shortness of breath on exertion and occasional chest pain and episodes of dizziness. Specialty Diagnoses / Procedures Referred By Bib reece Referred To Contact Echocardiography Diagnoses Atherosclerosis of lummi coronary artery of lummi heart with angina pectoris Procedures ECHOCARDIOGRAM ID ECHO HEART XTHORACIC,COMPLETE W DOPPLER Elvi Ward, [address] [address] Echocardiography [place] [address] [address] Referral ID Status Reason Start Date Expiration Date Visits Re quested Visits Authorized [id number] Closed 12/31/2022 01/25/2024 1 1 Reason Comments Follow-up 6 mo follow-up. Pt s tates she is still dealing with dizziness, sweats, and shortness of breath. Pt states anything physical she does she has to take a break because she is SOB and sweating. Care Teams (unrecognized sec tion and content) General Manager In Training Relationship Specialty Start Date End Date Lamin Benavides MD [address] [place] [address] PCP - General Family Medicine 07/25/21 Team [...] Maria Luisa Sarkar MD Referring Provider Active General Manager In Training Relationship Specialty Start Date End Date Lamin Benavides MD [address] [place] [address] PCP - General Family Medicine 07/25/21 General Manager In Training Relationship Specialty Start Date End Date Lamin Benavides MD [address] [place] [address] PCP - General Family Medicine 07/25/21 General Manager In Training Relationship Specialty Start Date End Date Lamin Benavides MD [address] [place] [address] PCP - General Family Medicine 07/25/21 General Manager In Training Relationship Specialty Start Date End Date Lamin Benavides MD [address] [place] [address] PCP - General Family Medicine 07/25/21 General Manager In Training Relationship Specialty Start Date End Date Lamin Benavides MD [address] [place] [address] PCP - General Family Medicine 07/25/21 General Manager In Training Relationship Specialty Start Date End Date Lamin Benavides MD [address] [place] [address] PCP - General Family Medicine 07/25/21 Goals [...] BE BASED ON THE PRIMARY CLINICAL RECORDS. [employer] [facility]. provides no warranty or guarantee of the accuracy or completeness of information in this document.
[2023-07-17 10:48] LABS: Anion Gap 11.1; Carbon Dioxide 29.8 mmol/L (21.0-32.0); Chloride 103 mmol/L (98-107); Estimated GFR (African America >60 (>=60); Estimated GFR (Non-African Ame 52 (>=60); Potassium 3.9 mmol/L (3.5-5.1); Sodium 140 mmol/L (136-145)
== END 2023-07-17 10:06 | disposition home or self-care (01) ==
LOC: LAB 10:08
PROVIDERS: PCP Family Medicine
DX: I50.32 Chronic diastolic (congestive) heart failure (principal)
CPT/HCPCS: 36415; 80051; 82565; 84520

== ENCOUNTER 2023-08-06 09:00 | Outpatient (OUT) | payer OTHER, SELFPAY ==
[2023-08-06 09:11] LABS: Hemoglobin 12.7 g/dL (12.0-16.0)
--- NOTE | 2023-08-06 11:10 | RT_ITS ---
[facility] Test Date: 2023-08-06 Pat Name: JOHN GUIDO Department: Room: - Gender: Female Home Lending Officer: Natan So RRT : 1965 Requested By: [id number] Order Number: [id number] Reading MD: Moe Voss Interpretive Statements Pulmonary function testing was completed according to ATS criteria. Findings were considered accurate and reproducible. No bronchodilator was administered due to normal spirometric values. Spirometry: -FEV1/FVC: Normal @ 79% -FEV1: Normal @ 104% -FVC: Normal @ 103% Lung volumes by plethysmography: -RV: Normal @ 88% -TLC: Normal @ 103% Diffusion capacity: -DLCO: Mild reduction @ 69% when corrected for Hb 12.7g/dL Flow-volume loop: -Normal shape Impressions: -Normal spirometry and lung volumes with an isolated diffusion impairment. This pattern can be seen in, but not restricted to, cardiopulmonary vascular disorders, early interstitial lung disease, and early emphysema. Clinical correlation required. Electronically Signed On 08-10-2023 7:06:24 EDT by Moe Voss
== END 2023-08-06 09:01 | disposition home or self-care (01) ==
LOC: CARD 09:00
PROVIDERS: PCP Family Medicine
DX: R60.9 Edema, unspecified (principal); J45.42 Moderate persistent asthma with status asthmaticus
CPT/HCPCS: 36415; 85018; 94010; 94726; 94729

== ENCOUNTER 2023-08-31 11:41 | Outpatient (OUT) | payer OTHER, SELFPAY ==
[2023-08-31 13:10] LABS: Thyroid Stimulating Hormone 0.181 uIU/mL (0.358-3.740)
[2023-09-01 18:08] LABS: Thyroglobulin Antibody <1.0 IU/mL (0.0-0.9)
== END 2023-08-31 11:42 | disposition home or self-care (01) ==
LOC: LAB 11:43
PROVIDERS: PCP Family Medicine
DX: C73 Malignant neoplasm of thyroid gland (principal)
CPT/HCPCS: 36415; 84443

== ENCOUNTER 2023-10-11 09:32 | Outpatient (OUT) | payer OTHER, SELFPAY ==
--- OUTSIDE RECORDS SUMMARY | 2023-10-11 09:44 | XMS_ITS ---
Patient Summarization (C-CDA 2.1 CCD) Created on: October 11, 2023 SWAPNA GUIDO : 1965 Sex: Female Author Organization Sample organization Care Team Providers Care Head Kiln Operator Name Role Phone Lamin Benavides MD Primary Care Provider MD Lamin Benavides Primary Care Provider [phone] DO Brianna Parker Emergency Provider MD Lamin Benavides Attending Provider MD Bernard Cavanaugh Referring Provider MAKAYLA, DR KIMBLE Consulting Unavailable MAKAYLA, DR KIMBLE Primary Care Unavailable SHIRA METZGER Attending Unavailable RINSHIRA MURDOCK Admitting Unavailable WEST, DR SONIA Parker Consulting Unavailable TIMMIS, DR HERNANDEZ Consulting Unavailable MAKAYLA, DR KIMBLE Primary Care Unavailable TIMMIS, DR HERNANDEZ Attending Unavailable TIMMIS, DR HERNANDEZ Admitting Unavailable ZUÑIGA, KOMAL Consulting Unavailable AGARWAL, WINCHA Consulting Unavailable TIMMIS, DR HERNANDEZ Consulting Unavailable MAKAYLA, DR KIMBLE Primary Care Unavailable TIMMIS, DR HERNANDEZ Attending Unavailable TIMMIS, DR HERNANDEZ Admitting Unavailable AGUBOSIM, TUNDE Consulting Unavailable JUNGERMANNBREE Consulting Unavailable MAKAYLA, DR KIMBLE Consulting Unavailable [...] Attending Unavailable MISC, DR JOHNSON Admitting Unavailable MakaylaLamin Unavailable Unavailable Unavailable MD Lamin Benavides Primary Care Provider DO Brianna Parker Emergency Provider MD Lamin Benavides Attending Provider [phone] MD Maria Luisa Sarkar Referring Provider MD Maria Luisa Sarkar [facility] Dr. Bernard Newman Attending Unavailable [place], Dr. Lamin Berry [facility] Unavaila ble Maria Luisa Sarkar Attending Unavailable Makayla, Dr. Lamin Berry Primary Care Unavaila ble [place], Dr. Lamin Berry Primary Care Unavaila ble Maria Luisa Sarkar Attending Unavailable Maria Luisa Sarkar Referring Unavailable Makyala, Dr. Lamin Berry [facility] Care Unavaila ble Maria Luisa Sarkar Attending Unavailable TrabMaria Luisa huerta Referring Unavailable Makayla Lamin RAMSEY Primary Care Provider Lamin Benavides Admitting Unavailable Lamin Benavides Attending Unavailable Maria Luisa Sarkar Referring Unavailable Lamin Benavides Primary Care Unavailable Maria Luisa Sarkar Admitting Unavailable Maria Luisa Sarkar Attending Unavailable [place] Primary Care Unavailable Maria Luisa Sarkar Admitting Unavailable Maria Luisa Sarkar Attending Unavailable Lamin Benavides Primary Care Unavailable Brianna Parker Admitting Unavailable Brianna Parker Attending Unavailable [place], Rugen M Primary Care Unavailable [place] MD [facility] Primary [facility] Provider PJ VELAZQUEZ Attending Unavailable SHIRA METZGER Attending Unavailable MAKAYLA, RUGEN Primary Care Unavailable MAKAYLA, RUGEN Primary Care Unavailable ADELFO WEAVER Attending Unavailable ADELFO WEAVER Admitting Unavailable MAKAYLA, RUGEN Primary Care Unavailable SELF, SELF Referring Unavailable GLADYS YOUNGBLOOD Attending Unavailable MAKAYLA, RUGEN Primary Care Unavailable SELF, SELF Referring Unavailable GLADYS JRAAMILLO Attending Unavailable MAKAYLA, RUGEN Primary Care Unavailable MLMARGIE Horan Referring Unavailable MLMARGIE Attending Unavailable MAKAYLA, RUGEN Primary Care Unavailable BOLE, DWAYNE Referring Unavailable MLMARGIE Horan Attending Unavailable MAKAYLA, RUGEN Primary Care Unavailable BOLE, DWAYNE Referring Unavailable ML, MARGIE Huertas Attending Unavailable MAKAYLA, RUGEN Primary Care Unavailable BOLE, DWAYNE Referring Unavailable GLADYS JARAMILLO Attending Unavailable MAKAYLA, RUGEN Primary Care Unavailable HORBAL, HAL Attending Unavailable MAKAYLA, RUGEN Primary Care Unavailable MAKAYLA, RUGEN Referring Unavailable HORBAL, HAL Attending Unavailable MAKAYLA, RUGEN Primary Care Unavailable MAKAYLA, RUGEN Referring Unavailable BOLE, DWAYNE Referring Unavailable MLMARGIE Attending Unavailable MAKAYLA, RUGEN Primary Care Unavailable ELVI WARD Referring Unavailable ELVI WARD Attending Unavailable MAKAYLA, RUGEN Primary Care Unavailable SELF, SELF Referring Unavailable HORBAL, HAL Attending Unavailable MAKAYLA, RUGEN Primary Care Unavailable HORBAL, HAL Attending Unavailable MAKAYLA, RUGEN Referring Unavailable MAKAYLA, RUGEN Primary Care Unavailable Allergies Allergy Classification Reported Allergen(s) Allergy Type Date of Onset Reaction(s) Facility (20 sources) Penicillins; Translations: [Penicillins] Propensity to adverse reactions to drug 8 Hives, Shortness of Breath [facility] (5 sources) *Seasonal Propensity to adverse reactions to substance 4 Itchy Eyes, Itchy Throat, Runny Nose, Sneezing [facility] Encounters Encounter Date Encounter Type Care Provider Facility Start: 09-14-2023 End: 09-14-2023 ambulatory SHIRA METZGER Not Available Start: 09-07-2023 End: 09-07-2023 Office outpatient visit 40 minutes Gladys Youngblood MD Work Phone: Division of Endocrinology Comment on above: Thyroid cancer (Prim nico Dx); Postsurgical hypothyroidism Start: 09-07-2023 ambulatory SELF SELF Facility:[facility] Start: 08-23-2023 ambulatory SELF SELF Facility:[facility] Start: 08-05-2023 End: 08-05-2023 Subsequent hospital visit by physician Margie Bull MD Work Phone: Imaging [facility] Comment on above: Arrived Start: 08-05-2023 ambulatory MARGIE BULL Facili ty:[facility] Start: 08-05-2023 End: 08-05-2023 Office consultation new/estab patient 60 min Margie Bull MD Work Phone: Lung Care [facility] Comment on above: uncontrolled moderat e persistent asthma; Dyspnea on exertion; Chronic cough; Excessive daytime sleepiness; Non-seasonal allergic rhinitis, unspecified trigger Start: 08-05-2023 ambulatory DWAYNE BOLE Facility:[facility] Start: 08-05-2023 End: 08-05-2023 Office outpatient new 30 minutes Gladys VYAS Work Phone: [facility] Comment on above: Allergic rhinitis, u nspecified seasonality, unspecified trigger (Primary Dx); Nasal congestion; Shortness of breath Start: 08-05-2023 ambulatory DWAYNE BOLE Facility:[facility] Start: 07-01-2023 ambulatory HAL HORBAL Facility:[facility] Start: 07-01-2023 End: 07-01-2023 Office outpatient visit 25 minutes Hal Horbal DO Work Phone: [facility] [place] Comment on above: Chronic heart failur e with preserved ejection fraction (Primary Dx); Asthma, unspecified asthma severity, unspecified whether complicated, unspecified whether persistent; 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 Start: 07-01-2023 ambulatory HAL HORBAL Facility:[facility] Start: 04-26-2023 End: 04-26-2023 ambulatory PJ VELAZQUEZ Not Available Start: 12-31-2022 ambulatory ELVI WARD Facility :[facility] Start: 12-31-2022 End: 12-31-2022 Subsequent hospital visit by physician Elvi Wadr DO Work Phone: [facility] [place] Start: 12-31-2022 End: 12-31-2022 Office outpatient visit 25 minutes Hal Horbal DO Work Phone: [facility] [place] Comment on above: 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 (Primary Dx); Essential hypertension; Mixed hyperlipidemia Start: 12-31-2022 ambulatory SELF SELF Facility:[facility] Start: 11-06-2022 End: 11-06-2022 ambulatory ADELFO WEAVER Facility:[facility] Start: 11-06-2022 End: 11-06-2022 Subsequent hospital visit by physician Adelfo Weaver MD, PhD Work Phone: [facility] Comment on above: 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 Start: 10-15-2022 ambulatory RUGEN MAKAYLA Facility:[facility] Start: 10-15-2022 End: 10-15-2022 Office outpatient new 45 minutes Hal Horbal DO Work Phone: [facility] [place] Comment on above: 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 Work Phone: Start: 08-12-2022 End: 08-13-2022 ambulatory MD Lamin Benavides Work Phone: [facility] Work Phone: Start: 08-10-2022 End: 08-10-2022 ambulatory Maria Luisa Sarkar Facility:[facility] Start: 08-10-2022 End: 08-10-2022 ambulatory MD Lamin Benavides Work Phone: [facility] Work Phone: Start: 08-10-2022 End: 08-10-2022 Patient encounter procedure MD Lamin Benavides Work Phone: [facility] [employer] Work Phone: Start: 07-28-2022 Office outpatient vi sit 25 minutes Lamin Benavides Work Phone: [facility] [address] DO Work Phone: Start: 07-28-[address] Lamin Benavides Facility: Start: 06-18-2022 End: 06-19-[address] MARIA LUISA SARKAR Facility:[facility] Start: 06-03-[address] Lamin Benavides Facility: Start: 06-02-[address] Bernard Cavanaugh II Facility:[id number] Start: 06-02-2022 End: 06-02-2022 ambulatory Lamin Benavides Facility:[facility] Start: 06-02-2022 End: 06-02-2022 Patient encounter procedure MD Lamin Benavides Work Phone: [facility]-Electrodiagnostics Work Phone: Start: 05-29-2022 End: 05-29-2022 ambulatory MD Lamin Benavides Work Phone: [facility] Work Phone: Start: 05-29-2022 End: 05-29-2022 Patient encounter procedure MD Lamin Benavides Work Phone: [facility]Electrodiagnostics Work Phone: Start: 05-20-2022 End: 05-21-2022 Emergency department patient visit Brianna Indra Parker Facility:[facility] Start: 05-20-2022 End: 05-20-2022 Emergency department patient visit MD Lamin Benavides Work Phone: [facility]Emergency [facility] Work Phone: Start: 04-23-2022 End: [...] for preprocedural cardiovascular examination DR MARY ANGULO [facility] Start: 11-17-2021 Encounter for preprocedural laboratory examination DR MARY ANGULO [facility] Start: 11-14-2021 End: 11-15-[address] MARY ANGULO Facility:[facility] Start: 11-14-2021 End: 11-15-2021 Encounter for preprocedural cardiovascular examination DR MARY ANGULO Facility:[facility] Start: 10-22-2021 End: 10-23-[address] DOCTOR DINH Facility:[facility] Start: 09-02-2021 End: 09-02-2021 Office outpatient new 60 minutes Gladys Youngblood MD Work Phone: Division of Endocrinology Comment on above: Thyroid cancer (Prim nico Dx); Postsurgical hypothyroidism; Vitamin D deficiency Goals Date Patient Goal Desired Activity /State Medications Current Medications Medication Drug Class(es) Dates Sig (Normalized) Sig (Original) [id number] 200 actuat albuterol 0.09 mg/actuat metered dose inhaler (3 sources) beta2-Adrenergic Agonist Start: 08-05-2023 take 1 puff(s) by inhalation every six hours as needed Albuterol 108 (90 Base) MCG/ACT Aero Soln inhaler Indications: Moderate persistent asthma with status asthmaticus Inhale 1 puff every 6 hours as needed for Shortness of Breath. 18 g 3 08/05/2023 Active biotin 5 mg oral tablet (10 sources) Biotin 5000 MCG tablet Take by mouth. Active 24 hr buPROPion hydrochloride 150 mg extended release oral tablet (18 sources) Aminoketone Start: 10-18-2018 take 1 tablet by mouth once daily buPROPion 150 MG tablet XL Take 1 tablet by mouth daily. 08/06/2021 Active cholecalciferol 0.025 mg oral capsule (19 sources) Vitamin D Start: 08-10-2022 take 1 [...] 0 Refills: 0 Ordered: 03-Jun-2022 DO Active dapagliflozin 10 mg oral tablet (5 sources) Sodium-Glucose Cotransporter 2 Inhibitor Start: 07-01-2023 End: 07-07-2023 take 1 tablet by mouth once daily dapagliflozin 10 MG tablet Take 1 tablet by mouth daily. 90 tablet 07/07/2023 Active Fluticasone Propion-Salmeterol (4 sources) Corticosteroid, beta2-Adrenergic Agonist Start: 05-12-2019 Fluticasone Propion-Salmeterol (Advair Diskus) 250-50 mcg/dose Blister With Device Active 1 INH INHALATION Q12H May 12, 2019 1:00am Start: 05-12-2019 Fluticasone Pr opion-Salmeterol (Advair Diskus) 250-50 mcg/dose Blister With Device Active 1 INH INHALATION Q1May 12, 2019 12:00am 30 actuat fluticasone furoate 0.2 mg/actuat / vilanterol 0.025 mg/actuat dry powder inhaler (3 sources) Corticosteroid, beta2-Adrenergic Agonist Start: 08-05-2023 take 1 puff(s) by inhalation once daily Fluticasone Furoate-Vilanterol (Breo Ellipta) 200-25 MCG/ACT Aerosol Powder, breath activated Indications: Moderate persistent asthma with status asthmaticus Inhale 1 puff daily. 60 Each 3 08/05/2023 Active hydroCHLOROthiazide 12.5 mg / olmesartan medoxomil 20 mg oral tablet (19 sources) Thiazide Diuretic, Angiotensin 2 Receptor Anton Start: 10-18-2018 End: 12-31-2022 take 2 tablets by mouth once daily olmesartan-hydrochlo rothiazide 20-12.5 MG tablet Take 2 tablets by [...] 2022 9:10pm take 1 tablet by corine once daily levothyroxine 200 MCG tablet Take [...] 0 Active loratadine 10 mg oral tablet (20 sources) Start: 08-10-2022 take 1 tablet by mouth once daily Loratadine (Claritin) 10 mg Tablet Active 10 MG PO Daily August 10, 2022 12:00am Start: 10-18-2018 End: 10-18-2018 take 1 tablet by mouth once daily Loratadine (Claritin) 10 mg Tablet Discontinued 10 MG PO Daily October 18, 2018 12:00am October 18, 2018 2:20pm take 1 capsule by [facility] once daily Claritin 10 MG Oral Capsule TAKE 1 CAPSULE Daily Quantity: 0 Refills: 0 Ordered: 03-Jun-2022 DO Active magnesium oxide 500 mg oral capsule (10 sources) Magnesium 500 MG capsule Take by mouth. Active metFORMIN hydrochloride 500 mg oral tablet (18 sources) Biguanide Start: 05-20-2022 take 500 mg by mouth twice daily Metformin Active 500 MG PO Twice daily May 20, 2022 1:00am take 1 tablet by mouth once live y metFORMIN HCl - 500 MG Oral Tablet TAKE 1 TABLET DAILY. Quantity: 0 Refills: 0 Ordered: 03-Jun-2022 DO Active 24 hr metoprolol succinate 25 mg extended release oral tablet (13 sources) beta-Adrenergic Anton Start: 10-15-2022 take 1 tablet by mouth once daily Metoprolol succinate 25 MG tablet XL Take 1 tablet by mouth daily. 90 Each 3 10/15/2022 Active Start: 06-03-2022 End: 08-13-2022 take 25 mg by mouth once daily Metoprolol Succinate Di scontinued 25 MG PO Daily August 10, 2022 12:00am August 13, 2022 10:13am montelukast 10 mg oral tablet (3 sources) Leukotriene Receptor Antagonist Start: 08-05-2023 take 1 tablet by mouth once daily Montelukast 10 MG tablet Indications: Moderate persistent asthma with status asthmaticus Take 1 tablet by mouth daily. 30 tablet 5 08/05/2023 Active Multiple Vitamins-Minerals (Hair Skin and Nails Formula) tablet (1 source) Multiple Vitamins-Minerals (Hair Skin and Nails Formula) tablet Take by mouth. 0 Active rosuvastatin calcium 20 mg oral tablet (16 sources) HMG-CoA Reductase Inhibitor Start: 12-31-2022 take 1 tablet by mouth once daily Rosuvastatin 20 MG tablet Take 1 tablet by mouth daily. 60 tablet 3 12/31/2022 Active Start: 06-03-2022 End: 12-31-2022 take 1 tablet by mouth at bedtime Rosuvastatin Calcium 10 MG Oral Tablet TAKE 1 TABLET AT BEDTIME. Quantity: 90 Refills: 3 Ordered: 03-Jun-2022 Maria Luisa Sarkar MD Start : 03-Jun-2022 Active new SPACER FOR INHALER PRESCRIPT ION (3 sources) Start: 08-05-2023 SPACER FOR INH ALER PRESCRIPTION Indications: Moderate persistent asthma with status asthmaticus Use with inhaler as directed 1 Each 08/05/2023 Active thyroid (senior care) 90 mg oral tab let (20 sources) Start: 08-03-2023 thyroid (Armou r Thyroid) 90 MG tablet Indications: Postsurgical hypothyroidism Take 90 mg Carpenter in morning and 15 mg Carpenter in evening 30 tablet 11 08/03/2023 Active Start: 08-03-2023 thyroid (Armou r Thyroid) 15 MG tablet Indications: Postsurgical hypothyroidism Take 15 mg Carpenter in evening and 90 mg Carpenter in morning 30 tablet 11 08/03/2023 Active Start: 02-02-2023 take 1 tablet by corine th once daily thyroid (Carpenter Thyroid) 120 MG tablet Take 1 tablet by mouth daily. 90 tablet 3 02/02/2023 Active Start: 10-20-2022 take 1 tablet by corine th once daily thyroid (Carpenter Thyroid) 120 MG tablet Take 1 tablet by mouth daily. 30 tablet 11 10/20/2022 Active Start: 10-19-2022 End: 12-31-2022 Thyroid (Carpenter Thyroid) 30 MG tablet Take 1 tablet along with the 90 mg tablet to equal 120 mg a day 30 tablet 11 10/19/2022 12/31/2022 Discontinued Start: 10-19-2022 End: 12-31-2022 thyroid (Carpenter Thyroid) 90 MG tablet Indications: Postsurgical hypothyroidism , Thyroid cancer Take 1 a day along with 1 30 mg tablet a day to equal 120 mg a day 0 10/19/2022 12/31/2022 Discontinued Start: 03-05-2022 take 1 tablet by corine th once daily thyroid (Carpenter Thyroid) 90 MG tablet Indications: Postsurgical hypothyroidism [...] aspirin 81 mg delayed release oral tablet (16 sources) Platelet Aggregation Inhibitor, Nonsteroidal Anti-inflammatory Drug Start: 11-06-2022 End: 11-06-2022 aspirin chewable tablet 324 mg Start: 06-03-2022 take 1 tablet by corine th once daily Aspirin 81 MG Oral Tablet Delayed Release TAKE 1 TABLET DAILY. Quantity: 90 Refills: 3 Ordered: 28-Jul-2022 Mello RAMSEY, Maria Luisa Start : 03-Jun-2022 Active aspirin 81 MG [...] COLLAGEN PO Take by mouth. 0 Active diclofenac sodium 75 mg delayed release oral [...] D2) 1,250 mcg (50,000 unit) Capsule Discontinued 08581 UNIT PO every week May 12, 2019 [...] tablet 3 10/15/2022 12/31/2022 Discontinued (Side effects) Atjmdnhuffbz-Jlgl-Q olic Acid (Centrum) 18-400 mg-mcg Tablet (4 sources) Start: 06-05-2019 End: 05-20-2022 take 1 tablet by mouth once daily Multivitamin-Iron- Folic Acid (Centrum) 18-400 mg-mcg Tablet Discontinued 1 TAB PO Daily June 05, 2019 1:00am May 20, 2022 9:10pm Start: 06-05-2019 End: 05-20-2022 take 1 tablet by mouth once daily Jzwqtnzcrhvq-Dsbu-Iqxyr Acid (Centrum) 18-400 mg-mcg Tablet Discontinued 1 [...] G tablet Take by mouth. 07/01/2023 Discontinued Payers Date Payer Category Payer Self-pay [id number] 2016 Unknown [id number] 1965 Unknown [id number] 2.16.84 0.1.969628.3.579.2.593 1965 Unknown [id number] 2.16.84 0.1.705943.3.579.2.593 1965 Unknown [id number] 2.16.84 0.1.385234.3.579.2.593 1965 Unknown [id number] 2.16.84 0.1.667875.3.579.2.593 1965 Unknown [id number] 2.16.84 0.1.591892.3.579.2.593 1965 Unknown [id number] 2.16.84 0.1.676217.3.579.2.593 1965 Unknown [id number] 2.16.84 0.1.416011.3.579.2.593 1965 Unknown [id number] 2.16.84 0.1.259576.3.579.2.593 1965 Unknown [id number] 2.16.84 0.1.560483.3.579.2.593 1965 Unknown [id number] 2.16. 840.1.370822.3.579.2.356 1965 Unknown [id number] 2.16. 840.1.107772.3.579.2.356 1965 Unknown [id number] 2.16. 840.1.724897.3.579.2.356 1965 Unknown [id number] 2.16. 840.1.889806.3.579.2.356 1965 Unknown [id number] 2.16. 840.1.370039.3.579.2.356 1965 Unknown [id number] 2.16.84 0.1.320932.3.579.2.1259 1965 Unknown [id number] 2.16.84 0.1.910556.3.579.2.1259 1967 Unknown [id number] 2.16. 840.1.256550.3.579.2.594 1965 Unknown [id number] 2.16. 840.1.343528.3.579.2.594 1967 Unknown [id number] 2.16. 840.1.741263.3.579.2.594 1967 Unknown [id number] 2.16. 840.1.367242.3.579.2.594 1967 Unknown [id number] 2.16. 840.1.658365.3.579.2.594 1967 Unknown [id number] 2.16. 840.1.074898.3.579.2.594 1967 Unknown [id number] 2.16. 840.1.431400.3.579.2.594 1967 Unknown [id number] 2.16. 840.1.743141.3.579.2.594 1967 Unknown [id number] 2.16. 840.1.216715.3.579.2.594 1967 Unknown [id number] 2.16. 840.1.120063.3.579.2.594 1967 Unknown [id number] 2.16 840.1.664606.3.579.2.594 1967 Unknown [id number] 2. 840.1.249676.3.579.2.594 1967 Unknown [id number] 2.16 840.1.161195.3.579.2.594 1967 Unknown [id number] 2.16 840.1.090781.3.579.2.594 1967 Unknown [id number] 2.16 840.1.138079.3.579.2.594 1967 Unknown [id number] 2.16 840.1.666648.3.579.2.594 1959 Unknown [id number] 1959 Unknown [id number] [facility] [id number] Unknown [place] BC/BS [id number] Unknown [id number] 2.16.84 0.1.666124.3.579.2.593 Unknown [id number] 2.16.8 40.1.698059.3.579.2.531 Unknown [id number] 2.16.8 40.1.245028.3.579.2.531 Unknown [id number] 2.16.8 40.1.137729.3.579.2.531 Unknown [id number] 2.16.8 40.1.682803.3.579.2.531 Plan of Treatment Date Care Activity Detail Author Start: 09-12-2024 End: 09-12-2024 Patient encounter procedure 09/12/2024 10:20 AM EDT Office Visit Division of Endocrinology [address] [phone] Gladys Youngblood MD [address] [phone] Division of Endocrinology Start: 09-06-2024 End: 09-06-2024 OUTSIDE LAB ORDERS OUTSIDE LAB ORDERS Outside Labs Routine Thyroid cancer Postsurgical hypothyroidism Expected: 09/06/2024 (Approximate), Expires: 09/06/2024 [facility] Comment on above: Expected: 09/06/2024 (Approximate), Expi res: 09/06/2024 Start: 12-09-2023 End: 12-09-2023 Patient encounter procedure [facility] [place] Start: 12-05-2023 Influenza vaccination INFLUENZA VACCINE (Season Ended) [facility] Start: 10-05-2023 End: 12-08-2023 OUTSIDE LAB ORDERS OUTSIDE LAB ORDERS Outside Labs Routine Postsurgical hypothyroidism Expected: 10/05/2023, Expires: 12/08/2023 [facility] Comment on above: Expected: 10/05/2023, Expires: Start: 09-09-2023 End: 09-09-2023 OUTSIDE LAB ORDERS OUTSIDE LAB ORDERS Outside Labs Routine Thyroid cancer Expected: 09/09/2023 (Approximate), Expires: 09/09/2023 [facility] Comment on above: Expected: 09/09/2023 (Approximate), Expi res: 09/09/2023 Start: 09-07-2023 End: 09-07-2023 Patient encounter procedure Division of Endocrinology Start: 08-23-2023 End: 08-23-2023 Telemedicine consultation with patient 08/23/2023 12:00 PM EDT Telemedicine [facility] [address] [place] [address] Gladys Jaramillo, CHART COMPUTER-CONSERVATION SCIENTIST [address] [place] [address] [facility] [place] Start: 08-05-2023 End: 08-04-2024 6-minute walk test EXERCISE-6 MIN. WALK PFT Routine Dyspnea on exertion uncontrolled moderate persistent asthma Expected: 08/05/2023, Expires: 08/04/2024 [facility] Comment on above: Expected: 08/05/2023, Expires: Start: 08-05-2023 End: 08-04-2024 RESPIRATORY REGIONAL ALLERGY PANEL 5 [facility] Comment on above: Expected: 08/05/2023, Expires: Start: 08-05-2023 End: 08-05-2023 Patient encounter procedure [facility] Start: 07-08-2023 End: 06-30-2024 CHEM 6 (LYTES, BUN CREA) CHEM 6 (LYTES, BUN CREA) Lab Routine Chronic heart failure with preserved ejection fraction Expected: 07/08/2023, Expires: 06/30/2024 [facility] Work Phone: Comment on above: Expected: 07/08/2023, Expires: 5 Start: 07-01-2023 End: 07-01-2023 Patient encounter procedure 07/01/2023 12:50 PM EDT Office Visit [facility] [address] [place] [address] Hal Simon, [address] [place] [address] [place], [place] [id number] [facility] [place] [facility] Start: 05-07-2023 FUV, Provider: Maria Luisa Sarkar, Status: Pen, Time: 8:50 AM FUV, Provider: Maria Luisa Sarkar, Status: Pen, Time: 8:50 AM [facility] 250 DO Work Phone: Start: 12-31-2022 End: 01-01-2024 Cardiac telemetry MOBILE CARDIAC TELEMETRY ECG Routine 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 Expected: 12/31/2022, Expires: 01/01/2024 [facility] Comment on above: Expected: 12/31/2022, Expires: Start: 12-31-2022 End: 12-31-2022 Patient encounter procedure 12/31/2022 1:50 PM EDT Office Visit [facility] [address] [phone] HorDejuan zapataotr, DO [address] [place] [address] [place] [id number] [facility] Start: 12-24-2022 End: 12-24-2022 Patient encounter procedure 12/24/2022 1:50 PM EDT Office Visit [facility] 1800 [facility] [address] [place] [address] Horjodi Hal, DO [address] [place] [address] [place] [address] [facility] Start: 12-04-2022 COVID-19 VACCINE ( season) COVID-19 VACCINE ( season) [facility] Start: 12-04-2022 Influenza vaccination [facility] Start: 10-08-2022 End: 09-09-2023 OUTSIDE LAB ORDERS OUTSIDE LAB ORDERS Outside Labs Routine Thyroid cancer Expected: 10/08/2022 (Approximate), Expires: 09/09/2023 [facility] Comment on above: Expected: 10/08/2022 (Approximate), Expi res: 09/09/2023 Start: 09-16-2022 FUV, Provider: Maria Luisa Sarkar, Status: Pen, Time: 3:00 PM FUV, Provider: Maria Luisa Sarkar, Status: Pen, Time: 3:00 PM [facility] 250 DO Work Phone: Start: 09-08-2022 End: 09-08-2022 Patient encounter procedure 09/08/2022 Office Visit Endocrinology, Diabetes & Metabolism Gladys Youngblood MD [address] [address] Division of Endocrinology Start: 09-02-2022 End: 09-02-2022 OUTSIDE LAB ORDERS OUTSIDE LAB ORDERS Outside Labs Routine Thyroid cancer Expected: 09/02/2022 (Approximate), Expires: 09/02/2022 [facility] Comment on above: Expected: 09/02/2022 (Approximate), Expi res: 09/02/2022 Start: 09-02-2022 Thyroid stimulating hormone measurement TSH [facility] Start: 08-13-2022 [facility] Start: 08-12-2022 [facility] Start: 06-02-2022 Radionuclide myocardial perfusion stress study NM harriet perf SPECT rest & str [facility] Start: 03-05-2022 End: 03-05-2022 Telemedicine consultation with patient 03/05/2022 Telemedicine Endocrinology, Diabetes & Metabolism Gladys Youngblood MD [address] [phone] Division of Endocrinology Start: 03-04-2022 End: 04-03-2022 OUTSIDE LAB ORDERS OUTSIDE LAB ORDERS Outside Labs Routine Thyroid cancer Expected: 03/04/2022 (Approximate), Expires: 04/03/2022 [facility] Comment on above: Expected: 03/04/2022 (Approximate), Expi res: 04/03/2022 Start: 12-04-2021 Influenza vaccination INFLUENZA VACCINE (Season Ended) [facility] Start: 09-02-2021 End: 09-02-2022 THYROGLOBULIN&THYROGLOBUL IN AB [facility] Comment on above: Expected: 09/02/2021, Expires: 3 Start: 09-02-2021 End: 09-02-2022 VITAMIN D (25-HYDROXY,TOTAL) [facility] Comment on above: Expected: 09/02/2021, Expires: 3 Start: 02-11-2020 Screening for malignant neoplasm of colon COLORECTAL CANCER SCREENING DISCUSSION [facility] Start: 2017 Zoster vaccine hzv live for subcutaneous use ZOSTER (SHINGLES) VACCINE (1 of 2) [facility] Start: 2012 Colonoscopy COLORECTAL CANCER SCREENING DISCUSSION [facility] Start: 2012 Screening for malignant neoplasm of colon COLORECTAL CANCER SCREENING DISCUSSION [facility] Start: 2007 Fasting lipid profile LIPID SCREENING [facility] Start: 2007 Lipid panel LIPID SCREENING [facility] Start: 2007 Screening for malignant neoplasm of breast MAMMOGRAM SCREENING DISCUSSION [facility] Start: 2007 Screening mammography MAMMOGRAM SCREENING DISCUSSION [facility] Start: 1988 Screening for malignant neoplasm of cervix CERVICAL CANCER SCREENING DISCUSSION [facility] Start: 1986 Hepatitis B vaccination HEP B VACCINE (1 of 3 - 19+ 3-dose series) [facility] Start: 1986 Third diphtheria, tetanus and acellular pertussis (DTaP) vaccination TDAP (ADULT) [facility] Start: 1985 Tetanus vaccination TETANUS [facility] Start: 1982 HIV screening HIV SCREENING DISCUSSION [facility] Start: 1973 PNEUMOCOCCAL VACCINE SERIES (1 of 2 - PCV) PNEUMOCOCCAL VACCINE SERIES (1 of 2 - PCV) [facility] Start: 1972 COVID-19 VACCINE (#1) COVID-19 VACCINE (#1) [facility] Start: 1967 COVID-19 VACCINE (#1) COVID-19 VACCINE (#1) [facility] Start: 1967 Hepatitis C antibody, confirmatory test HEPATITIS C VIRUS SCREENING [facility] Start: 1967 Hepatitis C screening HEPATITIS C VIRUS SCREENING [facility] Start: 1967 Tetanus vaccination TETANUS [facility] Cardiac catheterizat ion study INVASIVE CARDIOVASCULAR PROCEDURE Cardiac Cath Routine 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 11/06/2022 11:52 AM EDT [facility] Work Phone: Cath placement & njx coronary art angio img s&i CORONARY ANGIOGRAM 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 [facility] End: 11-06-2022 EXTRA LIGHT BLUE TOP [facility] Comment on above: Once for 1 Occurrences starting 11/07/19 23 until 11/06/2022 End: 11-06-2022 EXTRA TUBES [facility] Work Phone: Comment on above: One Time for 1 Occurrences starting 07/2022 until 11/06/2022 L hrt cath w/njx l ventriculography img s&i LEFT HEART CATHETERIZATION 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 [facility] Measurement of respiratory function PFT STANDARD PFT Routine Dyspnea on exertion uncontrolled moderate persistent asthma Ordered: 08/05/2023 [facility] Comment on above: Ordered: 08/05/2023 Patient Education Chest Pain, Adult ED [facility] Work Phone: Patient referral [facility] Work Phone: End: 11-06-2022 Standard ECG ECG ECG STAT One Time for 1 Occurrences starting 11/06/2022 until 11/06/2022 [facility] Work Phone: Comment on above: One Time for 1 Occurrences starting 07/2022 until 11/06/2022 Us soft tissue head & neck real time imge docm MI US,HEAD/NECK TISSUES,REAL TIME MI - OFFICE PERFORMED IMAGING Routine Thyroid cancer Ordered: 09/02/2021 [facility] Comment on above: Ordered: 09/02/2021 Problems Active Problems Problem Classification Problem Date Documented Da te Episodic/Chronic Anxiety disorders (1 source) Generalized anxiety disorder; Translations: [GENERALIZED ANXIETY DISORDER] Onset: 11-27-2021 Chronic Asthma (10 sources) Unspecified asthma, uncomplicated; Translations: [Asthma] Onset: 11-27-2021 07-01-2023 Chronic Cancer of thyroid (17 sources) Malignant tumor of thyroid gland; Translations: [Malignant neoplasm of thyroid gland] Onset: 09-02-2021 Chronic Complications of surgical procedures or medical care (20 sources) Postoperative hypothyroidism; Translations: [Postprocedural hypothyroidism] Onset: 09-02-2021 Chronic Congestive heart failure; nonhypertensive (8 sources) Chronic heart failure co-occurrent with normal ejection fraction; Translations: [Chronic diastolic (congestive) heart failure] Onset: 07-01-2023 07-01-2023 Chronic Coronary atherosclerosis and other heart disease (16 sources) Angina pectoris; Translations: [Other and unspecified angina pectoris] Onset: 12-31-2022 10-15-2022 Chronic Diabetes mellitus without complication (9 sources) Type 2 diabetes mellitus without complications; Translations: [Diabetes mellitus] Onset: 11-27-2021 07-01-2023 Chronic Disorders of lipid metabolism (8 sources) Hyperlipidemia, unspecified; Translations: [Hyperlipidemia] Onset: 06-18-2022 Chronic Essential hypertension (10 sources) Essential (primary) hypertension; Translations: [Benign essential hypertension] Onset: 11-27-2021 12-31-2022 Chronic Nonspecific chest pain (7 sources) Chest pain; Translations: [Chest pain, unspecified] Onset: 06-02-2022 05-20-2022 Episodic Nutritional deficiencies (1 source) Vitamin D deficiency; Translations: [Vitamin D deficiency, unspecified] Chronic Other lower respiratory disease (2 sources) Dyspnea; Translations: [Dyspnea, unspecified] 12-31-2022 Episodic Other lower respiratory disease (4 sources) Chronic cough; Translations: [Chronic cough] Onset: 08-05-2023 08-05-2023 Episodic Other lower respiratory disease (1 source) Dyspnea on exertion; Translations: [Other forms of dyspnea] 08-05-2023 Episodic Other lower respiratory disease (2 sources) Other forms of dyspnea; Translations: [Other forms of dyspnea] Onset: 08-05-2023 Episodic Other nutritional; endocrine; and metabolic disorders (3 sources) Obesity; Translations: [Obesity, unspecified] Chronic Other nutritional; endocrine; and metabolic disorders (9 sources) Obese class I; Translations: [Obesity, unspecified] Onset: 10-15-2022 10-15-2022 Chronic Other upper respiratory disease (2 sources) Allergic rhinitis; Translations: [Allergic rhinitis, unspecified] 08-05-2023 Chronic Other upper respiratory disease (2 sources) Allergic rhinitis, unspecified; Translations: [Allergic rhinitis, unspecified] Onset: 08-05-2023 Chronic Other upper respiratory disease (2 sources) Nasal congestion; Translations: [Nasal congestion] Onset: 08-05-2023 08-05-2023 Episodic Other upper respiratory disease (1 source) Nasal congestion; Translations: [Nasal congestion] Onset: 08-05-2023 Episodic Other upper respiratory infections (6 sources) Chronic sinusitis, unspecified; Translations: [Sinusitis] Onset: 10-27-2021 07-01-2023 Chronic Residual codes; unclassified (1 source) Daytime somnolence; Translations: [Other hypersomnia] 08-05-2023 Chronic Residual codes; unclassified (2 sources) Other hypersomnia; Translations: [Other hypersomnia] Onset: 08-05-2023 Chronic Syncope (1 source) Syncope and collapse; [...] NEOPLASM THYROID] Onset: 11-27-2021 Episodic Mood disorders (11 sources) Mood disorders Onset: 09-02-2021 Resolved: 09-07-2023 09-02-2021 Other aftercare (1 source) 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; Translations: [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 DX] Onset: 11-27-2021 Episodic [...] Never smoked tobacco; Translations: [Never a smoker] Procedures Date Procedure Procedure Detail Performing Clinician Start: 08-05-2023 Radiologic exam chest 2 views Margie Bull MD Work Phone: Start: 01-29-2023 History of thyroidectomy History of thyroidectomy Hal Simon DO Work Phone: Start: 12-31-2022 Echo tthrc r-t 2d w/wom-mode compl spec&colr d Hal Simon DO Work Phone: Start: 11-06-2022 L hrt [...] Gladys rodarte MD Work Phone: Cardiac catheterization [facility]uge n [facility] [place] Work Phone: Hysterectomy Donnieen M [place] Work Phone: Nasal septoplasty Lamin Burrell Al [place] Work Phone: Operative procedure on wrist Donnieen Indra Makayla Work Phone: Thyroidectomy Lamin Burrell [place] Work Phone: Results Test Name Value Interpretation Reference Range Facility IMMUNOGLOBULIN IGEOrdered By : Lacy Sylvester on 08-09-2023 Interpretation and review of laboratory results Normal [facility] Total IgE RAST Qn (S) 11.4 NINF [facility] CBC AND ELECTRONIC DIFFon Basophils (Bld) [#/Vol] 0.06 10*3/uL Normal 0.00-0.15 [facility] Comment on above: Performed By: #### L [id number] #### [facility] (DEFAULT) [address] [address] Basophils/100 WBC (Bld) 0.9 % Normal [facility] Comment on above: Performed By: #### L [id number] #### [facility] (DEFAULT) [address] [address] DIFF STATUS Electronic Differential Normal [facility] Comment on above: Performed By: #### L [id number] #### [facility] (DEFAULT) [address] [address] Eosinophils (Bld) [#/Vol] 0.21 10*3/uL Normal 0.00-0.42 [facility] Comment on above: Performed By: #### L [id number] #### [facility] (DEFAULT) [address] [address] Eosinophils/100 WBC (Bld) 3.1 % Normal [facility] Comment on above: Performed By: #### L [id number] #### [facility] (DEFAULT) [address] [place] [address] Hematocrit (Bld) [Volume fraction] 38.6 % Normal 34.9-44.3 [facility] Comment on above: Performed By: #### L [id number] #### [facility] (DEFAULT) [address] [address] Hemoglobin (Bld) [Mass/Vol] 13.0 g/dL Normal 11.4-15.2 [facility] Comment on above: Performed By: #### L [id number] #### [facility] (DEFAULT) [address] [address] Immature Grans % 0.1 % Normal [facility] Comment on above: Performed By: #### L [id number] #### [facility] (DEFAULT) [address] [address] Immature Grans Absolute < Normal <=0.08 [facility] Comment on above: Performed By: #### L [id number] #### [facility] (DEFAULT) [address] [address] Lymphocytes (Bld) [#/Vol] 2.27 10*3/uL Normal 1.16-3.51 [facility] Comment on above: Performed By: #### L [id number] #### [facility] (DEFAULT) [address] [address] Lymphocytes/100 WBC (Bld) 33.1 % Normal [facility] Comment on above: Performed By: #### L [id number] #### [facility] (DEFAULT) [address] [address] MCV (RBC) [Entitic vol] 86.2 fL Normal 79.6-97.7 [facility] Comment on above: Performed By: #### L [id number] #### [facility] (DEFAULT) [address] [address] Mean Cell Hgb 29.0 pg Normal 25.9-33.9 [facility] Comment on above: Performed By: #### L [id number] #### [facility] (DEFAULT) [address] [address] Mean Cell Hgb Conc 33.7 g/dL Normal 31.4-35.9 [facility] Comment on above: Performed By: #### L [id number] #### [facility] (DEFAULT) [address] [address] Monocytes (Bld) [#/Vol] 0.50 10*3/uL Normal 0.22-0.87 [facility] Comment on above: Performed By: #### L [id number] #### [facility] (DEFAULT) [address] [place] [address] Monocytes/100 WBC (Bld) 7.3 % Normal [facility] Comment on above: Performed By: #### L [id number] #### [facility] (DEFAULT) [address] [place] [address] Nucleated RBC 0.0 /100 WBC Normal <=0.2 [facility] Comment on above: Performed By: #### L [id number] #### [facility] (DEFAULT) [address] [place] [address] Platelet mean volume (Bld) [Entitic vol] 9.7 fL Normal 8.5-12.2 [facility] Comment on above: Performed By: #### L [id number] #### [facility] (DEFAULT) [address] [place] [address] Platelets (Bld) [#/Vol] 333 10*3/uL Normal 150-393 [facility] Comment on above: Performed By: #### L [id number] #### [facility] (DEFAULT) [address] [place] [address] RBC (Bld) [#/Vol] 4.48 10*6/uL Normal 3.91-5.04 [facility] Comment on above: Performed By: #### L [id number] #### [facility] (DEFAULT) [address] [place] [address] RBC Distribution 12.8 % Normal 10.8-14.9 [facility] Comment on above: Performed By: #### L [id number] #### [facility] (DEFAULT) [address] [place] [address] Segs + Bands Auto 55.5 % Normal [facility] Comment on above: Performed By: #### L [id number] #### [facility] (DEFAULT) [address] [place] [address] Segs + Bands,Absolute Auto 3.81 K/uL Normal 1.64-7.28 [facility] Comment on above: Performed By: #### L [id number] #### [facility] (DEFAULT) [address] [address] WBC (Bld) [#/Vol] 6.86 10*3/uL Normal 3.99-11.19 [facility] Comment on above: Performed By: #### L [id number] #### [facility] (DEFAULT) [address] [address] IMMUNOGLOBULIN IGEon 024 Total IgE 11.4 IU/mL Normal <=165.3 [facility] Comment on above: Performed By: #### I GE #### [facility] (DEFAULT) [address] [address] RESPIRATORY REGIONAL ALLERGY PANEL 5on 08-05-2023 Allergen, Mites, D. farinae IgE <0.10 Normal <0.70 [facility] Comment on above: Result Comment: Clas s 0 (Negative <0.10) Performed By: #### Y RAP5 #### [facility] (DEFAULT) [address] [address] Allergen, Tree, Pima Tree IgE <0.10 Normal <0.70 [facility] Comment on above: Result Comment: Clas s 0 (Negative <0.10) Performed By: #### Y RAP5 #### [facility] (DEFAULT) [address] [address] Allergen, Tree, Mountain Dayhoit Tree IgE <0.10 Normal <0.70 [facility] Comment on above: Result Comment: Clas s 0 (Negative <0.10) Performed By: #### Y RAP5 #### [facility] (DEFAULT) [address] [address] Allergen, Tree, Pecan Tree IgE <0.10 Normal <0.70 [facility] Comment on above: Result Comment: Clas s 0 (Negative <0.10) Performed By: #### Y RAP5 #### [facility] (DEFAULT) [address] [place] [address] ALTERNARIA TENIUS, IGE 0.18 kU/L Normal <0.70 [facility] Comment on above: Result Comment: Clas s 0/1 (Borderline/Equivocal 0.10-0.34) Performed By: #### Y RAP5 #### [facility] (DEFAULT) [address] [place] [address] Aspergillus fumigatus IgE <0.10 Normal <0.70 [facility] Comment on above: Result Comment: Clas s 0 (Negative <0.10) Performed By: #### Y RAP5 #### [facility] (DEFAULT) [address] [place] [address] BERMUDA GRASS IGE <0.10 Normal <0.70 [facility] Comment on above: Result Comment: Clas s 0 (Negative <0.10) Performed By: #### Y RAP5 #### [facility] (DEFAULT) [address] [place] [address] BIRCH IGE <0.10 Normal <0.70 [facility] Comment on above: Result Comment: Clas s 0 (Negative <0.10) Performed By: #### Y RAP5 #### [facility] (DEFAULT) [address] [place] [address] BOX ELD/MAPLE, IGE <0.10 Normal <0.70 [facility] Comment on above: Result Comment: Clas s 0 (Negative <0.10) Performed By: #### Y RAP5 #### [facility] (DEFAULT) [address] [place] [address] CAT EPITHELIUM, IGE <0.10 Normal <0.70 [facility] Comment on above: Result Comment: Clas s 0 (Negative <0.10) Performed By: #### Y RAP5 #### [facility] (DEFAULT) [address] [place] [address] CLADOSPORIUM HERBARUM IGE <0.10 Normal <0.70 [facility] Comment on above: Result Comment: Clas s 0 (Negative <0.10) Performed By: #### Y RAP5 #### [facility] (DEFAULT) [address] [address] COCKROACH (I6) IGE 0.13 kU/L Normal <0.70 [facility] Comment on above: Result Comment: Clas s 0/1 (Borderline/Equivocal 0.10-0.34) Performed By: #### Y RAP5 #### [facility] (DEFAULT) [address] [address] DOG DANDER (E5) IGE <0.10 Normal <0.70 [facility] Comment on above: Result Comment: Clas s 0 (Negative <0.10) Performed By: #### Y RAP5 #### [facility] (DEFAULT) [address] [address] ELM, IGE <0.10 Normal <0.70 [facility] Comment on above: Result Comment: Clas s 0 (Negative <0.10) Performed By: #### Y RAP5 #### [facility] (DEFAULT) [address] [address] House Dust Mites/D.P., IGE <0.10 Normal <0.70 [facility] Comment on above: Result Comment: Clas s 0 (Negative <0.10) Performed By: #### Y RAP5 #### [facility] (DEFAULT) [address] [address] IgE RAGWEED, SHORT <0.10 Normal <0.70 [facility] Comment on above: Result Comment: Clas s 0 (Negative <0.10) Performed By: #### Y RAP5 #### [facility] (DEFAULT) [address] [address] IgE SHEEP SORREL <0.10 Normal <0.70 [facility] Comment on above: Result Comment: Clas s 0 (Negative <0.10) Test Performed by: [facility] [address] [place] [address] Gaming Director: Bernard Burkett M.D. Ph.D.; CLIA# [id number] Performed By: #### Y RAP5 #### [facility] (DEFAULT) [address] [place] [address] IgE WHITE MULBERRY <0.10 Normal <0.70 [facility] Comment on above: Result Comment: Clas s 0 (Negative <0.10) Performed By: #### Y RAP5 #### [facility] (DEFAULT) [address] [place] [address] Immunoglobulin E 19.8 kU/L Normal <= 214 [facility] Comment on above: Performed By: #### Y RAP5 #### [facility] (DEFAULT) [address] [place] [address] OAK, IGE <0.10 Normal <0.70 [facility] Comment on above: Result Comment: Clas s 0 (Negative <0.10) Performed By: #### Y RAP5 #### [facility] (DEFAULT) [address] [address] PENICILLIUM NOTATUM IGE <0.10 Normal <0.70 [facility] Comment on above: Result Comment: Clas s 0 (Negative <0.10) Performed By: #### Y RAP5 #### [facility] (DEFAULT) [address] [address] ROUGH PIGWEED IGE <0.10 Normal <0.70 [facility] Comment on above: Result Comment: Clas s 0 (Negative <0.10) Performed By: #### Y RAP5 #### [facility] (DEFAULT) [address] [address] TUVALUAN THISTLE IGE <0.10 Normal <0.70 [facility] Comment on above: Result Comment: Clas s 0 (Negative <0.10) Performed By: #### Y RAP5 #### [facility] (DEFAULT) [address] [place] [address] SYCAMORE IGE <0.10 Normal <0.70 [facility] Comment on above: Result Comment: Clas s 0 (Negative <0.10) Performed By: #### Y RAP5 #### [facility] (DEFAULT) [address] [place] [address] JASON GRASS IGE <0.10 Normal <0.70 [facility] Comment on above: Result Comment: Clas s 0 (Negative <0.10) Performed By: #### Y RAP5 #### [facility] (DEFAULT) [address] [place] [address] WALNUT TREE IGE <0.10 Normal <0.70 [facility] Comment on above: Result Comment: Clas s 0 (Negative <0.10) Performed By: #### Y RAP5 #### [facility] (DEFAULT) [address] [place] [address] WHITE KRYSTLE IGE <0.10 Normal <0.70 [facility] Comment on above: Result Comment: Clas s 0 (Negative <0.10) Performed By: #### Y RAP5 #### [facility] (DEFAULT) [address] [place] [address] XR CHEST PA AND LATERAL 2 EWSon 08-05-2023 XR CHEST PA AND LATERAL 2 VIEWS EXAM: XR CHEST PA AND LATERAL 2 VIEWS, 08/05/2023 16:07 PM COMPARISON: May 20, 2022 CLINICAL INDICATIONS: chronic dyspnea and cough RELEVANT CLINICAL HISTORY: R05.3:Chronic cough FINDINGS: (Adequate technique) Implanted Devices: None Lungs: Clear, without mass, interstitial disease, or consolidation. Pleural Spaces: No pleural effusion. No pneumothorax. Mediastinum and Marlene: Normal Cardiac silhouette and great vessels: Normal heart size. Unremarkable aorta. Chest Wall: Normal IMPRESSION: No acute cardiopulmonary disease Normal [facility] XR Chest PA and Lateralon Radiology Study observation (narrative) [facility] IMPRESSION: No acute cardiopulmonary disease OLOGY EXAM: XR CHEST PA AN D LATERAL 2 VIEWS, 08/05/2023 16:07 PM COMPARISON: May 20, 2022 CLINICAL INDICATIONS: chronic dyspnea and cough RELEVANT CLINICAL HISTORY: R05.3:Chronic cough FINDINGS: (Adequate technique) Implanted Devices: None Lungs: Clear, without mass, interstitial disease, or consolidation. Pleural Spaces: No pleural effusion. No pneumothorax. Mediastinum and Marlene: Normal Cardiac silhouette and great vessels: Normal heart size. Unremarkable aorta. Chest Wall: Normal RADIOLOGY Joss Salazar MD - 08/05/2023 EXAM: XR CHEST PA AND LATERAL 2 VIEWS, 08/05/2023 16:07 PM COMPARISON: May 20, 2022 CLINICAL INDICATIONS: chronic dyspnea and cough RELEVANT CLINICAL HISTORY: R05.3:Chronic cough FINDINGS: (Adequate technique) Implanted Devices: None Lungs: Clear, without mass, interstitial disease, or consolidation. Pleural Spaces: No pleural effusion. No pneumothorax. Mediastinum and Marlene: Normal Cardiac silhouette and great vessels: Normal heart size. Unremarkable aorta. Chest Wall: Normal IMPRESSION IMPRESSION: No acute cardiopulmonary disease [facility] XR Chest PA and LateralOrder ed By: Joss Salazar on 08-05-2023 [facility] Work Phone: B-TYPE NATRIURETIC PEPTIDE ( BRAIN)on 07-01-2023 Interpretation and review of laboratory results Normal [facility] Natriuretic peptide B (Bld) [Mass/Vol] 15 pg/mL Normal 0-100 [facility] Comment on above: Performed By: #### B PORTRAIT PHOTOGRAPHER #### [facility] (DEFAULT) [address] [place] [id number] Natriuretic peptide B (Bld) [Mass/Vol] 15 pg/mL 0 - 100 pg/mL [facility] CHEM 6 (LYTES, BUN CREA)on 0 07-01-2023 Anion gap [Moles/Vol] 12 mmol/L Normal 7-17 [facility] Comment on above: Performed By: #### C HM6 #### [facility] (DEFAULT) [address] [place] [address] Anion gap [Moles/Vol] 12 mmol/L 7 - 17 mmol/L [facility] Chloride [Moles/Vol] 102 mmol/L Normal 98-108 [facility] Comment on above: Performed By: #### C HM6 #### [facility] (DEFAULT) [address] [place] [address] Chloride [Moles/Vol] 102 mmol/L 98 - 10 8 mmol/L [facility] CO2 [Moles/Vol] 29 mmol/L Normal 21-31 [facility] Comment on above: Performed By: #### C HM6 #### [facility] (DEFAULT) [address] [place] [address] CO2 [Moles/Vol] 29 mmol/L 21 - 31 mmol/L [facility] Creatinine [Mass/Vol] 0.75 mg/dL Normal 0.50-1.20 [facility] Comment on above: Performed By: #### C HM6 #### [facility] (DEFAULT) [address] [place] [address] Creatinine [Mass/Vol] 0.75 mg/dL 0.50 - 1.20 mg/dL [facility] eGFR, CKD-EPI, Female > Normal >=60 [facility] Comment on above: Result Comment: Repo rted eGFR is based on the CKD-EPI 2021 equation using creatinine, age, and sex. Performed By: #### C HM6 #### [facility] (DEFAULT) [address] [place] [address] eGFR, CKD-EPI, Female - PINF [facility] Comment on above: Reported eGFR is bas ed on the CKD-EPI 2021 equation using creatinine, age, and sex. Potassium [Moles/Vol] 3.8 mmol/L Normal 3.5-5.0 [facility] Comment on above: Performed By: #### C HM6 #### [facility] (DEFAULT) [address] [place] [address] Potassium [Moles/Vol] 3.8 mmol/L 3.5 - 5.0 mmol/L [facility] Sodium [Moles/Vol] 139 mmol/L Normal 135-145 [facility] Comment on above: Performed By: #### C HM6 #### [facility] (DEFAULT) [address] [place] [address] Sodium [Moles/Vol] 139 mmol/L 135 - 145 mmol/L [facility] Urea nitrogen [Mass/Vol] 15 mg/dL Normal 7-25 [facility] Comment on above: Performed By: #### C HM6 #### [facility] (DEFAULT) [address] [place] [address] Urea nitrogen [Mass/Vol] 15 mg/dL 7 - 25 mg/dL [facility] Urea nitrogen/Creatinine [Mass ratio] 20 mg/mg Normal [facility] Comment on above: Performed By: #### C HM6 #### [facility] (DEFAULT) [address] [place] [address] Urea nitrogen/Creatinine [Mass ratio] 20 mg/mg [facility] Cardiac echo study Procedure Ordered By: Nesha Mejia on 12-31-2022 Ao ASC index 1.45 cm/m2 [facility] Work Phone: Ao peak deena 1.09 m/s [facility] Work Phone: Ao SOV index 1.38 cm/m2 [facility] Work Phone: Ao STJ index 1.34 cm/m2 [facility] Work Phone: Ao VTI 20.44 cm [facility] Work Phone: Ascending aorta 2.92 cm [facility] Phone: AV LVOT peak gradient 4 mmHg [facility] Work Phone: AV mean gradient 3 mmHg [place] Work Phone: AV peak gradient 5 mmHG [facility] Work Phone: AV valve area 4.18 cm2 [facility] Work Phone: AV Velocity Ratio 0.92 [facility] Work Phone: ESTEFANÍA (continuity Vmax) 3.45 cm2 [facility] Work Phone: ESTEFANÍA (continuity VTI) 4.18 cm2 [facility] Work Phone: ESTEFANÍA index (continuity Vmax) 1.71 m/s [facility] Work Phone: ESTEFANÍA index (continuity VTI) 2.07 cm2/m2 [facility] Work Phone: Avg e' pk deena 0.10 m/s [facility] Work Phone: Avg E/e' ratio 7.10 [facility] Work Phone: Body surface area Derived from formula 2.02 m2 [facility] Work Phone: BP EF 63 % [facility] Work Phone: DI (Vmax) 0.92 [facility] Work Phone: DI (VTI) 1.11 m/2 [facility] Work Phone: E wave decelartion time 193.38 msec [facility] Work Phone: e' lateral pk deena 0.0978 m/s [facility] Work Phone: e' lateral pk deena 0.10 m/s [facility] Work Phone: e' septal pk deena 0.0994 m/s [facility] Work Phone: e' septal pk deena 0.10 m/s [facility] Work Phone: E/A ratio 1.11 [facility] Work Phone: E/e' lateral ratio 7.16 [facility] Work Phone: E/e' septal ratio 7.04 [facility] Work Phone: EF SP 2CH 64 [facility] Work Phone: EF SP 4CH 60 [facility] Work Phone: FS 43 % 28 - 44 % [facility] Work Phone: IVS 0.83 cm [facility] Work Phone: LA AREA 2CH 17.95 cm2 [facility] Work Phone: LA area 4CH 15.62 cm2 [facility] Work Phone: LA ESV BP (MOD) 42 mL [facility] Work Phone: LA ESV BP (MOD) index 21 mL/m2 [facility] Work Phone: LA ESV SP 2CH (MOD) 48 mL [facility] Work Phone: LA ESV SP 4CH (MOD) 35 mL [facility] Work Phone: LV EDV BP 107 mL [facility] Work Phone: LV EDV SP 2CH 109 mL [facility] Work Phone: LV EDV SP 4CH 100 mL [facility] Work Phone: LV ESV BP 40 mL [facility] Work Phone: LV ESV SP 2CH 39 mL [facility] Work Phone: LV ESV SP 4CH 40 mL [facility] Work Phone: LV mass 128.12 g [facility] Work Phone: LV Mass Index 63.4 g/m2 [facility] Work Phone: LV RWT 0.38 [facility] Work Phone: LV stroke volume BP (ml) 67 mL [facility] Work Phone: LV stroke volume index BP 33.17 mL/m2 [facility] Work Phone: LVIDD 4.61 cm [facility] Work Phone: LVIDS 2.64 cm [facility] Work Phone: LVOT area 3.76 cm2 [facility] Work Phone: LVOT diameter 2.19 cm [facility] Work Phone: LVOT peak deena 1.00 m/s [facility] Work Phone: LVOT peak VTI 22.67 cm [facility] Work Phone: LVOT stroke volume 85 cm3 [facility] Phone: LVOT stroke volume index 42.25 ml/m2 [facility] Work Phone: MV pk A deena 0.63 m/s [facility] Work Phone: MV pk E deena 0.70 m/s [facility] Work Phone: MV stenosis pressure 1/2 time 56.08 ms [facility] Work Phone: MV valve area p 1/2 method 3.92 cm2 [facility] Work Phone: [facility] AV VTI RATIO PRE STRESS 1.11 [facility] Work Phone: [facility] ECHO LV BIPLANE SYSTOLIC VOLUME INDEX 19.80 mL/m2 [facility] Work Phone: [facility] ECHO LV BP DIASTOLIC VOLUME INDEX 52.97 mL/m2 [facility] Work Phone: [facility] RVOT VTI RATIO 0.48 [facility] Work Phone: PV mean gradient 4 mmHg [facility] Work Phone: PV peak gradient 6 mmHg [facility] Work Phone: PV PK DEENA 1.23 m/s [facility] Work Phone: PV VTI 28.69 cm [facility] Work Phone: PW 0.87 cm [facility] Work Phone: RA vol index 4CH (MOD) 9.41 mL/m2 [facility] Work Phone: Right atrium volume 4 chamber method of disks 19 mL [facility] Work Phone: RV Area diastolic 21.13 cm2 [facility] Work Phone: RV Area systolic 10.24 cm2 [facility] Work Phone: RV basal diam 3.44 cm [facility] Work Phone: RV Fractional area change 51.5 % [facility] Work Phone: RV long diam 7.48 cm [facility] Work Phone: RV mid diam 1.85 cm [facility] Work Phone: RV S' 12.79 cm/s [facility] Work Phone: RVOT peak gradient 1 mmHg [facility] Work Phone: RVOT peak deena 0.60 m/s [facility] Work Phone: RVOT peak VTI 13.82 cm [facility] Work Phone: Sinus 2.78 cm [facility] Work Phone: STJ 2.71 cm [facility] Work Phone: Stroke Volume 85 cm/mL [facility] Work Phone: Stroke volume index [facility]: [facility] Work Phone: Cardiac echo study Procedure on 12-31-2022 Radiology Study observation (narrative) [facility] Left Ventricle: Agnes ann marie size is [...] and technically difficult study. Imaging system used: [place]. Indications Indications for study: dyspnea. [facility] ECHOCARDIOGRAMon 12-31-2022 Echocardiography ? Left Ventricle: [...] the original result were not included. Facility [facility] Patient Information Patient Name Swapna Guido [...] Reading Providers Reading Role Read Date Nesha Meija MD Echo [place] 12/31/2022 Left Heart Measurements LV - Systole [...] 0.7 m/s (more content not included)... Normal [facility] INVASIVE CARDIOVASCULAR PROC EDUREon 11-09-2022 INVASIVE CARDIOVASCULAR PROCEDURE Conclusions Mild coronary [...] Procedure Ordering Physician: MARCELLO GALEANA Order #: [id number] Study Date: 11/06/2022 Patient Information Name MRN Description Swapna Guido [id number] 57 y.o. female Location Name Address [facility] [address] [facility] [address] Physicians Panel Physicians Referring Physician Case Authorizing Physician Sary Singh MD (Primary) MD Marcello Mcneill MD Frank R Weigel, DO (Fellow) CC Referring Recipient Method Contact Information Lamin Benavides MD Fax ? 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 Informed consent was obtained. The patient was brought to the logging rafter laborer and placed on the table. The planned [...] Meehan DO - 11/06/2022 12:13 PM Cardiac Coin Rolling Machine Operator Attending Physician Statement and Signature I have [...] AM Medical History Prompt Yes/No Comments Date TX Yes May Hypertension Yes Stroke Unanswered Vascular Disease Unanswered COPD Unanswered Diabetes Unanswered Surgical History Prompt Yes/No Procedure Laterality Comments Date CABG Unanswered Coronary Artery Bypass Graft Tobacco Use Never smoked or used smokeless tobacco. SNOMED CT?: Never smoked tobacco ([id number]). Vaping Use Never used Last Resulted Components Date/Time Component Value Lab Status 11/06/22 1024 HGB 12.6 Final result Normal [facility] CBC,PLATELETSon 11-06-2022 Erythrocyte distribution width (RBC) [Ratio] 12.5 % 10.8 - 14.9 % [facility] Hematocrit (Bld) [Volume fraction] 36.4 % Normal 34.9-44.3 [facility] Comment on above: Performed By: #### [facility] #### [facility] (DEFAULT) [address] [address] Hemoglobin (Bld) [Mass/Vol] 12.6 g/dL Normal 11.4-15.2 [facility] Comment on above: Performed By: #### [facility] #### [facility] (DEFAULT) [address] [address] Interpretation and review of laboratory results Normal [facility] MCH (RBC) [Entitic mass] 29.7 pg 25.9 - 33.9 pg [facility] MCHC (RBC) [Mass/Vol] 34.6 g/dL 31.4 - 35.9 g/dL [facility] MCV (RBC) [Entitic vol] 85.8 fL Normal 79.6-97.7 [facility] Comment on above: Performed By: #### H EMOGC #### [facility] (DEFAULT) [address] [address] Mean Cell Hgb 29.7 pg Normal 25.9-33.9 [facility] Comment on above: Performed By: #### H EMOGC #### [facility] (DEFAULT) [address] [address] Mean Cell Hgb Conc 34.6 g/dL Normal 31.4-35.9 [facility] Comment on above: Performed By: #### H EMOGC #### [facility] (DEFAULT) [address] [address] Platelet mean volume (Bld) [Entitic vol] 9.2 fL Normal 8.5-12.2 [facility] Comment on above: Performed By: #### H EMOGC #### [facility] (DEFAULT) [address] [address] Platelets (Bld) [#/Vol] 284 10*3/uL Normal 150-393 [facility] Comment on above: Performed By: #### H EMOGC #### [facility] (DEFAULT) [address] [address] RBC (Bld) [#/Vol] 4.24 10*6/uL Normal 3.91-5.04 [facility] Comment on above: Performed By: #### H EMOGC #### [facility] (DEFAULT) [address] [address] RBC Distribution 12.5 % Normal 10.8-14.9 [facility] Comment on above: Performed By: #### H EMOGC #### [facility] (DEFAULT) [address] [address] WBC (Bld) [#/Vol] 6.65 10*3/uL Normal 3.99-11.19 [facility] Comment on above: Performed By: #### [facility] #### [facility] (DEFAULT) [address] [place] [address] Cardiac catheterization stud yon 11-06-2022 Radiology Study observation (narrative) [facility] No Panel Informationon 11-06 [facility] Tobacco Screening.on 023 Adult depression screening assessment No [facility]Sandu juan antonio 250 DO Work Phone: Fall risk assessment a) No falls within the last year [facility] juan antonio 250 DO Work Phone: Tobacco use status [facility] b) No [facility] [employer] juan antonio 250 DO Work Phone: ECG 12 lead ECGon 08-13-2022 ECG 12 lead ECG [facility] [place] [address] [place] [address] Electrocardiograph Report Signed Patient: Swapna Guido MR#: [id number] 8 : 1965 Acct:[id number] Age/Sex: 57 / F ADM Date: 08/12/22 Loc: Room: [address] [place] [address] Type: REG [facility] Attending Dr: Maria Luisa Sarkar MD Ordering [...] By Silverio Khan DO 08/13 1301 Normal [facility] Urinalysison 08-13-2022 Appearance (U) Clear Normal Clear [facility] Comment on above: Order Comment: Name Collection Type:: Clean-Voided Midstream Performed By: #### U A #### [facility] [address] [place] [address] [place] Bilirubin,Urine Negative Normal Negative [facility] Comment on above: Order Comment: Name Collection Type:: Clean-Voided Midstream Performed By: #### U A #### [facility] [address] [place] [address] [place] Color (U) Yellow Normal Yellow [facility] Comment on above: Order Comment: Name Collection Type:: Clean-Voided Midstream Performed By: #### U A #### [facility] [address] [place] [address] [place] Glucose Ql (U) Normal Normal Normal [facility] Comment on above: Order Comment: Name Collection Type:: Clean-Voided Midstream Performed By: #### U A #### [facility] [address] [place] [address] [place] Ketones Ql (U) Negative Normal Negative [facility] Comment on above: Order Comment: Name Collection Type:: Clean-Voided Midstream Performed By: #### U A #### [facility] [address] [place] [address] [place] Leukocyte esterase Test strip Ql (U) Negative Normal Negative [facility] Comment on above: Order Comment: Name Collection Type:: Clean-Voided Midstream Performed By: #### U A #### [facility] [address] [place] [address] [place] Nitrite,Urine Negative Normal Negative [facility] Comment on above: Order Comment: Name Collection Type:: Clean-Voided Midstream Performed By: #### U A #### [facility] [address] [place] [address] [place] Occult Blood,Urine Negative Normal Negative [facility] Comment on above: Order Comment: Name Collection Type:: Clean-Voided Midstream Result Comment: PERF ORMED BY: [place] [address] PATHOLOGIST [employer] WORKER ALEX WETZEL M.D. Performed By: #### U A #### [facility] [address] [place] [address] pH (U) 6.0 [pH] Normal 5.0-9.0 [facility] Comment on above: Order Comment: Name Collection Type:: Clean-Voided Midstream Performed By: #### U A #### [address] Protein,Urine Negative Normal Negative [facility] Comment on above: Order Comment: Name Collection Type:: Clean-Voided Midstream Performed By: #### U A #### [address] Specificy [place],Urine 1.016 Normal 1.001-1.03 0 [facility] Comment on above: Order Comment: Name Collection Type:: Clean-Voided Midstream Performed By: #### U A #### [facility] [address] [place] [address] Urobilinogen,Urine Normal Normal Normal [facility] Comment on above: Order Comment: Name Collection Type:: Clean-Voided Midstream Performed By: #### U A #### [facility] [address] [place] [address] Alanine aminotransferase [En zymatic activity/volume] in Serum or PlasmaOrdered By: Stephen Bae on 08-12-2022 ALT [Catalytic activity/Vol] 13 U/L 7-52 [facility] Albumin [Mass/volume] in Ser um or Plasma by Bromocresol green (BCG) dye binding methoOrdered By: Stephen Bae on 08-12-2022 Albumin BCG dye [Mass/Vol] 3.5 g/dL 3.5-5.7 [facility] Alkaline phosphatase [Enzyma tic activity/volume] in Serum or PlasmaOrdered By: Stephen Bae on 08-12-2022 ALP [Catalytic activity/Vol] 46 U/L 34-104 [facility] Aspartate aminotransferase [ Enzymatic activity/volume] in Serum or PlasmaOrdered By: Stephen Bae on 08-12-2022 AST [Catalytic activity/Vol] 22 U/L 13-39 [facility] Basophils Auto (Bld) [#/Vol] Ordered By: Stephen Bae on 08-12-2022 Basophils (Bld) [#/Vol] 0.1 10*3/uL 0.0-0.2 [facility] Basophils/100 WBC Auto (Bld) Ordered By: Stephen Bae on 08-12-2022 Basophils/100 WBC (Bld) 1.3 % . [facility] Bilirubin Test strip Ql (U)O rdered By: Stephen Bae on 08-12-2022 Bilirubin Ql (U) Negative Negative [facility] Bilirubin.total [Mass/volume ] in Serum or PlasmaOrdered By: Stephen Bae on 08-12-2022 Bilirubin [Mass/Vol] 0.5 mg/dL 0.3-1.0 [facility] Calcium [Mass/volume] in Ser um or PlasmaOrdered By: Stephen Bae on 08-12-2022 Calcium [Mass/Vol] 8.0 mg/dL 8.6-10.3 [facility] Carbon dioxide, total [Moles /volume] in Serum or PlasmaOrdered By: Stephen Bae on 08-12-2022 CO2 [Moles/Vol] 27.2 mmol/L 21.0-31.0 [facility] Chloride [Moles/volume] in S julianna or PlasmaOrdered By: Stephen Bae on 08-12-2022 Chloride [Moles/Vol] 106 mmol/L 98-107 [facility] Color Auto (U)Ordered By: Fr gokul Bae on 08-12-2022 Color (U) Yellow Yellow [facility] Complete Blood Count Auto Di ffon 08-12-2022 Basophils (Bld) [#/Vol] 0.1 10*3/uL Normal 0.0-0.2 [facility] Comment on above: Result Comment: PERF ORMED BY: [place] [address] PATHOLOGIST [employer] WORKER ALEX WETZEL M.D. Performed By: #### L YTES, CBC, PP, LIPID, CREAT, HCGQUAL, BUN #### [place] [address] [place] Basophils/100 WBC (Bld) 1.3 % Normal . [facility] Comment on above: Performed By: #### L YTES, CBC, PP, LIPID, CREAT, HCGQUAL, BUN #### [address] Eosinophils (Bld) [#/Vol] 0.2 10*3/uL Normal 0.0-0.45 [facility] Comment on above: Performed By: #### L YTES, CBC, PP, LIPID, CREAT, HCGQUAL, BUN #### [address] Eosinophils/100 WBC (Bld) 2.6 % Normal . [facility] Comment on above: Performed By: #### L YTES, CBC, PP, LIPID, CREAT, HCGQUAL, BUN #### [address] Erythrocyte distribution width (RBC) [Ratio] 12.8 % Normal 11.9-15.3 [facility] Comment on above: Performed By: #### L YTES, CBC, PP, LIPID, CREAT, HCGQUAL, BUN #### [address] Hematocrit (Bld) [Volume fraction] 33.4 % Low 34.0-46.4 [facility] Comment on above: Performed By: #### L YTES, CBC, PP, LIPID, CREAT, HCGQUAL, BUN #### [address] Hemoglobin (Bld) [Mass/Vol] 11.5 g/dL Low 11.8-15.4 [facility] Comment on above: Performed By: #### L YTES, CBC, PP, LIPID, CREAT, HCGQUAL, BUN #### [address] Lymphocytes (Bld) [#/Vol] 2.8 10*3/uL Normal 1.00-4.8 [facility] Comment on above: Performed By: #### L YTES, CBC, PP, LIPID, CREAT, HCGQUAL, BUN #### [address] Lymphocytes/100 WBC (Bld) 37.5 % Normal . [facility] Comment on above: Performed By: #### L YTES, CBC, PP, LIPID, CREAT, HCGQUAL, BUN #### [address] MCH (RBC) [Entitic mass] 30.1 pg Normal 24.7-34.3 [facility] Comment on above: Performed By: #### L YTES, CBC, PP, LIPID, CREAT, HCGQUAL, BUN #### [address] MCV (RBC) [Entitic vol] 87.2 fL Normal 80-100 [facility] Comment on above: Performed By: #### L YTES, CBC, PP, LIPID, CREAT, HCGQUAL, BUN #### [address] Mean Corpuscular HGB Conc 34.5 g/dL Normal 32.0-35.0 [facility] Comment on above: Performed By: #### L YTES, CBC, PP, LIPID, CREAT, HCGQUAL, BUN #### [address] Monocytes (Bld) [#/Vol] 0.5 10*3/uL Normal 0.0-0.8 [facility] Comment on above: Performed By: #### L YTES, CBC, PP, LIPID, CREAT, HCGQUAL, BUN #### [address] Monocytes/100 WBC (Bld) 6.7 % Normal . [facility] Comment on above: Performed By: #### L YTES, CBC, PP, LIPID, CREAT, HCGQUAL, BUN #### [address] Neutrophils (Bld) [#/Vol] 3.9 10*3/uL Normal 1.8-7.7 [facility] Comment on above: Performed By: #### L YTES, CBC, PP, LIPID, CREAT, HCGQUAL, BUN #### [address] Neutrophils/100 WBC (Bld) 51.9 % Normal . [facility] Comment on above: Performed By: #### L YTES, CBC, PP, LIPID, CREAT, HCGQUAL, BUN #### [address] NRBC% 0.2 /100{WBC} Normal 0-0.5 [facility] Comment on above: Performed By: #### L YTES, CBC, PP, LIPID, CREAT, HCGQUAL, BUN #### [address] Platelet mean volume (Bld) [Entitic vol] 7.4 fL Normal 6.3-10.7 [facility] Comment on above: Performed By: #### L YTES, CBC, PP, LIPID, CREAT, HCGQUAL, BUN #### [place] [address] [place] Platelets (Bld) [#/Vol] 270 10*3/uL Normal 150-450 [facility] Comment on above: Performed By: #### L YTES, CBC, PP, LIPID, CREAT, HCGQUAL, BUN #### [place] [address] [place] RBC (Bld) [#/Vol] 3.83 10*6/uL Normal 3.60-5.00 [facility] Comment on above: Performed By: #### L YTES, CBC, PP, LIPID, CREAT, HCGQUAL, BUN #### [address] WBC (Bld) [#/Vol] 7.5 10*3/uL Normal 3.8-11.6 [facility] Comment on above: Performed By: #### L YTES, CBC, PP, LIPID, CREAT, HCGQUAL, BUN #### [address] Comprehensive Metabolic Pane geoff 08-12-2022 Albumin [Mass/Vol] 3.5 g/dL Normal 3.5-5.7 [facility] Comment on above: Performed By: #### L YTES, CBC, PP, LIPID, CREAT, HCGQUAL, BUN #### [address] Albumin/Globulin [Mass ratio] 1.5 {ratio} Normal [facility] Comment on above: Performed By: #### L YTES, CBC, PP, LIPID, CREAT, HCGQUAL, BUN #### [address] ALP [Catalytic activity/Vol] 46 U/L Normal 34-104 [facility] Comment on above: Performed By: #### L YTES, CBC, PP, LIPID, CREAT, HCGQUAL, BUN #### [address] ALT [Catalytic activity/Vol] 13 U/L Normal 7-52 [facility] Comment on above: Performed By: #### L YTES, CBC, PP, LIPID, CREAT, HCGQUAL, BUN #### [address] Anion gap [Moles/Vol] 9.2 mmol/L Normal 6.0-15.0 [facility] Comment on above: Performed By: #### L YTES, CBC, PP, LIPID, CREAT, HCGQUAL, BUN #### [address] AST [Catalytic activity/Vol] 22 U/L Normal 13-39 [facility] Comment on above: Performed By: #### L YTES, CBC, PP, LIPID, CREAT, HCGQUAL, BUN #### [facility] [address] [place] [address] Bilirubin [Mass/Vol] 0.5 mg/dL Normal 0.3-1.0 [facility] Comment on above: Performed By: #### L YTES, CBC, PP, LIPID, CREAT, HCGQUAL, BUN #### [address] Calcium [Mass/Vol] 8.0 mg/dL Low 8.6-10.3 [facility] Comment on above: Performed By: #### L YTES, CBC, PP, LIPID, CREAT, HCGQUAL, BUN #### [facility] [address] [place] [address] Chloride [Moles/Vol] 106 mmol/L Normal 98-107 [facility] Comment on above: Performed By: #### L YTES, CBC, PP, LIPID, CREAT, HCGQUAL, BUN #### [facility] [address] [place] [address] CO2 [Moles/Vol] 27.2 mmol/L Normal 21.0-31.0 [facility] Comment on above: Performed By: #### L YTES, CBC, PP, LIPID, CREAT, HCGQUAL, BUN #### [facility] [address] [place] [address] Creatinine [Mass/Vol] 0.86 mg/dL Normal 0.60-1.20 [facility] Comment on above: Performed By: #### L YTES, CBC, PP, LIPID, CREAT, HCGQUAL, BUN #### [facility] [address] [place] [address] Creatinine Clr Calc Pharmacy 86.32 Normal [facility] Comment on above: Performed By: #### L YTES, CBC, PP, LIPID, CREAT, HCGQUAL, BUN #### [address] [address] [place] GFR/1.73 sq M.predicted MDRD (S/P/Bld) [Vol rate/Area] mL/min/{1.73_m2} [facility] Comment on above: Performed By: #### L YTES, CBC, PP, LIPID, CREAT, HCGQUAL, BUN #### [facility] [address] Globulin (S) [Mass/Vol] 2.3 g/dL [facility] Comment on above: Performed By: #### L YTES, CBC, PP, LIPID, CREAT, HCGQUAL, BUN #### [address] Glucose [Mass/Vol] 123 mg/dL High 70-100 [facility] Comment on above: Result Comment: [place] Glucose Reference Range is dependent on time and content of last meal. Glucose of more than 200 mg/dL in a nonstressed, ambulatory subject supports the diagnosis of Diabetes Mellitus. ADA recommended reference range Performed By: #### L YTES, CBC, PP, LIPID, CREAT, HCGQUAL, BUN #### [address] Potassium [Moles/Vol] 3.4 mmol/L Low 3.5-5.1 [facility] Comment on above: Performed By: #### L YTES, CBC, PP, LIPID, CREAT, HCGQUAL, BUN #### [address] Protein [Mass/Vol] 5.8 g/dL Low 6.4-8.9 [facility] Comment on above: Performed By: #### L YTES, CBC, PP, LIPID, CREAT, HCGQUAL, BUN #### [address] Sodium [Moles/Vol] 139 mmol/L Normal 136-145 [facility] Comment on above: Performed By: #### L YTES, CBC, PP, LIPID, CREAT, HCGQUAL, BUN #### [address] [place] [address] [facility] Urea nitrogen [Mass/Vol] 11 mg/dL Normal 7-25 [facility] Comment on above: Performed By: #### L YTES, CBC, PP, LIPID, CREAT, HCGQUAL, BUN #### [place] [id number] [facility] Cortisolon 08-12-2022 Cortisol > 120.0 Normal [facility] Comment on above: Result Comment: Refe rence range: AM 6 - 24 ug/dl PM <10 ug/dl PERFORMED BY: [place] [address] PATHOLOGIST [employer] ALEX WETZEL M.D. Performed By: #### L YTES, CBC, PP, LIPID, CREAT, HCGQUAL, BUN #### [place] [id number] [facility] Creatinine [Mass/volume] in Serum or PlasmaOrdered By: Stephen Bae on 08-12-2022 Creatinine [Mass/Vol] 0.86 mg/dL 0.60-1.20 [facility] ECG 12 lead ECGon 08-12-2022 ECG 12 lead ECG [facility] Main [place] [address] [place] [address] Electrocardiograph Report Signed Patient: Swapna Guido MR#: [id number] 8 : 1965 Acct:[id number] Age/Sex: 57 / F ADM Date: 08/12/22 Loc: Room: [address] [place] [address] Type: REG SDC Attending Dr: Maria Luisa [...] By Silverio Khan DO 08/13 1301 Normal [facility] Eosinophils Auto (Bld) [#/Vo l]Ordered By: Stephen Bae on 08-12-2022 Eosinophils (Bld) [#/Vol] 0.2 10*3/uL 0.0-0.45 [facility] Eosinophils/100 WBC Auto (Bl d)Ordered By: Stephenelsa Bae on 08-12-2022 Eosinophils/100 WBC (Bld) 2.6 % . [facility] Erythrocyte distribution wid th Auto (RBC) [Ratio]Ordered By: Stephenelsa Bae on 08-12-2022 Erythrocyte distribution width (RBC) [Ratio] 12.8 % 11.9-15.3 [facility] Globulin Calc (S) [Mass/Vol] Ordered By: Stephen Bae on 08-12-2022 Globulin (S) [Mass/Vol] 2.3 g/dL [facility] Glucose Glucometer (BldC) [M ass/Vol]Ordered By: Maria Luisa Sarkar on 08-12-2022 Glucose [Mass/Vol] 127 mg/dL [facility] Comment on above: Random Glucose Refer ence Range is dependent on time and content of last meal. Glucose of more than 200 mg/dL in a nonstressed, ambulatory subject supports the diagnosis of Diabetes Mellitus. Glucose Poct Glucometerson 0 08-12-2022 Glucose [Mass/Vol] 127 mg/dL Normal [facility] Comment on above: Result Comment: [place] om Glucose Reference Range is dependent on time and content of last meal. Glucose of more than 200 mg/dL in a nonstressed, ambulatory subject supports the diagnosis of Diabetes Mellitus. PERFORMED BY: [facility] [address] [place] [address] PATHOLOGIST [employer] ALEX WETZEL M.D. Performed By: #### L YTES, CBC, PP, LIPID, CREAT, HCGQUAL, BUN #### [facility] [address] Glucose [Mass/volume] in Ser um or PlasmaOrdered By: Stephen Bae on 08-12-2022 Glucose [Mass/Vol] 123 mg/dL 70-100 [facility] Comment on above: ADA recommended refe rence rangeRandom Glucose Reference Range is dependent on time and content of last meal. Glucose of more than 200 mg/dL in a nonstressed, ambulatory subject supports the diagnosis of Diabetes Mellitus. Hematocrit Auto (Bld) [Volum e fraction]Ordered By: Stephenelsa Vasqueznh on 08-12-2022 Hematocrit (Bld) [Volume fraction] 33.4 % 34.0-46.4 [facility] Hemoglobin [Mass/volume] in BloodOrdered By: Stephen [facility] on 08-12-2022 Hemoglobin (Bld) [Mass/Vol] 11.5 g/dL 11.8-15.4 [facility] Ketones Auto test strip (U) [Mass/Vol]Ordered By: [facility]joshua [facility] on 08-12-2022 Ketones (U) [Mass/Vol] Negative Negative [facility] Lactate [Moles/volume] in Se rum or PlasmaOrdered By: Stephen Vasqueznh on 08-12-2022 Lactate [Moles/Vol] 3.0 mmol/L 0.5-2.2 [facility] Comment on above: Critical Result : Ca lled to and read back by: MARGIE TORIBOI at: 08/12/2022 21:01:17 by:[id number] Lactic Acidon 08-12-2022 Lactate [Moles/Vol] 2.0 mmol/L Off scale high 0.5-2.2 [facility] Comment on above: Result Comment: Crit ical Result : Called to and read back by: IVELISSE SCOTT at: 08/12/2022 17:30:09 by:[id number] PERFORMED BY: [facility] [address] [place] [address] PATHOLOGIST [employer] ALEX WETZEL M.D. Performed By: #### L YTES, CBC, PP, LIPID, CREAT, HCGQUAL, BUN #### [facility] [address] Lactic Acid Reflexon 023 Lactic Acid Reflex 3.0 mmol/L Off scale high 0.5-2.2 [facility] Comment on above: Result Comment: Crit ical Result : Called to and read back by: MARGIE TORIBIO at: 08/12/2022 21:01:17 by:[id number] PERFORMED BY: [place] [address] PATHOLOGIST [employer] ALEX WETZEL M.D. Performed By: #### L YTES, CBC, PP, LIPID, CREAT, HCGQUAL, BUN #### [facility] [address] Leukocytes [#/volume] correc juana for nucleated erythrocytes in Blood by Automated counOrdered By: Stephen Bae on 08-12-2022 WBC corrected for nucl RBC Auto (Bld) [#/Vol] 7.5 10*3/uL 3.8-11.6 [facility] Lymphocytes Auto (Bld) [#/Vo l]Ordered By: Stephen Bae on 08-12-2022 Lymphocytes (Bld) [#/Vol] 2.8 10*3/uL 1.00-4.8 [facility] Lymphocytes/100 WBC Auto (Bl d)Ordered By: Stephen Bae on 08-12-2022 Lymphocytes/100 WBC (Bld) 37.5 % . [facility] MCH Auto (RBC) [Entitic mass ]Ordered By: Stephen Bae on 08-12-2022 MCH (RBC) [Entitic mass] 30.1 pg 24.7-34.3 [facility] MCHC Auto (RBC) [Mass/Vol]Or dered By: Stephen Bae on 08-12-2022 MCHC (RBC) [Mass/Vol] 34.5 g/dL 32.0-35.0 [facility] MCV Auto (RBC) [Entitic vol] Ordered By: Stephen Bae on 08-12-2022 MCV (RBC) [Entitic vol] 87.2 fL 80-100 [facility] Magnesiumon 08-12-2022 Magnesium [Mass/Vol] 1.8 mg/dL Low 1.9-2.7 [facility] Comment on above: Performed By: #### L YTES, CBC, PP, LIPID, CREAT, HCGQUAL, BUN #### [facility] [address] Magnesium [Mass/volume] in S julianna or PlasmaOrdered By: Stephenjoshua Bae on 08-12-2022 Magnesium [Mass/Vol] 1.8 mg/dL 1.9-2.7 [facility] Monocytes Auto (Bld) [#/Vol] Ordered By: Stephenelsa Bae on 08-12-2022 Monocytes (Bld) [#/Vol] 0.5 10*3/uL 0.0-0.8 [facility] Monocytes/100 WBC Auto (Bld) Ordered By: Stephen Bae on 08-12-2022 Monocytes/100 WBC (Bld) 6.7 % . [facility] Neutrophils Auto (Bld) [#/Vo l]Ordered By: [facility] on 08-12-2022 Neutrophils (Bld) [#/Vol] 3.9 10*3/uL 1.8-7.7 [facility] Neutrophils/100 WBC Auto (Bl d)Ordered By: Stephenelsa Bae on 08-12-2022 Neutrophils/100 WBC (Bld) 51.9 % . [facility] Nitrite Test strip Ql (U)Ord ered By: Stephen Bae on 08-12-2022 Nitrite Ql (U) Negative Negative [facility] No Panel InformationOrdered By: Stephen Bae on 08-12-2022 Estimated GFR (CKD-EPI) > 60.0 mL/Min [facility] Creatinine Clearance (Chem 86.32 [facility] No Panel Informationon 08-12 127\S\127 Normal -[facility]Sandu juan antonio 250 DO Work Phone: Comment on above: Random Glucose Refer ence Range is dependent on time and content of last meal. Glucose of more than 200 mg/dL in a nonstressed, ambulatory subject supports the diagnosis of Diabetes Mellitus.PERFORMED BY:[facility] [id number] MEDICAL DIRECTORALEX WETZEL M.D. Nucleated erythrocytes [Pres ence] in Blood by Automated countOrdered By: Stephen Bae on 08-12-2022 Nucleated RBC Auto Ql (Bld) 0.2 /100{WBC} 0-0.5 [facility] Platelet mean volume Auto (B ld) [Entitic vol]Ordered By: Stephen Bae on 08-12-2022 Platelet mean volume (Bld) [Entitic vol] 7.4 fL 6.3-10.7 [facility] Platelets Auto (Bld) [#/Vol] Ordered By: Stephen Bae on 08-12-2022 Platelets (Bld) [#/Vol] 270 10*3/uL 150-450 [facility] Potassium [Moles/volume] in Serum or PlasmaOrdered By: Stephen Bae on 08-12-2022 Potassium [Moles/Vol] 3.4 mmol/L 3.5-5.1 [facility] Protein Auto test strip (U) [Mass/Vol]Ordered By: Stephen Bae on 08-12-2022 Protein (U) [Mass/Vol] Negative Negative [facility] Protein [Mass/volume] in Ser um or PlasmaOrdered By: Stephen Bae on 08-12-2022 Protein [Mass/Vol] 5.8 g/dL 6.4-8.9 [facility] RBC Auto (Bld) [#/Vol]Ordere d By: Stephen Bae on 08-12-2022 RBC (Bld) [#/Vol] 3.83 10*6/uL 3.60-5.00 [facility] Random cortisol measurementO rdered By: Stephen Bae on 08-12-2022 Cortisol [Mass/Vol] ug/dL [facility] Comment on above: Reference range: AM 6 - 24 ug/dl PM <10 ug/dl Serum or plasma albumin/glob ulin mass ratioOrdered By: Stephen Bae on 08-12-2022 Albumin/Globulin [Mass ratio] 1.5 {ratio} [facility] Serum or plasma anion gap de terminationOrdered By: Stephen Bae on 08-12-2022 Anion gap [Moles/Vol] 9.2 mmol/L 6.0-15.0 [facility] Sodium [Moles/volume] in Ser um or PlasmaOrdered By: Stephen Bae on 08-12-2022 Sodium [Moles/Vol] 139 mmol/L 136-145 [facility] Specific gravity Auto test s trip (U) [Rel density]Ordered By: Stephen Bae on 08-12-2022 Specific gravity (U) [Rel density] 1.016 1.001-1.03 0 [facility] Urea nitrogen [Mass/volume] in Serum or PlasmaOrdered By: Stephen Bae on 08-12-2022 Urea nitrogen [Mass/Vol] 11 mg/dL 7-25 [facility] Urine clarity by refractomet ry automatedOrdered By: Stephen Bae on 08-12-2022 Clarity Refractometry automated (U) Clear Clear [facility] Urine glucose measurement by automated test strip (mass/volume)Ordered By: Stephen Bae on 08-12-2022 Glucose Auto test strip (U) [Mass/Vol] Normal mg/dL Normal [facility] Urine hemoglobin detection b y automated test stripOrdered By: Stephen Bae on 08-12-2022 Hemoglobin Auto test strip Ql (U) Negative Negative [facility] Urine leukocyte esterase det ection by automated test stripOrdered By: Stephen Bae on 08-12-2022 Leukocyte esterase Auto test strip Ql (U) Negative Negative [facility] Urobilinogen Auto test strip (U) [Mass/Vol]Ordered By: Stephen Bae on 08-12-2022 Urobilinogen (U) [Mass/Vol] Normal mg/dL Normal [facility] WBC Auto (Bld) [#/Vol]Ordere d By: Stephen Bae on 08-12-2022 WBC (Bld) [#/Vol] 7.5 10*3/uL 3.8-11.6 [facility] pH Auto test strip (U)Ordere d By: Stephen Bae on 08-12-2022 pH (U) 6.0 [pH] 5.0-9.0 [facility] Activated partial thrombopla stin time (aPTT) in platelet poor plasma by coagulation aOrdered By: Maria Luisa Sarkar on 08-10-2022 aPTT Coag (PPP) [Time] 27.6 s 25.1-36.5 [facility] Automated basophil %Ordered By: Maria Luisa Sarkar on 08-10-2022 Basophils/100 WBC (Bld) 1.1 % Normal . [facility] Comment on above: Performed By: #### L YTES, CBC, PP, LIPID, CREAT, HCGQUAL, BUN #### [facility] [address] Automated basophil countOrde red By: Maria Luisa Sarkar on 08-10-2022 Basophils (Bld) [#/Vol] 0.1 10*3/uL Normal 0.0-0.2 [facility] Comment on above: Result Comment: PERF ORMED BY: [place] [address] PATHOLOGIST [employer] ALEX WETZEL M.D. Performed By: #### L YTES, CBC, PP, LIPID, CREAT, HCGQUAL, BUN #### [facility] [address] Automated blood monocyte cou ntOrdered By: Maria Luisa Sarkar on 08-10-2022 Monocytes (Bld) [#/Vol] 0.4 10*3/uL Normal 0.0-0.8 [facility] Comment on above: Performed By: #### L YTES, CBC, PP, LIPID, CREAT, HCGQUAL, BUN #### [address] Automated eosinophil %Ordere d By: Maria Luisa Sarkar on 08-10-2022 Eosinophils/100 WBC (Bld) 3.1 % Normal . [facility] Comment on above: Performed By: #### L YTES, CBC, PP, LIPID, CREAT, HCGQUAL, BUN #### [address] Automated eosinophil countOr dered By: Maria Luisa Sarkar on 08-10-2022 Eosinophils (Bld) [#/Vol] 0.2 10*3/uL Normal 0.0-0.45 [facility] Comment on above: Performed By: #### L YTES, CBC, PP, LIPID, CREAT, HCGQUAL, BUN #### [address] Automated monocyte %Ordered By: Maria Luisa Sarkar on 08-10-2022 Monocytes/100 WBC (Bld) 7.3 % Normal . [facility] Comment on above: Performed By: #### L YTES, CBC, PP, LIPID, CREAT, HCGQUAL, BUN #### [address] Automated neutrophil %Ordere d By: Maria Luisa Sarkar on 08-10-2022 Neutrophils/100 WBC (Bld) 56.7 % Normal . [facility] Comment on above: Performed By: #### L YTES, CBC, PP, LIPID, CREAT, HCGQUAL, BUN #### [facility] [address] [place] [address] Carbon dioxide, total [Moles /volume] in Serum or PlasmaOrdered By: Maria Luisa Sarkar on 08-10-2022 CO2 [Moles/Vol] 28.8 mmol/L Normal 21.0-31.0 [facility] Comment on above: Order Comment: patie nt not fasting Performed By: #### L YTES, CBC, PP, LIPID, CREAT, HCGQUAL, BUN #### [facility] [address] [place] [address] [place] Chloride [Moles/volume] in S julianna or PlasmaOrdered By: Maria Luisa Sarkar on 08-10-2022 Chloride [Moles/Vol] 105 mmol/L Normal 98-107 [facility] Comment on above: Order Comment: patie nt not fasting Performed By: #### L YTES, CBC, PP, LIPID, CREAT, HCGQUAL, BUN #### [facility] [address] [place] [address] [place] Cholesterol [Mass/volume] in Serum or PlasmaOrdered By: Maria Luisa Sarkar on 08-10-2022 Cholesterol [Mass/Vol] 149 mg/dL Normal 140-200 [facility] Comment on above: Chol less than 200 m g/dl low riskChol 201-239 mg/dl borderline riskChol 240 mg/dl and greater high risk Order Comment: patie nt not fasting Result Comment: Chol less than 200 mg/dl low risk Chol 201-239 mg/dl borderline risk Chol 240 mg/dl and greater high risk Performed By: #### L YTES, CBC, PP, LIPID, CREAT, HCGQUAL, BUN #### [facility] [address] [place] [id number] [place] Cholesterol in LDL Calc [Mas s/Vol]Ordered By: Maria Luisa Sarkar on 08-10-2022 Cholesterol in LDL [Mass/Vol] 23 mg/dL 0-100 [facility] Comment on above: LDL ATP III CLASSIFI CATIONLDL less than 100 mg/dL OptimalLDL 100-129 mg/dL Near or above optimalLDL 130-159 mg/dL Borderline highLDL 160-189 mg/dL HighLDL greater than 189 mg/dL Very high Cholesterol in VLDL Calc [Ma ss/Vol]Ordered By: Maria Luisa Sarkar on 08-10-2022 Cholesterol in VLDL [Mass/Vol] 78 mg/dL [facility] Choriogonadotropin.beta subu nit [Units/volume] in Serum or PlasmaOrdered By: Maria Luisa Sarkar on 08-10-2022 HCG.beta subunit Qn Negative [facility] Coagulation Profileon 2022 aPTT Coag (Bld) [Time] 27.6 s Normal 25.1-36.5 [facility] Comment on above: Result Comment: PERF ORMED BY: [place] [address] PATHOLOGIST [employer] ALEX WETZEL M.D. Performed By: #### L YTES, CBC, PP, LIPID, CREAT, HCGQUAL, BUN #### [address] Coagulation ProfileOrdered B y: Maria Luisa Sarkar on 08-10-2022 PT Coag (PPP) [Time] 10.5 s Normal 9.0-12.9 [facility] Comment on above: Performed By: #### L YTES, CBC, PP, LIPID, CREAT, HCGQUAL, BUN #### [address] Complete Blood Count Auto Di ffon 08-10-2022 Mean Corpuscular HGB Conc 34.4 g/dL Normal 32.0-35.0 [facility] Comment on above: Performed By: #### L YTES, CBC, PP, LIPID, CREAT, HCGQUAL, BUN #### [address] NRBC% 0.1 /100{WBC} Normal 0-0.5 [facility] Comment on above: Performed By: #### L YTES, CBC, PP, LIPID, CREAT, HCGQUAL, BUN #### [address] Creatinineon 08-10-2022 GFR/1.73 sq M.predicted MDRD (S/P/Bld) [Vol rate/Area] mL/min/{1.73_m2} Normal [facility] Comment on above: Order Comment: patie nt not fasting Performed By: #### L YTES, CBC, PP, LIPID, CREAT, HCGQUAL, BUN #### [place] [address] [place] Creatinine [Mass/volume] in Serum or PlasmaOrdered By: Maria Luisa Sarkar on 08-10-2022 Creatinine [Mass/Vol] 0.89 mg/dL Normal 0.60-1.20 [facility] Comment on above: Order Comment: patie nt not fasting Performed By: #### L YTES, CBC, PP, LIPID, CREAT, HCGQUAL, BUN #### [facility] [address] ECG 12 lead ECGon 08-10-2022 ECG 12 lead ECG [facility] Main [place] [address] [place] [address] Electrocardiograph Report Signed Patient: Swapna Guido MR#: [id number] 8 : 1965 Acct:[id number] Age/Sex: 57 / F ADM Date: 08/10/22 Loc: Room: Type: [facility] Attending Dr: Maria Luisa Sarkar MD Ordering Provider: Maria Luisa Sarkar MD Date of Service: 08/10/2211/26/935 ECG/ECG 12 lead ECG: [facility] for [facility] Copies to: Test Reason : Blood [...] Signed By Silverio Khan DO 08/12 1240 Normal [facility] Erythrocyte distribution wid th [Ratio] by Automated countOrdered By: Maria Luisa Sarkar on 08-10-2022 Erythrocyte distribution width (RBC) [Ratio] 13.1 % Normal 11.9-15.3 [facility] Comment on above: Performed By: #### L YTES, CBC, PP, LIPID, CREAT, HCGQUAL, BUN #### [address] Erythrocytes [#/volume] in B lood by Automated countOrdered By: Maria Luisa Sarkar on 08-10-2022 RBC (Bld) [#/Vol] 4.19 10*6/uL Normal 3.60-5.00 [facility] Comment on above: Performed By: #### L YTES, CBC, PP, LIPID, CREAT, HCGQUAL, BUN #### [address] HCG,Qualitative Serumon HCG,Qualitative Serum Negative Normal [facility] Comment on above: Order Comment: patie nt not fasting Result Comment: PERF ORMED BY: [place] [address] PATHOLOGIST [employer] ALEX WETZEL M.D. Performed By: #### L YTES, CBC, PP, LIPID, CREAT, HCGQUAL, BUN #### [address] Hematocrit [Volume Fraction] of Blood by Automated countOrdered By: Maria Luisa Sarkar on 08-10-2022 Hematocrit (Bld) [Volume fraction] 36.8 % Normal 34.0-46.4 [facility] Comment on above: Performed By: #### L YTES, CBC, PP, LIPID, CREAT, HCGQUAL, BUN #### [address] Hemoglobin [Mass/volume] in BloodOrdered By: Maria Luisa Sarkar on 08-10-2022 Hemoglobin (Bld) [Mass/Vol] 12.6 g/dL Normal 11.8-15.4 [facility] Comment on above: Performed By: #### L YTES, CBC, PP, LIPID, CREAT, HCGQUAL, BUN #### [address] Laboratory - Chemistry and C hemistry - challengeon 08-10-2022 Cholesterol [Mass/Vol] 149\S\149 Normal 140-200 [facility] juan antonio 250 DO Work Phone: Comment on above: Chol less than 200 m g/dl low risk Chol 201-239 mg/dl borderline risk Chol 240 mg/dl and greater high risk Cholesterol in LDL [Mass/Vol] 23\S\23 Normal 0-100 -[facility] juan antonio 250 DO Work Phone: Comment [...] RBC Auto (Bld) [#/Vol] 6.0 10*3/uL 3.8-11.6 [facility] Leukocytes [#/volume] in Blo od by Automated countOrdered By: Maria Luisa Sarkar on 08-10-2022 WBC (Bld) [#/Vol] 6.0 10*3/uL Normal 3.8-11.6 [facility] Comment on above: Performed By: #### L YTES, CBC, PP, LIPID, CREAT, HCGQUAL, BUN #### [facility] [address] Lipid Panelon 08-10-2022 LDL Cholesterol,Calculated 23 mg/dL Normal 0-100 [facility] Comment on above: Order Comment: patie nt not fasting Result Comment: LDL ATP III CLASSIFICATION LDL less than 100 mg/dL Optimal LDL 100-129 mg/dL Near or above optimal LDL 130-159 mg/dL Borderline high LDL 160-189 mg/dL High LDL greater than 189 mg/dL Very high Performed By: #### L YTES, CBC, PP, LIPID, CREAT, HCGQUAL, BUN #### [facility] [address] Triglyceride w/Reflex 394 mg/dL High 0-149 [facility] Comment on above: Order Comment: patie nt not fasting Result Comment: TRIG ATP III CLASSIFICATION TRIG less than 150 mg/dL Normal TRIG 150-199 mg/dL Borderline high TRIG 200-500 mg/dL High TRIG greater than 500 mg/dL Very high Standard traceable to the Center for Disease Conrtrol and Prevention (CDC) test method. Performed By: #### L YTES, CBC, PP, LIPID, CREAT, HCGQUAL, BUN #### [facility] [address] VLDL CHOLESTEROL 78 mg/dL Normal [facility] Comment on above: Order Comment: patie nt not fasting Performed By: #### L YTES, CBC, PP, LIPID, CREAT, HCGQUAL, BUN #### [address] Lymphocytes [#/volume] in Bl ood by Automated countOrdered By: Maria Luisa Sarkar on 08-10-2022 Lymphocytes (Bld) [#/Vol] 1.9 10*3/uL Normal 1.00-4.8 [facility] Comment on above: Performed By: #### L YTES, CBC, PP, LIPID, CREAT, HCGQUAL, BUN #### [address] Lymphocytes/100 leukocytes i n Blood by Automated countOrdered By: Maria Luisa Sarkar on 08-10-2022 Lymphocytes/100 WBC (Bld) 31.8 % Normal . [facility] Comment on above: Performed By: #### L YTES, CBC, PP, LIPID, CREAT, HCGQUAL, BUN #### [facility] [address] [place] [address] [place] MCH [Entitic mass] by Automa juana countOrdered By: Maria Luisa Sarkar on 08-10-2022 MCH (RBC) [Entitic mass] 30.2 pg Normal 24.7-34.3 [facility] Comment on above: Performed By: #### L YTES, CBC, PP, LIPID, CREAT, HCGQUAL, BUN #### [facility] [address] MCHC Auto (RBC) [Mass/Vol]Or dered By: Maria Luisa Sarkar on 08-10-2022 MCHC (RBC) [Mass/Vol] 34.4 g/dL 32.0-35.0 [facility] MCV [Entitic volume] by Auto mated countOrdered By: Maria Luisa Sarkar on 08-10-2022 MCV (RBC) [Entitic vol] 87.8 fL Normal 80-100 [facility] Comment on above: Performed By: #### L YTES, CBC, PP, LIPID, CREAT, HCGQUAL, BUN #### [facility] [address] [place] [address] Neutrophils [#/volume] in Bl ood by Automated countOrdered By: Maria Luisa Sarkar on 08-10-2022 Neutrophils (Bld) [#/Vol] 3.4 10*3/uL Normal 1.8-7.7 [facility] Comment on above: Performed By: #### L YTES, CBC, PP, LIPID, CREAT, HCGQUAL, BUN #### [facility] [address] No Panel InformationOrdered By: Maria Luisa Sarkar on 08-10-2022 Estimated GFR (CKD-EPI) > 60.0 mL/Min [facility] Creatinine Clearance (Chem N/A [facility] No Panel Informationon 08-10 0.1\S\0.1 Normal 0-0.5 [facility] Work Phone: Comment on above: PERFORMED BY:[facility] [place], [place] [address], [place] [phone] MEDICAL DIRECTORALEX WETZEL M.D. 0.2\S\0.2 Normal 0.0-0.45 [facility] 250 DO Work Phone: 0.4\S\0.4 Normal 0.0-0.8 [facility] juan antonio 250 DO Work Phone: [phone] 1.9\S\1.9 Normal 1.00-4.8 [facility] juan antonio 250 DO Work Phone: 3.4\S\3.4 Normal 1.8-7.7 [facility] juna antonio 250 DO Work Phone: [phone] 1.1\S\1.1 Normal . [facility] juan antonio 250 DO Work Phone: [phone] 3.1\S\3.1 Normal . [facility] juan antonio 250 DO Work Phone: [phone] 7.3\S\7.3 Normal 6.3-10.7 [facility] juan antonio 250 DO Work Phone: [phone] 31.8\S\31.8 Normal . [facility] juan antonio 250 DO Work Phone: [phone] 56.7\S\56.7 Normal . [facility] juan antonio 250 DO Work Phone: [phone] 283\S\283 Normal 150-450 [facility] juan antonio 250 DO Work Phone: [phone] 13.1\S\13.1 Normal 11.9-15.3 [facility] juan antonio 250 DO Work Phone: [phone] 34.4\S\34.4 Normal 32.0-35.0 [facility] juan antonio 250 DO Work Phone: [phone] 30.2\S\30.2 Normal 24.7-34.3 [facility] juan antonio 250 DO Work Phone: [phone] 87.8\S\87.8 Normal 80-100 [facility] juan antonio 250 DO Work Phone: [phone] 36.8\S\36.8 Normal 34.0-46.4 [facility] juan antonio 250 DO Work Phone: 12.6\S\12.6 Normal 11.8-15.4 [facility] juan antonio 250 DO Work Phone: 4.19\S\4.19 Normal 3.60-5.00 [facility] juan antonio 250 DO Work Phone: 6.0\S\6.0 Normal 3.8-11.6 [facility] juan antonio 250 DO Work Phone: [phone] 27.6\S\27.6 Normal 25.1-36.5 [facility] juan antonio 250 DO Work Phone: Comment on above: PERFORMED BY:[place] [address] [address] [place], [place] [phone] MEDICAL DIRECTORALEX WETZEL M.D. 0.9\S\0.9 Normal [facility] juan antonio 250 DO Work Phone: Comment [...] valves: 3 - 4.5 10.5\S\10.5 Normal 9.0-12.9 [facility] juan antonio 250 DO Work Phone: 11.1\S\11.1 Normal 6.0-15.0 [facility] juan antonio 250 DO Work Phone: 28.8\S\28.8 Normal 21.0-31.0 [facility] juan antonio 250 DO Work Phone: 105\S\105 Normal 98-107 [facility] ClinicDomin-8 [facility] Solutions[facility] juan antonio 250 DO Work Phone: 3.9\S\3.9 Normal 3.5-5.1 [facility] Nicholas romano 250 DO Work Phone: 141\S\141 Normal 136-145 [facility] Nicholas romano 250 DO Work Phone: 15\S\15 Normal 7-25 [facility] Nicholas romano 250 DO Work Phone: > 60.0 Normal [facility] Nicholas Schaefer DO Work Phone: 0.89\S\0.89 Normal 0.60-1.20 [facility] Nicholas romano 250 DO Work Phone: 3.2\S\3.2 Normal <5.0 [facility] Nicholas romano 250 DO Work Phone: 78\S\78 Normal [facility] Nicholas Schaefer DO Work Phone: [phone] above high threshold 0-149 [facility] Nicholas Schaefer DO Work Phone: Comment on above: TRIG ATP III CLASSIF ICATION TRIG less than 150 mg/dL Normal TRIG 150-199 mg/dL Borderline high TRIG 200-500 mg/dL High TRIG greater than 500 mg/dL Very high Standard traceable to the Center for Disease Conrtrol and Prevention (CDC) test method. 47\S\47 Normal 35-85 [facility] RonyIrving Schaefer DO Work Phone: Comment on above: HDL CHOL ATP-III CLA SSIFICATION Cardiovascular Risk HDL > or equal to 60 mg/dL LOW HDL < 40 mg/dL HIGH Negative Normal [facility] Nicholas Schaefer DO Work Phone: Comment on above: PERFORMED BY:[place] [id number] [place], [place] [phone] MEDICAL DIRECTORALEX WETZEL M.D. Nucleated erythrocytes [Pres ence] in Blood by Automated countOrdered By: Maria Luisa Sarkar on 08-10-2022 Nucleated RBC Auto Ql (Bld) 0.1 /100{WBC} 0-0.5 [facility] Platelet mean volume [Entiti c volume] in Blood by Automated countOrdered By: Maria Luisa Sarkar on 08-10-2022 Platelet mean volume (Bld) [Entitic vol] 7.3 fL Normal 6.3-10.7 [facility] Comment on above: Performed By: #### L YTES, CBC, PP, LIPID, CREAT, HCGQUAL, BUN #### [facility] [address] Platelet poor plasma interna tional normalized ratio (INR) by coagulation assay (relatOrdered By: Maria Luisa Sarkar on 08-10-2022 INR Coag (PPP) [Relative time] 0.9 {INR} Normal [facility] Comment on above: INR Therapeutic Rang e [...] CBC, PP, LIPID, CREAT, HCGQUAL, BUN #### [facility] [address] [place] [address] [place] Platelets [#/volume] in Bloo d by Automated countOrdered By: Maria Luisa Sarkar on 08-10-2022 Platelets (Bld) [#/Vol] 283 10*3/uL Normal 150-450 [facility] Comment on above: Performed By: #### L YTES, CBC, PP, LIPID, CREAT, HCGQUAL, BUN #### [facility] [address] Potassium [Moles/volume] in Serum or PlasmaOrdered By: Maria Luisa Sarkar on 08-10-2022 Potassium [Moles/Vol] 3.9 mmol/L Normal 3.5-5.1 [facility] Comment on above: Order Comment: patie nt not fasting Performed By: #### L YTES, CBC, PP, LIPID, CREAT, HCGQUAL, BUN #### [facility] [address] Serum or plasma anion gap de terminationOrdered By: Maria Luisa Sarkar on 08-10-2022 Anion gap [Moles/Vol] 11.1 mmol/L Normal 6.0-15.0 [facility] Comment on above: Order Comment: patie nt not fasting Performed By: #### L YTES, CBC, PP, LIPID, CREAT, HCGQUAL, BUN #### [facility] [address] [place] [address] Serum or plasma high density lipoprotein (HDL) cholesterol measurementOrdered By: Maria Luisa Sarkar on 08-10-2022 Cholesterol in HDL [Mass/Vol] 47 mg/dL Normal 35-85 [facility] Comment on above: HDL CHOL ATP-III CLA SSIFICATION Cardiovascular RiskHDL > or equal to 60 mg/dL LOWHDL < 40 mg/dL HIGH Order Comment: patie nt not fasting Result Comment: HDL CHOL ATP-III CLASSIFICATION Cardiovascular Risk HDL > or equal to 60 mg/dL LOW HDL < 40 mg/dL HIGH Performed By: #### L YTES, CBC, PP, LIPID, CREAT, HCGQUAL, BUN #### [facility] [address] [place] [address] Serum or plasma total choles terol/high density lipoprotein (HDL) cholesterol mass ratOrdered By: Maria Luisa Sarkar on 08-10-2022 Cholesterol.total/Chol esterol in HDL [Mass ratio] 3.2 {ratio} Normal <5.0 [facility] Comment on above: Order Comment: patie nt not fasting Performed By: #### L YTES, CBC, PP, LIPID, CREAT, HCGQUAL, BUN #### [facility] [address] [place] [id number] [facility] Sodium [Moles/volume] in Ser um or PlasmaOrdered By: Maria Luisa Sarkar on 08-10-2022 Sodium [Moles/Vol] 141 mmol/L Normal 136-145 [facility] Comment on above: Order Comment: patie nt not fasting Performed By: #### L YTES, CBC, PP, LIPID, CREAT, HCGQUAL, BUN #### [facility] [address] [place] [id number] [facility] Triglyceride [Mass/volume] i n Serum or PlasmaOrdered By: Maria Luisa Sarkar on 08-10-2022 Triglyceride [Mass/Vol] 394 mg/dL 0-149 [facility] Comment on above: TRIG ATP III CLASSIF ICATIONTRIG less than 150 mg/dL NormalTRIG 150-199 mg/dL Borderline highTRIG 200-500 mg/dL High TRIG greater than 500 mg/dL Very highStandard traceable to the Center for Disease Conrtrol and Prevention (CDC) test method. Urea nitrogen [Mass/volume] in Serum or PlasmaOrdered By: Maria Luisa Sarkar on 08-10-2022 Urea nitrogen [Mass/Vol] 15 mg/dL Normal 7-25 [facility] Comment on above: Order Comment: patie nt not fasting Performed By: #### L YTES, CBC, PP, LIPID, CREAT, HCGQUAL, BUN #### [facility] [address] [place] [id number] [facility] Office Visit (Cardiology)on 07-28-2022 Follow-up visit Diagnoses/Problems Assessed Angina pectoris (413.9) (I20.9) Abnormal stress test (794.39) (R94.39) Essential hypertension, benign (401.1) (I10) Hyperlipidemia (272.4) (E78.5) Diabetes mellitus (250.00) (E11.9) Class 1 obesity with body mass index (BMI) of 34.0 to 34.9 in adult (278.00,V85.34) (E66.9,Z68.34) Never a smoker Orders Abnormal stress test, Angina pectoris Cardiac Catheterization Lab Procedures; Status:Active - Retrospective Authorization; Requested for:[id number]; Abnormal stress test, PMH: History of chest pain Renew: Aspirin 81 MG Oral Tablet Delayed Release; TAKE 1 TABLET DAILY Class 1 obesity with body mass index (BMI) of 34.0 to 34.9 in adult Healthy Weight Tips; Status:Complete - Retrospective Authorization; Done: [id number] Some eating tips that can help you lose weight.; Status:Complete - Retrospective Authorization; Done: [id number] SocHx: Never a smoker Tobacco Use Screening; Status:Complete; Done: [id number] Patient Instructions Please bring all medicines, vitamins, [...] of Wrist surgery Current Meds Medication NameInstruction Carpenter Thyroid 90 MG Oral TabletTAKE 1 TABLET [...] Recorded: 28Jul2022 03:28PM Heart Rate74, L Radial [id number], LUE, Sitting Nhxylcppz09, LUE, Sitting Height5 ft 6 in Njvjqg929 lb BMI Fldisfqsgd34.22 kg/m2 BSA Calculated2.05 Tobacco Useb) No Physical [...] , pe (more content not included)... Normal [facility] Tobacco Screening.on 023 Tobacco use status [facility] b) No -[facility] juan antonio 250 DO Work Phone: LIPID PROFILEon 06-18-2022 CHOL-HDL RATIO NORM SEE BELOW Normal [facility] Comment on above: Result Comment: 3.3 - 4.4 LOW RISK 4.4 - 7.1 AVERAGE RISK 7.1 - 11.0 MODERATE RISK >11.0 HIGH RISK Performed By: #### F T4 #### [facility] [address] [place] [address] Dr. Claudine Mortensen Cholesterol [Mass/Vol] 143 mg/dL Normal <=200 [facility] Comment on above: Performed By: #### F T4 #### [facility] [address] [address] [address] Claudine Mortensen Cholesterol in HDL [Mass/Vol] 53 mg/dL Normal 40-60 [facility] Comment on above: Performed By: #### F T4 #### [facility] [address] [place] [address] Dr. Claudine Mortensen Cholesterol in LDL [Mass/Vol] 68.2 mg/dL Normal [facility] Comment on above: Performed By: #### F T4 #### [facility] [address] [place] [address] Dr. Claudine Mortensen Cholesterol.total/Chol esterol in HDL [Mass ratio] 2.7 {ratio} Normal [facility] Comment on above: Performed By: #### F T4 #### [facility] [address] [place] [address] Dr. Claudine Mortensen HDL NORMAL > or = 60 mg/dl - LO W CARDIOVASCULAR RISK <40 mg/dl - HIGH CARDIOVASCULAR RISK Normal [facility] Comment on above: Performed By: #### F T4 #### [facility] [address] [place] [address] Dr. Claudine Mortensen LDL CALC NORMAL SEE BELOW Normal [facility] Comment on above: Result Comment: <100 mg/dl OPTIMAL 100 - 129 mg/dl NEAR OR ABOVE OPTIMAL 130 - 159 mg/dl BORDERLINE HIGH 160 - 189 mg/dl HIGH >190 mg/dl VERY HIGH Performed By: #### F T4 #### [facility] [address] [place] [address] Dr. Claudine Mortensen Triglyceride [Mass/Vol] 109 mg/dL Normal <=150 [facility] Comment on above: Performed By: #### F T4 #### [facility] [address] [place], [place] [address] Dr. Claudine Mortensen VLDL CALC 21.8 mg/dL Normal [facility] Comment on above: Performed By: #### F T4 #### [facility] [address] [place], [place] [address] Dr. Claudine Mortensen Office Visit (Cardiology)on 06-03-2022 [...] of Wrist surgery Current Meds Medication NameInstruction Carpenter Thyroid 90 MG Oral TabletTAKE 1 TABLET [...] (V49.89) (Z78.9) (more content not included)... Normal [facility] NM harriet perf SPECT rest stron 06-02-2022 NM harriet perf SPECT rest str [facility] Main [place] [address] [place] [address] Nuclear Medicine Report Signed Patient: Swapna Guido MR#: [id number] 8 : 1965 Acct:[id number] Age/Sex: 57 / F ADM Date: 05/29/22 Loc: Room: Type: [facility] Attending Dr: Lamin Benavides MD Copies [...] available for comparison. Transcribed By: KERI 06/02/22 1705 Dictated By: Maria Luisa Sarkar MD 06/02/22 1202 Signed By: 06/02/22 1302 [facility] NM harriet [place] [address] Nuclear Medicine Report Signed Patient: Swapna Guido MR#: [id number] 8 : 1965 Acct:[id number] Age/Sex: 57 / F ADM Date: 06/02/22 Loc: Room: Type: [facility] Attending Dr: Lamin Benavides MD Copies [...] available for comparison. Transcribed By: KERI 06/02/22 1212 Dictated By: Maria Luisa Sarkar MD 06/02/22 120 Signed By: 06/03/22 0905 [facility] STR cardiac stress/cardiolon 06-02-2022 STR cardiac stress/cardiol [facility] Main [address] [address] Cardiac Stress Test Signed Patient: Swapna Guido MR#: [id number] 8 : 1965 Acct:[id number] Age/Sex: 57 / F ADM Date: 06/02/22 Loc: Room: Type: [facility] Attending Dr: Lamin Benavides MD Copies [...] 06/02/22 1048 Signed By: 06/02/22 1302 Normal [facility] Activated partial thrombopla stin time (aPTT) in platelet poor plasma by coagulation aOrdered By: Brianna Parker on 05-20-2022 aPTT Coag (PPP) [Time] 27.4 s 25.1-36.5 [facility] B-Type Natriuretic Peptideon 05-20-2022 Natriuretic peptide B (Bld) [Mass/Vol] 13.0 pg/mL Normal 5-100 [facility] Comment on above: Result Comment: PERF ORMED BY: [place] [address] PATHOLOGIST [employer] ALEX WETZEL M.D. Performed By: #### L YTES, CBC, PP, LIPID, CREAT, HCGQUAL, BUN #### [address] Basic Metabolic Panelon 05-06 Anion gap [Moles/Vol] 14.1 mmol/L Normal 6.0-15.0 [facility] Comment on above: Performed By: #### L YTES, CBC, PP, LIPID, CREAT, HCGQUAL, BUN #### [address] Calcium [Mass/Vol] 9.1 mg/dL Normal 8.2-10.2 [facility] Comment on above: Performed By: #### L YTES, CBC, PP, LIPID, CREAT, HCGQUAL, BUN #### [address] Chloride [Moles/Vol] 101 mmol/L Normal 95-114 [facility] Comment on above: Performed By: #### L YTES, CBC, PP, LIPID, CREAT, HCGQUAL, BUN #### [address] CO2 [Moles/Vol] 26.9 mmol/L Normal 22.0-30.0 [facility] Comment on above: Performed By: #### L YTES, CBC, PP, LIPID, CREAT, HCGQUAL, BUN #### [address] Creatinine [Mass/Vol] 0.85 mg/dL Normal 0.44-1.03 [facility] Comment on above: Performed By: #### L YTES, CBC, PP, LIPID, CREAT, HCGQUAL, BUN #### [address] Creatinine Clr Calc Pharmacy 91.75 Normal [facility] Comment on above: Result Comment: PERF ORMED BY: [address] [place] [address] PATHOLOGIST [employer] WORK[employer] ALEX WETZEL M.D. Performed By: #### L YTES, CBC, PP, LIPID, CREAT, HCGQUAL, BUN #### [address] Estimated GFR ( Melisa > 60 [facility] Comment on above: Result Comment: GFR estimated reference range: According to KDOQI guidelines, <60 ml/min/1.73m2 is sufficient to diagnose a patient with chronic kidney disease. Performed By: #### L YTES, CBC, PP, LIPID, CREAT, HCGQUAL, BUN #### [address] Estimated GFR (Non- Am > 60 [facility] Comment on above: Performed By: #### L YTES, CBC, PP, LIPID, CREAT, HCGQUAL, BUN #### [address] Glucose [Mass/Vol] 91 mg/dL Normal 70-100 [facility] Comment on above: Result Comment: [place] Glucose Reference Range is dependent on time and content of last meal. Glucose of more than 200 mg/dL in a nonstressed, ambulatory subject supports the diagnosis of Diabetes Mellitus. ADA recommended reference range Performed By: #### L YTES, CBC, PP, LIPID, CREAT, HCGQUAL, BUN #### [address] Potassium [Moles/Vol] 4.0 mmol/L Normal 3.5-5.1 [facility] Comment on above: Performed By: #### L YTES, CBC, PP, LIPID, CREAT, HCGQUAL, BUN #### [address] Sodium [Moles/Vol] 138 mmol/L Normal 136-146 [facility] Comment on above: Performed By: #### L YTES, CBC, PP, LIPID, CREAT, HCGQUAL, BUN #### [address] Urea nitrogen [Mass/Vol] 12 mg/dL Normal 9-23 [facility] Comment on above: Performed By: #### L YTES, CBC, PP, LIPID, CREAT, HCGQUAL, BUN #### [address] Basophils Auto (Bld) [#/Vol] Ordered By: Brianna Parker on 05-20-2022 Basophils (Bld) [#/Vol] 0.1 10*3/uL 0.0-0.2 [facility] Basophils/100 WBC Auto (Bld) Ordered By: Brianna Parker on 05-20-2022 Basophils/100 WBC (Bld) 1.1 % . [facility] Complete Blood Count Auto Di ffon 05-20-2022 Basophils (Bld) [#/Vol] 0.1 10*3/uL Normal 0.0-0.2 [facility] Comment on above: Result Comment: PERF ORMED BY: [place] [address] PATHOLOGIST [employer] ALEX WETZEL M.D. Performed By: #### L YTES, CBC, PP, LIPID, CREAT, HCGQUAL, BUN #### [address] Basophils/100 WBC (Bld) 1.1 % Normal . [facility] Comment on above: Performed By: #### L YTES, CBC, PP, LIPID, CREAT, HCGQUAL, BUN #### [address] Eosinophils (Bld) [#/Vol] 0.2 10*3/uL Normal 0.0-0.45 [facility] Comment on above: Performed By: #### L YTES, CBC, PP, LIPID, CREAT, HCGQUAL, BUN #### [address] Eosinophils/100 WBC (Bld) 3.4 % Normal . [facility] Comment on above: Performed By: #### L YTES, CBC, PP, LIPID, CREAT, HCGQUAL, BUN #### [address] Erythrocyte distribution width (RBC) [Ratio] 13.9 % Normal 11.9-15.3 [facility] Comment on above: Performed By: #### L YTES, CBC, PP, LIPID, CREAT, HCGQUAL, BUN #### [address] Hematocrit (Bld) [Volume fraction] 37.1 % Normal 34.0-46.4 [facility] Comment on above: Performed By: #### L YTES, CBC, PP, LIPID, CREAT, HCGQUAL, BUN #### [address] Hemoglobin (Bld) [Mass/Vol] 12.6 g/dL Normal 11.8-15.4 [facility] Comment on above: Performed By: #### L YTES, CBC, PP, LIPID, CREAT, HCGQUAL, BUN #### [address] Lymphocytes (Bld) [#/Vol] 2.6 10*3/uL Normal 1.00-4.8 [facility] Comment on above: Performed By: #### L YTES, CBC, PP, LIPID, CREAT, HCGQUAL, BUN #### [address] Lymphocytes/100 WBC (Bld) 38.9 % Normal . [facility] Comment on above: Performed By: #### L YTES, CBC, PP, LIPID, CREAT, HCGQUAL, BUN #### [address] MCH (RBC) [Entitic mass] 29.8 pg Normal 24.7-34.3 [facility] Comment on above: Performed By: #### L YTES, CBC, PP, LIPID, CREAT, HCGQUAL, BUN #### [address] MCV (RBC) [Entitic vol] 87.7 fL Normal 80-100 [facility] Comment on above: Performed By: #### L YTES, CBC, PP, LIPID, CREAT, HCGQUAL, BUN #### [address] Mean Corpuscular HGB Conc 34.0 g/dL Normal 32.0-35.0 [facility] Comment on above: Performed By: #### L YTES, CBC, PP, LIPID, CREAT, HCGQUAL, BUN #### [address] Monocytes (Bld) [#/Vol] 0.4 10*3/uL Normal 0.0-0.8 [facility] Comment on above: Performed By: #### L YTES, CBC, PP, LIPID, CREAT, HCGQUAL, BUN #### [address] Monocytes/100 WBC (Bld) 18.25 % Normal 0.00-20.00 [facility] Comment on above: Performed By: #### L YTES, CBC, PP, LIPID, CREAT, HCGQUAL, BUN #### [address] Monocytes/100 WBC (Bld) 6.0 % Normal . [facility] Comment on above: Performed By: #### L YTES, CBC, PP, LIPID, CREAT, HCGQUAL, BUN #### [address] Neutrophils (Bld) [#/Vol] 3.3 10*3/uL Normal 1.8-7.7 [facility] Comment on above: Performed By: #### L YTES, CBC, PP, LIPID, CREAT, HCGQUAL, BUN #### [address] Neutrophils/100 WBC (Bld) 50.6 % Normal . [facility] Comment on above: Performed By: #### L YTES, CBC, PP, LIPID, CREAT, HCGQUAL, BUN #### [place] [address] [place] NRBC% 0.1 /100{WBC} Normal 0-0.5 [facility] Comment on above: Performed By: #### L YTES, CBC, PP, LIPID, CREAT, HCGQUAL, BUN #### [address] Platelet mean volume (Bld) [Entitic vol] 7.1 fL Normal 6.3-10.7 [facility] Comment on above: Performed By: #### L YTES, CBC, PP, LIPID, CREAT, HCGQUAL, BUN #### [address] Platelets (Bld) [#/Vol] 308 10*3/uL Normal 150-450 [facility] Comment on above: Performed By: #### L YTES, CBC, PP, LIPID, CREAT, HCGQUAL, BUN #### [address] RBC (Bld) [#/Vol] 4.23 10*6/uL Normal 3.60-5.00 [facility] Comment on above: Performed By: #### L YTES, CBC, PP, LIPID, CREAT, HCGQUAL, BUN #### [address] WBC (Bld) [#/Vol] 6.6 10*3/uL Normal 3.8-11.6 [facility] Comment on above: Performed By: #### L YTES, CBC, PP, LIPID, CREAT, HCGQUAL, BUN #### [address] Creatine Kinaseon 05-20-2022 CK [Catalytic activity/Vol] 371 U/L High 22-269 [facility] Comment on above: Performed By: #### L YTES, CBC, PP, LIPID, CREAT, HCGQUAL, BUN #### [address] Creatine kinase [Enzymatic a ctivity/volume] in Serum or PlasmaOrdered By: Brianna Parker on 05-20-2022 CK [Catalytic activity/Vol] 371 U/L 22-269 [facility] Creatine kinase.MB [Mass/vol ume] in Serum or PlasmaOrdered By: Brianna Parker on 05-20-2022 CK.MB [Mass/Vol] 2.0 ng/mL 0.6-6.3 [facility] Creatinine Kinase MBon 05-20 CK.MB [Mass/Vol] 2.0 ng/mL Normal 0.6-6.3 [facility] Comment on above: Performed By: #### L YTES, CBC, PP, LIPID, CREAT, HCGQUAL, BUN #### [facility] [address] CKMB Relative Index 0.5 % Normal 0.00-2.50 [facility] Comment on above: Performed By: #### L YTES, CBC, PP, LIPID, CREAT, HCGQUAL, BUN #### [facility] [address] Creatinine and Glomerular fi ltration rate.predicted panel (S/P/Bld)Ordered By: Brianna Parker on 05-20-2022 Creatinine [Mass/Vol] 0.85 mg/dL 0.44-1.03 [facility] ECG 12 lead ECGon 05-20-2022 ECG 12 lead ECG [facility] [place] [address] Electrocardiograph Report Signed Patient: Swapna Guido MR#: [id number] 8 : 1965 Acct:[id number] Age/Sex: 57 / F ADM Date: 05/20/22 Loc: ER Room: Type: [facility] ER Attending Dr: Ordering Provider: [...] Signed By Brianna Parker DO 0008 Normal [facility] Eosinophils Auto (Bld) [#/Vo l]Ordered By: Brianna Parker on 05-20-2022 Eosinophils (Bld) [#/Vol] 0.2 10*3/uL 0.0-0.45 [facility] Eosinophils/100 WBC Auto (Bl d)Ordered By: Brianna Parker on 05-20-2022 Eosinophils/100 WBC (Bld) 3.4 % . [facility] Erythrocyte distribution wid th Auto (RBC) [Ratio]Ordered By: Brianna Parker on 05-20-2022 Erythrocyte distribution width (RBC) [Ratio] 13.9 % 11.9-15.3 [facility] Estimated glomerular filtrat ion rate (GFR) non- AmericanOrdered By: Brianna Parker on 05-20-2022 GFR/1.73 sq M.predicted among non-blacks MDRD (S/P/Bld) [Vol rate/Area] > 60 mL/Min [facility] Hematocrit Auto (Bld) [Volum e fraction]Ordered By: Brianna Parker on 05-20-2022 Hematocrit (Bld) [Volume fraction] 37.1 % 34.0-46.4 [facility] Hemoglobin [Mass/volume] in BloodOrdered By: Brianna Parker on 05-20-2022 Hemoglobin (Bld) [Mass/Vol] 12.6 g/dL 11.8-15.4 [facility] Laboratory - Chemistry and C hemistry - challengeOrdered By: Brianna Parker on 05-20-2022 Natriuretic peptide B (Bld) [Mass/Vol] 13.0 pg/mL 5-100 [facility] Laboratory - CoagulationOrde red By: Brianna Parker on 05-20-2022 PT Coag (PPP) [Time] 10.8 s 9.0-12.9 [facility] Leukocytes [#/volume] correc juana for nucleated erythrocytes in Blood by Automated counOrdered By: Brianna Parker on 05-20-2022 WBC corrected for nucl RBC Auto (Bld) [#/Vol] 6.6 10*3/uL 3.8-11.6 [facility] Lymphocytes Auto (Bld) [#/Vo l]Ordered By: Brianna Parker on 05-20-2022 Lymphocytes (Bld) [#/Vol] 2.6 10*3/uL 1.00-4.8 [facility] Lymphocytes/100 WBC Auto (Bl d)Ordered By: Brianna Parker on 05-20-2022 Lymphocytes/100 WBC (Bld) 38.9 % . [facility] MCH Auto (RBC) [Entitic mass ]Ordered By: Brianna Parker on 05-20-2022 MCH (RBC) [Entitic mass] 29.8 pg 24.7-34.3 [facility] MCHC Auto (RBC) [Mass/Vol]Or dered By: Brianna Parker on 05-20-2022 MCHC (RBC) [Mass/Vol] 34.0 g/dL 32.0-35.0 [facility] MCV Auto (RBC) [Entitic vol] Ordered By: Brianna Parker on 05-20-2022 MCV (RBC) [Entitic vol] 87.7 fL 80-100 [facility] Monocyte distribution width [Entitic volume] in Blood by AutomatedOrdered By: Brianna Parker on 05-20-2022 Monocyte distribution width Auto (Bld) [Entitic vol] 18.25 % 0.00-20.00 [facility] Monocytes Auto (Bld) [#/Vol] Ordered By: Brianna Parker on 05-20-2022 Monocytes (Bld) [#/Vol] 0.4 10*3/uL 0.0-0.8 [facility] Monocytes/100 WBC Auto (Bld) Ordered By: Brianna Parker on 05-20-2022 Monocytes/100 WBC (Bld) 6.0 % . [facility] Neutrophils Auto (Bld) [#/Vo l]Ordered By: Brianna Parker on 02-15-2023 Neutrophils (Bld) [#/Vol] 3.3 10*3/uL 1.8-7.7 [facility] Neutrophils/100 WBC Auto (Bl d)Ordered By: Brianna Parker on 05-20-2022 Neutrophils/100 WBC (Bld) 50.6 % . [facility] No Panel InformationOrdered By: Brianna Parker on 05-20-2022 Estimated GFR () > 60 mL/Min [facility] Comment on above: GFR estimated refere nce range: According to KDOQI guidelines, <60 ml/min/1.73m2 is sufficient to diagnose a patient with chronic kidney disease. Pharmacy Creatinine Clearance (Chem 91.75 [facility] Nucleated erythrocytes [Pres ence] in Blood by Automated countOrdered By: Brianna Parker on 05-20-2022 Nucleated RBC Auto Ql (Bld) 0.1 /100{WBC} 0-0.5 [facility] Partial Thromboplastin Timeo n 05-20-2022 aPTT Coag (Bld) [Time] 27.4 s Normal 25.1-36.5 [facility] Comment on above: Result Comment: PERF ORMED BY: [place] [address] PATHOLOGIST [employer] ALEX WETZEL M.D. Performed By: #### L YTES, CBC, PP, LIPID, CREAT, HCGQUAL, BUN #### [facility] [address] [place] [address] Platelet mean volume Auto (B ld) [Entitic vol]Ordered By: Brianna Parker on 05-20-2022 Platelet mean volume (Bld) [Entitic vol] 7.1 fL 6.3-10.7 [facility] Platelet poor plasma interna tional normalized ratio (INR) by coagulation assay (relatOrdered By: Brianna Parker on 05-20-2022 INR Coag (PPP) [Relative time] 0.9 {INR} [facility] Comment on above: INR Therapeutic Rang e [...] 05-20-2022 Platelets (Bld) [#/Vol] 308 10*3/uL 150-450 [facility] Prothrombin Time INRon 05-20 INR Coag (PPP) [Relative time] 0.9 {INR} Normal [facility] Comment on above: Result Comment: INR Therapeutic [...] CBC, PP, LIPID, CREAT, HCGQUAL, BUN #### [facility] [address] PT Coag (PPP) [Time] 10.8 s Normal 9.0-12.9 [facility] Comment on above: Performed By: #### L YTES, CBC, PP, LIPID, CREAT, HCGQUAL, BUN #### [facility] [address] RBC Auto (Bld) [#/Vol]Ordere d By: Brianna Parker on 05-20-2022 RBC (Bld) [#/Vol] 4.23 10*6/uL 3.60-5.00 [facility] Serum or plasma anion gap de terminationOrdered By: Brianna Parker on 05-20-2022 Anion gap [Moles/Vol] 14.1 mmol/L 6.0-15.0 [facility] Serum or plasma calcium denae urement (mass/volume)Ordered By: Brianna Parker on 05-20-2022 Calcium [Mass/Vol] 9.1 mg/dL 8.2-10.2 [facility] Serum or plasma chloride baldomero surement (moles/volume)Ordered By: Brianna Parker on 05-20-2022 Chloride [Moles/Vol] 101 mmol/L 95-114 [facility] Serum or plasma creatine kin ase MB (CKMB)/total creatine kinase (CK) ratio by calculaOrdered By: Brianna Parker on 05-20-2022 CK.MB Calc [Catalytic fraction] 0.5 % 0.00-2.50 [facility] Serum or plasma glucose denae urement (mass/volume)Ordered By: rBianna Parker on 05-20-2022 Glucose [Mass/Vol] 91 mg/dL 70-100 [facility] Comment on above: ADA recommended refe rence rangeRandom Glucose Reference Range is dependent on time and content of last meal. Glucose of more than 200 mg/dL in a nonstressed, ambulatory subject supports the diagnosis of Diabetes Mellitus. Serum or plasma potassium me asurement (moles/volume)Ordered By: Brianna Parker on 05-20-2022 Potassium [Moles/Vol] 4.0 mmol/L 3.5-5.1 [facility] Serum or plasma sodium measu rement (moles/volume)Ordered By: Brianna Parker on 05-20-2022 Sodium [Moles/Vol] 138 mmol/L 136-146 [facility] Serum or plasma total carbon dioxide measurement (moles/volume)Ordered By: Brianna Parker on 05-20-2022 CO2 [Moles/Vol] 26.9 mmol/L 22.0-30.0 [facility] Serum or plasma urea nitroge n measurement (mass/volume)Ordered By: Brianna Parker on 05-20-2022 Urea nitrogen [Mass/Vol] 12 mg/dL 9-23 [facility] Troponin I High Sensitivityo n 05-20-2022 Troponin I High Sensitivity < 3 Normal 0-15 [facility] Comment on above: Result Comment: PERF ORMED BY: [facility] [address] [place] [address] PATHOLOGIST [employer] ALEX WETZEL M.D. Performed By: #### L YTES, CBC, PP, LIPID, CREAT, HCGQUAL, BUN #### [facility] [address] [place] [address] Troponin I High Sensitivity < 3 Normal 0- [facility] Comment on above: Result Comment: PERF ORMED BY: [place] [address] PATHOLOGIST [employer] ALEX WETZEL M.D. Performed By: #### H S TROP #### [facility] [address] [place] [address] Troponin I.cardiac [Mass/vol ume] in Serum or Plasma by High sensitivity methodOrdered By: Brianna Parker on 05-20-2022 Troponin I.cardiac High sensitivity method [Mass/Vol] < 3 pg/mL 0-15 [facility] WBC Auto (Bld) [#/Vol]Ordere d By: Brianna Parker on 05-20-2022 WBC (Bld) [#/Vol] 6.6 10*3/uL 3.8-11.6 [facility] XR chest 2V*on 05-20-2022 XR chest 2V* [facility] [place] [address] [place] [address] XRay Report Signed Patient: Swapna Guido MR#: [id number] 8 : 1965 Acct:[id number] Age/Sex: 57 / F ADM Date: 05/20/22 Loc: ER Room: Type: [facility] ER Attending Dr: Copies to: Brianna Parker [...] Silverio Stewart M.D.05/20/2022 8:51 PM Dictation Location: [place] [address] Transcribed By: [facility] 05/20/222050 Dictated By: Silverio Stewart DO 05/20/222049 Signed By: 05/20/222050 Normal [facility] TSHon 04-23-2022 TSH 0.761 uIU/mL Normal 0.358-3.74 0 [facility] Comment on above: Performed By: #### T SH #### [facility] [address] [address] [address] Claudine Mortensen FREE T4on 02-24-2022 Free T4 [Mass/Vol] 1.61 ng/dL Critically high 0.76-1.46 T [facility] Comment on above: Performed By: #### F T4 #### [facility] [address] [address] [address] Claudine Mortensen TSHon 02-24-2022 TSH Qn m[IU]/L Critically low 0.358-3.74 0 [facility] Comment on above: Performed By: #### T SH #### [facility] [address] [address] [address] Claudine Mortensen MG MAMM SCREEN 3D NICOLE CADon 02-12-2022 MG MAMM SCREEN 3D NICOLE CAD Patient: SWAPNA GUIDO Exam Date: 02/12/2022 : 1965 Gender:F Ordering : DR LAMIN BENAVIDES M.D. Admission #: [id number] Family : DR. SHIRA METZGER D.O. Order #: [id number] CLICK HERE TO VIEW EXAM RADIOLOGY REPORT [...] breast cancer at age 59. LOCATION: [facility] BREAST COMPOSITION: Heterogeneously dense,which may obscure [...] MD on 02/13/2022 at 09:08 Approved by: Soina Pavon MD on 02/13/2022 at 09:12 Normal [facility] FREE T4on 12-23-2021 Free T4 [Mass/Vol] 1.39 ng/dL Normal 0.76-1.46 [facility] Comment on above: Performed By: #### F T4 #### [facility] [address] [place] [address] Dr. Claudine Mortensen TSHon 12-23-2021 TSH Qn m[IU]/L Critically low 0.358-3.74 0 [facility] Comment on above: Performed By: #### T SH #### [facility] [address] [place] [address] Dr. Claudine Mortensen POINT OF CARE GLUCOSEon 11-03 Glucose [Mass/Vol] 106 mg/dL Normal 74-106 [facility] Comment on above: Performed By: #### P OCGLUC #### [facility] [address] [place] [address] Dr. Claudine Mortensen CBC AUTO DIFFon 11-14-2021 BASO # 0.0 103/ul Normal 0.0-0.1 [facility] Comment on above: Performed By: #### C BC #### [facility] [address] [place] [address] Dr. Claudine Mortensen Basophils/100 WBC (Bld) 0.8 % Normal 0.2-2.0 [facility] Comment on above: Performed By: #### C BC #### [facility] [address] [place] [address] Dr. Claudine Mortensen EO # 0.1 103/ul Normal 0.0-0.7 [facility] Comment on above: Performed By: #### C BC #### [facility] [address] [place] [address] Dr. Claudine Mortensen Eosinophils/100 WBC (Bld) 2.3 % Normal 0.9-7.0 [facility] Comment on above: Performed By: #### C BC #### [facility] [address] [place] [address] Dr. Claudine Mortensen Erythrocyte distribution width (RBC) [Ratio] 12.6 % Normal 11.0-15.0 [facility] Comment on above: Performed By: #### C BC #### [facility] [address] [place] [address] Dr. Claudine Mortensen Hematocrit (Bld) [Volume fraction] 39.2 % Normal 36.0-48.0 [facility] Comment on above: Performed By: #### C BC #### [facility] [address] [place] [address] Dr. Claudine Mortensen Hemoglobin (Bld) [Mass/Vol] 13.2 g/dL Normal 12.0-16.0 [facility] Comment on above: Performed By: #### C BC #### [facility] [address] [place] [address] Dr. Claudine Mortensen IG # 0.01 10e3/ul Normal 0.00-0.03 [facility] Comment on above: Performed By: #### C BC #### [facility] [address] [place] [address] Dr. Claudine Mortensen IG % 0.2 % Normal 0.0-0.5 [facility] Comment on above: Performed By: #### C BC #### [facility] [address] [place] [address] Dr. Claudine Mortensen LYMPH # 1.7 103/ul Normal 1.2-3.8 [facility] Comment on above: Performed By: #### C BC #### [facility] [address] [place] [address] Dr. Claudine Mortensen Lymphocytes/100 WBC (Bld) 33.0 % Normal 20.5-60.0 [facility] Comment on above: Performed By: #### C BC #### [facility] [address] [place] [address] Dr. Claudine Mortensen MANUAL DIFF REQ NO Normal [facility] Comment on above: Performed By: #### C BC #### [facility] [address] [place] [address] Dr. Claudine Mortensen MCH (RBC) [Entitic mass] 28.8 pg Normal 26.7-34.0 [facility] Comment on above: Performed By: #### C BC #### [facility] [address] [place] [address] Dr. Claudine Mortensen MCHC (RBC) [Mass/Vol] 33.7 g/dL Normal 29.9-35.2 [facility] Comment on above: Performed By: #### C BC #### [facility] [address] [place] [address] Dr. Claudine Mortensen MCV (RBC) [Entitic vol] 85.4 fL Normal 81.0-99.0 [facility] Comment on above: Performed By: #### C BC #### [facility] [address] [place] [address] Dr. Claudine Mortensen MONO # 0.4 103/ul Normal 0.3-0.8 [facility] Comment on above: Performed By: #### C BC #### [facility] [address] [place] [address] Dr. Claudine Mortensen Monocytes/100 WBC (Bld) 7.1 % Normal 1.7-12.0 [facility] Comment on above: Performed By: #### C BC #### [facility] [address] [place] [address] Dr. Claudine Mortensen NEUT # 2.9 103/ul Normal 1.4-6.5 [facility] Comment on above: Performed By: #### C BC #### [facility] [address] [place] [address] Dr. Claudine Mortensen Neutrophils/100 WBC (Bld) 56.6 % Normal 43.0-75.0 [facility] Comment on above: Performed By: #### C BC #### [facility] [address] [place] [address] Dr. Claudine Mortensen Platelet mean volume (Bld) [Entitic vol] 8.9 fL Critically low 9.5-13.5 [facility] Comment on above: Performed By: #### C BC #### [facility] [address] [place] [address] Dr. Claudine Mortensen PLT 281 103/ul Normal 150-450 [facility] Comment on above: Performed By: #### C BC #### [facility] [address] [place] [address] Dr. Claudine Mortensen RBC 4.59 106/ul Normal 4.20-5.40 [facility] Comment on above: Performed By: #### C BC #### [facility] [address] [place] [address] Dr. Claudine Mortensen WBC 5.2 103/ul Normal 4.0-11.0 [facility] Comment on above: Performed By: #### C BC #### [facility] [address] [place] [address] Dr. Claudine Mortensen Covid-19 PCR ([facility])on 11-03 SARS-CoV-2 (COVID-19) RNA ROLANDO+probe Ql (Unsp spec) Not detected Normal NOT DETECTED [facility] Comment on above: Result Comment: This test is not yet approved or cleared by the [place] FDA. When there are no FDA-approved or cleared tests available, and other criteria are met, FDA can make tests available under an emergency access mechanism called an Emergency Use Authorization (EUA). The EUA for this test is supported by the [place] of Health and Human Service's (HHS's) declaration [...] consistent with SARS-CoV-2. Performed By: #### C VDTBH #### [facility] [address] [place] [address] Dr. Claudine Mortensen PROF CHEM 8 (BAS METB)on Anion gap [Moles/Vol] 10.9 mmol/L Normal Th e [facility] Comment on above: Performed By: #### B MP #### [facility] [address] [place] [address] Dr. Claudine Mortensen Calcium [Mass/Vol] 9.5 mg/dL Normal 8.5-10.1 [facility] Comment on above: Performed By: #### B MP #### [facility] [address] [address] [address] Claudine Mortensen Chloride [Moles/Vol] 102 mmol/L Normal 98-107 [facility] Comment on above: Performed By: #### B MP #### [facility] [address] [place] [address] Dr. Claudine Mortensen CO2 [Moles/Vol] 31.1 mmol/L Normal 21.0-32.0 [facility] Comment on above: Performed By: #### B MP #### [facility] [address] [place] [address] Dr. Claudine Mortensen Creatinine [Mass/Vol] 0.82 mg/dL Normal 0.55-1.02 [facility] Comment on above: Performed By: #### B MP #### [facility] [address] [place] [address] Dr. Claudine Mortensen EGFR-AF FRENCH >60 Normal >=60 [facility] Comment on above: Performed By: #### B MP #### [facility] [address] [place] [address] Dr. Claudine Mortensen EGFR-NON AF FRENCH >60 Normal >=60 [facility] Comment on above: Performed By: #### B MP #### [facility] [address] [address] [address] Claudine Mortensen Glucose [Mass/Vol] 103 mg/dL Normal 74-106 [facility] Comment on above: Performed By: #### B MP #### [facility] [address] [place] [address] Dr. Claudine Mortensen Potassium [Moles/Vol] 4.0 mmol/L Normal 3.5-5.1 [facility] Comment on above: Performed By: #### B MP #### [facility] [address] [address] [address] Claudine Mortensen Sodium [Moles/Vol] 140 mmol/L Normal 136-145 [facility] Comment on above: Performed By: #### B MP #### [facility] [address] [address] [address] Claudine Mortensen Urea nitrogen [Mass/Vol] 14.0 mg/dL Normal 7.0-18.0 [facility] Comment on above: Performed By: #### B MP #### [facility] [address] [place] [address] Dr. Claudine Mortensen Urea nitrogen/Creatinine [Mass ratio] 17.1 mg/mg Normal [facility] Comment on above: Performed By: #### B MP #### [facility] [address] [place] [address] Dr. Claudine Mortensen PROTIMEon 11-14-2021 INR Coag (PPP) [Relative time] 0.96 {INR} Normal [facility] Comment on above: Performed By: #### F T4 #### [facility] [address] [place] [address] Dr. Claudine Mortensen INR GUIDELINES SEE BELOW Normal [facility] Comment on above: Result Comment: LINNETTE RED INR: 2.0 - 3.0 CONDITIONS NOT LISTED BELOW 2.5 - 3.5 FOR PROSTHETIC HEART VALVE REPLACEMENT 2.5 - 3.5 RECURRENT THROMBOSIS Performed By: #### F T4 #### [facility] [address] [place] [address] Dr. Claudine Mortensen PT Coag (PPP) [Time] 10.4 s Normal 9.0-11.6 [facility] Comment on above: Performed By: #### F T4 #### [facility] [address] [place] [address] Dr. Claudine Mortensen PTTon 11-14-2021 aPTT Coag (Bld) [Time] 26.1 s Normal 22.3-36.2 [facility] Comment on above: Performed By: #### F T4 #### [facility] [address] [place] [address] Dr. Claudine Mortensen XR CHEST 2 Von [...] by: NARESH AGARWAL Date: 2021-11-14 11:36 Normal [facility] THYROGLOBULIN AB AND THYROGL OBULINon 10-24-2021 Thyroglobulin Antibody <1.0 Normal 0.0-0.9 Th e [facility] Comment on above: Result Comment: Thyr oglobulin Antibody measured by Latisha Sarah Methodology Performed By: #### T HYGIMA #### [facility] [address] [place] [address] Dr. Claudine Mortensen Thyroglobulin by BEAU <0.1 Critically low 1.5-38.5 [facility] Comment on above: Result Comment: [...] Assay Performed By: #### T HYGIMA #### [facility] [address] [place] [address] SINUSES WO CONon [...] by: PABLO SILVESTRE Date: 2021-10-22 17:58 Normal [facility] FREE T4on 10-22-2021 Free T4 [Mass/Vol] 1.60 ng/dL Critically high 0.76-1.46 T [facility] Comment on above: Performed By: #### F T4 #### [facility] [address] [address] [address] Claudine Mortensen TSHon 10-22-2021 TSH Qn m[IU]/L Critically low 0.358-3.74 0 [facility] Comment on above: Performed By: #### F T4 #### [facility] [address] [address] [address] Claudine Mortensen No Panel InformationOrdered By: Ian Agosto on 09-02-2021 [facility] T4 FREEon 09-02-2021 Free T4 [Mass/Vol] 1.59 ng/dL 0.89 - 1.76 ng/dL [facility] Interpretation and review of laboratory results Normal [facility] TSHOrdered By: Ian garrido on 09-02-2021 Interpretation and review of laboratory results Abnormal [facility] TSH Qn m[IU]/L [facility] Un[facility] body regionon 09-02-2021 Radiology Study observation (narrative) [facility] Unspecified body regionOr dered By: Unassigned Pacs on 09-02-2021 [facility] Work Phone: OPERATIVE REPORTon 9 OPERATIVE REPORT NAME: SWAPNA GUIDO MR#: [id number] SURGEON: Matthew Holland MD DATE OF SURGERY: [...] extremity weakness or paresthesias were appreciated afterwards. [facility] PT NAME: SWAPNA GUIDO MR#: [id number] [address] [place], [place] [address] ACCT: [id number] : 69 OPERATIVE REPORT MATTHEW HOLLAND MD /[facility]/[id number] E/S: Matthew Holland DO 11/10/18 1455 Electronically Signed [facility] PT NAME: SWAPNA GUIDO MR#: [id number] [address] [place], [place] [address] ACCT: [id number] : 69 OPERATIVE REPORT Normal [facility] OPERATIVE REPORTon 9 OPERATIVE REPORT NAME: SWAPNA GUIDO MR#: [id number] SURGEON: Matthew Holland MD DATE OF SURGERY: [...] weeks and discharged home. MATTHEW HOLLAND MD GF/MODL/[id number] E/S: Matthew Holland, DO 07/28/18 1415 Electronically Signed [facility] PT NAME: SWAPNA GUIDO MR#: [id number] [address] [place] [address] ACCT: [id number] : 69 OPERATIVE REPORT Normal [facility] OPERATIVE REPORTon OPERATIVE REPORT NAME: SWAPNA GUIDO MR#: [id number] SURGEON: Matthew Holland MD DATE OF SURGERY: [...] 4 mm active tip. 80 mg of [facility] PT NAME: SWAPNA GUIDO MR#: [id number] [address] [place] [address] ACCT: [id number] : 69 OPERATIVE REPORT Depo-Medrol administered following each level. MATTHEW HOLLAND MD /[facility]/[id number] E/S: Matthew Holland DO 05/26/18 1255 Electronically Signed [facility] PT NAME: SWAPNA GUIDO MR#: [id number] [address] [place], [place] [address] ACCT: [id number] : 69 OPERATIVE REPORT Normal [facility] OPERATIVE REPORTon 8 OPERATIVE REPORT NAME: SWAPNA GUIDO MR#: [id number] SURGEON: Matthew Holland MD DATE OF SURGERY: [...] up in 2 weeks. MATTHEW HOLLAND MD GF/MODL/[id number] E/S: Matthew Holland DO 02/23/18 1440 Electronically Signed [facility] PT NAME: SWAPNA GUIDO MR#: [id number] [address] [place] [address] ACCT: [id number] : 69 OPERATIVE REPORT Normal [facility] Social History Date Type Detail Facility Start: 10-27-2022 End: 11-06-2022 Exposure to SARS-CoV-2 (event) Not sure [facility] Start: 10-15-2022 End: 09-07-2023 Caffeine use Caffeine use [facility] Start: 10-15-2022 End: 09-07-2023 Tobacco use panel [facility] Start: 09-02-2021 End: 08-12-2022 Tobacco smoking status NHIS Never smoked tobacco [facility] Start: 09-02-2021 Tobacco use and exposure Smokeless tobacco non-user [facility] Start: 09-02-2021 End: 09-07-2023 Alcohol intake Lifetime non-drinker (finding) [facility] Start: 1965 Sex Assigned At Not on file O [facility] Start: 1965 Sex Assigned At Female F [facility] Adolescent depressio n screening assessment 0 [facility] Vital Signs Date Time Vital Sign Value Performing Clinician Facility 09-07-2023 11:53-0400 Body height 175.3 cm Gladys Youngblood MD Work Phone: [facility] 09-07-2023 11:53-0400 Body mass index (BMI) [Ratio] 29.9 kg/m2 Gladys Youngblood MD Work Phone: [facility] 09-07-2023 11:53-0400 Body temperature 97.9 [degF] Gladys Youngblood MD Work Phone: [facility] 09-07-2023 11:53-0400 Body weight 91.85 kg Gladys Youngblood MD Work Phone: [facility] 09-07-2023 11:53-0400 Diastolic blood pressure 70 mm[Hg] Gladys Youngblood MD Work Phone: [facility] 09-07-2023 11:53-0400 Heart rate 69 /min Gladys Youngblood MD Work Phone: [facility] 09-07-2023 11:53-0400 Respiratory rate 16 /min Gladys Youngblood MD Work Phone: [facility] 09-07-2023 11:53-0400 SaO2% (BldA) [Mass fraction] 97 % Gladys Youngblood MD Work Phone: [facility] 09-07-2023 11:53-0400 Systolic blood pressure 125 mm[Hg] Gladys Youngblood MD Work Phone: [facility] 08-05-2023 14:25-0400 Body height 166.4 cm Margie Bull MD Work Phone: [facility] 08-05-2023 14:25-0400 Body mass index (BMI) [Ratio] 33.59 kg/m2 Margie Bull MD Work Phone: [facility] 08-05-2023 14:25-0400 Body temperature 98.1 [degF] Margie Bull MD Work Phone: [facility] 08-05-2023 14:25-0400 Body weight 92.99 kg Margie Bull MD Work Phone: [facility] 08-05-2023 14:25-0400 Diastolic blood pressure 68 mm[Hg] Margie Bull MD Work Phone: [facility] 08-05-2023 14:25-0400 Heart rate 65 /min Margie Bull MD Work Phone: [facility] 08-05-2023 14:25-0400 SaO2% (BldA) [Mass fraction] 98 % Margie Bull MD Work Phone: [facility] Comment on above: RA 08-05-2023 14:25-0400 Systolic blood pressure 104 mm[Hg] Margie Bull MD Work Phone: [facility] 08-05-2023 12:12-0400 Body mass index (BMI) [Ratio] 33.41 kg/m2 Gladys VYAS Work Phone: [facility] 08-05-2023 12:12-0400 Body weight 93.89 kg Gladys VYAS Work Phone: [facility] 08-05-2023 12:12-0400 Heart rate 66 /min Gladys Jaramillo APRN-CONSERVATION SCIENTIST Work Phone: [facility] 08-05-2023 12:12-0400 SaO2% (BldA) [Mass fraction] 99 % Gladys Jaramillo CHART COMPUTER-CONSERVATION SCIENTIST Work Phone: [facility] 07-01-2023 12:42-0400 Body height 167.6 cm Hal Horbal DO Work Phone: [facility] 07-01-2023 12:42-0400 Body mass index (BMI) [Ratio] 33.33 kg/m2 Hal Horbal DO Work Phone: [facility] 07-01-2023 12:42-0400 Body weight 93.67 kg Hal Horbal DO Work Phone: [facility] 07-01-2023 12:42-0400 Diastolic blood pressure 72 mm[Hg] Hal Horbal DO Work Phone: [facility] 07-01-2023 12:42-0400 Heart rate 75 /min Hal Horbal DO Work Phone: [facility] 07-01-2023 12:42-0400 SaO2% (BldA) [Mass fraction] 98 % Hal Horbal DO Work Phone: [facility] 07-01-2023 12:42-0400 Systolic blood pressure 114 mm[Hg] Hal Horbal DO Work Phone: [facility] 12-31-2022 15:03-0400 Body height 167.6 cm Elvi Ward DO Work Phone: [facility] 12-31-2022 15:03-0400 Body mass index (BMI) [Ratio] 32.93 kg/m2 Elvi Ward DO Work Phone: [facility] 12-31-2022 15:03-0400 Body weight 92.53 kg Elvi Ward DO Work Phone: [facility] 12-31-2022 15:03-0400 Diastolic blood pressure 76 mm[Hg] Elvi Ward DO Work Phone: [facility] 12-31-2022 15:03-0400 Systolic blood pressure 132 mm[Hg] Elvi Ward DO Work Phone: [facility] 12-31-2022 13:45-0400 Body height 167.6 cm Hal Horbal DO Work Phone: [facility] 12-31-2022 13:45-0400 Body mass index (BMI) [Ratio] 32.93 kg/m2 Hal Horbal DO Work Phone: [facility] 12-31-2022 13:45-0400 Body weight 92.53 kg Hal Horbal DO Work Phone: [facility] 12-31-2022 13:45-0400 Diastolic blood pressure 76 mm[Hg] Hal Horbal DO Work Phone: [facility] 12-31-2022 13:45-0400 Heart rate 66 /min Hal Horbal DO Work Phone: [facility] 12-31-2022 13:45-0400 Systolic blood pressure 132 mm[Hg] Hal Horbal DO Work Phone: [facility] 11-06-2022 14:00-0400 Diastolic blood pressure 68 mm[Hg] Adelfo Weaver MD, PhD Work Phone: [facility] 11-06-2022 14:00-0400 Heart rate 58 /min Adelfo Weaver MD, PhD Work Phone: [facility] 11-06-2022 14:00-0400 Respiratory rate 12 /min Adelfo Weaver MD, PhD Work Phone: [facility] 11-06-2022 14:00-0400 SaO2% (BldA) [Mass fraction] 99 % Adelfo Weaver MD, PhD Work Phone: [facility] 11-06-2022 14:00-0400 Systolic blood pressure 121 mm[Hg] Adelfo Weaver MD, PhD Work Phone: [facility] 11-06-2022 10:16-0400 Body height 167.6 cm Adelfo Weaver MD, PhD Work Phone: [facility] 11-06-2022 10:16-0400 Body mass index (BMI) [Ratio] 32.85 kg/m2 Adelfo Weaver MD, PhD Work Phone: [facility] 11-06-2022 10:16-0400 Body temperature 97.5 [degF] Adelfo Weaver MD, PhD Work Phone: [facility] 11-06-2022 10:16-0400 Body weight 92.31 kg Adelfo Weaver MD, PhD Work Phone: [facility] 10-15-2022 14:04-0400 Body height 167.6 cm Hal Horbal DO Work Phone: [facility] 10-15-2022 14:04-0400 Body mass index (BMI) [Ratio] 33.62 kg/m2 Hal Horbal DO Work Phone: [facility] 10-15-2022 14:04-0400 Body weight 94.48 kg Hal Horbal DO Work Phone: [facility] 10-15-2022 14:04-0400 Diastolic blood pressure 68 mm[Hg] Hal Horbal DO Work Phone: [facility] 10-15-2022 14:04-0400 Heart rate 92 /min Hal Horbal DO Work Phone: [facility] 10-15-2022 14:04-0400 Systolic blood pressure 114 mm[Hg] Hal Oroscobal DO Work Phone: [facility] 09-16-2022 15:14-0400 Body height 167.64 cm Rugen M [place] Work Phone: [facility] 250 DO Work Phone: 09-16-2022 15:14-0400 Body mass index (BMI) [Ratio] 33.9 kg/m2 Rugen M [place] Work Phone: [facility] 250 DO Work Phone: 09-16-2022 15:14-0400 Body surface area Derived from formula 2.04 m2 Rugen M [place] Work Phone: [facility] 250 DO Work Phone: 09-16-2022 15:14-0400 Body weight 95.26 kg Rugen M Makayla Work Phone: [facility] 250 DO Work Phone: 09-16-2022 15:14-0400 Diastolic blood pressure 78 mm[Hg] Rugen M [place] Work Phone: [facility] [address] DO Work Phone: 09-16-2022 15:14-0400 Heart rate 70 /min Rugen Indra Makayla Work Phone: [facility] DO Work Phone: 09-16-2022 15:14-0400 Systolic blood pressure 128 mm[Hg] Rugen M Mak[place]la Work Phone: [facility] DO Work Phone: 09-08-2022 10:21-0400 Body height 167.6 cm Gladys Youngblood MD Work Phone: [facility] 09-08-2022 10:21-0400 Body mass index (BMI) [Ratio] 33.62 kg/m2 Gladys Youngblood MD Work Phone: [facility] 09-08-2022 10:21-0400 Body temperature 97.5 [degF] Gladys Youngblood MD Work Phone: [facility] 09-08-2022 10:21-0400 Body weight 94.44 kg Gladys Youngblood MD Work Phone: [facility] 09-08-2022 10:21-0400 Diastolic blood pressure 74 mm[Hg] Gladys Youngblood MD Work Phone: [facility] 09-08-2022 10:21-0400 Heart rate 65 /min Gladys Youngblood MD Work Phone: [facility] 09-08-2022 10:21-0400 Respiratory rate 18 /min Gladys Youngblood MD Work Phone: [facility] 09-08-2022 10:21-0400 SaO2% (BldA) [Mass fraction] 98 % Gladys Youngblood MD Work Phone: [facility] 09-08-2022 10:21-0400 Systolic blood pressure 127 mm[Hg] Gladys Youngblood MD Work Phone: [facility] 09-03-2022 16:10-0400 62 1 Lamin Benavides Work Phone: [facility] DO Work Phone: Comment on above: FSLDL 08-13-2022 08:00-0400 Body temperature 98.1 [degF] MD Lamin Benavides Work Phone: [facility] 08-13-2022 08:00-0400 Diastolic blood pressure 80 mm[Hg] MD Lamin Benavides Work Phone: [facility] 08-13-2022 08:00-0400 Heart rate 70 /min MD Lamin Benavides Work Phone: [facility] 08-13-2022 08:00-0400 Respiratory rate 16 /min MD Lamin Benavides Work Phone: [facility] 08-13-2022 08:00-0400 SaO2% (BldA) [Mass fraction] 98 % MD Lamin Benavides Work Phone: [facility] 08-13-2022 08:00-0400 Systolic blood pressure 120 mm[Hg] MD Lamin Benavides Work Phone: [facility] 08-13-2022 06:00-0400 Body weight 96.3 kg MD Lamin Benavides Work Phone: [facility] 08-12-2022 20:09-0400 Body height 167.64 cm MD Lamin Benavides Work Phone: [facility] 07-28-2022 15:28-0400 Body height 167.64 cm Lamin Burrell Makayla Work Phone: [facility] 250 DO Work Phone: 07-28-2022 15:28-0400 Body mass index (BMI) [Ratio] 34.22 kg/m2 Rugen M Makayla Work Phone: [facility] DO Work Phone: 07-28-2022 15:28-0400 Body surface area Derived from formula 2.05 m2 Rugen M Makayla Work Phone: [facility] 250 DO Work Phone: 07-28-2022 15:28-0400 Body weight 96.16 kg Rugen M [place] Work Phone: [facility] DO Work Phone: 07-28-2022 15:28-0400 Diastolic blood pressure 82 mm[Hg] Donnieen Indra Makayla Work Phone: [facility] DO Work Phone: 07-28-2022 15:28-0400 Heart rate 74 /min Rugen M [place] Work Phone: [facility] DO Work Phone: 07-28-2022 15:28-0400 Systolic blood pressure 124 mm[Hg] Donnieen Indra [place] Work Phone: [facility] DO Work Phone: 06-02-2022 09:56-0500 Body height 167.64 cm MD Lamin Benavides Work Phone: [facility] 06-02-2022 09:56-0500 Body weight 90.71 kg MD Lamin Benavides Work Phone: [facility] 05-20-2022 22:54-0500 Diastolic blood pressure 74 mm[Hg] MD Lamin Benavides Work Phone: [facility] 05-20-2022 22:54-0500 Heart rate 74 /min MD Lamin Benavides Work Phone: [facility] 05-20-2022 22:54-0500 Respiratory rate 18 /min MD Lamin Benavides Work Phone: [facility] 05-20-2022 22:54-0500 SaO2% (BldA) [Mass fraction] 98 % MD Lamin Benavides Work Phone: [facility] 05-20-2022 22:54-0500 Systolic blood pressure 152 mm[Hg] MD Lamin Benavides Work Phone: [facility] 05-20-2022 20:18-0500 Body height 175.26 cm MD Lamin Benavides Work Phone: [facility] 05-20-2022 20:18-0500 Body weight 95 kg MD Lamin Benavides Work Phone: [facility] 05-20-2022 18:24-0500 Body temperature 98.1 [degF] MD Lamin Benavides Work Phone: [facility] 09-02-2021 14:08-0400 Body height 167.6 cm Gladys Youngblood MD Work Phone: [facility] 09-02-2021 14:08-0400 Body mass index (BMI) [Ratio] 31.97 kg/m2 Gladys Youngblood MD Work Phone: [facility] 09-02-2021 14:08-0400 Body temperature 98.01 [degF] Gladys Youngblood MD Work Phone: [facility] 09-02-2021 14:08-0400 Body weight 89.86 kg Gladys Youngblood MD Work Phone: [facility] 09-02-2021 14:08-0400 Diastolic blood pressure 79 mm[Hg] Gladys Youngblood MD Work Phone: [facility] 09-02-2021 14:08-0400 Heart rate 82 /min Gladys Youngblood MD Work Phone: [facility] 09-02-2021 14:08-0400 Respiratory rate 16 /min Gladys Youngblood MD Work Phone: [facility] 09-02-2021 14:08-0400 SaO2% (BldA) [Mass fraction] 97 % Gladys Youngblood MD Work Phone: [facility] 09-02-2021 14:08-0400 Systolic blood pressure 154 mm[Hg] Gladys Youngblood MD Work Phone: [facility] Functional Status Date Assessment Result Facility 08-13-2022 Functional status Patient is Pro gressing [facility]ard [facility] Work Phone: Mental Status Date Assessment Result Facility 08-13-2022 Cognitive function Cognitive Sta tus Patient at [facility] Work Phone: Clinical Notes 09-02-2021 to 09-07-2023 Swapna Burrell ANUJA Stewart - 09/07/2023 11:40 AM EDTPatient Aixa Joshua LPN - 08/05/2023 2:45 PM Dameon Garcia MD - 08/05/2023 2:45 PM Summer Bull MD - 08/05/2023 2:45 PM EDT Note Date & Type Note Facility 09-07-2023 History of Presen t illness Narrative Swapna Guido is a 58 y.o. female with unknown type of thyroid cancer who presents to the Endocrine clinic for 12 month follow up. She is s/p total thyroidectomy at [facility] in 2004. Pathology is not available at time of visit, but per referring doctor Dr Burger notes, she had lobular thyroid cancer with 1 positive lymph node. She is s/p ALVARADO with 78mCi of 131I in 2004 at [facility]. Post-treatment scan shows uptake in the thyroid bed only. DxWBS in 2006 was negative. She has had positive TgAb titers in the past. These have become undetectable. US of the neck was clean in 08/24. Interim History: Since last visit, She is doing ok,. However, she will get episodes of dizziness, sweating spells and her upper neck/back will get tense. Usually this happens with exertion, however the last time was 08/19 and she was just sitting on the floor not doing a lot of stuff. Lasts a few seconds. Sometimes she has bad fatigue afterwards. Doesn't happen all the time when she exerts- yest was very active and no problems. Can sometimes happen when running sweeper or moving feed bags.BP and BS are good at the time when she has mild spells- but not when she's had a bad episode. When she has a bad episode, she feels so dizzy that she may pass out. She has talked to the factory machine computer operator- cardiac work up was negative. Had allergy work up was negative. 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 Just started 5/4. Pulm also ordered a KATHI. She was also told to start PPI for GERD. Started on Singulair also. Allergiest thought maybe needs work up for cervical vertigo b/c she gets tight in her shoulder. She does get headaches and tension headaches. She does also get migraines with weather changes. She does not complain of neck pain, voice changes, difficulty swallowing, bowel changes, tremors, headaches or blurred vision. She denies chest pain, shortness of breath, tachycardia or palpitations, denies increased irritability . She is taking Her thyroid medicine consistently and correctly. She feels good on the 105 mg of armour. 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 REVIEW OF SYSTEMS: Otherwise negative except as noted above in the HPI Objective: BP 125/70 (BP Position: Sitting) Pulse 69 Temp 97.9 F (36.6 C) (Temporal) Resp 16 Ht 1.753 m (5' 9 ) Wt 91.9 kg (202 lb 8 oz) SpO2 97% BMI 29.90 kg/m Smoking Status Never Constitutional: well developed, no acute distress. Neck: No palpable thyroid tissue, well-healed surgical scar. No lymphadenopathy. Head: normocephalic, atraumatic. Eyes: normal extraocular movements. no proptosis or lid lag. Cardiac: Normal S1 and S2, regular rate and rhythm, no murmurs gallops or rubs. Respiratory: Lungs are clear without crackles or wheezes. There is good air movement bilaterally. Extremities: no edema present. Neurological: DTRs are normal. There are no tremors of the hands. Cranial nerves grossly intact Skin: Skin is normal texture, temperature, and thickness. Labs Date TSH Tg TgAbs LT4 T3 12/08 8 1.3 + 01/07 48 2.1 Neg 07/09 0.01 <0.2 38 12/09 0.01 <0.2 122 04/11 <0.005 <0.2 286 07/10 0.009 <0.2 18 01/10 0.012 <0.2 96 / 0.006 <0.2 5.9 12 0.13 <0.2 05/24 0.27 0.1 <1.0 02/23 0.38 <0.1 <1.0 175->200 ->25 daily 08/24 <0.008 <0.1 <1.8 02/24 <0.007 150 2.5/2.5 05/28 0.7 Carpenter 90 09/25 10 <0.1 <1.0 Carpenter 90 07/27 0.1 120->90 (pt to tired) ->105 08/26 0.1 <0.1 <1.0 105 All the above performed and documented by Swapna Stewart PA-C. See Dr Gladys Youngblood' note for assessment and plan. I spent 27 minutes with patient in face to face counseling ATTENDING ATTESTATION I have personally seen, interviewed and examined this patient independently of Swapna Stewart. I provided a substantive portion of the care for this patient. I personally performed all aspects of the medical decision making for this encounter. I have reviewed and verified this documentation and it accurately reflects our care. There are no palpable LNs in the neck. The plan was developed mutually at the time of the clinic visit. Swapna and I spoke with the patient and provided written and verbal instructions for the patient. Follow-up arrangements were made prior to the patient being discharged from the clinic. Impression/Plan: This is a 58 y.o. female with thyroid cancer of unknown type s/p total thyroidectomy and radioiodine therapy. She has had an excellent response to therapy and has a low likelihood of disease recurrence. She will have a TSH and thyroglobulin battery today. Regarding the postoperative hypothyroidism, the target TSH is 0.5-2. Her dose of armour was recently adjusted. She will need a repeat TSH in one month. I will adjust the dose of LT4 accordingly. She will have labs drawn prior to the next visit in one year including a TSH and thyroglobulin battery. 16 minutes were spent by me, with more than 50% total time face to face counseling which is outlined above, providing patient education for medication use, EMR review and entry, reviewing paper documents today, medication rx preparation / review and explaining recommendations to patient, delivering verbal and written instructions, and coordination of care. Gladys Youngblood MD documented in this encounter [facility] 09-07-2023 Instructions Adriana Elise RN - 09/07/2023 11:40 AM EDT Return in one year with labs locally prior to visit. documented in this encounter [facility] 08-05-2023 History of Presen t illness Narrative Patient verified full name and Attending Physician Statement I have seen and independently examined Ms. Guido, and have independently reviewed pertinent labs/radiographs. I agree with the history, physical examination, and medical decision making as documented by Dr. Bull. I actively participated in the formulation of the assessment and plan as outlined by Dr. Bull. 58 YO female with history of exercise induced asthma. Currently not on treatment but previously on advair. Has history of CAD (heart attack in 2021). Since heart attack she has had progressive dyspnea on exertion associated with light headedness and feeling like she will pass out. She also has a chronic cough. Has allergies, nasal congestion and post nasal drip. Lifetime non smoker. She snores and has witnessed apnea as well as excessive daytime sleepiness. -Obtain PFT with post bronchodilator spirometry -Obtain sleep study -obtain CBC with differential -Obtain IgE -Start ICS/LABA -Start singulair Remainder as detailed by Dr. Ml Garcia MD [employer] Pulmonary and Critical Care Pager: [phone] Chief Complaint: New Patient (SOB and hx of asthma) HISTORY: Patient reports dyspnea on exertion since she suffered a heart attack in 05/2021. In addition to exertion, symptoms are also triggered by perfumes and pollens/molds. During these episodes she will feel like she can't get a deep breath, get sweaty, and feel lightheaded like she is going to pass out. She has a cough that is worse at night. Denies wheezing, sputum production, hemoptysis, chest pain, or orthopnea. 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 She is exposed to farm animals, dust, and mold. Has some nasal congestion and intermittent acid reflux, but denies post nasal drip She snores, has witnessed apneas, fatigue and excessive daytime sleepiness. She was diagnosed with exercise-induced asthma in her mid-30s. She was prescribed advair and as needed albuterol at that time. She has had two asthma exacerbations in her life in 1997 and 2 years ago, both triggered by allergens and improved with albuterol. She is currently not using any inhalers. Past Medical History: Exercise-induced asthma CAD Myocardial Infarction Type 2 Diabetes Hypertension Thyroid cancer s/p thyroidectomy Chronic sinusitis Family History: Her family history includes Arrhythmia in her mother; Breast Cancer in her maternal grandmother and mother; Myocardial Infarction in her brother and father; Ovarian Cancer in her maternal grandmother; Stroke in her father. Son: asthma Social History: She reports that she has never smoked. She has never used smokeless tobacco. She reports that she does not drink alcohol and does not use drugs. 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 No exposure to asbestos Review Of Systems: A complete review of systems was notable for fatigue, nasal congestion, headaches, skin cancer (removed), syncopal episodes, easy bruising, heartburn, weakness, seasonal hay fever. Denies weight loss, night sweats, fever, vision loss, hearing loss, sore throat, dental disease, post nasal drip, nose bleeds, seizures, skin rash, chest pain, palpitations, heart murmur, anemia, difficulty swallowing, nausea, vomiting, diarrhea, constipation, blood in stool, stomach pain, blood in urine, difficulty urinating, arthritis, muscle aches, swelling in ankles, animal allergies, anxiety, depression, and panic attacks. Physical Exam: General: NAD, AAOx3, good eye contact, well appearing HEENT: Atraumatic, normocephalic. Face symmetric. EOMI, sclerae anicteric. Mucous membranes moist. Normal oral mucosa and dentition. No cervical or supraclavicular lymphadenopathy. Thoracic: No visible chest wall deformities. Normal breath sounds b/l, no wheezing or rhonchi. Cardio: Regular rate and rhythm. Normal S1 and S2 Abdomen: Soft, nontender, nondistended. Bowel sounds present. No rebound. Extremities: Warm, well perfused. No clubbing, cyanosis, or edema. Skin: Intact. No rashes, bruises, or ulcers Neuro: Mental Status: Alert, oriented. Good memory, concentration, and attention. Speech fluent. Review Of Tests and Records: TTE 12/31/2022: Left Ventricle: Chamber size is normal. Normal [...] There is no prior study for comparison CXR 08/05/23: Personally reviewed and interpreted, notable for no consolidations, masses pleural effusions, or interstitial disease. 08/05/23: Nazanin 21 Impression: 58yoF with a history of exercise induced asthma (previously on advair, not currently on any inhalers), CAD, HTN, T2DM, and thyroid cancer s/p thyroidectomy who presents as a new patient visit for dyspnea on exertion that started in 2021 after she suffered a myocardial infarction. During episodes, she feels like she can't get a deep breath and like she is going to pass out. Given history of asthma, as well as exertional and environmental triggers, it is worth empirically treating for uncontrolled asthma with ICS/LABA and singulair to see if symptoms improve. CXR was ordered and was unremarkable. Will get PFTs to investigate for obstruction or other abnormalities and 6MWT to see if she desaturates with exertion. She has excessive daytime sleepiness, snores, and has witnessed apneas, so undiagnosed obstructive sleep apnea could be playing a role in her symptoms as well as increase her risk of pulmonary hypertension. With lightheadedness and presyncopal symptoms with exertion, orthostatic hypotension, vasovagal episodes, or an arrhythmia are also possible. Chronic cough is worse at night and differential includes upper airway cough syndrome, GERD, or asthma. Plan: START ICS/LABA (will try Breo 200 but will switch to another inhaler if insurance does not cover) As needed albuterol with spacer START singulair 10mg nightly CXR today --> unremarkable CBC with diff, IgE, and RAST (ordered by allergy clinic) Nasal sprays and oral antihistamine per allergy clinic Can consider starting PPI for GERD if cough is not improved at next visit Pulmonary function tests and 6MWT ordered. Will have done at outside facility and fax results to clinic External sleep clinic referral for evaluation of obstructive sleep apnea If all work-up is unrevealing and treatments do not improve dyspnea, then will consider CPET for further evaluation. Follow-Up: I will see her back in 3 months. Margie Bull MD Pulmonary and Critical Care Fellow, PGY-5 documented in this encounter [facility] 08-05-2023 Instructions Margie Bull MD - 08/05/2023 2:45 PM EDT Start Breo 200 daily and as needed albuterol Start singulair 10 mg daily Lab work today Referral to sleep clinic Pulmonary function tests ordered documented in this encounter [facility] 08-05-2023 History of Presen t illness Narrative Ms. Swapna Guido is a 58 y.o. female who presents to the [facility] clinic today for initial evaluation of nasal congestion and shortness of breath. The following history was obtained from the patient: Patient reports she has had some shortness of breath and dizziness with exertion. Patient states she is very active and often breaks out in a sweat. Patient states she has always had seasonal allergies. Patient states she will get sneezing, cough, nasal congestion, sinus pain/pressure, headaches, post nasal drainage ( some), difficulty breathing out of nose. No itchy, watery eyes. Symptoms are worse during spring and fall and weather changes will trigger symptoms. Patient is taking Loratadine on a daily basis for the past 2 years with minimal relief of symptoms. Patient will use Flonase, Nasacort or Nasonex as needed (only with cold symptoms). Patient states sudafed and Mucinex DM can help a little bit. Patient states 1 year ago she did have a nasal sinus surgery. Patient has never been allergy tested or had immunotherapy. Patient does have a history of heart attack and is currently on a beta anton. She is followed by cardiology, Dr. Simon. 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 These episodes occur mainly when outdoors working on the farm. Patient as a history of exercise induced asthma. Patient has albuterol inhaler but has never used during one of these episodes. Patient is scheduled to see pulmonary today. Food Allergies Yes- patient states about 4-5 years, certain alcohols- Angry orchard causes skin itching and shortness of breath which then leads to an asthma attack. She tasted a lemonade alcohol mixed drink with tequila which triggered shortness of breath, chest tightness, and asthma attack. Patient states during this second episode she used Albuterol inhaler and it helped to relieve symptoms. Patient states some light beers she can tolerate without difficulty. 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 No SNOT 22: 31 No Problem (0): Very Mild Problem (1): 2 Mild to Slight Problem (2): 10 Moderate Problem (3): 3 Severe Problem (4): 16 Problem As Bad As It Can Be (5): 08/04/2023 1:37 PM SNOT-22 Need to blow nose No problem Nasal Blockage Mild To Slight Problem Sneezing Mild To Slight Problem Runny nose No Problem Cough Very Mild Problem Post-Nasal Discharge Very mild problem Thick nasal discharge No problem Ear fullness No problem Dizziness Mild to slight problem Ear pain No problem Facial pain No problem Decreased sense of smell/taste No problem Difficulty falling asleep No problem Wake up at night Mild to slight problem Lack of good night sleep Moderate problem Wake up tired Severe problem Fatigue Severe problem Reduced productivity Severe problem Reduced Concentration Mild to slight problem Frustrated/Restless/Irritable Severe problem Sad No response Embarrassed No problem Referral 07/01/2023- Dr. Simon IMPRESSION/PLAN: # Non-obstructive CAD # Hypertension # [...] been discussed with cardiology attending, Dr. Eduardo Simon, DO Cardiovascular Medicine Fellow [facility] == HPI: Today: Doing well overall but still continues to experience dyspnea with physical activity on the farm. Randomly will experience non-exertional sharp pain in the chest wall which often does improve with stretching. Is to follow up with Endocrine to discuss her thyroid levels for which the management was recently changed from Synthroid to Carpenter Thyroid which has significantly improved her symptoms of generalized fatigue, limited on dyspnea symptoms. She does admit to having very bad exercise induced asthma in the past for which she carries an inhaler but has not used it over the past year with these episodes. Notes that she also has been having worsening allergies. Past medical History Past Medical History: Diagnosis Date Essential hypertension, benign Malignant melanoma of nose [place] (myocardial infarction) May Thyroid cancer Past Surgical History She has a past surgical history that includes thyroidectomy (2005) and hysterectomy (2004). Family History Her family history includes Arrhythmia in her mother; Breast Cancer in her maternal grandmother and mother; Myocardial Infarction in her brother and father; Ovarian Cancer in her maternal grandmother; Stroke in her father. Social History Social History Tobacco Use Smoking status: Never Smokeless tobacco: Never Vaping Use Vaping status: Never Used Substance Use Topics Alcohol use: Never Drug use: Never Medication Allergies: She is allergic to penicillins and *seasonal. Medications: She has a current medication list which includes the following prescription(s): aspirin, biotin, bupropion, vitamin d3, dapagliflozin, loratadine, magnesium, metformin, metoprolol succinate, olmesartan-hydrochlorothiazide, rosuvastatin, thyroid, and thyroid. ROS: Copied from intake note by MA/JUDD, personally reviewed Constitutional: Negative. HENT: Positive for congestion and sneezing. Eyes: Negative. Respiratory: Positive for cough and shortness of breath. Cardiovascular: Negative. Gastrointestinal: Negative. Endocrine: Negative. Genitourinary: Negative. Musculoskeletal: Negative. Skin: Negative. Allergic/Immunologic: Negative. Neurological: Positive for dizziness and headaches. Hematological: Negative. Pulse 66 Wt 93.9 kg (207 lb) SpO2 99% BMI 33.41 kg/m Smoking Status Never Body mass index is 33.41 kg/m . Physical Exam GENERAL: Alert, oriented and in no acute distress. HEENT: EYES: Pupils equal, round and reactive, extraocular muscles intact. Nose: nasal turbinates are edematous and are not boggy. There is no mucous stranding, polyps, or blood noted. EARS: Tympanic membranes are clear. MOUTH: moist and pink with no exudates, ulcers, or thrush. NECK: is supple, without adenopathy. No upper airway stridor noted. HEART: regular rate and rhythm. No murmurs, rubs or gallops. LUNGS: Clear to auscultation bilaterally. No wheezing, rhonchi or rales. EXTREMITIES: No cyanosis, clubbing or edema. NEURO: grossly intact. Normal affect. Gait normal. SKIN: No rash, hives, or angioedema noted Testing: unable to perform due to recent oral AH ICD-10-CM 1. Nasal congestion R09.81 2. Allergic rhinitis, unspecified seasonality, unspecified trigger J30.9 Recommendations: Chronic Rhinitis --Allergic vs. Non Allergic in nature --Environmental SPT unable to be performed today due to nonreactive positive (histamine) control. Will opt for Regional Respiratory Aeroallergen Panel to determine if symptoms are allergic or non allergic in nature. Will call with results of blood work --Discussed nonallergic triggers which may include cigarette smoke, strong chemicals/odors/fragrances, air fresheners/candles, barometric pressure changes, and quick changes in temperature. --Discussed avoidance measures for environmental allergies --Discussed daily oral antihistamine (such as Zyrtec, Swapna, Claritin, or Xyzal). --Discussed nasal sprays and technique reviewed. --Can also try an [id number] aerosolized nasal saline rinse such as [place] spray as needed. This can help with symptoms of runny nose/congestion. --Can also try a Neti Pot or Tung Med nasal rinse as needed to improve congestion. If using these, use bottled water or boiled water once it has cooled. --Use nasal rinses prior to nasal sprays or after one hour to prevent interfering with medication effects Shortness of breath --Patient is seeing pulmonary today for evaluation of lungs --Will defer treatment and management to pulmonary for further workup Follow-up: 2 weeks- telehealth to review results Today, I spent 40 minutes in chart review, [id number] care of the patient, discussion of testing, diagnoses and treatment options, coordination of care, and chart completion. Patient voiced understanding of our conversation and all questions were satisfactorily answered. Greater than 50% of this time was spent counseling and/or in coordination of care. Ms. Swapna Guido has received take home instructions and/or educational material today. LILLIAM Wiley Nurse Practitioner, Allergy and Immunology [facility] Department of Otolaryngology - Head and Neck Surgery Phone: [phone] Fax: [phone] Review of Systems Constitutional: Negative. HENT: Positive for congestion and sneezing. Eyes: Negative. Respiratory: Positive for cough and shortness of breath. Cardiovascular: Negative. Gastrointestinal: Negative. Endocrine: Negative. Genitourinary: Negative. Musculoskeletal: Negative. Skin: Negative. Allergic/Immunologic: Negative. Neurological: Positive for dizziness and headaches. Hematological: Negative. documented in this encounter [facility] 08-05-2023 Instructions Gladys Jaramillo, CHART COMPUTER-CONSERVATION SCIENTIST - 08/05/2023 12:30 PM EDT Thank you for your visit at The [facility] clinic. We have put together a summary of our findings and recommendations. If you have questions or concerns, please don't hesitate to contact us. You have been diagnosed with Chronic Rhinitis. We will need blood work to determine if your symptoms are allergic or non allergic in nature. You may go to any [facility] lab to obtain this labwork. Results can take up to one week to receive and you will receive a phone call or Nestio message in regards to your results. Here are few things you can do to help with allergic symptoms. 1. Environmental modifications and control measures Dust mite control: 1. Dust mite proof covers/encasing on the mattress, pillow and box spring. 2. Wash sheets and bed linens in hot water each week and dry on hot setting. 3. Vacuum carpets in bedroom each week. 4. Dust or wipe down any hard surfaces. Reputable Sources for Dust Mite pillow and mattress encasings: [email or web address] - can do custom (Made in [place]) [email or web address] - can do custom (Made in [place]) Www.AllergyControl.com [email or web address] Suggest looking for breathable coverings. Check sites for extended sizes, availability of custom made products, made in [place], other dust mite control products, etc. Some products can be found locally but check for breathable fabrics that are not bonded to vinyl. If product says waterproof, impermeable, etc it may not breath. Pet Avoidance: 1. Keep pets out of the bedroom at all times. 2. Keep pets off of furniture and other surfaces like counter tops. 3. Wash your pet at least once per week 4. [place] your pet outside so hair and dander stay outside the home when brushed. 5. HEPA filters in the bedroom can reduce pet dander Dog allergy: It is produced mainly in dog saliva and dander. The levels can vary based on breed and hair type but unfortunately, there is no such thing as a hypoallergenic dog. Cat allergy: It is produced largely in cat saliva and sebaceous glands and also produced in the skin. Cat allergen can linger in the air for longer periods of time (hours). Pollen Avoidance: If you are sensitive to pollen, there are a few tips to help limit, but not avoid, exposure. Trees- June through August Grasses- August through November Weeds- November through solid freeze 1. Minimize outdoor activity between 5am-10am, pollen levels are highest at this time. 2. Keep car windows closed when traveling. 3. Keep the house windows closed, use the air conditioning if necessary. 4. Check the pollen count to know what pollen is outside (http://aaaai.org/nab). 5. For high pollen count days, consider changing your clothes/washing your hair when coming into your home so you can limit bringing pollen indoors. Mold Avoidance: Molds- primarily spring and fall (leaf season) 1. Mold grows in damp or humid places. The best way to avoid environmental molds is to avoid places they grow such as compost piles, decaying leaf piles and excavation sites. 2. If you know of any mold in your home, a dilute bleach solution (1 cup bleach to one gallon of water) can help clean up the mold. This should be done by a person who is not sensitive to mold. 3. If there is a water leak, you should have this fixed to prevent more moisture problems. Limit Cigarette smoke exposure: 1. Smoking and second hand smoke can irritate the nose and sinuses. 2. You and the people around you will benefit from avoiding cigarette smoke. 2. Allergy Medications Oral Antihistamines--block the effects of histamine, the chemical responsible for many of the allergy symptoms Generics are just as effective as the name brand. Least expensive at [facility] s and [employer] Diphenhydramine is an older version but causes more drowsiness. You should not drive after taking this medication. Side effects: headache, drowsiness, dry mouth Anti-Histamines with the letter D after the name contain a decongestant. 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 Name Adult Dose Children s Dose Notes Fexofenadine (Swapna) Age 12- Adult - 180 mg daily 2-11yrs old 30 mg 2 times/day Least sedative Loratadine (Claritin) Age 7 to Adult - 10 mg daily 2-6 yrs old 5 mg daily Less sedative Cetirizine (Zyrtec) Age 6 to adult- 10 mg daily 2-5 yrs old 2.5-5mg daily Most sedative Levocetirizine (Xyzal) Age 12 to adult- 5mg daily >6mos-5yrs 1.25mg daily 6-11 yrs 2.5mg daily Less sedative Allergy Eye Drops Keep in the fridge for a cooling soothing effect. Use 15 minutes prior to inserting contact lenses Common side effects: burning sensation, cold symptoms, sore throat, blurred vision, runny nose, headache Over the counter: ketitofen Can be used in patients >3 years old 1 drop in each eye up to twice daily as needed Prescription: olapatadine, epinastine, azelastine Decongestants -- used for quick, temporary relief of nasal and sinus congestion. CAUTION--decongestants can cause an increase in blood pressure. Do not use if you have high blood pressure or if you are . Oral decongestants: pseudoephedrine Common side effects: sleep problems, headache, dizziness, heart fluttering Nasal decongestants: oxymetazoline or phenylephrine Can be habit forming -- only use for 3 days then stop Common side effects: nasal irritation, dizziness, heart fluttering, sleep problems. Here are a few things you can do to help with your Non-Allergic Symptoms --Recommend avoidance of your triggers. Triggers may include strong chemicals/odors/fragrances, air fresheners/candles, barometric pressure changes, quick change in temperature, or cigarette smoke - Can try an [id number]-udh-nqcfodm aerosolized nasal saline rinse such as [place] spray as needed. This can help with symptoms of runny nose/congestion. - Can try a Neti Pot or Tung Med nasal rinse as needed to improve congestion. If using these, use bottled water or boiled water once it has cooled. - Use nasal rinses prior to nasal sprays or after one hour to prevent interfering with medication effects. Nasal sprays can be very beneficial for both allergic and non allergic symptoms Intranasal corticosteroids: Flucticasone, mometasone, budesonide, beclomethasone Help reduce swelling in nasal passages and decrease mucous production Typically used once or twice per day These medications work best if used on a regular basis and take ~2-4 weeks to reach their full effect. Side effects: nose bleeds, headaches, nausea Intranasal antihistamines: Azelastine, olapatadine Help decrease mucous production and improve itching/sneezing These medications can be used up to 2 times daily but also can work on an as needed basis. Side effects: nose bleeds, fatigue, headache. How to use your nasal spray: 1. Gently blow your nose to clear out mucus. 2. Tilt your head forward, and gently place spray nozzle in right nostril. 3. Point spray nozzle towards right eye (pointing away from your nasal septum), using left hand to hold sprayer. 4. Squeeze the pump as you begin to breathe in slowly through your nose. 5. You may need to tilt your head flat against your right shoulder to keep the medicine from running out your nose or down your throat. 6. Repeat these steps for the left nostril, but use your right hand to point the spray towards your left eye and tilt head towards your left shoulder. 7. Try not to sneeze or blow your nose just after using the spray. You can also refer to package instructions for your specific nose spray. Remember that proper and consistent daily use will give you the most benefit from your nose spray. --Start Flonase (fluticasone) nasal spray- 1 spray in each nostril twice daily --Start Astepro (Azelastine) nasal spray- 1-2 sprays in each nostril up to twice daily as needed These medications can be purchased over the counter - Using your nasal sprays correctly can help to alleviate some unpleasant side effects such as nose bleeds and taste documented in this encounter [facility] 07-01-2023 History of Presen t illness Narrative Images from the original note were not included. The [facility] - Outpatient Cardiology Clinic Visit IMPRESSION/PLAN: # [...] been discussed with cardiology attending, Dr. Eduardo Simon, DO Cardiovascular Medicine Fellow [facility] == HPI: Today: Doing well overall but still continues to experience dyspnea with physical activity on the farm. Randomly will experience non-exertional sharp pain in the chest wall which often does improve with stretching. Is to follow up with Endocrine to discuss her thyroid levels for which the management was recently changed from Synthroid to Carpenter Thyroid which has significantly improved her symptoms [...] a recent left heart catheterization done at [facility] (08/2022) which revealed a 50-60% LAD [...] Essential hypertension, benign Malignant melanoma of nose TX (myocardial infarction) May Thyroid cancer Past Surgical [...] by mouth daily. 60 tablet 3 thyroid (Carpenter Thyroid) 120 MG tablet Take 1 tablet [...] monitoring period with no significant arrhythmias recorded [facility] (11/2022) Conclusions Mild coronary artery disease without obstructive stenosis of the LAD. LVEDP 20 mmHg Recommendations Continue anti-anginal therapy for possible microvascular dysfunction in the setting of mild non-obstructive CAD. Aggressive risk factor modification NM STRESS: (06/02/2022) Labs: No results found for: SODIUM , POTASSIUM , CHLORIDE , CO2 , [id number] , BUN , CREATSERUM No results found for: INR , PT Lab Results Component Value Date WBC 6.65 11/06/2022 HGB 12.6 11/06/2022 HCT 36.4 11/06/2022 PLATELET 284 11/06/2022 MCV 85.8 11/06/2022 Associated attestation - Dwayne Clark MD - 07/09/2023 1:47 PM EDT [...] yo F with CAD (non-obstructive on 11/2022 [facility]), HFpEF, HTN, and SOB. Will plan to start SGLT2i for worsening dyspnea. She appears euvolemic on examination. Will also refer to pulmonology given reported history of exercise-induced asthma. Patient also requests allergy clinic referral given worsening allergy symptoms. Dwayne Clark MD Trolley Worker of Clinical Medicine [facility] Heart Failure & Transplantation documented in this encounter [facility] 07-01-2023 Instructions Hal Simon DO - 07/01/2023 12:50 PM EDT - Obtain labs. Once labs come back we will attempt to start new medication Farxiga to help with the symptoms. - Schedule to see Pulmonology (lung doctors) - Continue current medications documented in this encounter [facility] 12-31-2022 History of Presen t illness Narrative Images from the original note were not included. The [facility] - Outpatient Cardiology Clinic Visit IMPRESSION/PLAN: # [...] been discussed with cardiology attending, Dr. Jae Simon, Cardiovascular Medicine Fellow [facility] == HPI: Today: States she is [...] a recent left heart catheterization done at [facility] (08/2022) which revealed a 50-60% LAD [...] Essential hypertension, benign Malignant melanoma of nose [place] (myocardial infarction) May Thyroid cancer Past Surgical History: Procedure Laterality Date THYROIDECTOMY 2006 HYSTERECTOMY 2004 Total Social History Socioeconomic History [...] Take 1 tablet by mouth daily. thyroid (Carpenter Thyroid) 120 MG tablet Take 1 tablet [...] (Patient not taking: Reported on 09/08/2022) Thyroid (Carpenter Thyroid) 30 MG tablet Take 1 tablet along with the 90 mg tablet to equal 120 mg a day 30 tablet 11 thyroid (Carpenter Thyroid) 90 MG tablet Take 1 a [...] Affect and mood appear normal. DIAGNOSTIC DATA [facility] (11/2022) Conclusions Mild coronary artery disease without obstructive stenosis of the LAD. LVEDP 20 mmHg Recommendations Continue anti-anginal therapy for possible microvascular dysfunction in the setting of mild non-obstructive CAD. Aggressive risk factor modification NM STRESS: (06/02/2022) Labs: No results found for: SODIUM , POTASSIUM , CHLORIDE , CO2 , [id number] , BUN , CREATSERUM No results found for: INR , PT Lab Results Component Value Date WBC 6.65 11/06/2022 HGB 12.6 11/06/2022 HCT 36.4 11/06/2022 PLATELET 284 11/06/2022 MCV 85.8 11/06/2022 ATTENDING ATTESTATION: I saw and personally examined the patient today with Dr. Simon. I discussed the findings and therapeutic plan [...] below. F/U 6 months. Elvi Ward DO, [facility] Computer Lab Assistant, Internal Medicine [facility] Cardiovascular Medicine *[id number] documented in this encounter [facility] 12-31-2022 Instructions Hal Simon DO - 12/31/2022 1:50 PM EDT - Schedule echocardiogram (ultrasound of the heart) - Event monitor - Increase Benicar and Rosuvastatin documented in this encounter [facility] 11-06-2022 Miscellaneous Notes Formattin g of [...] Brief Cardiac Catheterization Procedure Note Swapna Guido ([id number]) Pre Procedural Diagnosis 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 [I25.119] Post Procedural [...] Michael Meehan DO - Fellow Procedural Staff Drafter Heating And Ventilating: Kenny Leo RN Sedation Nurse: Michael Suero [...] left 20 gauge;1 1/4 in length (Active) 11/06/221043 Present On Admission : no Guiding Device: ultrasound Lumen 1: Location: forearm, anterior, left Device/Lot Number: [id number] catheter system Gauge/Length: 20 gauge;1 1/4 in length Unsuccessful Insertion Attempts: Unsuccessful Attempt Location/Site: Pain Prevention/Patient Tolerance: Removal: Additional Comments: Lumen 2: Lumen 3: Peripheral IV Present on Admission: (Retired/Read Only) Location: (Retired/Read Only) Device: (Retired/Read Only) Gauge/Length: Data Warehouse Specialist/Lot Number: Unsuccessful Insertion Attempts: (Retired/Read Only) Unsuccessful Attempt Locations: Pain Prevention: Patient Tolerance: Insertion: Removal Indication: Peripheral IV Location - Orientation: Peripheral IV Location: Insertion Site WDL WDL 11/06/22 104 Site Preparation/Maintenance site cleansed: chlorhexidine solution 11/06/221042 Lumen 1 Patency/Maintenance flushed without difficulty;blood return, able to obtain 11/06/221042 Phlebitis 0-->no symptoms 11/06/22 104 Infiltration 0-->no symptoms 11/06/22 1043 Patient tolerated procedure well without any complications [...] or leakage post insertion. PREPARING FOR YOUR FOREST FIRE EQUIPMENT OPERATOR PROCEDURE Your catheterization is schedule on 11/06 at: [facility] at the [facility] located at [address] [place] [address]. You are to arrive at [facility] on the 1st floor at 10A. You may use book illustrator parking ($10) or park in the [facility] just past the [place] ($3). There is a walkway from the 2nd floor of the garage into the [facility]. You are to have nothing to [...] please call NOW to notify the lab ([phone]). Continue asprin, Plavix (clopidogrel), Effient (prasugrel), and [...] procedure. Your labs HAVE BEEN ORDERED AT [facility], FASTING IS NOT REQUIRED. Click the link below to be directed to a video which will explain the catheterization and outpatient process: [email or web address] Please be aware, other departments sometimes advise our patients they will receive a reminder call from the logging rafter laborer prior to their procedure. We do not provide reminder calls. Please joss your calendar with your procedure date, and call with any questions [phone]. Thank you, MAZIN Guerrero Coin Rolling Machine Operator Via PHONE, MYCHART documented in this encounter [facility] 11-06-2022 Nurse Note Discharge instructions and [...] without bleeding or hematoma, palpable radial pulses. [facility] 11-06-2022 Surgery Postoperative evaluation and management note Preliminary Report - Brief Cardiac Catheterization Procedure Note Swapna Guido ([id number]) Pre Procedural Diagnosis 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 [I25.119] Post Procedural [...] Michael Meehan DO - Fellow Procedural Staff Drafter Heating And Ventilating: Kenny Leo RN Sedation Nurse: Michael Suero RN Documenter: Jameson Monroy RN Full report to follow Michael Meehan DO November 06, 2022 11:54 AM [facility] 11-06-2022 Nurse Note 10:44 AM [...] 1: Location: forearm, anterior, left Device/Lot Number: [id number] catheter system Gauge/Length: 20 gauge;1 1/4 in length Unsuccessful Insertion Attempts: Unsuccessful Attempt Location/Site: Pain Prevention/Patient Tolerance: Removal: Additional Comments: Lumen 2: Lumen 3: Peripheral IV Present on Admission: (Retired/Read Only) Location: (Retired/Read Only) Device: (Retired/Read Only) Gauge/Length: Data Warehouse Specialist/Lot Number: Unsuccessful Insertion Attempts: (Retired/Read Only) Unsuccessful Attempt Locations: Pain Prevention: Patient Tolerance: Insertion: Removal Indication: Peripheral IV Location - Orientation: Peripheral IV Location: Insertion Site WDL WD 11/06/22 1043 Site Preparation/Maintenance site cleansed: chlorhexidine solution 11/06/221042 [...] pain, redness, swelling, or leakage post insertion. [facility] 11-06-2022 History and physical note PRE-CATH H&P UPDATE Patient seen and examined by me on day of procedure. Agree with H&P as documented by Dr. Simon on 10/15/2022, there are no significant updates [...] coronary angiography. Michael Meehan, Fellow, Cardiovascular Medicine [facility] Work Phone: 11-06-2022 History and physical note PRE-CATH H&P UPDATE Patient seen and examined by me on day of procedure. Agree with H&P as documented by Dr. Simon on 10/15/2022, there are no significant updates [...] coronary angiography. Michael Meehan, Fellow, Cardiovascular Medicine documented in this encounter [facility] 10-19-2022 Nurse Note PREPARING FOR YOUR FOREST FIRE EQUIPMENT OPERATOR PROCEDURE Your catheterization is schedule on 11/06 at: [facility] at the [facility] located at [address] [place] [address]. You are to arrive at [facility] on the 1st floor at 10A. You may use book illustrator parking ($10) or park in the [facility] [employer] [facility] just past the [place] ($3). There is a walkway from the 2nd floor of the garage into the [facility]. You are to have nothing to [...] please call NOW to notify the lab ([phone]). Continue asprin, Plavix (clopidogrel), Effient (prasugrel), and [...] procedure. Your labs HAVE BEEN ORDERED AT [facility], FASTING IS NOT REQUIRED. Click the link below to be directed to a video which will explain the catheterization and outpatient process: [email or web address] Please be aware, other departments sometimes advise our patients they will receive a reminder call from the logging rafter laborer prior to their procedure. We do not provide reminder calls. Please joss your calendar with your procedure date, and call with any questions [phone]. Thank you, MAZIN Guerrero Coin Rolling Machine Operator Via PHONE, MYCHART [facility] 10-15-2022 History of Presen t illness Narrative Images from the original note were not included. ADDENDUM: 10/15/2022 Cardiovascular Attending Note I independently interviewed and examined the patient on 10/15/[address] Viramontes reviewed the history, physical examination, pertinent laboratory data / imaging data, and medical decision making with the Automotive Upholsterer. Any changes to the history or physical [...] to contact our service. Marcello Galeana MD, [facility] Computer Lab Assistant - Clinical Division of Cardiovascular Medicine Department of Internal Medicine [facility] - Outpatient Cardiology Clinic Visit IMPRESSION/PLAN: # Progressive angina # Coronary artery disease (LAD 50-60% and proximal heavy calcification on [facility] 08/2022) # Hypertension - With ongoing symptoms and lower level of activity prompting symptoms, known LAD disease, risk factors and unexplained arrest vs vagal episode post [facility], will proceed with repeating catheterization - Cont ASA/statin and BP regimen - Resume Metoprolol XL 25 daily and Imdur 30 daily - Cardiac cath - Return to clinic following cath The above has been discussed with cardiology attending, Dr. Kervin Simon, Cardiovascular Medicine Fellow [facility] == HPI: Swapna Guido is a 57 y.o. female with a past medical history of HTN, DM, CAD, thyroid cancer s/p thyroidectomy presenting for abnormal stress. In May of this year she had a positive NM stress test with distal anteroseptal small area of ischemia. She had a recent left heart catheterization done at [facility] (08/2022) which revealed a 50-60% LAD [...] Essential hypertension, benign Malignant melanoma of nose [place] (myocardial infarction) May Thyroid cancer Past Surgical [...] Take 1 tablet by mouth daily. thyroid (Carpenter Thyroid) 90 MG tablet Take 1 tablet [...] , POTASSIUM , CHLORIDE , CO2 , [id number] , BUN , CREATSERUM No results found for: INR , PT No results found for: WBC , WBCCOUNT , WBCFETAL , HGB , HCT , PLATELET , MCV Patient has verified full name and . documented in this encounter [facility] 10-15-2022 Instructions Hal Simon DO - 10/15/2022 1:50 PM EDT - Start Metoprolol and Imdur daily - Schedule heart catheterization - Follow up after the heart catheterization (2-3 months) - If any worsening chest pain or not improving with rest, call 911 documented in this encounter [facility] 09-08-2022 History of Presen t illness Narrative Swapna Guido is a 57 y.o. female with unknown type of thyroid cancer who presents to the Endocrine clinic for six month follow up. She is s/p total thyroidectomy at [facility] in 2004. Pathology is not available at time of visit, but per referring doctor Dr Burger notes, she had lobular thyroid cancer with 1 positive lymph node. She is s/p ALVARADO with 78mCi of 131I in 2004 at [facility]. Post-treatment scan shows uptake in the thyroid bed only. DxWBS in 2006 was negative. She has had positive TgAb titers in the past. These have become undetectable. US of the neck was clean in 08/24. She is doing well today. She had an TX in 05/28. She had significant hypotension during [...] short of breath sometimes with exertion. 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 REVIEW OF SYSTEMS: Otherwise negative except [...] Neg 07/09 0.01 <0.2 38 12/09 0.01 <0.2 122 04/11 <0.005 <0.2 286 07/10 0.009 <0.2 18 01/10 0.012 <0.2 96 08/13 0.006 <0.2 5.9 03/20 0.13 <0.2 05/24 0.27 0.1 <1.0 02/23 0.38 <0.1 <1.0 175->200 ->25 daily 08/24 <0.008 <0.1 <1.8 02/24 <0.007 150 2.5/2.5 05/28 0.7 Carpenter 90 09/25 10 <0.1 Carpenter 90 Impression/Plan: This is a 57 y.o. [...] Gladys Youngblood MD documented in this encounter [facility] 09-08-2022 Instructions Jessica Luna RN - 09/08/2022 10:40 AM EDT You may receive a survey regarding your care today at [facility]. We would appreciate if you could [...] office when you receive a notification from [facility] that your labs are processed. Some labs having longer processing times and we will call you once all of the results are back. We appreciate your patience. Thank you. [facility] Progress note Note Date/Time August 13, 2022 10:15am [facility] [address] [place] [address] Cardiology Progress Note Signed Patient: Swapna Guido MR#: [id number] : 1965 Acct:[id number] Age/Sex: 57 / F Adm Date: 3 Loc: Room: [address] [place] [address] Type: REG SDC Attending Dr: Maria Luisa [...] % (Auto) 51.9 Lymph % (Auto) 37.5 Teller % (Auto) 6.7 Eos % (Auto) 2.6 Baso % (Auto) 1.3 Nucleat RBC Rel Count 0.2 Neut # (Auto) 3.9 Lymph # (Auto) 2.8 Teller # (Auto) 0.5 Eos # (Auto) 0.2 [...] Color Urine Appearance Urine pH Ur Specific Tryon Urine Protein Urine Glucose (UA) Urine Ketones Urine Occult Blood Urine Nitrite Urine Bilirubin Urine Urobilinogen Ur Leukocyte Esterase 08/12/22 08/12/22 08/12/22 16:12 19:35 23:54 Corrected WBC Uncorrected WBC Count RBC Hgb Hct MCV MCH MCHC RDW Plt Count MPV Neut % (Auto) Lymph % (Auto) Teller % (Auto) Eos % (Auto) Baso % (Auto) Nucleat RBC Rel Count Neut # (Auto) Lymph # (Auto) Teller # (Auto) Eos # (Auto) Baso # (Auto) PHA Creatinine Clear Sodium Potassium Chloride Carbon Dioxide Anion Gap BUN Creatinine Est GFR (CKD-EPI) Glucose POC Glucose Lactic Acid 2.0 H* 3.0 H* Calcium Magnesium Total Bilirubin AST ALT Alkaline Phosphatase Total Protein Albumin Globulin Albumin/Globulin Ratio Total Cortisol Urine Color Yellow Urine Appearance Clear Urine pH 6.0 Ur Specific Tryon 1.016 Urine Protein Negative Urine Glucose (UA) [...] by MD Maria Luisa Sarkar> 08/13/22 1015 [facility] Work Phone: 1(782) 394-905005-11-2023 Progress note Author Maria Luisa Sarkar [facility] August 13, 2022 9:00am Note Date/Time August 12, 2022 6:30p m [facility] [address] [place] [address] Cardiology Progress Note Signed Patient: Swapna Guido MR#: [id number] : 1965 Acct:[id number] Age/Sex: 57 / F Adm Date: 3 Loc: Room: [address] [place] [address] Type: REG SDC Attending Dr: Maria Luisa [...] % (Auto) 51.9 Lymph % (Auto) 37.5 Teller % (Auto) 6.7 Eos % (Auto) 2.6 Baso % (Auto) 1.3 Nucleat RBC Rel Count 0.2 Neut # (Auto) 3.9 Lymph # (Auto) 2.8 Teller # (Auto) 0.5 Eos # (Auto) 0.2 [...] MPV Neut % (Auto) Lymph % (Auto) Teller % (Auto) Eos % (Auto) Baso % (Auto) Nucleat RBC Rel Count Neut # (Auto) Lymph # (Auto) Teller # (Auto) Eos # (Auto) Baso # [...] by MD Maria Luisa Sarkar> 08/13/22 0900 [facility] Work Phone: [phone]) 750-656505-11-2023 Hospital Discharge instructions Additional Instructions Hold Olmesartan-hydrochlorothiazide for another 24 hours and then restart. DISCHARGE INSTRUCTIONS FOR CARDIAC FOREST FIRE EQUIPMENT OPERATOR PHONE NUMBER OF YOUR PHYSICIAN: [phone] PROCEDURE: Heart Cath The following instructions have [...] cold, numb, blue or white, call the factory machine computer operator immediately. 4. ACTIVITY: You are advised to [...] bottle, follow the instructions on the bottle. [facility] is not responsible for incorrect prescription information provided by the patient during their visit. Do not stop your medications without consulting your health care provider. Please take the list with you to your next doctor's appointment.[facility] Work Phone: 1(520) 511-797505-10-2023 Progress note Author Stephen Bae [facility] August 12, 2022 6:31pm Note Date/Time August 12, 2022 6:30p m [facility] [address] [place] [address] Event Note Signed with Adddenise Patient: Swapna Guido MR#: [id number] : 1965 Acct:[id number] Age/Sex: 57 / F Adm Date: 3 Loc: 4P Room: [address] [place] [address] Type: REG [facility] Attending Dr: Maria Luisa Sarkar MD Copies to: MD Maria Liusa Sawyer MD Rugen M Alda, MD~ ADDENDUM1 [...] alert and oriented x2-3. Discussed with patient's factory machine computer operator Dr. Sarkar, and patient was given 50 mg of hydrocortisone IV. Patient will be admitted to the cardiology service for further monitoring overnight. Urinalysis ordered forfurther evaluation. Documented By: Stephen Bae MD 3 1822 Signed By: <Electronically signed by Stephen Bae MD> 08/12/22 1830 [facility] Work Phone: [phone]) 238-418105-10-2023 [facility] NoteOPERATIVE NOTE OPERATION DATE: 11/18/2021 PRIMARY CARE [...] to the nasal septum. A left sided [place] incision was made and a mucoperiosteal and [...] were then irrigated with normal saline. The Amando incision was closed with a 5-0 chromic suture and bilateral ventilating Silastic splints were coated with antibiotics and sutured in place with a 2-0 nylon transseptal stitch. The patient was then awakened and taken to the recovery room in good condition.[id number] Instructions* Patient Instructions* Swapna Stewart PA-C - 09/02/2021 3:00 PM EDT You may receive a survey regarding your care today at [facility]. We would appreciate if you could [...] office when you receive a notification from [facility] that your labs are processed. Some labs having longer processing times and we will call you once all of the results are back. We appreciate your patience. Thank you. Labs today [facility] History of Present illness Narrative* Swapna Stewart PA-C - 09/02/2021 2:00 PM EDT Swapna Guido is a 56 y.o. female with thyroid cancer who presents to the Endocrine clinic for secondopinion regarding management. She is s/p total thyroidectomy at [facility] in 2004. Pathology is not available at time of visit, but per referring doctor Dr Burger notes, she had lobular thyroid cancer with 1 positive lymph node. She is s/p ALVARADO with 78mCi of 131I in 2004 at [facility]. 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 FHX- [...] are mobile symmetrically. [facility] Diagnosis Thyroid cancer- Primary Malignant neoplasm of thyroid gland Postsurgical hypothyroidism Vitamin D deficiency Unspecified vitamin D deficiency [facility] assessment information available [facility] Work Phone: Evaluation note* Diagnosis Onset Date Resolution Status Chest pain acute [facility] Work Phone: Evaluation note* Diagnosis Thyroid cancer- Primary Malignant neoplasm of thyroid gland [facility] Diagnosis 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- Primary Syncope and collapse [facility] Diagnosis 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 [facility] Diagnosis 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- Primary Essential hypertension Unspecified essential hypertension Mixed hyperlipidemia Dyspnea, unspecified type- Primary 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 [facility] Dyspnea, unspecified type- Primary 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 [facility] Diagnosis Chronic heart failure with preserved ejection fraction- Primary Asthma, unspecified asthma severity, unspecified whether complicated, unspecified whether persistent 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 [facility] Diagnosis Allergic rhinitis, unspecified seasonality, unspecified trigger- Primary Nasal congestion Other diseases of nasal cavity and sinuses Shortness of breath [facility] Diagnosis Chronic cough Cough [facility] Diagnosis uncontrolled moderate persistent asthma Unspecified asthma, with status asthmaticus Dyspnea on exertion Other dyspnea and respiratory abnormality Chronic cough Cough Excessive daytime sleepiness Non-seasonal allergic rhinitis, unspecified trigger Chronic cough Cough [facility] Diagnosis Thyroid cancer- Primary Malignant neoplasm of thyroid gland Postsurgical hypothyroidism [facility]* Patient is [...] patient at length she understood and agreed -[facility]Foster Schaefer DO Work Phone: History of Present illness [...] see her in 6 to 7 months [facility] [address] DO Work Phone: Hospital Discharge instructions* Attachments The following attachments cannot be sent through Care Everywhere. * Cardiac Cath Care After - Wrist Site ([facility] ([place]) [facility] Consultation (Routine) - New Request Specialty Diagnoses / Procedures Referred By Bib reece Referred To Contact Allergy & Immunology Diagnoses Asthma, unspecified asthma severity, unspecified whether complicated, unspecified whether persistent Dwayne Clark MD [address] [place] [address] Referral ID Status Reason Start Date Expiration Date V isits Requested Visits Authorized [id number] New Request 07/01/2023 07/25/2024 1 1 * Consultation (Routine) - New Request Specialty Diagnoses / Procedures Referred By Bib reece Referred To Contact Pulmonary Disease Diagnoses Asthma, unspecified asthma severity, unspecified whether complicated, unspecified whether persistent Dwayne Clark MD [address] [facility] [address] [place] [address] Referral ID Status Reason Start Date Expiration Date V isits Requested Visits Authorized [id number] New Request 07/01/2023 07/25/2024 1 1 [facility] Consultation (Routine) - New Request Specialty Diagnoses / Procedures Referred By Contac t Referred To Contact Diagnoses Excessive daytime sleepiness Emy Garcia MD [address] [place] [address] Referral ID Status Reason Start Date Expiration Date V isits Requested Visits Authorized [id number] New Request 08/05/2023 08/29/2024 1 1 * Diagnostic X-Ray (Routine) - New Request Specialty Diagnoses / Procedures Referred By Contac t Referred To Contact Diagnoses Chronic cough Procedures XR CHEST PA AND LATERAL 2 VIEWS Margie Bull MD [address] [place] [address] [address] [place] [address] Referral ID Status Reason Start Date Expiration Date V isits Requested Visits Authorized [id number] New Request 08/05/2023 08/29/2024 1 1 * Pulmonary Rehabilitation (Routine) - New Request Specialty Diagnoses / Procedures Referred By Contac t Referred To Contact Diagnoses Dyspnea on exertion Moderate persistent asthma with status asthmaticus Procedures EXERCISE-6 MIN. WALK Emy Garcia MD [address] [place] [address] Referral ID Status Reason Start Date Expiration Date V isits Requested Visits Authorized [id number] New Request 08/05/2023 08/29/2024 1 1 * Pulmonary Rehabilitation (Routine) - New Request Specialty Diagnoses / Procedures Referred By Contac t Referred To Contact Diagnoses Dyspnea on exertion Moderate persistent asthma with status asthmaticus Procedures PFT STANDARD Emy Garcia MD [address] [facility] [address] [place] [address] Referral ID Status Reason Start Date Expiration Date V isits Requested Visits Authorized [id number] New Request 08/05/2023 08/29/2024 1 1 [facility] Summary Purpose Family History No Family [...] Referred By Bib t Referred To Contact Diagnoses Thyroid cancer Procedures US [facility]ING [facility] Gladys Youngblood MD [address] [facility] [address] [place] [address] Referral ID Status Reason Start Date Expiration Date V isits Requested Visits Authorized [id number] New Request 09/02/2021 09/27/2022 1 1 Specialty Diagnoses / Procedures Referred By Contac t Referred To Contact Diagnoses 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 Procedures CASE REQUEST - CARDIAC CATH Marcello Galeana MD [address] [facility] [address] [place] [address] Referral ID Status Reason Start Date Expiration Date V isits Requested Visits Authorized [id number] New Request 10/15/2022 11/09/2023 1 1 Specialty Diagnoses / Procedures Referred By Contac t Referred To Contact Procedures ECG AttRozina eden MD [address] [facility] [address] [place] [address] Referral ID Status Reason Start Date Expiration Date V isits Requested Visits Authorized [id number] New Request 11/06/2022 12/01/2023 1 1 Specialty Diagnoses / Procedures Referred By Contac t Referred To Contact Diagnoses 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 Procedures MOBILE CARDIAC TELEMETRY Elvi Ward DO [address] [address] Referral ID Status Reason Start Date Expiration Date V isits Requested Visits Authorized [id number] New Request 12/31/2022 01/25/2024 1 1 Specialty Diagnoses / Procedures Referred By Angelineac t Referred To Contact Echocardiography Diagnoses 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 Procedures ECHOCARDIOGRAM MI ECHO HEART XTHORACIC,COMPLETE W DOPPLER Elvi Ward DO [address] [place] [address] Echocardiography [facility] [address] [place] [address] Referral ID Status Reason Start Date Expiration Date Visits Re quested Visits Authorized [id number] Closed 12/31/2022 01/25/2024 1 1 Specialty Diagnoses / Procedures Referred By Bib reece Referred To Contact Diagnoses Chronic cough Procedures XR CHEST PA AND LATERAL 2 VIEWS Margie Bull MD [address] [place] [address] Referral ID Status Reason Start Date Expiration Date V isits Requested Visits Authorized [id number] New Request 08/05/2023 08/29/2024 1 1 Chief Complaint and Reason for [...] section and content) DATE CREATED AUTHOR 01/19/2019 [facility] DATE CREATED AUTHOR AUTHOR'S ORGANIZ ATION 06/27/2022 [facility] DATE CREATED AUTHOR AUTHOR'S ORGANIZ ATION 07/30/2022 [facility] DATE CREATED AUTHOR AUTHOR'S ORGANIZ ATION 08/19/2022 [facility] DATE CREATED AUTHOR AUTHOR'S ORGANIZ ATION 09/13/2022 [facility] DATE CREATED AUTHOR AUTHOR'S ORGANIZ ATION 09/14/2023 [facility] EPIC DATE CREATED AUTHOR AUTHOR'S ORGANIZ ATION 09/29/2023 [facility] Reason for Visit (unrecogniz ed section and content) Reason Comments New Patient New patient thyroid cancer in 2004 with total thyroidectomy. Pt reports muscle aches and frequent fatigue/exhaustion for at least four months if not longer- reports she wanted a second opinion. Specialty Diagnoses / Procedures Referred By Contac t Referred To Contact Endocrinology, Diabetes & Metabolism Procedures NEW PATIENT Gladys Youngblood MD [address] [address] Referral ID Status Reason Start Date Expiration Date V isits Requested Visits Authorized [id number] New Request 09/02/2021 09/27/2022 1 1 Reason Comments Follow-up No concerns. Had TX in May Reason Comments New Patient Would like to discus s the reason for coding at hospital.Has blockage on Lt lower part of heart Specialty Diagnoses / Procedures Referred By Contayni t Referred To Contact Cardiovascular Medicine Diagnoses Abnormal cardiovascular stress test Lamin Benavides MD [address] [place] [address] 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 [address] [place] [address] [facility] [address] [place] [address] Referral ID Status Reason Start Date Expiration Date Visits Re quested Visits Authorized [id number] 1 1 Reason Comments Follow-up Patient here for a f ollow up. Patient c/o shortness of breath on exertion and occasional chest pain and episodes of dizziness. 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 Pt s tates she is still dealing with dizziness, sweats, and shortness of breath. Pt states anything physical she does she has to take a break because she is SOB and sweating. Reason Comments New Patient Pt reports of dizzin ess and shortness of breath Specialty Diagnoses / Procedures Referred By Bib reece Referred To Contact Allergy & Immunology Diagnoses Asthma, unspecified asthma severity, unspecified whether complicated, unspecified whether persistent Dwayne Clark MD [address] [place] [address] Referral ID Status Reason Start Date Expiration Date V isits Requested Visits Authorized [id number] New Request 07/01/2023 07/25/2024 1 1 Specialty Diagnoses / Procedures Referred By Bib reece Referred To Contact Diagnoses Chronic cough Procedures XR CHEST PA AND LATERAL 2 VIEWS Margie Bull MD [address] [place] [address] Referral ID Status Reason Start Date Expiration Date V isits Requested Visits Authorized [id number] New Request 08/05/2023 08/29/2024 1 1 Reason Comments New Patient SOB and hx of asthma Specialty Diagnoses / Procedures Referred By Bib reece Referred To Contact Pulmonary Disease Diagnoses Asthma, unspecified asthma severity, unspecified whether complicated, unspecified whether persistent Dwayne Clark MD [address] [place] [address] Referral ID Status Reason Start Date Expiration Date V isits Requested Visits Authorized [id number] New Request 07/01/2023 07/25/2024 1 1 Reason Comments Follow-up Yearly follow up -St ates on exertion, she will get really sweaty, get tight shoulders and will need to lie down for a bit-states this has been occurring since she had her heart attack last yearYesterday was a busy day for her and she did not have an episode- states that she has been on some new medication since her heart attack and they seem to be working Care Teams (unrecognized sec tion and content) Head Kiln Operator Relationship Specialty Start Date End Date Lamin Benavides MD [address] [place] [address] PCP - General Family Medicine 07/25/21 Team [...] Maria Luisa Sarkar MD Referring Provider Active Head Kiln Operator Relationship Specialty Start Date End Date Lamin Benavides MD [address] [place] [address] PCP - General Family Medicine 07/25/21 Head Kiln Operator Relationship Specialty Start Date End Date Lamin Benavides MD [address] [place] [address] PCP - General Family Medicine 07/25/21 Head Kiln Operator Relationship Specialty Start Date End Date Lamin Benavides MD [address] [place] [address] PCP - General Family Medicine 07/25/21 Head Kiln Operator Relationship Specialty Start Date End Date Lamin Benavides MD [address] [place] [address] PCP - General Family Medicine 07/25/21 Head Kiln Operator Relationship Specialty Start Date End Date Lamin Benaivdes MD [address] [place] [address] PCP - General Family Medicine 07/25/21 Head Kiln Operator Relationship Specialty Start Date End Date Lamin Benavides MD [address] [place] [address] PCP - General Family Medicine 07/25/21 Head Kiln Operator Relationship Specialty Start Date End Date Lamin Benavides MD [address] [place] [address] PCP - General Family Medicine 07/25/21 Head Kiln Operator Relationship Specialty Start Date End Date Lamin Benavides MD [address] [place] [address] PCP - General Family Medicine 07/25/21 Head Kiln Operator Relationship Specialty Start Date End Date Lamin Benavides MD [address] [place] [address] PCP - General Family Medicine 07/25/21 Goals [...] swallow., Pre-op/Pre-Proc 1026 (Given - Provid er: Adreanna Snehal, RN) Continuous Medication Order 11/04/2022 11/05/2022 11/06/2022 [...] Intra-op/Intra-Proc 1127 (Given - Provid er: Sary Snigh MD - Comment: right radial) midazolam (VERSED) [...] BE BASED ON THE PRIMARY CLINICAL RECORDS. [facility]. provides no warranty or guarantee of the accuracy or completeness of information in this document.
[2023-10-11 11:01] LABS: Thyroid Stimulating Hormone 0.267 uIU/mL (0.358-3.740)
== END 2023-10-11 09:33 | disposition home or self-care (01) ==
LOC: LAB 09:33
PROVIDERS: PCP Family Medicine
DX: E89.0 Postprocedural hypothyroidism (principal)
CPT/HCPCS: 36415; 84443

== ENCOUNTER 2024-02-29 09:04 | Outpatient (OUT) | payer OTHER, SELFPAY ==
--- NOTE | 2024-02-29 09:08 | MM_ITS ---
Patient Name: JOHN GUIDO MR#: [id number] : 1965 Exam Date: 02/29/2024 Ordering Doctor: DR. SHIRA METZGER D.O. RADIOLOGY REPORT PROCEDURE: MM TOMOSYNTHESIS SCREENING BI COMPARISON: MM TOMOSYNTHESIS SCREENING BI, 02/23/2023. MG MAMM SCREEN 3D NICOLE CAD, 02/12/2022. MG MAMM SCREEN 3D NICOLE CAD, 11/19/2020. MG MAMM NICOLE SCRN W CAD DIG, 07/28/2013. INDICATIONS: Screening Calculator Name NCI Breast Cancer Risk Assessment Tool 5 Year Breast Cancer Risk 2.20% Lifetime Breast Cancer Risk 13.60% Personal Breast Cancer No Personal Ovarian Cancer No Treatments Thyroidectomy, Radioactive iodine Family Cancers Mother with breast cancer at age 50; Grandmother-maternal with breast cancer at age 57. LOCATION: [facility] BREAST COMPOSITION: The breasts are heterogeneously dense,which may obscure small masses. FINDINGS: DIAGNOSTIC CATEGORY 1--NEGATIVE. RIGHT BREAST: No significant suspicious finding. No significant change has occurred. LEFT BREAST: No significant suspicious finding. No significant change has occurred. RECOMMENDATIONS: ROUTINE MAMMOGRAM AND CLINICAL EVALUATION IN 12 MONTHS. PLEASE NOTE: A NORMAL MAMMOGRAM DOES NOT EXCLUDE THE POSSIBILITY OF BREAST CANCER. A CLINICALLY SUSPICIOUS PALPABLE LUMP SHOULD BE BIOPSIED. Dictated by: Rudy Esteban M.D. on 02/29/2024 at 15:26 Approved by: Rudy Esteban M.D. on 02/29/2024 at 15:27
== END 2024-02-29 09:05 | disposition home or self-care (01) ==
LOC: MAMMO 09:04
PROVIDERS: PCP Family Medicine; Visit Provider Obstetrics & Gynecology
DX: Z12.31 Encounter for screening mammogram for malignant neoplasm of breast (principal); Z80.3 Family history of malignant neoplasm of breast
CPT/HCPCS: 77063; 77067

== ENCOUNTER 2024-05-15 14:00 | Outpatient (OUT) | payer OTHER, SELFPAY ==
--- NOTE | 2024-05-15 | XR_ITS ---
The [address] [address] Patient Name: JOHN GUIDO MRN: [id number] date: 1965 Sex: F Assigned Patient Location: Current Patient Location: Accession/Order Number: [id number] Exam Date: 05/15/2024 14:02 Report Date: 05/16/2024 10:04 At the request of: EVANGELINA JOHNSON Procedure: XR hand LT min 3V PROCEDURE: XR hand LT min 3V COMPARISON: None. HISTORY: LEFT HAND PAIN FINDINGS: BONES:No acute fracture or dislocation. Moderate degenerative changes first carpometacarpal joint with joint space narrowing and marginal osteophyte formation SOFT TISSUES:Negative. No visible soft tissue swelling. EFFUSION:None visible. OTHER: Negative. XR/XR hand LT min 3V IMPRESSION: Moderate osteoarthritis first carpometacarpal joint. Electronically authenticated by: SONIA HA Date: 05/16/2024 10:04
== END 2024-05-15 14:01 | disposition home or self-care (01) ==
LOC: EC 14:01
PROVIDERS: PCP Family Medicine; Visit Provider Student in an Organized Health Care Education/Training Program
DX: M79.642 Pain in left hand (principal); M19.042 Primary osteoarthritis, left hand
CPT/HCPCS: 73130